=== PATIENT | male | born 1950 | race Caucasian/White ===

== ENCOUNTER → 2022-01-25 | Outpatient (CLI) | payer MEDICARE | END | disposition home or self-care (01) | LOC: LABWHC1 11:21 | PROVIDERS: ATTEND Radiology Radiation Oncology | DX: C61 Malignant neoplasm of prostate (principal) | CPT/HCPCS: 36415; 84153 ==

== ENCOUNTER → 2022-02-21 | Outpatient (CLI) | payer MEDICARE ==
[2022-02-21 14:36] LABS: Basophils # (A) 0.07 X 10*3/uL (0.00-0.10); Basophils % (A) 0.8 %; Eosinophils # (A) 0.63 X 10*3/uL (0.04-0.35); Eosinophils % (A) 7.5 %; HCT 47.6 % (39.6-50.0); HGB 15.4 g/dL (13.0-17.0); Immature Grans, Automated 0.7 %; Lymphocytes # (A) 2.16 X 10*3/uL (0.90-5.00); Lymphocytes % (A) 25.8 %; MCH 30.6 pg (27.0-32.0); MCHC 32.4 g/dL (32.0-37.0); MCV 94.6 fL (80.0-97.0); Mean Platelet Volume 9.8 fL (9.5-12.2); Monocytes # (A) 0.78 X 10*3/uL (0.20-1.00); Monocytes % (A) 9.3 %; NRBC Per 100 WBC 0 /100 WBCS (0.0-0.0); Neutrophils # (A) 4.67 X 10*3/uL (1.80-7.70); Neutrophils % (A) 55.9 %; Platelet Count 215 X 10*3/uL (140-440); RBC 5.03 X 10*6/uL (4.40-5.60); RDW 13.8 % (11.5-14.5); WBC 8.37 X 10*3/uL (4.50-10.00)
[2022-02-21 14:50] LABS: African American GFR (CKD) 90.8 (60.0-200.0); BUN/Creat Ratio 13.5 Ratio (12.00-20.00); Calcium 9.5 mg/dL (8.7-10.3); Carbon Dioxide 26.2 mmol/L (20.0-27.5); Non-African American GFR(CKD) 78.4 (60.0-200.0); Potassium 4.5 mmol/L (3.5-5.5)
== END | disposition home or self-care (01) ==
LOC: LABPAT 09:01
PROVIDERS: ATTEND Urology
DX: Z01.812 Encounter for preprocedural laboratory examination (principal); C61 Malignant neoplasm of prostate; E03.9 Hypothyroidism, unspecified
CPT/HCPCS: 80048; 84443; 85025

== ENCOUNTER 2022-03-01 12:19 | Day surgery (SDC) | payer MEDICARE ==
[2022-02-25 10:18] VITALS: BMI 41.3
--- NOTE | 2022-02-28 06:58 | P.GSHP ---
History of Present Illness H&P Date: 02/28/22 The patient is a 72-year-old white male with recently diagnosed prostate cancer. His PSA level is 7.00. BARBER reveals a left apical nodule, and 4 of 6 left-sided biopsies showed Lucero 6/7 adenocarcinoma. The right-sided biopsies were negative. He has elected to be treated with IMRT. He now comes for SpaceOAR implant to reduce the risk of radiation induced rectal toxicity. - Genitourinary (Male) Genitourinary: Reports nocturia, Denies urinary retention Past Medical History Past Medical History: Cancer, Hearing Disorder / Deafness, Hyperlipidemia, Thyroid Disorder Additional Past Medical History / Comment(s): Current prostate cancer. Bilateral hearing aid use. History of Any Multi-Drug Resistant Organisms: None Reported Past Surgical History: Tonsillectomy Past Anesthesia/Blood Transfusion Reactions: No Reported Reaction Past Psychological History: No Psychological Hx Reported Smoking Status: Never smoker Past Alcohol Use History: None Reported Past Drug Use History: None Reported - Past Family History Mother Additional Family Medical History / Comment(s): of blood clot to heart or lung. Medications and Allergies Home Medications Medication Instructions Recorded Confirmed Type Aspirin [Adult Low Dose Aspirin EC] 81 mg PO DAILY 02/25/22 02/25/22 History Atorvastatin Calcium 20 mg PO DAILY 02/25/22 02/25/22 History Levothyroxine Sodium [Synthroid] 50 mcg PO DAILY 02/25/22 02/25/22 History Allergies Allergy/AdvReac Type Severity Reaction Status Date / Time No Known Allergies Allergy Verified 02/25/22 10:04 Surgical - Exam - General well developed, well nourished, no distress - Neck no masses, trachea midline - Respiratory normal respiratory effort - Abdomen Abdomen: soft, non tender, no guarding, no rigid, no rebound - Genitourinary normal penis with no external lesions, testicles non-tender - Rectum Rectum: normal sphincter tone, no masses, other (Prostate mildly enlarged with left apical nodule) - Psychiatric oriented to time, oriented to person, oriented to place, speech is normal, memory intact Assessment and Plan (1) Malignant neoplasm of prostate Status: Acute Code(s): C61 - MALIGNANT NEOPLASM OF PROSTATE SNOMED Code(s): 777349107 Plan: The SpaceOar implant has been reviewed in detail with the patient. He understands that the rationale for this is to create separation between the prostate and rectum, thus reducing the risk of radiation proctitis. The material begins to breakdown 12-13 weeks following implant, and is reabsorbed by the body. Risks include anesthesia, bleeding, infection, and perineal discomfort. He understands that if the rectal wall is perforated the procedure will need to be aborted.
[~2022-03-01 12:19] MED LIST: DEXAMETHASONE SOD PHOSPHATE 4 MG/ML 1 ML VIAL IV ONE; HYDROmorphone 0.5 MG/0.5 ML SYRINGE IVP PRN; LACTATED RINGERS 1,000 ML IV SCH; LIDOCAINE 1% (10MG/ML) FOR IV START INTRADERMA PRN; ONDANSETRON 4 MG/2 ML VIAL IVP ONE
[2022-03-01 12:48] VITALS: TEMP 97.3
[2022-03-01] MEDS ORDERED: MIDAZOLAM 2 MG/2 ML VIAL ONE (13:50)
[2022-03-01] MEDS ORDERED: PROPOFOL 10 MG/ML 20 ML VIAL IV ONE (13:50)
[2022-03-01] MEDS ORDERED: KETAMINE 10 MG/ML 20 ML VIAL ONE (13:50)
[2022-03-01] MEDS ORDERED: fentaNYL (PF) 50 MCG/ML 2 ML AMP ONE (13:50)
[2022-03-01] MEDS ORDERED: LIDOCAINE 2% (PF) 20 MG/ML 10 ML AMP SQ ONE (14:05)
[2022-03-01] MEDS ORDERED: SODIUM CHLORIDE 0.9% 100 ML with ceFAZolin 2,000 MG IV ONE ×2 (14:05)
--- NOTE | 2022-03-01 14:19 | P.OP ---
Date of Procedure: 03/01/22 Preoperative Diagnosis: Adenocarcinoma the prostate Postoperative Diagnosis: Same Procedure(s) Performed: SpaceOAR Implant Anesthesia: MAC Surgeon: Benjamin Mcdonnell Estimated Blood Loss (ml): 5 IV fluids (ml): 300 Pathology: none sent Condition: stable Disposition: PACU Indications for Procedure: The patient is a 72-year-old white male with recently diagnosed prostate cancer. His PSA level is 7.00. BARBER reveals a left apical nodule, and 4 of 6 left-sided biopsies showed [place] 6/7 adenocarcinoma. The right-sided biopsies were negative. He has elected to be treated with IMRT. He now comes for SpaceOAR implant to reduce the risk of radiation induced rectal toxicity. Operative Findings: 10.7 mm separation created between prostate and rectum. Description of Procedure: The patient was taken to the operating room and placed in the dorsolithotomy position, with his legs supported in Cuong stirrups. The external genitalia was prepped and draped sterilely. The Bruel and Kjaer transrectal ultrasound probe was placed intrarectally. The prostate was imaged. The probe was then placed within the stabilizing stand. A spinal needle was advanced under ultrasonic guidance to the level of the urogenital diaphragm, and lidocaine was used to infiltrate the tissues as the needle was withdrawn. Next, the SpaceOAR needle was passed through the midline of the perineum, 1-2 cm anterior to the anal opening. The needle was slowly advanced under ultrasonic guidance until the needle tip was located within the fat plane between the prostate and rectum, at the level of the mid prostate gland. The needle was confirmed to be midline on the axial imaging. A small amount of normal saline was injected for hydrodissection. Next, the SpaceOAR components were mixed and loaded into the Y connector per protocol. The Y connector was then connected to the needle, and the components were injected slowly over a course of approximately 12 seconds. A total of 10 ml was injected. Significant distance was created between the prostate and rectum, as desired. It should be noted that at no point was there any concern of rectal perforation. The needle was withdrawn, as well as the transrectal ultrasound probe, and the procedure was terminated. The patient tolerated the procedure well and was taken to the recovery room in stable condition.
[2022-03-01 15:02] VITALS: RESP 20
[2022-03-01 15:46] VITALS: BP 127/70; PULSE 59
== END 2022-03-01 15:44 | disposition home or self-care (01) ==
LOC: OR 12:19
PROVIDERS: ATTEND Urology
DX: C61 Malignant neoplasm of prostate (principal); E78.5 Hyperlipidemia, unspecified; E07.9 Disorder of thyroid, unspecified
CPT/HCPCS: 55876; C1889; J2250; J1100; J2001; J2405; J0690; J3010; J2704

== ENCOUNTER 2022-09-20 10:35 | Day surgery (SDC) | payer MEDICARE ==
[~2022-09-20 10:35] MED LIST changes: -DEXAMETHASONE SOD PHOSPHATE 4 MG/ML 1 ML VIAL IV ONE; -HYDROmorphone 0.5 MG/0.5 ML SYRINGE IVP PRN; -ONDANSETRON 4 MG/2 ML VIAL IVP ONE
[2022-09-20] MEDS ORDERED: PROPOFOL 10 MG/ML 20 ML VIAL IV ONE (11:14)
[2022-09-20 11:15] VITALS: TEMP 97.7
--- NOTE | 2022-09-20 11:18 | P.GSHP ---
History of Present Illness H&P Date: 09/20/22 Chief Complaint: Abnormal stool studies 72-year-old male here for colonoscopy. Had recent abnormal cologuard test. Patient with history of prostate radiation for cancer. No bowel complaints. He does not see any rectal bleeding. No family history of colon cancer. He has never had a colonoscopy. Past Medical History Past Medical History: Asthma, Cancer, GERD/Reflux, Hearing Disorder / Deafness, Hyperlipidemia, Thyroid Disorder Additional Past Medical History / Comment(s): Inconclusive cologuard results, prostate cancer diagnosed 2021 with radiation, bilateral hearing aides History of Any Multi-Drug Resistant Organisms: None Reported Past Surgical History: Prostate Surgery, Tonsillectomy Additional Past Surgical History / Comment(s): Prostate biopsy and spacer placed for cancer Past Anesthesia/Blood Transfusion Reactions: No Reported Reaction Additional Past Anesthesia/Blood Transfusion Reaction / Comment(s): Pt has never received blood. Smoking Status: Never smoker - Past Family History Father Family Medical History: Congestive Heart Failure (CHF) Mother Family Medical History: CVA/TIA, Deep Vein Thrombosis (DVT) Medications and Allergies Home Medications Medication Instructions Recorded Confirmed Type Aspirin [Adult Low Dose Aspirin EC] 81 mg PO HS 02/25/22 09/20/22 History Atorvastatin Calcium 20 mg PO HS 02/25/22 09/20/22 History Levothyroxine Sodium [Synthroid] 50 mcg PO QAM 02/25/22 09/20/22 History Allergies Allergy/AdvReac Type Severity Reaction Status Date / Time No Known Allergies Allergy Verified 09/20/22 10:52 Surgical - Exam Vital Signs Temp Pulse Resp BP Pulse Ox 97.7 F 61 12 121/64 94 L 09/20/22 10:51 09/20/22 10:51 09/20/22 10:51 09/20/22 10:51 09/20/22 10:51 Physical exam: General: Well-developed, well-nourished HEENT: Normocephalic, sclerae nonicteric Abdomen: Nontender, nondistended Extremities: No edema Neuro: Alert and oriented Assessment and Plan (1) Abnormal stool test Narrative/Plan: Will proceed with colonoscopy at this time Current Visit: Yes Status: Acute Code(s): R19.5 - OTHER FECAL ABNORMALITIES SNOMED Code(s): 467608073
--- NOTE | 2022-09-20 11:35 | P.PCN ---
Date of Procedure: 09/20/22 Procedure(s) Performed: PREOPERATIVE DIAGNOSIS: Abnormal stool test POSTOPERATIVE DIAGNOSIS: Colon polyps, diverticulosis PROCEDURE: Colonoscopy with snare polypectomy ANESTHESIA: MAC SURGEON: Gui Raza M.D. SPECIMENS: Polyps ENDOSCOPIC PROCEDURE: The patient was placed on the endoscopy table in the left decubitus position. The Olympus colonoscope was inserted into the anus and passed under direct visualization to the base of the cecum. The appendiceal orifice was visualized. From that point the scope was slowly withdrawn inspecting all surfaces carefully. There were no neoplastic inflammatory or polypoid lesions throughout the cecum. In the ascending colon a small polyp was seen and removed using the snare with cautery technique. In the transverse colon 3 polyps were seen and removed in a similar fashion. The descending colon appeared normal. In the sigmoid colon at 38 cm a pedunculated polyp that appeared slightly hemorrhagic was removed using the snare with cautery technique. The remainder of the sigmoid was normal. In the rectum a small polyp was seen and removed using the snare with cautery technique. The patient had scattered diverticulosis as well. There was no evidence of proctitis. Digital rectal examination was normal. The patient was taken to the recovery room in stable condition per anesthesia guidelines. RECOMMENDATIONS: Await biopsy results. Recommend repeat colonoscopy 3 years pending pathology results.
[2022-09-20 11:52] VITALS: BP 108/68; PULSE 54; RESP 18
== END 2022-09-20 12:12 | disposition home or self-care (01) ==
LOC: ORWHC2ENDO 10:35
PROVIDERS: ATTEND Surgery
DX: D12.3 Benign neoplasm of transverse colon (principal); D12.5 Benign neoplasm of sigmoid colon; D12.8 Benign neoplasm of rectum; K57.30 Diverticulosis of large intestine without perforation or abscess without bleeding; J45.909 Unspecified asthma, uncomplicated; E03.9 Hypothyroidism, unspecified; E78.5 Hyperlipidemia, unspecified; K21.9 Gastro-esophageal reflux disease without esophagitis; H91.93 Unspecified hearing loss, bilateral; Z85.46 Personal history of malignant neoplasm of prostate; Z92.3 Personal history of irradiation; Z79.82 Long term (current) use of aspirin; Z79.890 Hormone replacement therapy
CPT/HCPCS: 88305; 45385; J2704

== ENCOUNTER → 2023-03-22 | Outpatient (CLI) | payer MEDICARE | END | disposition home or self-care (01) | LOC: LABWHC1 11:07 | PROVIDERS: ATTEND Radiology Radiation Oncology | DX: Z00.00 Encounter for general adult medical examination without abnormal findings (principal); C61 Malignant neoplasm of prostate; R35.1 Nocturia | CPT/HCPCS: 36415; 84153 ==

== ENCOUNTER → 2023-09-23 | Outpatient (CLI) | payer MEDICARE ==
[2023-09-23 13:12] LABS: Basophils # (A) 0.06 X 10*3/uL (0.00-0.10); Basophils % (A) 0.9 %; Eosinophils # (A) 0.28 X 10*3/uL (0.04-0.35); Eosinophils % (A) 4.2 %; HCT 48.1 % (39.6-50.0); HGB 15.8 g/dL (13.0-17.0); Lymphocytes # (A) 1.64 X 10*3/uL (0.90-5.00); Lymphocytes % (A) 24.9 %; MCH 30.7 pg (27.0-32.0); MCHC 32.8 g/dL (32.0-37.0); MCV 93.6 FL (80.0-97.0); Mean Platelet Volume 9.5 FL (9.5-12.2); Monocytes # (A) 0.67 X 10*3/uL (0.20-1.00); Monocytes % (A) 10.2 %; NRBC Per 100 WBC 0 X 10*3/uL (0.00-0.01); Neutrophils # (A) 3.89 X 10*3/uL (1.80-7.70); Platelet Count 205 X 10*3/uL (140-440); RBC 5.14 X 10*6/uL (4.40-5.60); RDW 14.1 % (11.5-14.5); WBC 6.59 X 10*3/uL (4.50-10.00)
[2023-09-23 13:48] LABS: Blood Urea Nitrogen 17.1 mg/dL (9.0-27.0); Carbon Dioxide 23.8 mmol/L (21.6-31.8); Chloride 106 mmol/L (96-109); Potassium 4.5 mmol/L (3.5-5.5); Prostate Specific Antigen 0.29 ng/mL (0.000-6.500); Sodium 139 mmol/L (135-145)
== END | disposition home or self-care (01) ==
LOC: LABPAT 07:43
PROVIDERS: ATTEND Internal Medicine Interventional Cardiology
DX: Z01.812 Encounter for preprocedural laboratory examination (principal); C61 Malignant neoplasm of prostate; R94.39 Abnormal result of other cardiovascular function study; R06.02 Shortness of breath; R35.1 Nocturia
CPT/HCPCS: 80051; 82565; 84153; 84520; 85025

== ENCOUNTER 2023-10-03 06:15 | Day surgery (SDC) | payer MEDICARE ==
[2023-10-03] MEDS ORDERED: ASPIRIN 325 MG TAB PO STA (06:42)
[2023-10-03] MEDS ORDERED: ALPRAZolam 0.5 MG TAB PO PRN (06:42)
[2023-10-03] MEDS ORDERED: NITROGLYCERIN SL TABS 0.4 MG TAB SUBLINGUAL PRN (06:42)
[2023-10-03] MEDS ORDERED: HEPARIN SODIUM,PORCINE (1 ML) 2,500 UNIT in SODIUM CHLORIDE 0.9% 250 ML IRRIGATION PRN (06:42)
[2023-10-03] MEDS ORDERED: SODIUM CHLORIDE 0.9% 1,000 ML in EMPTY BAG 1 BAG IV SCH (06:42)
[2023-10-03] MEDS ORDERED: ALPRAZolam 0.25 MG TAB PO PRN (06:42)
[2023-10-03] MEDS ORDERED: HEPARIN SODIUM,PORCINE 10,000 UNIT in SODIUM CHLORIDE 0.9% 1,000 ML IRRIGATION PRN (06:42)
[2023-10-03] MEDS: SODIUM CHLORIDE 0.9% 1,000 ML IV ONE (07:07)
[2023-10-03] MEDS ORDERED: VERAPAMIL 2.5 MG/ML 2 ML AMP ONE (07:14)
[2023-10-03] MEDS ORDERED: fentaNYL (PF) 50 MCG/ML 2 ML AMP ONE (07:14)
[2023-10-03] MEDS ORDERED: HEPARIN SODIUM,PORCINE 30 ML 30 ML ONE (07:14)
[2023-10-03] MEDS ORDERED: LIDOCAINE 1% INJ 10MG/ML (20 ML MDV) ONE (07:14)
[2023-10-03 07:50] VITALS: RESP 16; TEMP 97.7
[2023-10-03] MEDS: fentaNYL (PF) 50 MCG/1 ML VIAL IVP ONE (08:06)
[2023-10-03] MEDS: LIDOCAINE 2% (PF) 20 MG/ML 5 ML VIAL SQ ONE (08:06)
[2023-10-03] MEDS: VERAPAMIL 2.5 MG/ML 4 ML VIAL INTRAARTER ONE (08:06)
[2023-10-03] MEDS: HEPARIN SODIUM 1,000 UN/ML (10ML VL) IVP ONE (08:13)
[2023-10-03] MEDS: IOPAMIDOL-370 100ML BTL INTRATHECA ONE (08:26)
[2023-10-03] MEDS ORDERED: RX INFO: IV CONTRAST WAS GIVEN 1 EACH MISC MISCELLANE PRN (08:35)
--- NOTE | 2023-10-03 08:39 | P.CARDCATH ---
Date of Procedure: 10/03/23 Description of Procedure: Cardiac Catheterization: The patient is a 73-year-old male with a known history of hyperlipidemia who has been complaining of progressive dyspnea on exertion and had an abnormal MPI. Recommendations were made regarding cardiac catheterization, the risks and the complications were discussed with the patient who is in full understanding and agreement. Procedure Description: Patient was brought to label cutter in fasting semi-sedated state after receiving Fentanyl and Benadryl achieiving moderate conscious sedated state. Using Xylocaine Anesthesia and modified Seldinger technique, a 6-[place] sheath was introduced in the right radial artery . Subsequently, selective coronary angiography was performed using a 5-[place] 3.5 bend Magdiel catheter. Multiple views of the coronary artery including hemiaxial views were obtained. The 5 [place] pigtail catheter was used to cross the aortic valve and LVEDP was calculated. Following that, catheter and sheath were removed. Hemostasis was obtained with deployment of vascular band . There was no immediate complication. Patient was returned to room in stable condition. Of note, the patient received a total of 5000 units of intravenous heparin as well as intra-arterial verapamil. Findings: Left main: This is a short size vessel, bifurcating into LAD and left circumflex, left main has no obstructive disease LAD: This is a large size vessel, reaching to the apex, giving rise to a large diagonal branch, the LAD and its branches have no evidence of obstructive disease Left circumflex: This is a large codominant vessel giving rise to a very proximal obtuse marginal branch, the second obtuse marginal branch is in the midsegment. Distally bifurcating into PDA and PLV. The left circumflex and its branches have no evidence of obstructive disease. RCA: This is a codominant vessel, large in caliber, tortuous, giving rise to a r ight PDA distally, the right coronary artery and its branches have no obstructive disease Left Ventriculogram: Not performed Hemodynamics: There was a 12 to 14 mm peak to peak gradient across the aortic valve, LVEDP was 15-18 mmHg Conclusion: 1. No evidence of obstructive coronary disease 2. Codominant system 3. Mild aortic stenosis Recommendations: I have recommended to continue medical therapy with the aggressive coronary risks modification this been initiated. The findings and the recommendations were discussed with the patient and the family and they were in full understanding and agreement. Duration of sedation is 19 minutes.
[2023-10-03] MEDS ORDERED: SODIUM CHLORIDE 0.9% 1,000 ML IV SCH (08:45)
[2023-10-03 19:48] VITALS: BP 119/77; PULSE 66
[2023-10-03] MEDS ORDERED: ASPIRIN 81 MG PO SCH (21:00)
[2023-10-03] MEDS ORDERED: ATORVASTATIN 20 MG TAB PO SCH (21:00)
[2023-10-04] MEDS ORDERED: LEVOTHYROXINE 50 MCG TAB PO SCH (06:30)
== END 2023-10-03 12:37 | disposition home or self-care (01) ==
LOC: CATHCVL 06:15
PROVIDERS: ATTEND Internal Medicine Interventional Cardiology
DX: I35.0 Nonrheumatic aortic (valve) stenosis (principal); E78.5 Hyperlipidemia, unspecified; Z79.82 Long term (current) use of aspirin; Z79.899 Other long term (current) drug therapy; Z86.16 Personal history of COVID-19
CPT/HCPCS: 93458; 93799; 76937; 99152; C1769 ×2; C1894; J1644; Q9967; J2001; J3010

== ENCOUNTER → 2024-04-23 | Outpatient (CLI) | payer MEDICARE | END | disposition home or self-care (01) | LOC: LABWHC1 11:30 | PROVIDERS: ATTEND Radiology Radiation Oncology | DX: C61 Malignant neoplasm of prostate (principal); R35.1 Nocturia | CPT/HCPCS: 36415; 84153 ==

== ENCOUNTER 2024-05-02 08:09 | Inpatient (IN) | payer MEDICARE ==
--- NOTE | 2024-05-02 08:26 | ED ---
General Adult HPI - General Chief complaint: Shortness of Breath Stated complaint: SOB Time Seen by Provider: 05/02/24 08:12 Source: patient, RN notes reviewed Mode of arrival: wheelchair Limitations: no limitations - History of Present Illness Initial comments: Patient is a 74-year-old male presenting to the emergency department with concerns with difficulty breathing. Onset of symptoms was close to 2 months ago, worse the past 10 days. Patient does have nonproductive cough. No fever. Patient has exertional dyspnea and orthopnea. Patient has had some mild leg swelling since yesterday. Patient does have history of asthma and his doctor did start him on Augmentin 2 days ago. No calf pain. - Related Data Home Medications Medication Instructions Recorded Confirmed Aspirin [Adult Low Dose Aspirin EC] 81 mg PO HS 02/25/22 05/02/24 Atorvastatin Calcium 20 mg PO HS 02/25/22 05/02/24 Levothyroxine Sodium [Synthroid] 50 mcg PO DAILY 02/25/22 05/02/24 Albuterol Inhaler [Ventolin Hfa 2 puff INHALATION RT-Q4H PRN 05/02/24 05/02/24 Inhaler] Amoxic-Pot Clav 875-125Mg 1 tab PO Q12HR 05/02/24 05/02/24 [Augmentin 875-125] Allergies Allergy/AdvReac Type Severity Reaction Status Date / Time No Known Allergies Allergy Verified 05/02/24 08:15 Review of Systems ROS Statement: Those systems with pertinent positive or pertinent negative responses have been documented in the HPI. ROS Other: All systems not noted in ROS Statement are negative. Constitutional: Denies: fever Eyes: Denies: eye pain ENT: Denies: ear pain Respiratory: Reports: as per HPI, cough, dyspnea Cardiovascular: Reports: dyspnea on exertion, orthopnea, edema. Denies: chest pain Endocrine: Reports: fatigue Gastrointestinal: Denies: abdominal pain Musculoskeletal: Denies: back pain Past Medical History Past Medical History: Asthma, Cancer, GERD/Reflux, Hearing Disorder / Deafness, Hyperlipidemia, Thyroid Disorder Additional Past Medical History / Comment(s): Inconclusive cologuard results, prostate cancer diagnosed 2021 with radiation, bilateral hearing aides History of Any Multi-Drug Resistant Organisms: None Reported Past Surgical History: Prostate Surgery, Tonsillectomy Additional Past Surgical History / Comment(s): Prostate biopsy and spacer placed for cancer Past Anesthesia/Blood Transfusion Reactions: No Reported Reaction Additional Past Anesthesia/Blood Transfusion Reaction / Comment(s): Pt has never received blood. Past Psychological History: No Psychological Hx Reported Smoking Status: Never smoker Past Alcohol Use History: None Reported Past Drug Use History: None Reported - Past Family History Father Family Medical History: Congestive Heart Failure (CHF) Mother Family Medical History: CVA/TIA, Deep Vein Thrombosis (DVT) General Exam Limitations: no limitations General appearance: alert, in no apparent distress Head exam: Present: normocephalic Eye exam: Present: normal appearance Neck exam: Present: normal inspection Respiratory exam: Present: normal lung sounds bilaterally Cardiovascular Exam: Present: regular rate, normal rhythm GI/Abdominal exam: Present: soft. Absent: tenderness Extremities exam: Present: pedal edema (+1 bilateral). Absent: calf tenderness Neurological exam: Present: alert Psychiatric exam: Present: normal affect, normal mood Skin exam: Present: normal color Course Vital Signs 05/02/24 05/02/24 05/02/24 08:12 09:00 09:38 Temperature 98.1 F Pulse Rate 101 H 101 H 98 Respiratory 20 20 Rate Blood Pressure 116/67 O2 Sat by Pulse 85 L 90 L Oximetry 05/02/24 05/02/24 09:47 10:14 Temperature Pulse Rate 104 H 104 H Respiratory 19 Rate Blood Pressure 114/74 O2 Sat by Pulse 91 L Oximetry EKG Findings - EKG Results: EKG: interpreted by ERMD (Right bundle branch block. LVH criteria. T wave in version lead III.), sinus rhythm, normal axis Medical Decision Making - Medical Decision Making Was pt. sent in by a medical professional or institution (, PA, [employer], urgent care, hospital, or fci...) When possible be specific @ -No Did you speak to anyone other than the patient for history (EMS, parent, family, police, friend...)? What history was obtained from this source @ - is present and helps provide additional history including onset of symptoms Did you review nursing and triage notes (agree or disagree)? Why? @ -I reviewed and agree with nursing and triage notes Were old charts reviewed (outside hosp., previous admission, EMS record, old EKG, old radiological studies, urgent care reports/EKG's, fci records)? Report findings @ -Old outside chest x-ray without similar findings Differential Diagnosis (chest pain, altered mental status, abdominal pain women, abdominal pain men, vaginal bleeding, weakness, fever, dyspnea, syncope, headache, dizziness, GI bleed, back pain, seizure, CVA, palpatations, mental health, musculoskeletal)? @ -Differential Dyspnea: Coronary syndrome, arrhythmia, tamponade, asthma, COPD, pulmonary embolism, pneumonia, pneumothorax, pulmonary effusion, anaphylaxis, diabetic ketoacidosis, flailed chest, pulmonary contusion, diaphragmatic rupture, anemia, neuromuscular, this is not meant to be an all-inclusive list. EKG interpreted by me (3pts min.). @ -As above X-rays interpreted by me (1pt min.). @ -Chest x-ray shows diffuse fluffy infiltrate CT interpreted by me (1pt min.). @ -CT scan shows diffuse infiltrates, likely atypical pneumonia, cannot rule out pulmonary edema. No large central pulmonary embolism. U/S interpreted by me (1pt. min.). @ -None done What testing was considered but not performed or refused? (CT, X-rays, U/S, labs)? Why? @ -None What meds were considered but not given or refused? Why? @ -None Did you discuss the management of the patient with other professionals (professionals i.e. , PA, [employer], lab, RT, psych nurse, social media director, costume rental clerk, teacher, navy senior officer, correctional case records supervisor)? Give summary @ -Dr. Metcalf who will consult. Brendan physician paged. Case discussed with Dr. Bernal who will consult. Was smoking cessation discussed for >3mins.? @ -No Was critical care preformed (if so, how long)? @ -32 minutes critical care time Were there social determinants of health that impacted care today? How? (Homelessness, low income, unemployed, alcoholism, drug addiction, transportation, low edu. Level, literacy, decrease access to med. care, fdc, rehab)? @ -No Was there de-escalation of care discussed even if they declined (Discuss DNR or withdrawal of care, Hospice)? DNR status @ -No What co-morbidities impacted this encounter? (DM, HTN, Smoking, COPD, CAD, Cancer, CVA, ARF, Chemo, Hep., AIDS, mental health diagnosis, sleep apnea, morbid obesity)? @ -History of asthma. History of severe COVID-19 infection several years ago Was patient admitted / discharged? Hospital course, mention meds given and route, prescriptions, significant lab abnormalities, going to OR and other pertinent info. @ -Patient presents with dyspnea and hypoxia. X-ray and CAT scan concerning most likely for atypical pneumonia infection. Patient will be admitted with pulmonary and cardiac consult. Echo ordered. Admission orders placed. Undiagnosed new problem with uncertain prognosis? @ -No Drug Therapy requiring intensive monitoring for toxicity (Heparin, Nitro, Insulin, Cardizem)? @ -No Were any procedures done? @ -No Diagnosis/symptom? @ -Dyspnea, atypical pneumonia, hypoxia Acute, or Chronic, or Acute on Chronic? @ -Acute, acute, acute Uncomplicated (without systemic symptoms) or Complicated (systemic symptoms)? @ -Complicated with hypoxia requiring oxygen Side effects of treatment? @ -No Exacerbation, Progression, or Severe Exacerbation? @ -No Poses a threat to life or bodily function? How? (Chest pain, [place], [place], pneumonia, PE, COPD, DKA, ARF, appy, cholecystitis, CVA, Diverticulitis, Homicidal, Suicidal, threat to staff... and all critical care pts) @ -Threat to pulmonary function - Lab Data Result diagrams: 05/02/24 08:24 05/02/24 08:24 Lab Results 05/02/24 05/02/24 05/02/24 Range/Units 08:24 08:24 08:24 WBC 11.1 H (3.8-10.6) k/uL RBC 4.94 (4.30-5.90) m/uL Hgb 15.3 (13.0-17.5) gm/dL Hct 46.4 (39.0-53.0) % MCV 94.1 (80.0-100.0) fL MCH 31.1 (25.0-35.0) pg MCHC 33.0 (31.0-37.0) g/dL RDW 13.7 (11.5-15.5) % Plt Count 215 (150-450) k/uL MPV 7.2 Neutrophils % 82 % Lymphocytes % 9 % Monocytes % 5 % Eosinophils % 3 % Basophils % 0 % Neutrophils # 9.1 H (1.3-7.7) k/uL Lymphocytes # 1.0 (1.0-4.8) k/uL Monocytes # 0.5 (0-1.0) k/uL Eosinophils # 0.3 (0-0.7) k/uL Basophils # 0.1 (0-0.2) k/uL PT 11.5 (10.0-12.5) sec INR 1.1 (<1.2) APTT 22.6 (22.0-30.0) sec D-Dimer 4.25 H (<0.60) mg/L FEU Sodium 137 (137-145) mmol/L Potassium 4.7 (3.5-5.1) mmol/L Chloride 104 (98-107) mmol/L Carbon Dioxide 26 (22-30) mmol/L Anion Gap 7 mmol/L BUN 17 (9-20) mg/dL Creatinine 0.95 (0.66-1.25) mg/dL Est GFR (CKD-EPI)AfAm >90 (>60 ml/min/1.73 sqM) Est GFR (CKD-EPI)NonAf 79 (>60 ml/min/1.73 sqM) Glucose 110 H (74-99) mg/dL Plasma Lactic Acid Fausto (0.7-2.0) mmol/L Calcium 9.2 (8.4-10.2) mg/dL Magnesium 2.1 (1.6-2.3) mg/dL Total Bilirubin 1.2 (0.2-1.3) mg/dL AST 34 (17-59) U/L ALT 11 (4-49) U/L Alkaline Phosphatase 118 (38-126) U/L Troponin I (0.000-0.034) ng/mL NT-Pro-B Natriuret Pep 121 pg/mL Total Protein 6.7 (6.3-8.2) g/dL Albumin 3.6 (3.5-5.0) g/dL Influenza Type A (PCR) (Not Detectd) Influenza Type B (PCR) (Not Detectd) RSV (PCR) (Not Detectd) SARS-CoV-2 (PCR) (Not Detectd) 05/02/24 05/02/24 05/02/24 Range/Units 08:24 08:24 08:24 WBC (3.8-10.6) k/uL RBC (4.30-5.90) m/uL Hgb (13.0-17.5) gm/dL Hct (39.0-53.0) % MCV (80.0-100.0) fL MCH (25.0-35.0) pg MCHC (31.0-37.0) g/dL RDW (11.5-15.5) % Plt Count (150-450) k/uL MPV Neutrophils % % Lymphocytes % % Monocytes % % Eosinophils % % Basophils % % Neutrophils # (1.3-7.7) k/uL Lymphocytes # (1.0-4.8) k/uL Monocytes # (0-1.0) k/uL Eosinophils # (0-0.7) k/uL Basophils # (0-0.2) k/uL PT (10.0-12.5) sec INR (<1.2) APTT (22.0-30.0) sec D-Dimer (<0.60) mg/L FEU Sodium (137-145) mmol/L Potassium (3.5-5.1) mmol/L Chloride (98-107) mmol/L Carbon Dioxide (22-30) mmol/L Anion Gap mmol/L BUN (9-20) mg/dL Creatinine (0.66-1.25) mg/dL Est GFR (CKD-EPI)AfAm (>60 ml/min/1.73 sqM) Est GFR (CKD-EPI)NonAf (>60 ml/min/1.73 sqM) Glucose (74-99) mg/dL Plasma Lactic Acid Fausto 2.1 H* (0.7-2.0) mmol/L Calcium (8.4-10.2) mg/dL Magnesium (1.6-2.3) mg/dL Total Bilirubin (0.2-1.3) mg/dL AST (17-59) U/L ALT (4-49) U/L Alkaline Phosphatase (38-126) U/L Troponin I 0.100 H* (0.000-0.034) ng/mL NT-Pro-B Natriuret Pep pg/mL Total Protein (6.3-8.2) g/dL Albumin (3.5-5.0) g/dL Influenza Type A (PCR) Not Detected (Not Detectd) Influenza Type B (PCR) Not Detected (Not Detectd) RSV (PCR) Not Detected (Not Detectd) SARS-CoV-2 (PCR) Not Detected (Not Detectd) Critical Care Time Critical Care Time: Yes Disposition Clinical Impression: Atypical pneumonia Disposition: ADMITTED IP TO THIS [facility] Condition: Serious Is patient prescribed a controlled substance at d/c from ED?: No Referrals: Joann Llanes MD [Primary Care Provider] - 1-2 days Time of Disposition: 10:31
[2024-05-02 08:48] LABS: Basophils # (A) 0.1 k/uL (0-0.2); Basophils % (A) 0 %; Eosinophils # (A) 0.3 k/uL (0-0.7); Eosinophils % (A) 3 %; HCT 46.4 % (39.0-53.0); HGB 15.3 gm/dL (13.0-17.5); Lymphocytes % (A) 9 %; MCH 31.1 pg (25.0-35.0); MCV 94.1 fL (80.0-100.0); Mean Platelet Volume 7.2; Monocytes # (A) 0.5 k/uL (0-1.0); Monocytes % (A) 5 %; Neutrophils # (A) 9.1 k/uL (1.3-7.7); Neutrophils % (A) 82 %; Platelet Count 215 k/uL (150-450); RBC 4.94 m/uL (4.30-5.90); RDW 13.7 % (11.5-15.5); WBC 11.1 k/uL (3.8-10.6)
[2024-05-02 09:02] LABS: INR 1.1 (<1.2); Partial Thromboplastin Time 22.6 sec (22.0-30.0); Prothrombin Time 11.5 sec (10.0-12.5)
[2024-05-02 09:09] LABS: ALT 11 U/L (4-49); AST 34 U/L (17-59); African American GFR (CKD) >90 (>60 ml/min/1.73 sqM); Albumin 3.6 g/dL (3.5-5.0); Alkaline Phosphatase 118 U/L (38-126); Anion Gap 7 mmol/L; Blood Urea Nitrogen 17 mg/dL (9-20); Calcium 9.2 mg/dL (8.4-10.2); Carbon Dioxide 26 mmol/L (22-30); Chloride 104 mmol/L (98-107); Glucose 110 mg/dL (74-99); Magnesium 2.1 mg/dL (1.6-2.3); Non-African American GFR(CKD) 79 (>60 ml/min/1.73 sqM); Potassium 4.7 mmol/L (3.5-5.1); Sodium 137 mmol/L (137-145); Total Bilirubin 1.2 mg/dL (0.2-1.3); Total Protein 6.7 g/dL (6.3-8.2)
--- NOTE | 2024-05-02 09:13 | XR ---
EXAMINATION TYPE: XR chest 2V DATE OF EXAM: 05/02/2024 8:58 AM COMPARISON: 07/18/2010 CLINICAL INDICATION: Male, 74 years old with shortness of breath, history of difficulty breathing, , TECHNIQUE: PA and lateral views FINDINGS: The heart is borderline in size. Bilateral patchy and confluent airspace opacities are noted. Lateral view shows no significant pleural effusion. IMPRESSION: Patchy and confluent bilateral airspace disease. Correlate for multifocal pneumonia or pulmonary melodie a. [facility], , 05/02/2024 9:10 AM
[2024-05-02 09:16] LABS: NT-Pro-B-Type Natriuretic Pept 121 pg/mL
[2024-05-02] MEDS: IPRATROPIUM-ALBUTEROL 3 ML NEB INHALATION STA (09:37)
--- NOTE | 2024-05-02 10:03 | CT ---
EXAMINATION TYPE: CT angio chest DATE OF EXAM: 05/02/2024 COMPARISON: Radiograph same day HISTORY: 74 year-old male shortness of breath, TRISTON and elevated d-dimer TECHNIQUE: Contiguous axial scanning of the chest after the administration of 100ml mL of Isovue 370. Coronal/sagittal MIP reconstructions performed. CT DLP: 814.7mGycm. Automatic exposure control utilized for a dose reduction. FINDINGS: The heart is borderline enlarged without pericardial effusion. No refluxing contrast into the hepatic veins. There is moderate aortic valve calcifications. Mild atherosclerotic arch calcifications with conventi onal arch vessel branching anatomy. Some scattered prominent mediastinal lymph nodes measuring up to 1.4 cm in the lower right paratrache al region and 1.9 cm subcarinal probably reactive/post inflammatory. Large caliber main right and left pulmonary arteries measuring up to 3.5 cm. Assessment for pulmonary embolus is very limited and nondiagnostic given suboptimal contrast bolus and diffuse patient breath ing through the band. No large central branch pulmonary embolus. Lobar, segmental, and more distal ar terial branches are very limited nondiagnostic. There is diffuse groundglass and confluent bilateral airspace opacity. Septal lines in the upper lung s. No pleural effusion seen. Visualized upper abdomen shows a 1.7 cm gallstone. The anterior splenule. Bones: Large superior endplate Schmorl's node T10. IMPRESSION: 1. No large central branch pulmonary embolus. Assessment for emboli within the lobar, segmental, and more distal arterial branches is very limited to nondiagnostic and emboli in these locations cannot b e excluded on the basis of this exam. 2. Diffuse bilateral groundglass and airspace disease. Correlate for possible etiologies including bu t not limited to multifocal pneumonia, atypical pneumonias, hypersensitivity pneumonitis, and pulmona ry edema. 3. Pulmonary arterial hypertension. However, no pleural effusion is seen. 4. A few mediastinal lymph nodes are noted measuring up to 1.9 cm probably reactive/post inflammatory . Reassess at 3-6 months to ensure involution. 5. Incidental 1.7 cm gallstone. [facility], , 05/02/2024 10:01 AM
[2024-05-02] MEDS ORDERED: IPRATROPIUM-ALBUTEROL 3 ML NEB INHALATION PRN (10:24)
[2024-05-02] MEDS ORDERED: PNEUMONIA PROTOCOL UTILIZED 1 EACH MISC PO PRN (10:24)
[2024-05-02] MEDS: ASPIRIN 325 MG TAB PO SCH (10:31)
[2024-05-02] MEDS: AZITHROMYCIN 500 MG in SODIUM CHLORIDE 0.9% 250 ML IVPB STA (11:06)
[2024-05-02] MEDS ORDERED: PROCHLORPERAZINE 5 MG TAB PO PRN (11:14)
[2024-05-02] MEDS: IPRATROPIUM-ALBUTEROL 3 ML NEB INHALATION SCH (11:58)
--- NOTE | 2024-05-02 11:59 | P.HPIM ---
History of Present Illness H&P Date: 05/02/24 Patient is a 74 years old male with past medical history of asthma, hyperlipidemia, prostate cancer status postradiation, GERD, hypothyroidism, who presented with gradually worsening shortness of breath. Patient has been having shortness of breath for the past 4 to 6 weeks that got to the point when he became short of breath with short distance ambulation prompting him to come to the ER for evaluation. Patient was diagnosed with asthma years ago and was only on albuterol inhaler, denies intubations, denies asthma exacerbations in the past several years, he shared that he had COVID infection in 2021 after that he would sometimes get shortness of breath with exertion. Patient admits having orthopnea, no PND, there is associated chest tightness that usually comes together with SOB, denies chest pain, denies bowel habit changes, difficulties with urinations, fevers, chills, sick contact. He notes his bilateral feet swelling 05/01, no diet changes, they do not add salt to their meals, patient has not been eating well over the past couple days. In the ER patient was hypoxic down to 85% on room air and was placed on 4 L nasal cannula with SpO2 improvement, his blood pressure was normotensive, heart rate elevated 90s low 100s. Lab work significant for very mild leukocytosis 11.1, normal hemoglobin and platelets. Chemistry profile showed initially elevated lactate at 2.1, normal electrolytes, normal creatinine and GFR. Troponin elevated 0.1 viral panel negative. EKG personally reviewed, sinus, QTc normal, RBBB pattern, no ST elevation Of note, patient had heart cath on 10/03/2023 that showed no evidence of obstructive CAD, did show mild aortic stenosis. Chest x-ray reviewed personally and showed bilateral patchy opacities. CTA chest showed no PE, did reveal bilateral groundglass opacities signs of pulmonary arterial hypertension, mediastinal lymphadenopathy up to 1.9, follow-up in 3 to 6 months suggested by radiology. 1.7 cm incidental gallstone. Cardiology and pulmonology consulted by ER, patient was started on ceftriaxone and azithromycin, admitted for further management. Pertinent positives and negatives as discussed in HPI, a complete review of systems was performed and all other systems are negative. Patient seen and examined at bedside in the ER, patient's at bedside as well. Vital signs reviewed General: nontoxic, no distress, appears at stated age. Obese Derm: warm, dry Head: atraumatic, normocephalic, symmetric Eyes: EOMI, no lid lag, anicteric sclera, pupils equal round reactive to light ENT: Nose and ears atraumatic Neck: No thyromegaly, supple Mouth: no lip lesion, mucus membranes moist Cardiovascular: S1S2 reg, no murmur, 1+ lower extremity edema Lungs: Bilateral lower lobes Rales Abdominal: soft, distended, nontender to palpation, no guarding, no appreciable organomegaly Ext: no gross muscle atrophy, muscle strength muscle strength 5 out of 5 in all 4 extremities, no contractures Neuro: CN II-XII grossly intact Psych: Alert, oriented, appropriate affect Assessment/Plan: Acute hypoxic respiratory failure secondary to bilateral multifocal atypical community-acquired pneumonia Elevated troponin Leukocytosis -Continue azithromycin and ceftriaxone SOT 05/02 -Continue inhalers -Cardiology and pulmonology consulted by ER -Trend troponin -TTE ordered -Follow-up atypical pneumonia workup -Strict I's and O's, daily weights -continue aspirin 81, statins [Chronic:] Hyperlipidemia: Continue statins Hypothyroidism: Continue levothyroxine Obesity Chronic intermittent asthma: Continue inhalers The patient is admitted with an anticipated [greater] than 2 midnight stay as [inpatient/observation] status for evaluation of []. CODE STATUS full code DVT prophylaxis: Lovenox Anticipated discharge date: [address]: anticipate home independent A total of 40 mutes was spent on the care of this complex patient more than 50% of the time was spent in counseling and care coordination. Past Medical History Past Medical History: Asthma, Cancer, GERD/Reflux, Hearing Disorder / Deafness, Hyperlipidemia, Thyroid Disorder Additional Past Medical History / Comment(s): Inconclusive cologuard results, prostate cancer diagnosed 2021 with radiation, bilateral hearing aides History of Any Multi-Drug Resistant Organisms: None Reported Past Surgical History: Prostate Surgery, Tonsillectomy Additional Past Surgical History / Comment(s): Prostate biopsy and spacer placed for cancer Past Anesthesia/Blood Transfusion Reactions: No Reported Reaction Additional Past Anesthesia/Blood Transfusion Reaction / Comment(s): Pt has never received blood. Past Psychological History: No Psychological Hx Reported Smoking Status: Never smoker Past Alcohol Use History: None Reported Past Drug Use History: None Reported - Past Family History Father Family Medical History: Congestive Heart Failure (CHF) Mother Family Medical History: CVA/TIA, Deep Vein Thrombosis (DVT) Medications and Allergies Home Medications Medication Instructions Recorded Confirmed Type Aspirin [Adult Low Dose Aspirin EC] 81 mg PO HS 02/25/22 05/02/24 History Atorvastatin Calcium 20 mg PO HS 02/25/22 05/02/24 History Levothyroxine Sodium [Synthroid] 50 mcg PO DAILY 02/25/22 05/02/24 History Albuterol Inhaler [Ventolin Hfa 2 puff INHALATION RT-Q4H PRN 05/02/24 05/02/24 History Inhaler] Amoxic-Pot Clav 875-125Mg 1 tab PO Q12HR 05/02/24 05/02/24 History [Augmentin 875-125] Allergies Allergy/AdvReac Type Severity Reaction Status Date / Time No Known Allergies Allergy Verified 05/02/24 08:15 Physical Exam Vitals: Vital Signs Temp Pulse Resp BP Pulse Ox 05/02/24 11:35 84 20 113/74 95 05/02/24 10:38 99 20 104/72 90 L 05/02/24 10:14 104 H 19 114/74 91 L 05/02/24 09:47 104 H 05/02/24 09:38 98 05/02/24 09:00 101 H 20 90 L 05/02/24 08:12 98.1 F 101 H 20 116/67 85 L Intake and Output 05/01/24 05/02/24 05/02/24 22:59 06:59 14:59 Other: Weight 122.47 kg Results CBC & Chem 7: 05/02/24 08:24 05/02/24 08:24 Labs: Abnormal Lab Results - Last 24 Hours (Table) 05/02/24 05/02/24 05/02/24 Range/Units 08:24 08:24 08:24 WBC 11.1 H (3.8-10.6) k/uL Neutrophils # 9.1 H (1.3-7.7) k/uL D-Dimer 4.25 H (<0.60) mg/L FEU Glucose 110 H (74-99) mg/dL Plasma Lactic Acid Fausto (0.7-2.0) mmol/L Troponin I (0.000-0.034) ng/mL 05/02/24 05/02/24 Range/Units 08:24 08:24 WBC (3.8-10.6) k/uL Neutrophils # (1.3-7.7) k/uL D-Dimer (<0.60) mg/L FEU Glucose (74-99) mg/dL Plasma Lactic Acid Fausto 2.1 H* (0.7-2.0) mmol/L Troponin I 0.100 H* (0.000-0.034) ng/mL
--- NOTE | 2024-05-02 13:01 | P.CNPUL ---
History of Present Illness Consult date: 05/02/24 Requesting physician: Fior Hernandez Reason for consult: dyspnea, hypoxemia, abnormal CXR/CT Chief complaint: Shortness of breath, progressive weakness History of present illness: This is a very pleasant 74-year-old male patient with a known history of hyperlipidemia, hypothyroidism, mild intermittent chronic bronchial asthma, lifelong non-smoker who had presented here to the emergency room early this morning with a 2-week history of increasing shortness of breath cough and congestion. He also was having profound weakness. He did have some blood- tinged sputum 2 days ago. Most recently yellow in color. Chest x-ray reveals patchy and confluent bilateral airspace disease. CT angiogram ruled out central pulmonary embolism. Diffuse bilateral groundglass and airspace disease. Possible multifocal pneumonia, atypical pneumonia, hypersensitive pneumonitis and pulmonary edema. There is pulmonary arterial hypertension. No pleural effusion. A few mediastinal lymph nodes noted most likely reactive. White count 11.1. Hemoglobin 15.3. Platelets 215. D-dimer 4.25. INR 1.1. Sodium 1 37. Potassium 4.7. Bicarb 26. BUN 17. Creatinine 0.95. Glucose 110. Troponin 0.100. proBNP 121. Viral screen is negative. The patient is seen today in consultation in the emergency department. He is currently sitting up on the stretcher. He is awake and alert in no acute distress. He is dyspneic with conversation. Dyspneic with minimal exertion. Maintaining O2 saturations in the low 90s on 4 L/min per nasal cannula. He denies any recent travels. Denies any sick contacts. He is currently afebrile. Hemodynamically stable. Review of Systems REVIEW OF SYSTEMS: CONSTITUTIONAL: Positive for generalized weakness. Denies any recent significant weight loss or weight gain. EYES: Denies change in vision. EARS, NOSE, MOUTH, THROAT: Denies headaches, denies sore throat. CARDIOVASCULAR: Denies chest pain, palpitations or syncopal episodes. RESPIRATORY: Positive for shortness of breath, cough, congestion and hemoptysis. GASTROINTESTINAL: Denies change in appetite, denies abdominal pain GENITOURINARY: Denies hematuria, denies infections. MUSKULOSKELETAL: Denies pain, denies swelling. INTEGUMENTARY: Denies rash, denies eczema. NEUROLOGICAL: Denies recent memory loss, no recent seizure activity. PSYCHIATRIC: Denies anxiety, denies depression. HEMATOLOGIC/LYMPHATIC: Denies anemia, denies enlarged lymph nodes. Past Medical History Past Medical History: Asthma, Cancer, GERD/Reflux, Hearing Disorder / Deafness, Hyperlipidemia, Thyroid Disorder Additional Past Medical History / Comment(s): Inconclusive cologuard results, prostate cancer diagnosed 2021 with radiation, bilateral hearing aides History of Any Multi-Drug Resistant Organisms: None Reported Past Surgical History: Prostate Surgery, Tonsillectomy Additional Past Surgical History / Comment(s): Prostate biopsy and spacer placed for cancer Past Anesthesia/Blood Transfusion Reactions: No Reported Reaction Additional Past Anesthesia/Blood Transfusion Reaction / Comment(s): Pt has never received blood. Past Psychological History: No Psychological Hx Reported Smoking Status: Never smoker Past Alcohol Use History: None Reported Past Drug Use History: None Reported - Past Family History Father Family Medical History: Congestive Heart Failure (CHF) Mother Family Medical History: CVA/TIA, Deep Vein Thrombosis (DVT) Medications and Allergies Home Medications Medication Instructions Recorded Confirmed Type Aspirin [Adult Low Dose Aspirin EC] 81 mg PO HS 02/25/22 05/02/24 History Atorvastatin Calcium 20 mg PO HS 02/25/22 05/02/24 History Levothyroxine Sodium [Synthroid] 50 mcg PO DAILY 02/25/22 05/02/24 History Albuterol Inhaler [Ventolin Hfa 2 puff INHALATION RT-Q4H PRN 05/02/24 05/02/24 History Inhaler] Amoxic-Pot Clav 875-125Mg 1 tab PO Q12HR 05/02/24 05/02/24 History [Augmentin 875-125] Allergies Allergy/AdvReac Type Severity Reaction Status Date / Time No Known Allergies Allergy Verified 05/02/24 08:15 Physical Exam Vitals: Vital Signs Temp Pulse Resp BP Pulse Ox 05/02/24 12:12 112 H 18 102/66 90 L 05/02/24 12:11 105 H 05/02/24 11:58 93 05/02/24 11:35 84 20 113/74 95 05/02/24 10:38 99 20 104/72 90 L 05/02/24 10:14 104 H 19 114/74 91 L 05/02/24 09:47 104 H 05/02/24 09:38 98 05/02/24 09:00 101 H 20 90 L 05/02/24 08:12 98.1 F 101 H 20 116/67 85 L Intake and Output 05/01/24 05/02/24 05/02/24 22:59 06:59 14:59 Other: Weight 122.47 kg GENERAL EXAM: Alert, obese 74-year-old male, sitting up in a stretcher, on 4 L nasal cannula, fairly comfortable in no apparent distress. HEAD: Normocephalic. EYES: Normal reaction of pupils, equal size. NOSE: Clear with pink turbinates. THROAT: No erythema or exudates. NECK: No masses, no JVD. CHEST: No chest wall deformity. LUNGS: Equal air entry with bilateral scattered rhonchi. CVS: S1 and S2 normal with no audible murmur, regular rhythm. ABDOMEN: No hepatosplenomegaly, normal bowel sounds, no guarding or rigidity. SPINE: No scoliosis or deformity SKIN: No rashes CENTRAL NERVOUS SYSTEM: No focal deficits, tone is normal in all 4 extremities. EXTREMITIES: There is no peripheral edema. No clubbing, no cyanosis. Peripheral pulses are intact. Results - Laboratory Findings CBC and BMP: 05/02/24 08:24 05/02/24 08:24 PT/INR, D-dimer PT 11.5 sec (10.0-12.5) 05/02/24 08:24 INR 1.1 (<1.2) 05/02/24 08:24 D-Dimer 4.25 mg/L FEU (<0.60) H 05/02/24 08:24 Abnormal lab findings: Abnormal Labs 05/02/24 05/02/24 05/02/24 08:24 08:24 08:24 WBC 11.1 H Neutrophils # 9.1 H D-Dimer 4.25 H Glucose 110 H Plasma Lactic Acid Fausto Troponin I 05/02/24 05/02/24 08:24 08:24 WBC Neutrophils # D-Dimer Glucose Plasma Lactic Acid Fausto 2.1 H* Troponin I 0.100 H* - Diagnostic Findings Chest x-ray: image reviewed CT scan - chest: image reviewed Assessment and Plan Assessment: Acute hypoxemic respiratory failure secondary to bilateral multifocal pneumonia suspect community-acquired, possible atypical. Viral screen negative. Procalcitonin pending Generalized weakness secondary to above Leukocytosis secondary to above Troponin leak Morbid obesity with a BMI of 48 kg/m Hyperlipidemia Hypothyroidism History of mild intermittent chronic bronchial asthma Lifelong non-smoker Plan: The patient was seen and evaluated Imaging, labs and medications reviewed Continue ceftriaxone and azithromycin Continue DuoNeb inhalations Add Solu-Medrol Check a procalcitonin Check Legionella antigen Check mycoplasma Titrate the FiO2 as tolerated We will continue to follow and make further recommendations based on his clinical status I have personally seen and examined the patient, performed the documentation and the assessment and plan as written. Number of minutes spent on the visit: 20 Dictation was produced using eduPad dictation software. Please excuse any grammatical, word or spelling errors.
[2024-05-02] MEDS: methylPREDNISolone SOD SUCCI 125 MG/2 ML VIAL IV SCH (13:36)
--- NOTE | 2024-05-02 16:49 | CA ---
Transthoracic Echo Report Name: Mark Bob Age: 74 Gender: M : 1950 Exam Date: 05/02/2024 15:27 Exam Location: [facility] Ht (in): 69 Wt (lb): 270 Ordering Physician: Scott Richards DO Attending/Referring Phys: Sales And Service Agent Loulou Trevizo RDCS Procedure CPT: Indications: TRISTON Cardiac Hx: Technical Quality: Fair Contrast 1: Total Dose (mL): Contrast 2: Total Dose (mL): MEASUREMENTS (Male / Female) Normal Values 2D ECHO LV Diastolic Diameter PLAX 6.0 cm 4.2 - 5.9 / 3.9 - 5.3 cm LV Systolic Diameter PLAX 3.6 cm IVS Diastolic Thickness 1.3 cm 0.6 - 1.0 / 0.6 - 0.9 cm LVPW Diastolic Thickness 1.2 cm 0.6 - 1.0 / 0.6 - 0.9 cm LV Relative Wall Thickness 0.4 LVOT Diameter 2.4 cm LA Volume 60.4 cm??? 18 - 58 / 22 - 52 cm??? LA Volume Index 24.2 cm???/m??? 16 - 28 cm???/m??? Ascending Aorta Diameter 3.5 cm M-MODE LV Diastolic Diameter MM 6.6 cm 4.2 - 5.9 / 3.9 - 5.3 cm LV Systolic Diameter MM 4.5 cm LV Cardiac Index MM Teich 5175.3 cm???/min???m??? IVS Diastolic Thickness MM 1.6 cm 0.6 - 1.0 / 0.6 - 0.9 cm LVPW Diastolic Thickness MM 1.6 cm 0.6 - 1.0 / 0.6 - 0.9 cm LV Relative Wall Thickness MM 0.5 0.24 - 0.42 / 0.22 - 0.42 LV Mass Index MM 225.9 g/m??? 49 - 115 / 43 - 95 g/m??? DOPPLER AV Peak Velocity 295.1 cm/s AV Peak Gradient 34.8 mmHg AV Mean Velocity 218.8 cm/s AV Mean Gradient 21.3 mmHg AV Velocity Time Integral 53.9 cm LVOT Peak Velocity 91.7 cm/s LVOT Peak Gradient 3.4 mmHg LVOT Velocity Time Integral 15.6 cm LVOT Stroke Volume 68.7 cm??? LVOT Stroke Volume Index 29.3 ml/m??? LVOT Cardiac Index 2753.3 cm???/min???m??? AV Area Cont Eq vti 1.3 cm??? AV Area Cont Eq pk 1.4 cm??? MV Area PHT 5.0 cm??? Mitral E Point Velocity 67.9 cm/s Mitral A Point Velocity 81.5 cm/s Mitral E to A Ratio 0.8 MV Deceleration Time 151.6 ms TR Peak Velocity 334.6 cm/s TR Peak Gradient 44.8 mmHg Right Atrial Pressure 5.0 mmHg Pulmonary Artery Systolic Pressu 49.8 mmHg Right Ventricular Systolic Press 49.8 mmHg PV Peak Velocity 93.5 cm/s PV Peak Gradient 3.5 mmHg FINDINGS Left Ventricle Left ventricular ejection fraction is estimated at 55-60 %. Severely increased left ventricular mass. Mildly increased septal wall thickness. Moderately increased posterior wall thickness. Mildly decreased midwall fractional shortening. Mildly increased left ventricular diastolic diameter. Moderately increased left ventricular relative wall thickness. Right Ventricle Right ventricular dilatation with reduced function. Moderate pulmonary hypertension. Right Atrium Right atrium not well visualized. Left Atrium Mildly increased left atrial volume. Mildly increased left atrial area. Mitral Valve Structurally normal mitral valve. No evidence for mitral valve prolapse. No mitral stenosis. Trace mitral regurgitation. Aortic Valve Trileaflet aortic valve. Diffuse thickening of the aortic valve cusps with reduced excursion. No aortic regurgitation. Moderate aortic stenosis. Tricuspid Valve Structurally normal tricuspid valve. No tricuspid stenosis. Moderate tricuspid regurgitation. Pulmonic Valve Structurally normal pulmonic valve. No pulmonic stenosis. Mild pulmonic regurgitation. Pericardium No pericardial effusion. Aorta Normal size aortic root and proximal ascending aorta. CONCLUSIONS Concentric left ventricular hypertrophy with normal LV systolic function Moderate pulmonary hypertension with dilated right ventricle Mild left atrial enlargement Moderate tricuspid regurgitation Previewed by: Dr. Scout Amador MD (Electronically Signed) Final Date: 02 May 2024 16:48
[2024-05-02] MEDS: ATORVASTATIN 20 MG TAB PO SCH (19:52)
[2024-05-02] MEDS: FUROSEMIDE 10 MG/ML 4 ML VIAL IV STA (19:52)
[2024-05-02 20:09] LABS: ABG HCO3 24 mmol/L (21-25); ABG Oxygen Saturation 96.4 % (94-97); ABG PCO2 38 mmHg (35-45); ABG PO2 83 mmHg (83-108); ABG TCO2 25 mmol/L (19-24); Allen Test Performed? Yes
[2024-05-02] MEDS: LORazepam 1 MG TAB PO PRN (21:37)
[2024-05-03] MEDS: LEVOTHYROXINE 50 MCG TAB PO SCH (06:32)
[2024-05-03 07:15] LABS: Basophils % (A) 0 %; Eosinophils % (A) 0 %; HCT 45.1 % (39.0-53.0); HGB 14.4 gm/dL (13.0-17.5); Lymphocytes # (A) 0.6 k/uL (1.0-4.8); Lymphocytes % (A) 4 %; MCH 30.4 pg (25.0-35.0); MCHC 31.9 g/dL (31.0-37.0); MCV 95.2 fL (80.0-100.0); Mean Platelet Volume 7.2; Monocytes # (A) 0.6 k/uL (0-1.0); Monocytes % (A) 4 %; Neutrophils # (A) 15.3 k/uL (1.3-7.7); Neutrophils % (A) 92 %; Platelet Count 221 k/uL (150-450); RBC 4.74 m/uL (4.30-5.90); RDW 13.2 % (11.5-15.5); WBC 16.7 k/uL (3.8-10.6)
[2024-05-03 07:31] LABS: ALT 11 U/L (4-49); AST 43 U/L (17-59); African American GFR (CKD) >90 (>60 ml/min/1.73 sqM); Albumin 3.3 g/dL (3.5-5.0); Alkaline Phosphatase 109 U/L (38-126); Anion Gap 6 mmol/L; Blood Urea Nitrogen 21 mg/dL (9-20); Calcium 9.3 mg/dL (8.4-10.2); Carbon Dioxide 26 mmol/L (22-30); Chloride 103 mmol/L (98-107); Glucose 154 mg/dL (74-99); Magnesium 2.4 mg/dL (1.6-2.3); Non-African American GFR(CKD) 83 (>60 ml/min/1.73 sqM); Potassium 4.5 mmol/L (3.5-5.1); Sodium 135 mmol/L (137-145); Total Bilirubin 0.9 mg/dL (0.2-1.3); Total Protein 6.4 g/dL (6.3-8.2)
--- NOTE | 2024-05-03 08:11 | XR ---
EXAMINATION TYPE: XR chest 1V portable DATE OF EXAM: 05/03/2024 6:32 AM COMPARISON: 05/02/2024 CLINICAL INDICATION: Male, 74 years old with history of pneumonia, , FINDINGS: Heart upper limits of normal in size. Low lung volumes. Bilateral patchy and linear airspace opacitie s persist possibly with slight worsening on the left. IMPRESSION: Bilateral patchy and confluent airspace disease persists possibly with slight worsening on the left. [facility], , 05/03/2024 8:09 AM
[2024-05-03] MEDS: FUROSEMIDE 10 MG/ML 4 ML VIAL IV SCH (08:17)
[2024-05-03] MEDS: ENOXAPARIN 40 MG/0.4 ML SYRINGE SQ SCH (08:18)
[2024-05-03] MEDS: AZITHROMYCIN 500 MG TAB PO SCH (08:18)
[2024-05-03 09:53] LABS: Glucose,Whole Blood 157 mg/dL (70-110)
--- NOTE | 2024-05-03 10:22 | P.CRDCN ---
History of Present Illness History of present illness: HISTORY OF PRESENT ILLNESS: This is a 74-year-old male with a past medical history significant for normal coronary arteries, aortic stenosis, hyperlipidemia and hypothyroidism patient follows in the office with Dr. Asher. We have been asked to see the patient in consultation for CHF. Patient examined this morning. Patient is currently sitting up in the chair. Patient is on BiPAP at the time of examination with 80% FiO2. Patient states that on he started to get short of breath and noticed he had lower extremity edema. The patient continues to report shortness of breath this morning. He denies any chest pain or pressure. Patient was found to have pneumonia and is being treated with antibiotics. DIAGNOSTICS: - EKG reveals sinus mechanism with right bundle branch block - Chest xray patchy and confluent bilateral airspace disease. Correlate for multifocal pneumonia or pulmonary edema. - Laboratory data: WBC 16.7. Hemoglobin 14.4. Platelet count 221. Sodium 135. Potassium 4.5. BUN 21. Creatinine 0.91. Troponin 0.100. 0.110. 0.100. 0.111. 0.092. - Current home cardiac medications include aspirin 81 mg daily and atorvastatin 20 mg at night - Echocardiogram obtained this admission reveals ejection fraction 55 to 60%, LVH, mild left atrial enlargement, and moderate tricuspid regurgitation, moderate aortic stenosis. - Cardiac catheterization history: September 2023 revealing normal coronary arteries REVIEW OF SYSTEMS: At the time of my exam: CONSTITUTIONAL: Denies fever or chills. HEENT: Denies blurred vision, vision changes, or eye pain. Denies hemoptysis CARDIOVASCULAR: Denies chest pain. Denies orthopnea. Denies PND. Denies palpitations RESPIRATORY: + shortness of breath. GASTROINTESTINAL: Denies abdominal pain. Denies nausea or vomiting. HEMATOLOGIC: Denies bleeding disorders. GENITOURINARY: Denies any blood in urine. SKIN: Denies pruitis. Denies rash. PHYSICAL EXAM: VITAL SIGNS: Reviewed. GENERAL: Well-developed in no acute distress. HEENT: Head is normocephalic. Pupils are equal, round. Sclerae anicteric. Mucous membranes of the mouth are moist. Neck supple. No JVD or thyromegaly LUNGS: Respirations even and unlabored. Lungs essentially clear to auscultation bilaterally. HEART: Regular rate and rhythm. S1 and S2 heard. Systolic murmur noted ABDOMEN: Soft. Nondistended. Nontender. EXTREMITIES: Normal range of motion. No clubbing or cyanosis. Peripheral pulses intact. 2+ bilateral lower extremity edema NEUROLOGIC: Awake and alert. Oriented x 3. ASSESSMENT: Bilateral pneumonia Acute hypoxic respiratory failure requiring BiPAP Acute heart failure with preserved EF Elevated troponins, flat, likely type II PR secondary to oxygen supply/demand mismatch LVH Moderate aortic stenosis Normal coronary arteries, per cath 09/2023 Hyperlipidemia Hypothyroidism PLAN: 2D echo obtained and reviewed Resume home cardiac medications Add metoprolol succinate 12.5 mg daily Continue IV Lasix 40 mg every 12 hours for today. Recommending to change Lasix dose to once daily starting tomorrow Daily weights, accurate intake and output, and monitoring of kidney function Patient is being transferred to intensive care unit for closer monitoring Further recommendations pending patient course Nurse practitioner note has been reviewed by physician. Signing provider agrees with the documented findings, assessment, and plan of care documented by DATA MINER as a scribe. Past Medical History Past Medical History: Asthma, Cancer, GERD/Reflux, Hearing Disorder / Deafness, Hyperlipidemia, Thyroid Disorder Additional Past Medical History / Comment(s): Inconclusive cologuard results, prostate cancer diagnosed 2021 with radiation, bilateral hearing aides History of Any Multi-Drug Resistant Organisms: None Reported Past Surgical History: Prostate Surgery, Tonsillectomy Additional Past Surgical History / Comment(s): Prostate biopsy and spacer placed for cancer Past Anesthesia/Blood Transfusion Reactions: No Reported Reaction Additional Past Anesthesia/Blood Transfusion Reaction / Comment(s): Pt has never received blood. Past Psychological History: No Psychological Hx Reported Additional Psychological History / Comment(s): Pt resides with his spouse. Smoking Status: Never smoker Past Alcohol Use History: None Reported Past Drug Use History: None Reported - Past Family History Father Family Medical History: Congestive Heart Failure (CHF) Mother Family Medical History: CVA/TIA, Deep Vein Thrombosis (DVT) Medications and Allergies Home Medications Medication Instructions Recorded Confirmed Type Aspirin [Adult Low Dose Aspirin EC] 81 mg PO HS 02/25/22 05/02/24 History Atorvastatin Calcium 20 mg PO HS 02/25/22 05/02/24 History Levothyroxine Sodium [Synthroid] 50 mcg PO DAILY 02/25/22 05/02/24 History Albuterol Inhaler [Ventolin Hfa 2 puff INHALATION RT-Q4H PRN 05/02/24 05/02/24 History Inhaler] Amoxic-Pot Clav 875-125Mg 1 tab PO Q12HR 05/02/24 05/02/24 History [Augmentin 875-125] Allergies Allergy/AdvReac Type Severity Reaction Status Date / Time No Known Allergies Allergy Verified 05/02/24 08:15 Physical Exam Vitals: Vital Signs Temp Pulse Pulse Pulse Pulse Resp BP 05/03/24 06:40 30 H 05/03/24 04:31 80 38 H 05/03/24 03:51 05/02/24 23:55 05/02/24 23:13 25 H 05/02/24 22:57 98.6 F 100 38 H 05/02/24 20:23 112 H 05/02/24 20:14 114 H 05/02/24 19:59 111 H 30 H 05/02/24 19:46 05/02/24 19:44 114 H 28 H 05/02/24 19:33 108 H 28 H 05/02/24 18:55 109 H 05/02/24 18:36 98.3 F 107 H 19 119/64 05/02/24 16:06 05/02/24 16:05 106 H 05/02/24 16:00 98 22 106/59 05/02/24 15:53 90 05/02/24 15:31 22 05/02/24 15:00 93 40 H 99/58 05/02/24 13:26 94 19 94/58 05/02/24 12:12 112 H 18 102/66 05/02/24 12:11 105 H 05/02/24 11:58 93 05/02/24 11:35 84 20 113/74 05/02/24 10:38 99 20 104/72 05/02/24 10:14 104 H 19 114/74 05/02/24 09:47 104 H 05/02/24 09:38 98 05/02/24 09:00 101 H 20 05/02/24 08:40 96 28 H 05/02/24 08:12 98.1 F 101 H 20 116/67 BP Pulse Ox FiO2 05/03/24 06:40 90 L 80 05/03/24 04:31 113/73 92 L 80 05/03/24 03:51 80 05/02/24 23:55 80 05/02/24 23:13 05/02/24 22:57 107/66 60 05/02/24 20:23 05/02/24 20:14 05/02/24 19:59 134/82 95 60 05/02/24 19:46 60 05/02/24 19:44 91 L 05/02/24 19:33 87 L 05/02/24 18:55 135/79 86 L 05/02/24 18:36 90 L 05/02/24 16:06 88 L 05/02/24 16:05 05/02/24 16:00 96 05/02/24 15:53 05/02/24 15:31 05/02/24 15:00 89 L 05/02/24 13:26 98 05/02/24 12:12 90 L 05/02/24 12:11 05/02/24 11:58 05/02/24 11:35 95 05/02/24 10:38 90 L 05/02/24 10:14 91 L 05/02/24 09:47 05/02/24 09:38 05/02/24 09:00 90 L 05/02/24 08:40 81 L 05/02/24 08:12 85 L Intake and Output 05/02/24 05/03/24 05/03/24 22:59 06:59 14:59 Intake Total 360 Output Total 975 475 Balance -615 -475 Intake: Oral 360 Output: Urine 975 475 Other: Weight 122.47 kg 120.7 kg Results 05/03/24 06:10 05/03/24 06:10 Cardiac Enzymes 05/02/24 05/02/24 05/02/24 Range/Units 08:24 08:24 12:04 AST 34 (17-59) U/L Troponin I 0.100 H* 0.110 H* (0.000-0.034) ng/mL 05/02/24 05/02/24 05/02/24 Range/Units 14:41 17:55 23:00 AST (17-59) U/L Troponin I 0.120 H* 0.111 H* 0.092 H* (0.000-0.034) ng/mL 05/03/24 Range/Units 06:10 AST 43 (17-59) U/L Troponin I (0.000-0.034) ng/mL Coagulation 05/02/24 Range/Units 08:24 PT 11.5 (10.0-12.5) sec APTT 22.6 (22.0-30.0) sec CBC 05/02/24 05/03/24 Range/Units 08:24 06:10 WBC 11.1 H 16.7 H (3.8-10.6) k/uL RBC 4.94 4.74 (4.30-5.90) m/uL Hgb 15.3 14.4 (13.0-17.5) gm/dL Hct 46.4 45.1 (39.0-53.0) % Plt Count 215 221 (150-450) k/uL Comprehensive Metabolic Panel 05/02/24 05/03/24 Range/Units 08:24 06:10 Sodium 137 135 L (137-145) mmol/L Potassium 4.7 4.5 (3.5-5.1) mmol/L Chloride 104 103 (98-107) mmol/L Carbon Dioxide 26 26 (22-30) mmol/L BUN 17 21 H (9-20) mg/dL Creatinine 0.95 0.91 (0.66-1.25) mg/dL Glucose 110 H 154 H (74-99) mg/dL Calcium 9.2 9.3 (8.4-10.2) mg/dL AST 34 43 (17-59) U/L ALT 11 11 (4-49) U/L Alkaline Phosphatase 118 109 (38-126) U/L Total Protein 6.7 6.4 (6.3-8.2) g/dL Albumin 3.6 3.3 L (3.5-5.0) g/dL Current Medications Generic Name Dose Route Start Last Admin Trade Name Freq PRN Reason Stop Dose Admin Albuterol/Ipratropium 3 ml 05/02/24 12:00 05/02/24 20:12 Ipratropium-Albuterol 3 Ml Neb INHALATION 3 ml RT-QID ALEXANDRA Administration Albuterol/Ipratropium 3 ml 05/02/24 10:24 Ipratropium-Albuterol 3 Ml Neb INHALATION RT-Q4H PRN shortness of breath Aspirin 81 mg 05/03/24 21:00 Aspirin 81 Mg PO HS [facility] Atorvastatin Calcium 20 mg 05/02/24 21:00 05/02/24 19:52 Atorvastatin 20 Mg Tab PO 20 mg HS ALEXANDRA Administration Azithromycin 500 mg 05/03/24 09:00 Azithromycin 500 Mg Tab PO 05/04/24 09:01 DAILY ALEXANDRA Protocol Enoxaparin Sodium 40 mg 05/03/24 09:00 Enoxaparin 40 Mg/0.4 Ml Syringe SQ DAILY ALEXANDRA Furosemide 40 mg 05/03/24 09:00 Furosemide 10 Mg/Ml 4 Ml Vial IV Q12HR [facility] Ceftriaxone Sodium 2 gm/ 50 mls @ 100 mls/hr 05/03/24 09:00 Sodium Chloride IVPB 05/06/24 09:29 Q24HR [facility] Protocol Levothyroxine Sodium 50 mcg 05/03/24 06:30 05/03/24 06:32 Levothyroxine 50 Mcg Tab PO 50 mcg DAILY@0630 ALEXANDRA Administration Lorazepam 1 mg 05/02/24 21:06 05/02/24 21:37 Lorazepam 1 Mg Tab PO 1 mg Q12HR PRN Administration Anxiety Methylprednisolone Sodium Succinate 60 mg 05/02/24 14:00 05/03/24 01:52 Methylprednisolone Sod Succi 125 Mg/2 Ml Vial IV 60 mg Q6H ALEXANDRA Administration Miscellaneous Information 1 each 05/02/24 10:24 Pneumonia Protocol Utilized 1 Each Misc PO ONCE PRN Per Protocol Prochlorperazine Maleate 5 mg 05/02/24 11:14 Prochlorperazine 5 Mg Tab PO Q8HR PRN Nausea And Vomiting Intake and Output 05/02/24 05/03/24 05/03/24 22:59 06:59 14:59 Intake Total 360 Output Total 975 280 Balance -110 -455 Intake: Oral 360 Output: Urine 975 475 Other: Weight 122.47 kg 120.7 kg 05/03/24 06:10 05/03/24 06:10
[2024-05-03] MEDS: METOPROLOL SUCCINATE (ER) 25 MG TAB.ER.24H PO SCH (10:58)
--- NOTE | 2024-05-03 11:22 | P.PN ---
Subjective Progress Note Date: 05/03/24 Hospital Course: chantel is a 74 years old male with past medical history of asthma, hyperlipide carlito, prostate cancer status postradiation, GERD, hypothyroidism, who presented with gradually worsening shortness of breath. Patient has been having shortness of breath for the past 4 to 6 weeks that got to the point when he became short of breath with short distance ambulation prompting him to come to the ER for evaluation. Patient was diagnosed with asthma years ago and was only on albuterol inhaler, denies intubations, denies asthma exacerbations in the past several years, he shared that he had COVID infection in 2021 after that he would sometimes get shortness of breath with exertion. Patient admits having orthopnea, no PND, there is associated chest tightness that usually comes together with SOB, denies chest pain, denies bowel habit changes, difficulties with urinations, fevers, chills, sick contact. He notes his bilateral feet swelling 05/01, no diet changes, they do not add salt to their meals, patient has not been eating well over the past couple days. In the ER patient was hypoxic down to 85% on room air and was placed on 4 L nasal cannula with SpO2 improvement, his blood pressure was normotensive, heart rate elevated 90s low 100s. Lab work significant for very mild leukocytosis 11.1, normal hemoglobin and platelets. Chemistry profile showed initially elevated lactate at 2.1, normal electrolytes, normal creatinine and GFR. Troponin elevated 0.1 viral panel negative. Of note, patient had heart cath on 10/03/2023 that showed no evidence of obstructive CAD, did show mild aortic stenosis. Chest x-ray reviewed personally and showed bilateral patchy opacities. CTA chest showed no PE, did reveal bilateral groundglass opacities signs of pulmonary arterial hypertension, mediastinal lymphadenopathy up to 1.9, follow-up in 3 to 6 months suggested by radiology. 1.7 cm incidental gallstone. Cardiology and pulmonology consulted by ER, patient was started on ceftriaxone and azithromycin, admitted for further management. TTE was obtained and showed EF of 55%, LVH, mild left atrial enlargement, moderate tricuspid regurg, moderate aortic stenosis. 05/03 overnight patient became hypoxic and requiring BiPAP, decision was made to transfer patient to ICU for closer monitoring, he was continued on antibiotics, started on Solu-Medrol 60 mg every 6 hours, Lasix 40 IV twice daily., Added metoprolol 12.5 twice daily. Pertinent Imaging: Chest x-ray 04/26 7 AM reviewed and looked worse especially on the left side, persistent bilateral opacities Subjective: Was seen and examined at bedside, wearing BiPAP, he states that his SOB is pretty stable, he is coughing up sputum with pinkish strips Pertinent positives and negatives as discussed above, a complete review of systems was performed and all other systems are negative. Vitals Signs Reviewed. General: [nontoxic], [no distress], [appears at stated age], obese Derm: [warm], [dry] Head: [atraumatic], [normocephalic], [symmetric] Eyes: [EOMI], [no lid lag], [anicteric sclera] Mouth: [no lip lesion], [mucus membranes moist] Cardiovascular: [S1S2 reg], [no murmur] Lungs: In respiratory distress, bilateral fine Rales Abdominal: [soft], [ nontender to palpation], [no guarding], [no appreciable organomegaly] Ext: [no gross muscle atrophy], lateral 1+ lower extremity edema], [no contractures] Neuro: [ CN II-XI grossly intact], [no focal neuro deficits] Psych: [Alert], [oriented], [appropriate affect] Data Reviewed Today: Pertinent Labs: Leukocytosis 11.1 increased to 16.7 likely in the settings of high steroid doses, hemoglobin stable and normal, sodium 135, normal potassium, creatinine is normal, glucose is well-controlled, troponins flattened now 0.092, elevated CRP 20.7 Assessment and Plan: Acute hypoxic respiratory failure secondary to bilateral multifocal atypical community-acquired pneumonia Mediastinal lymphadenopathy Acute HFpEF exacerbation Moderate pulmonary hypertension Elevated troponin likely secondary to demand ischemia Leukocytosis -Continue azithromycin and ceftriaxone SOT 05/02 -Continue inhalers -Cardiology and pulmonology consulted by ER -Continue Solu-Medrol 60 every 6 -Continue IV Lasix 40 twice daily -TTE reviewed as above -Follow-up atypical pneumonia workup, Legionella negative so far -Strict I's and O's, daily weights -continue aspirin 81, statins -Metoprolol 12.5 twice daily ordered by cardiology -Continue BiPAP, wean off as tolerated -Continue monitoring in ICU -Repeat CT chest in 3 to 6 months to follow-up mediastinal lymphadenopathy [Chronic:] Hyperlipidemia: Continue statins Hypothyroidism: Continue levothyroxine Obesity DVT ppx: lovenox Anticipated discharge place: tbd Anticipated discharge time: 48 hours or more Objective - Vital Signs Vital signs: Vital Signs Temp 98.6 F 05/02/24 22:57 Pulse 100 05/03/24 08:56 Resp 47 H 05/03/24 08:04 BP 118/65 05/03/24 08:04 Pulse Ox 92 L 05/03/24 08:04 FiO2 80 05/03/24 08:40 Intake & Output 05/02/24 05/03/24 05/03/24 18:59 06:59 18:59 Intake Total 360 Output Total 1450 1025 Balance -1090 -1025 Weight 122.47 kg 120.7 kg Intake: Oral 360 Output: Urine 1450 1025 Other: Voiding Method Urinal - Labs CBC & Chem 7: 05/03/24 06:10 05/03/24 06:10 Labs: Abnormal Lab Results - Last 24 Hours (Table) 05/02/24 05/02/24 05/02/24 Range/Units 12:04 14:41 17:55 WBC (3.8-10.6) k/uL Neutrophils # (1.3-7.7) k/uL Lymphocytes # (1.0-4.8) k/uL ESR (0-20) mm/Hr ABG Total CO2 (19-24) mmol/L Sodium (137-145) mmol/L BUN (9-20) mg/dL Glucose (74-99) mg/dL POC Glucose (mg/dL) (70-110) mg/dL Magnesium (1.6-2.3) mg/dL Troponin I 0.110 H* 0.120 H* 0.111 H* (0.000-0.034) ng/mL C-Reactive Protein (<1.0) mg/dL Albumin (3.5-5.0) g/dL 05/02/24 05/02/24 05/03/24 Range/Units 20:06 23:00 06:10 WBC 16.7 H (3.8-10.6) k/uL Neutrophils # 15.3 H (1.3-7.7) k/uL Lymphocytes # 0.6 L (1.0-4.8) k/uL ESR (0-20) mm/Hr ABG Total CO2 25 H (19-24) mmol/L Sodium (137-145) mmol/L BUN (9-20) mg/dL Glucose (74-99) mg/dL POC Glucose (mg/dL) (70-110) mg/dL Magnesium (1.6-2.3) mg/dL Troponin I 0.092 H* (0.000-0.034) ng/mL C-Reactive Protein (<1.0) mg/dL Albumin (3.5-5.0) g/dL 05/03/24 05/03/24 05/03/24 Range/Units 06:10 06:10 06:10 WBC (3.8-10.6) k/uL Neutrophils # (1.3-7.7) k/uL Lymphocytes # (1.0-4.8) k/uL ESR 74 H (0-20) mm/Hr ABG Total CO2 (19-24) mmol/L Sodium 135 L (137-145) mmol/L BUN 21 H (9-20) mg/dL Glucose 154 H (74-99) mg/dL POC Glucose (mg/dL) (70-110) mg/dL Magnesium 2.4 H (1.6-2.3) mg/dL Troponin I (0.000-0.034) ng/mL C-Reactive Protein 20.7 H (<1.0) mg/dL Albumin 3.3 L (3.5-5.0) g/dL 05/03/24 Range/Units 09:51 WBC (3.8-10.6) k/uL Neutrophils # (1.3-7.7) k/uL Lymphocytes # (1.0-4.8) k/uL ESR (0-20) mm/Hr ABG Total CO2 (19-24) mmol/L Sodium (137-145) mmol/L BUN (9-20) mg/dL Glucose (74-99) mg/dL POC Glucose (mg/dL) 157 H (70-110) mg/dL Magnesium (1.6-2.3) mg/dL Troponin I (0.000-0.034) ng/mL C-Reactive Protein (<1.0) mg/dL Albumin (3.5-5.0) g/dL
--- NOTE | 2024-05-03 12:25 | P.PN ---
Subjective Progress Note Date: 05/03/24 Principal diagnosis: Acute hypoxic respiratory failure secondary to bilateral multifocal pneumonia, atypical. This is a very pleasant 74-year-old male patient with a known history of hyperlipidemia, hypothyroidism, mild intermittent chronic bronchial asthma, lifelong non-smoker who had presented here to the emergency room early this morning with a 2-week history of increasing shortness of breath cough and congestion. He also was having profound weakness. He did have some blood- tinged sputum 2 days ago. Most recently yellow in color. Chest x-ray reveals patchy and confluent bilateral airspace disease. CT angiogram ruled out central pulmonary embolism. Diffuse bilateral groundglass and airspace disease. Possible multifocal pneumonia, atypical pneumonia, hypersensitive pneumonitis and pulmonary edema. There is pulmonary arterial hypertension. No pleural effusion. A few mediastinal lymph nodes noted most likely reactive. White count 11.1. Hemoglobin 15.3. Platelets 215. D-dimer 4.25. INR 1.1. Sodium 137. Potassium 4.7. Bicarb 26. BUN 17. Creatinine 0.95. Glucose 110. Troponin 0.100. proBNP 121. Viral screen is negative. The patient is seen today in consultation in the emergency department. He is currently sitting up on the stretcher. He is awake and alert in no acute distress. He is dyspneic with conversation. Dyspneic with minimal exertion. Maintaining O2 saturations in the low 90s on 4 L/min per nasal cannula. He denies any recent travels. Denies any sick contacts. He is currently afebrile. Hemodynamically stable. Was seen today on 05/03/2024, patient required placement on BiPAP at 80% 10/ overnight, remains marginal, ABG was noted yesterday on BiPAP, patient has been receiving Lasix and has been receiving antibiotics and steroids. Patient states that he is slightly better today, but nonetheless continues to have shortness of breath and intermittent cough. Antibiotics pierce remains on Rocephin and Zithromax empirically although his procalcitonin level is 0.15. Chest x-ray is not showing much improvement, as [id number] may be a bit worse today. I am surprised that the patient is clinically feeling better, but considering his status being marginal, I transferred the patient to the ICU this morning for close monitoring and if patient deteriorates may require intubation mechanical ventilation. In the meantime he is holding his own on BiPAP at 80%.WBC count is 16.7 hemoglobin 14.4, ABG last night showed a pO2 of 83 pCO2 38 and pH of 7.40 and this was on FiO2 of 60%/BiPAP. Basic metabolic profile is basically normal, procalcitonin level is normal BNP level is normal sed rate, TONE, c-ANCA are all pending Objective - Vital Signs Vital signs: Vital Signs Temp 98.1 F 05/03/24 09:50 Pulse 79 05/03/24 12:10 Resp 26 H 05/03/24 11:00 BP 112/83 05/03/24 11:00 Pulse Ox 92 L 05/03/24 11:00 FiO2 80 05/03/24 11:56 Intake & Output 05/02/24 05/03/24 05/03/24 18:59 06:59 18:59 Intake Total 360 0 Output Total 1450 1025 Balance -1090 -1025 Weight 122.47 kg 120.7 kg Intake: Oral 360 0 Output: Urine 1450 1025 Other: Voiding Method Urinal - Exam GENERAL EXAM: Revealed 74-year-old white male obese in no distress however he is on BiPAP at 80% FiO2 HEAD: Normocephalic. EYES: Normal reaction of pupils, equal size. NOSE: Clear with pink turbinates. THROAT: No erythema or exudates. NECK: No masses, no JVD. CHEST: No chest wall deformity. LUNGS: Fine crackles at the bases no rhonchi no wheezes CVS: S1 and S2 normal with no audible murmur, regular rhythm. ABDOMEN: No hepatosplenomegaly, normal bowel sounds, no guarding or rigidity. SKIN: No rashes CENTRAL NERVOUS SYSTEM: Alert and oriented x 3 no gross focal deficit EXTREMITIES: No clubbing edema or cyanosis. - Labs CBC & Chem 7: 05/03/24 06:10 05/03/24 06:10 Labs: Abnormal Lab Results - Last 24 Hours (Table) 05/02/24 05/02/24 05/02/24 Range/Units 12:04 14:41 17:55 WBC (3.8-10.6) k/uL Neutrophils # (1.3-7.7) k/uL Lymphocytes # (1.0-4.8) k/uL ESR (0-20) mm/Hr ABG Total CO2 (19-24) mmol/L Sodium (137-145) mmol/L BUN (9-20) mg/dL Glucose (74-99) mg/dL POC Glucose (mg/dL) (70-110) mg/dL Magnesium (1.6-2.3) mg/dL Troponin I 0.110 H* 0.120 H* 0.111 H* (0.000-0.034) ng/mL C-Reactive Protein (<1.0) mg/dL Albumin (3.5-5.0) g/dL 05/02/24 05/02/24 05/03/24 Range/Units 20:06 23:00 06:10 WBC 16.7 H (3.8-10.6) k/uL Neutrophils # 15.3 H (1.3-7.7) k/uL Lymphocytes # 0.6 L (1.0-4.8) k/uL ESR (0-20) mm/Hr ABG Total CO2 25 H (19-24) mmol/L Sodium (137-145) mmol/L BUN (9-20) mg/dL Glucose (74-99) mg/dL POC Glucose (mg/dL) (70-110) mg/dL Magnesium (1.6-2.3) mg/dL Troponin I 0.092 H* (0.000-0.034) ng/mL C-Reactive Protein (<1.0) mg/dL Albumin (3.5-5.0) g/dL 05/03/24 05/03/24 05/03/24 Range/Units 06:10 06:10 06:10 WBC (3.8-10.6) k/uL Neutrophils # (1.3-7.7) k/uL Lymphocytes # (1.0-4.8) k/uL ESR 74 H (0-20) mm/Hr ABG Total CO2 (19-24) mmol/L Sodium 135 L (137-145) mmol/L BUN 21 H (9-20) mg/dL Glucose 154 H (74-99) mg/dL POC Glucose (mg/dL) (70-110) mg/dL Magnesium 2.4 H (1.6-2.3) mg/dL Troponin I (0.000-0.034) ng/mL C-Reactive Protein 20.7 H (<1.0) mg/dL Albumin 3.3 L (3.5-5.0) g/dL 05/03/24 Range/Units 09:51 WBC (3.8-10.6) k/uL Neutrophils # (1.3-7.7) k/uL Lymphocytes # (1.0-4.8) k/uL ESR (0-20) mm/Hr ABG Total CO2 (19-24) mmol/L Sodium (137-145) mmol/L BUN (9-20) mg/dL Glucose (74-99) mg/dL POC Glucose (mg/dL) 157 H (70-110) mg/dL Magnesium (1.6-2.3) mg/dL Troponin I (0.000-0.034) ng/mL C-Reactive Protein (<1.0) mg/dL Albumin (3.5-5.0) g/dL Assessment and Plan Assessment: Patient: Acute hypoxemic respiratory failure secondary to bilateral multifocal pneumonia, atypical patient had negative screening for COVID-19 infection negative influenza and negative RSV Generalized weakness secondary to above Leukocytosis secondary to above Troponin leak Morbid obesity with a BMI of 48 kg/m Hyperlipidemia Hypothyroidism History of mild intermittent chronic bronchial asthma Lifelong non-smoker Recommendation: Continue to monitor the patient in the ICU Continue BiPAP and titrate FiO2 accordingly Continue GI DVT prophylaxis Continue antibiotics Rocephin and Zithromax Awaiting blood cultures and sputum cultures patient had negative screening for Legionella Continue bronchodilators Continue steroids Ordered serum TONE, c-ANCA, sed rate, CRP, those are pending Explained to the patient that his condition is marginal, and if he gets any worse may require intubation mechanical ventilation and if that happens I would definitely recommend bronchoscopy and BAL. Patient is marginal at best, Will continue to follow Time with Patient: Less than 30
[2024-05-03] MEDS: SPIRONOLACTONE 25 MG TAB PO SCH (15:57)
[2024-05-03 16:26] LABS: Chol/HDL Ratio 3.01 Ratio; LDL Cholesterol,Calculated 102.2 mg/dL (0.0-131.0); VLDL Calculation 11.44 mg/dL (5.00-40.00)
[2024-05-03] MEDS: ASPIRIN 81 MG PO SCH (20:54)
[2024-05-04 06:39] LABS: Basophils % (A) 0 %; Eosinophils # (A) 0.1 k/uL (0-0.7); Eosinophils % (A) 0 %; HCT 47.2 % (39.0-53.0); HGB 15.3 gm/dL (13.0-17.5); Lymphocytes # (A) 0.6 k/uL (1.0-4.8); Lymphocytes % (A) 3 %; MCH 30.5 pg (25.0-35.0); MCHC 32.4 g/dL (31.0-37.0); MCV 94.1 fL (80.0-100.0); Mean Platelet Volume 7.3; Monocytes # (A) 0.8 k/uL (0-1.0); Monocytes % (A) 5 %; Neutrophils # (A) 16.5 k/uL (1.3-7.7); Neutrophils % (A) 91 %; Platelet Count 288 k/uL (150-450); RBC 5.01 m/uL (4.30-5.90); RDW 13.6 % (11.5-15.5); WBC 18.1 k/uL (3.8-10.6)
[2024-05-04 07:02] LABS: ALT 16 U/L (4-49); AST 48 U/L (17-59); African American GFR (CKD) 81 (>60 ml/min/1.73 sqM); Albumin 3.5 g/dL (3.5-5.0); Alkaline Phosphatase 125 U/L (38-126); Anion Gap 8 mmol/L; Blood Urea Nitrogen 39 mg/dL (9-20); Calcium 9.5 mg/dL (8.4-10.2); Carbon Dioxide 30 mmol/L (22-30); Chloride 100 mmol/L (98-107); Glucose 149 mg/dL (74-99); Magnesium 2.7 mg/dL (1.6-2.3); Non-African American GFR(CKD) 70 (>60 ml/min/1.73 sqM); Potassium 4.6 mmol/L (3.5-5.1); Sodium 138 mmol/L (137-145); Total Protein 6.7 g/dL (6.3-8.2)
--- NOTE | 2024-05-04 07:41 | XR ---
EXAMINATION TYPE: XR chest 1V DATE OF EXAM: 05/04/2024 5:26 AM COMPARISON: Chest radiograph from one day prior. CLINICAL INDICATION: Male, 74 years old with history of bipap; [facility] TECHNIQUE: XR chest 1V Frontal view of the chest. FINDINGS: Lungs/Pleura: There is no evidence of pleural effusion, focal consolidation, or pneumothorax. Pulmonary vascularity: Pulmonary vascular congestion. Heart/mediastinum: Cardiomediastinal silhouette is enlarged. Musculoskeletal: No acute osseous pathology. IMPRESSION: Multifocal airspace opacities concerning for pneumonia. [facility], , 05/04/2024 7:39 AM
--- NOTE | 2024-05-04 10:54 | P.PN ---
Subjective Progress Note Date: 05/04/24 Hospital Course: 74 years old male with past medical history of asthma, hyperlipidemia, prostate cancer status postradiation, GERD, hypothyroidism, who presented with gradually worsening shortness of breath. In the ER patient was hypoxic down to 85% on room air and was placed on 4 L nasal cannula with SpO2 improvement, his blood pressure was normotensive, heart rate elevated 90s low 100s. Lab work significant for very mild leukocytosis 11.1, normal hemoglobin and platelets. Chemistry profile showed initially elevated lactate at 2.1, normal electrolytes, normal creatinine and GFR. Troponin elevated 0.1 viral panel negative. EKG , sinus, QTc normal, RBBB pattern, no ST elevation. Of note, patient had heart cath on 10/03/2023 that showed no evidence of obstructive CAD, did show mild aor tic stenosis. Chest x-ray reviewed personally and showed bilateral patchy opacities. CTA chest showed no PE, did reveal bilateral groundglass opacities signs of pulmonary arterial hypertension, mediastinal lymphadenopathy up to 1.9, follow-up in 3 to 6 months suggested by radiology. 1.7 cm incidental gallstone. Patient admitted for acute hypoxic respiratory failure likely secondary to community-acquired pneumonia versus CHF exacerbation. On antibiotics and IV diuretics. Cardiology and pulmonology following. Echocardiogram showed LVEF 55 to 60%, concentric left ventricular hypertrophy, moderate pulmonary hypertension, moderate tricuspid regurgitation. Patient continued to worsen, started on BiPAP, currently in medical ICU. Subjective: Patient seen and examined at bedside. No acute events overnight. Claims that his shortness of breath has improved but he remains on BiPAP. Having productive cough. Pertinent positives and negatives as discussed above, a complete review of sy stems was performed and all other systems are negative. Vitals Signs Reviewed. General: Nontoxic, no distress, appears at stated age Derm: Warm, dry Head: Atraumatic, normocephalic, symmetric Eyes: EOMI, no lid lag, anicteric sclera Mouth: No lip lesion, mucus membranes moist Cardiovascular: S1S2 reg, no murmur Lungs: Bilateral rhonchi, no accessory muscle use, on BiPAP Abdominal: Soft, nontender to palpation, no guarding, no appreciable organomegaly Ext: No gross muscle atrophy, 2+ pitting edema, no contractures Neuro: CN II-XI grossly intact, no focal neuro deficits Psych: Alert, oriented, appropriate affect Data Reviewed Today: Pertinent Labs: WBC 18.1, creatinine 1.05, magnesium 2.7, potassium 4.6, A1c 6.1 Imaging: Chest x-ray independently interpreted, shows bilateral multifocal opacities, poor inspiratory effort Assessment and Plan: Active: Acute hypoxic respiratory failure Sepsis secondary to multifocal bilateral atypical pneumonia Acute HFpEF Type II NSTEMI -Pulmonology and cardiology following -Patient currently remains in ICU, on BiPAP, wean if possible -Continue IV ceftriaxone 2 g every 24 hours, status post azithromycin -Cultures negative growth to date, Legionella negative -On DuoNebs every 4 hours as needed, 4 times daily scheduled, Solu-Medrol 60 IV every 6 hours for severe pneumonia -IV Lasix 40 every 12 hours, monitor electrolytes -On home aspirin and statin Hypertension -Patient started on Aldactone 12.5 daily, also on metoprolol 12.5 daily Chronic: Hypothyroidism Dyslipidemia History of prostate cancer s/p radiation DVT ppx: Lovenox Code status: Full code Anticipated discharge place: Pending clinical course Anticipated discharge time: Pending clinical course Objective - Vital Signs Vital signs: Vital Signs Temp 98.1 F 05/04/24 09:00 Pulse 92 05/04/24 10:00 Resp 30 H 05/04/24 10:00 BP 133/90 05/04/24 10:00 Pulse Ox 87 L 05/04/24 10:00 FiO2 100 05/04/24 10:00 Intake & Output 05/03/24 05/04/24 05/04/24 18:59 06:59 18:59 Intake Total 0 20 50 Output Total 1675 600 700 Balance -3790 -088 -171 Intake: Intake, IV Titration 50 Amount cefTRIAXone 2 gm In 50 Sodium Chloride 0.9% 50 ml @ 100 mls/hr IVPB Q24HR [facility] Rx#:[id number] Oral 0 20 0 Output: Urine 1675 600 700 Other: Voiding Method Urinal Urinal Urinal # Voids 0 # Bowel Movements 1 - Labs CBC & Chem 7: 05/04/24 06:08 05/04/24 06:08 Labs: Abnormal Lab Results - Last 24 Hours (Table) 05/03/24 05/03/24 05/04/24 Range/Units 06:10 10:34 06:08 WBC 18.1 H (3.8-10.6) k/uL Neutrophils # 16.5 H (1.3-7.7) k/uL Lymphocytes # 0.6 L (1.0-4.8) k/uL ESR 74 H (0-20) mm/Hr BUN (9-20) mg/dL Glucose (74-99) mg/dL Hemoglobin A1c 6.1 H (<=6.0) % Magnesium (1.6-2.3) mg/dL 05/04/24 Range/Units 06:08 WBC (3.8-10.6) k/uL Neutrophils # (1.3-7.7) k/uL Lymphocytes # (1.0-4.8) k/uL ESR (0-20) mm/Hr BUN 39 H (9-20) mg/dL Glucose 149 H (74-99) mg/dL Hemoglobin A1c (<=6.0) % Magnesium 2.7 H (1.6-2.3) mg/dL Microbiology - Last 24 Hours (Table) 05/02/24 10:17 Blood Culture - Preliminary Blood
[2024-05-04] MEDS: methylPREDNISolone SOD SUCCI 125 MG/2 ML VIAL IV SCH (11:18)
--- NOTE | 2024-05-04 14:41 | P.PN ---
Subjective Progress Note Date: 05/04/24 Principal diagnosis: Acute hypoxic respiratory failure secondary to bilateral multifocal pneumonia, atypical. This is a very pleasant 74-year-old male patient with a known history of hyperlipidemia, hypothyroidism, mild intermittent chronic bronchial asthma, lifelong non-smoker who had presented here to the emergency room early this morning with a 2-week history of increasing shortness of breath cough and congestion. He also was having profound weakness. He did have some blood- tinged sputum 2 days ago. Most recently yellow in color. Chest x-ray reveals patchy and confluent bilateral airspace disease. CT angiogram ruled out central pulmonary embolism. Diffuse bilateral groundglass and airspace disease. Possible multifocal pneumonia, atypical pneumonia, hypersensitive pneumonitis and pulmonary edema. There is pulmonary arterial hypertension. No pleural effusion. A few mediastinal lymph nodes noted most likely reactive. White count 11.1. Hemoglobin 15.3. Platelets 215. D-dimer 4.25. INR 1.1. Sodium 137. Potassium 4.7. Bicarb 26. BUN 17. Creatinine 0.95. Glucose 110. Troponin 0.100. proBNP 121. Viral screen is negative. The patient is seen today in consultation in the emergency department. He is currently sitting up on the stretcher. He is awake and alert in no acute distress. He is dyspneic with conversation. Dyspneic with minimal exertion. Maintaining O2 saturations in the low 90s on 4 L/min per nasal cannula. He denies any recent travels. Denies any sick contacts. He is currently afebrile. Hemodynamically stable. Was seen today on 05/03/2024, patient required placement on BiPAP at 80% / overnight, remains marginal, ABG was noted yesterday on BiPAP, patient has been receiving Lasix and has been receiving antibiotics and steroids. Patient states that he is slightly better today, but nonetheless continues to have shortness of breath and intermittent cough. Antibiotics pierce remains on Rocephin and Zithromax empirically although his procalcitonin level is 0.15. Chest x-ray is not showing much improvement, as [id number] may be a bit worse today. I am surprised that the patient is clinically feeling better, but considering his status being marginal, I transferred the patient to the ICU this morning for close monitoring and if patient deteriorates may require intubation mechanical ventilation. In the meantime he is holding his own on BiPAP at 80%.WBC count is 16.7 hemoglobin 14.4, ABG last night showed a pO2 of 83 pCO2 38 and pH of 7.40 and this was on FiO2 of 60%/BiPAP. Basic metabolic profile is basically normal, procalcitonin level is normal BNP level is normal sed rate, TONE, c-ANCA are all pending Patient was seen today on 05/04/2024, remains on BiPAP 10/5/100%, remains on antibiotics in the form of Rocephin and Zithromax remains on Lasix at 40 mg IV push twice daily remains on Solu-Medrol bronchodilators and on Lovenox. Clinically the patient tells me that he is feeling better breathing easier her chest x-ray is marginal and not much of a change compared to his last x-ray there may be a slight improvement. WBC count is 18.1 hemoglobin 15.3 electrolytes are normal BUN is 39 creatinine 1.05, sed rate is elevated, but his TONE screen is negative his C-reactive protein is 20.7. Objective - Vital Signs Vital signs: Vital Signs Temp 97.2 F L 05/04/24 12:00 Pulse 86 05/04/24 13:40 Resp 25 H 05/04/24 13:00 BP 128/88 05/04/24 13:00 Pulse Ox 91 L 05/04/24 13:00 FiO2 100 05/04/24 12:00 Intake & Output 05/03/24 05/04/24 05/04/24 18:59 06:59 18:59 Intake Total 0 20 50 Output Total 1675 600 700 Balance -7297 -978 -413 Intake: Intake, IV Titration 50 Amount cefTRIAXone 2 gm In 50 Sodium Chloride 0.9% 50 ml @ 100 mls/hr IVPB Q24HR [facility] Rx#:[id number] Oral 0 20 0 Output: Urine 1675 600 700 Other: Voiding Method Urinal Urinal Urinal # Voids 0 # Bowel Movements 1 - Exam GENERAL EXAM: Revealed 74-year-old white male obese in no distress however he is on BiPAP HEAD: Normocephalic. EYES: Normal reaction of pupils, equal size. NOSE: Clear with pink turbinates. THROAT: No erythema or exudates. NECK: No masses, no JVD. CHEST: No chest wall deformity. LUNGS: Fine crackles at the bases no rhonchi no wheezes CVS: S1 and S2 normal with no audible murmur, regular rhythm. ABDOMEN: No hepatosplenomegaly, normal bowel sounds, no guarding or rigidity. SKIN: No rashes CENTRAL NERVOUS SYSTEM: Alert and oriented x 3 no gross focal deficit EXTREMITIES: No clubbing edema or cyanosis. - Labs CBC & Chem 7: 05/04/24 06:08 05/04/24 06:08 Labs: Abnormal Lab Results - Last 24 Hours (Table) 05/03/24 05/04/24 05/04/24 Range/Units 10:34 06:08 06:08 WBC 18.1 H (3.8-10.6) k/uL Neutrophils # 16.5 H (1.3-7.7) k/uL Lymphocytes # 0.6 L (1.0-4.8) k/uL BUN 39 H (9-20) mg/dL Glucose 149 H (74-99) mg/dL Hemoglobin A1c 6.1 H (<=6.0) % Magnesium 2.7 H (1.6-2.3) mg/dL Microbiology - Last 24 Hours (Table) 05/02/24 10:17 Blood Culture - Preliminary Blood Assessment and Plan Assessment: Patient: Acute hypoxemic respiratory failure secondary to bilateral multifocal pneumonia, atypical patient had negative screening for COVID-19 infection negative influenza and negative RSV Generalized weakness secondary to above Leukocytosis secondary to above Troponin leak Morbid obesity with a BMI of 48 kg/m Hyperlipidemia Hypothyroidism History of mild intermittent chronic bronchial asthma Lifelong non-smoker Recommendation: Continue to monitor the patient in the ICU Continue BiPAP and titrate FiO2 accordingly Continue GI DVT prophylaxis Continue antibiotics Rocephin and Zithromax, continue diuretics Blood cultures remain negative Continue bronchodilators Continue steroids ESR and C-reactive protein are elevated but patient had normal TONE Patient is marginal at best, Will continue to follow Time with Patient: Less than 30
[2024-05-04 23:17] LABS: Glucose,Whole Blood 139 mg/dL (70-110)
[2024-05-05 06:12] LABS: Glucose,Whole Blood 136 mg/dL (70-110)
[2024-05-05 06:27] LABS: Basophils % (A) 0 %; Eosinophils % (A) 0 %; HCT 48.3 % (39.0-53.0); HGB 15.7 gm/dL (13.0-17.5); Lymphocytes # (A) 0.5 k/uL (1.0-4.8); Lymphocytes % (A) 4 %; MCH 30.9 pg (25.0-35.0); MCHC 32.5 g/dL (31.0-37.0); Mean Platelet Volume 6.8; Monocytes # (A) 0.8 k/uL (0-1.0); Monocytes % (A) 6 %; Neutrophils # (A) 12.6 k/uL (1.3-7.7); Neutrophils % (A) 89 %; Platelet Count 302 k/uL (150-450); RBC 5.08 m/uL (4.30-5.90); RDW 13.3 % (11.5-15.5); WBC 14.1 k/uL (3.8-10.6)
[2024-05-05 06:43] LABS: African American GFR (CKD) 69 (>60 ml/min/1.73 sqM); Anion Gap 8 mmol/L; Blood Urea Nitrogen 53 mg/dL (9-20); Calcium 9.7 mg/dL (8.4-10.2); Carbon Dioxide 32 mmol/L (22-30); Chloride 100 mmol/L (98-107); Glucose 148 mg/dL (74-99); Non-African American GFR(CKD) 59 (>60 ml/min/1.73 sqM); Potassium 4.7 mmol/L (3.5-5.1); Sodium 140 mmol/L (137-145)
--- NOTE | 2024-05-05 07:30 | XR ---
EXAMINATION TYPE: XR chest 1V DATE OF EXAM: 05/05/2024 5:28 AM COMPARISON: Chest radiograph from one day prior. CLINICAL INDICATION: Male, 74 years old with history of Bipap dependence; H TECHNIQUE: XR chest 1V Frontal view of the chest. FINDINGS: Lungs/Pleura: There is no evidence of pleural effusion, focal consolidation, or pneumothorax. Pulmonary vascularity: Pulmonary vascular congestion. Heart/mediastinum: Cardiomediastinal silhouette is enlarged. Musculoskeletal: No acute osseous pathology. IMPRESSION: Cardiomegaly and mild pulmonary vascular congestion. Correlate with BNP for congestive heart failure. [facility], , 05/05/2024 7:27 AM
[2024-05-05 12:03] LABS: Glucose,Whole Blood 132 mg/dL (70-110)
--- NOTE | 2024-05-05 12:56 | P.PN ---
Subjective Progress Note Date: 05/05/24 Hospital Course: 74 years old male with past medical history of asthma, hyperlipidemia, prostate cancer status postradiation, GERD, hypothyroidism, who presented with gradually worsening shortness of breath. In the ER patient was hypoxic down to 85% on room air and was placed on 4 L nasal cannula with SpO2 improvement, his blood pressure was normotensive, heart rate elevated 90s low 100s. Lab work significant for very mild leukocytosis 11.1, normal hemoglobin and platelets. Chemistry profile showed initially elevated lactate at 2.1, normal electrolytes, normal creatinine and GFR. Troponin elevated 0.1 viral panel negative. EKG , sinus, QTc normal, RBBB pattern, no ST elevation. Of note, patient had heart cath on 10/03/2023 that showed no evidence of obstructive CAD, did show mild aor tic stenosis. Chest x-ray reviewed personally and showed bilateral patchy opacities. CTA chest showed no PE, did reveal bilateral groundglass opacities signs of pulmonary arterial hypertension, mediastinal lymphadenopathy up to 1.9, follow-up in 3 to 6 months suggested by radiology. 1.7 cm incidental gallstone. Patient admitted for acute hypoxic respiratory failure likely secondary to community-acquired pneumonia versus CHF exacerbation. On antibiotics and IV diuretics. Cardiology and pulmonology following. Echocardiogram showed LVEF 55 to 60%, concentric left ventricular hypertrophy, moderate pulmonary hypertension, moderate tricuspid regurgitation. Patient continued to worsen, started on BiPAP, currently in medical ICU. Subjective: Patient seen and examined at bedside. No acute events overnight. Claims that his shortness of breath has improved but he remains on BiPAP. Having productive cough. Pertinent positives and negatives as discussed above, a complete review of sy stems was performed and all other systems are negative. Vitals Signs Reviewed. General: Nontoxic, no distress, appears at stated age Derm: Warm, dry Head: Atraumatic, normocephalic, symmetric Eyes: EOMI, no lid lag, anicteric sclera Mouth: No lip lesion, mucus membranes moist Cardiovascular: S1S2 reg, no murmur Lungs: Bilateral rhonchi, no accessory muscle use, on BiPAP Abdominal: Soft, nontender to palpation, no guarding, no appreciable organomegaly Ext: No gross muscle atrophy, 2+ pitting edema, no contractures Neuro: CN II-XI grossly intact, no focal neuro deficits Psych: Alert, oriented, appropriate affect Data Reviewed Today: Pertinent Labs: WBC 14.1, bicarb 32, creatinine 1.2, blood sugars range between 1 32-1 48 Imaging: Chest x-ray independently interpreted, shows bilateral multifocal opacities, poor inspiratory effort Assessment and Plan: Active: Acute hypoxic respiratory failure Sepsis secondary to multifocal bilateral atypical pneumonia Acute HFpEF Type II NSTEMI -Pulmonology and cardiology following -Patient currently remains in ICU, on BiPAP, wean if possible -Continue IV ceftriaxone 2 g every 24 hours, status post azithromycin -Cultures negative growth to date, Legionella negative -On DuoNebs every 4 hours as needed, 4 times daily scheduled, Solu-Medrol 60 IV every 6 hours for severe pneumonia -IV Lasix 40 every 12 hours, monitor electrolytes -On home aspirin and statin Hypertension -Patient started on Aldactone 12.5 daily, also on metoprolol 12.5 daily Chronic: Hypothyroidism Dyslipidemia History of prostate cancer s/p radiation DVT ppx: Lovenox Code status: Full code Anticipated discharge place: Pending clinical course Anticipated discharge time: Pending clinical course Objective - Vital Signs Vital signs: Vital Signs Temp 96.7 F L 05/05/24 12:00 Pulse 72 05/05/24 12:00 Resp 30 H 05/05/24 12:00 BP 108/68 05/05/24 12:00 Pulse Ox 92 L 05/05/24 12:00 FiO2 90 05/05/24 12:00 Intake & Output 05/04/24 05/05/24 05/05/24 18:59 06:59 18:59 Intake Total 50 590 Output Total 1100 975 550 Balance -1050 -975 40 Weight 116.9 kg Intake: Intake, IV Titration 50 50 Amount cefTRIAXone 2 gm In 50 50 Sodium Chloride 0.9% 50 ml @ 100 mls/hr IVPB Q24HR [facility] Rx#:[id number] Oral 0 540 Output: Urine 1100 975 550 Other: Voiding Method Urinal Urinal Urinal # Voids 0 0 0 # Bowel Movements 1 - Labs CBC & Chem 7: 05/05/24 05:58 05/05/24 05:58 Labs: Abnormal Lab Results - Last 24 Hours (Table) 05/04/24 05/05/24 05/05/24 Range/Units 23:16 05:58 05:58 WBC 14.1 H (3.8-10.6) k/uL Neutrophils # 12.6 H (1.3-7.7) k/uL Lymphocytes # 0.5 L (1.0-4.8) k/uL Carbon Dioxide 32 H (22-30) mmol/L BUN 53 H (9-20) mg/dL Glucose 148 H (74-99) mg/dL POC Glucose (mg/dL) 139 H (70-110) mg/dL 05/05/24 05/05/24 Range/Units 06:10 12:01 WBC (3.8-10.6) k/uL Neutrophils # (1.3-7.7) k/uL Lymphocytes # (1.0-4.8) k/uL Carbon Dioxide (22-30) mmol/L BUN (9-20) mg/dL Glucose (74-99) mg/dL POC Glucose (mg/dL) 136 H 132 H (70-110) mg/dL Microbiology - Last 24 Hours (Table) 05/02/24 10:25 Gram Stain - Preliminary Sputum 05/02/24 10:17 Blood Culture - Preliminary Blood
--- NOTE | 2024-05-05 13:28 | P.PN ---
Subjective Progress Note Date: 05/05/24 Principal diagnosis: Acute hypoxic respiratory failure secondary to bilateral multifocal pneumonia, atypical. This is a very pleasant 74-year-old male patient with a known history of hyperlipidemia, hypothyroidism, mild intermittent chronic bronchial asthma, lifelong non-smoker who had presented here to the emergency room early this morning with a 2-week history of increasing shortness of breath cough and congestion. He also was having profound weakness. He did have some blood- tinged sputum 2 days ago. Most recently yellow in color. Chest x-ray reveals patchy and confluent bilateral airspace disease. CT angiogram ruled out central pulmonary embolism. Diffuse bilateral groundglass and airspace disease. Possible multifocal pneumonia, atypical pneumonia, hypersensitive pneumonitis and pulmonary edema. There is pulmonary arterial hypertension. No pleural effusion. A few mediastinal lymph nodes noted most likely reactive. White count 11.1. Hemoglobin 15.3. Platelets 215. D-dimer 4.25. INR 1.1. Sodium 137. Potassium 4.7. Bicarb 26. BUN 17. Creatinine 0.95. Glucose 110. Troponin 0.100. proBNP 121. Viral screen is negative. The patient is seen today in consultation in the emergency department. He is currently sitting up on the stretcher. He is awake and alert in no acute distress. He is dyspneic with conversation. Dyspneic with minimal exertion. Maintaining O2 saturations in the low 90s on 4 L/min per nasal cannula. He denies any recent travels. Denies any sick contacts. He is currently afebrile. Hemodynamically stable. Was seen today on 05/03/2024, patient required placement on BiPAP at 80% / overnight, remains marginal, ABG was noted yesterday on BiPAP, patient has been receiving Lasix and has been receiving antibiotics and steroids. Patient states that he is slightly better today, but nonetheless continues to have shortness of breath and intermittent cough. Antibiotics pierce remains on Rocephin and Zithromax empirically although his procalcitonin level is 0.15. Chest x-ray is not showing much improvement, as [id number] may be a bit worse today. I am surprised that the patient is clinically feeling better, but considering his status being marginal, I transferred the patient to the ICU this morning for close monitoring and if patient deteriorates may require intubation mechanical ventilation. In the meantime he is holding his own on BiPAP at 80%.WBC count is 16.7 hemoglobin 14.4, ABG last night showed a pO2 of 83 pCO2 38 and pH of 7.40 and this was on FiO2 of 60%/BiPAP. Basic metabolic profile is basically normal, procalcitonin level is normal BNP level is normal sed rate, TONE, c-ANCA are all pending Patient was seen today on 05/04/2024, remains on BiPAP 10/5/100%, remains on antibiotics in the form of Rocephin and Zithromax remains on Lasix at 40 mg IV push twice daily remains on Solu-Medrol bronchodilators and on Lovenox. Clinically the patient tells me that he is feeling better breathing easier her chest x-ray is marginal and not much of a change compared to his last x-ray there may be a slight improvement. WBC count is 18.1 hemoglobin 15.3 electrolytes are normal BUN is 39 creatinine 1.05, sed rate is elevated, but his TONE screen is negative his C-reactive protein is 20.7. Patient was seen and examined today on 05/05/2024, patient remains in the ICU, remains marginal at best as far as his pulmonary status is concerned, remains on antibiotics and diuretics, chest x-ray is showing slight improvement in his infiltrates specially in the right lower lobe area. Clinically the patient is about the same, I was able to titrate his FiO2 down to 90% on his BiPAP. Patient is sitting at the bedside chair, does not seem to be in distress, however as I went down to FiO2 of 80%, he was complaining of shortness of breath. He is on BiPAP 16/7/90% at present, still receiving steroids Solu- Medrol, Rocephin, Lovenox, and Aldactone 12.5 mg p.o. daily. WBC count is 14.1 hemoglobin 15.7 basic metabolic profile is normal BUN is 53 creatinine 1.20 Objective - Vital Signs Vital signs: Vital Signs Temp 96.7 F L 05/05/24 12:00 Pulse 72 05/05/24 12:00 Resp 30 H 05/05/24 12:00 BP 108/68 05/05/24 12:00 Pulse Ox 92 L 05/05/24 12:00 FiO2 90 05/05/24 12:00 Intake & Output 05/04/24 05/05/2424 18:59 06:59 18:59 Intake Total 50 590 Output Total 1100 975 550 Balance -1050 -975 40 Weight 116.9 kg Intake: Intake, IV Titration 50 50 Amount cefTRIAXone 2 gm In 50 50 Sodium Chloride 0.9% 50 ml @ 100 mls/hr IVPB Q24HR [facility] Rx#:[id number] Oral 0 540 Output: Urine 1100 975 550 Other: Voiding Method Urinal Urinal Urinal # Voids 0 0 0 # Bowel Movements 1 - Exam GENERAL EXAM: Revealed 74-year-old white male obese in no distress however he is on BiPAP HEAD: Normocephalic. EYES: Normal reaction of pupils, equal size. NOSE: Clear with pink turbinates. THROAT: No erythema or exudates. NECK: No masses, no JVD. CHEST: No chest wall deformity. LUNGS: Minimal crackles at the bases CVS: S1 and S2 normal with no audible murmur, regular rhythm. ABDOMEN: No hepatosplenomegaly, normal bowel sounds, no guarding or rigidity. SKIN: No rashes CENTRAL NERVOUS SYSTEM: Alert and oriented x 3 no gross focal deficit EXTREMITIES: No clubbing edema or cyanosis. - Labs CBC & Chem 7: 05/05/24 05:58 05/05/24 05:58 Labs: Abnormal Lab Results - Last 24 Hours (Table) 05/04/24 05/05/24 05/05/24 Range/Units 23:16 05:58 05:58 WBC 14.1 H (3.8-10.6) k/uL Neutrophils # 12.6 H (1.3-7.7) k/uL Lymphocytes # 0.5 L (1.0-4.8) k/uL Carbon Dioxide 32 H (22-30) mmol/L BUN 53 H (9-20) mg/dL Glucose 148 H (74-99) mg/dL POC Glucose (mg/dL) 139 H (70-110) mg/dL 05/05/24 05/05/24 Range/Units 06:10 12:01 WBC (3.8-10.6) k/uL Neutrophils # (1.3-7.7) k/uL Lymphocytes # (1.0-4.8) k/uL Carbon Dioxide (22-30) mmol/L BUN (9-20) mg/dL Glucose (74-99) mg/dL POC Glucose (mg/dL) 136 H 132 H (70-110) mg/dL Microbiology - Last 24 Hours (Table) 05/02/24 10:25 Gram Stain - Preliminary Sputum Sputum Culture - Preliminary 05/02/24 10:17 Blood Culture - Preliminary Blood Assessment and Plan Assessment: Patient: Acute hypoxemic respiratory failure secondary to bilateral multifocal pneumonia, atypical patient had negative screening for COVID-19 infection negative influenza and negative RSV Generalized weakness secondary to above Leukocytosis secondary to above Troponin leak Morbid obesity with a BMI of 48 kg/m Hyperlipidemia Hypothyroidism History of mild intermittent chronic bronchial asthma Lifelong non-smoker Recommendation: Continue to monitor the patient in the ICU, patient remains marginal as far as his pulmonary status is considered Continue BiPAP and titrate FiO2 accordingly Continue GI DVT prophylaxis Continue antibiotics Rocephin and Zithromax, continue Aldactone and continue Solu-Medrol Sputum cultures and blood cultures are nondiagnostic Continue bronchodilators Continue steroids ESR and C-reactive protein are elevated but patient had normal TONE Patient is marginal at best, Will continue to follow Time with Patient: Less than 30
[2024-05-06 02:58] LABS: Mycoplasma IgG Antibody (EIA) 1.07 INDEX (<=0.90); Mycoplasma IgM Antibody 0.57 INDEX (<=0.90)
[2024-05-06 05:54] LABS: Basophils % (A) 0 %; Eosinophils % (A) 0 %; HCT 47.3 % (39.0-53.0); HGB 15.4 gm/dL (13.0-17.5); Lymphocytes # (A) 0.7 k/uL (1.0-4.8); Lymphocytes % (A) 5 %; MCH 30.9 pg (25.0-35.0); MCHC 32.5 g/dL (31.0-37.0); MCV 95.1 fL (80.0-100.0); Mean Platelet Volume 6.8; Monocytes # (A) 0.8 k/uL (0-1.0); Monocytes % (A) 5 %; Neutrophils % (A) 89 %; Platelet Count 305 k/uL (150-450); RBC 4.97 m/uL (4.30-5.90); RDW 13.2 % (11.5-15.5); WBC 14.6 k/uL (3.8-10.6)
[2024-05-06 06:02] LABS: Glucose,Whole Blood 153 mg/dL (70-110)
[2024-05-06 06:09] LABS: African American GFR (CKD) 85 (>60 ml/min/1.73 sqM); Anion Gap 4 mmol/L; Blood Urea Nitrogen 48 mg/dL (9-20); Calcium 9.5 mg/dL (8.4-10.2); Carbon Dioxide 35 mmol/L (22-30); Chloride 101 mmol/L (98-107); Glucose 140 mg/dL (74-99); Magnesium 3.2 mg/dL (1.6-2.3); Non-African American GFR(CKD) 74 (>60 ml/min/1.73 sqM); Potassium 4.7 mmol/L (3.5-5.1); Sodium 140 mmol/L (137-145)
--- NOTE | 2024-05-06 08:26 | P.PN ---
Subjective Progress Note Date: 05/06/24 PROGRESS NOTE The patient is a 74-year-old male who presented with symptoms of progressive dyspnea, requiring BiPAP with evidence of bilateral multifocal pneumonia. He is continuing to be dyspneic on the BiPAP. He had mild troponin elevation secondary to type II myocardial infarction. He denies any chest discomfort, dizziness or palpitations. His echocardiogram showed a preserved systolic function with low ventricle hypertrophy. He continues to be in sinus mechanism and hemodynamically stable. Medications: Lipitor 20 mg daily, aspirin, Rocephin, levothyroxine, metoprolol succinate 12.5 mg daily, spironolactone 12.5 mg daily, methylprednisolone PHYSICAL EXAMINATION: Blood pressure 126/80 heart rate 90, obese LUNGS: Scattered rhonchi HEART: Regular rate and rhythm, S1, S2. No S3. Systolic ejection murmur ABDOMEN: Soft, nontender, no organomegaly EXTREMETIES: No edema LAB: Hemoglobin 15.4, WBC 14.6, BUN 48, creatinine 1.0 IMPRESSION: 1. Respiratory failure with pneumonia 2. Hypertension 3. Hypothyroidism 4. Hyperlipidemia PLAN: 1. Continue present therapy 2. Follow renal functions 3. Depending on the renal function and his overall status consider adding Farxiga 4. Depending on his progress further recommendations will be made Objective - Vital Signs Vital signs: Vital Signs Temp 97.5 F L 05/06/24 04:00 Pulse 74 05/06/24 08:07 Resp 19 05/06/24 07:00 BP 126/82 05/06/24 07:00 Pulse Ox 82 L 05/06/24 07:00 FiO2 65 05/06/24 08:02 Intake & Output 05/05/24 05/06/24 05/06/24 18:59 06:59 18:59 Intake Total 590 400 Output Total 550 500 500 Balance 40 -100 -500 Weight 113.3 kg Intake: Intake, IV Titration 50 Amount cefTRIAXone 2 gm In 50 Sodium Chloride 0.9% 50 ml @ 100 mls/hr IVPB Q24HR [facility] Rx#:[id number] Oral 540 400 Output: Urine 550 500 500 Other: Voiding Method Urinal Urinal # Voids 0 - Labs CBC & Chem 7: 05/06/24 05:20 05/06/24 05:20 Labs: Abnormal Lab Results - Last 24 Hours (Table) 05/02/24 05/05/24 05/06/24 Range/Units 08:54 12:01 05:20 WBC 14.6 H (3.8-10.6) k/uL Neutrophils # 13.0 H (1.3-7.7) k/uL Lymphocytes # 0.7 L (1.0-4.8) k/uL Carbon Dioxide (22-30) mmol/L BUN (9-20) mg/dL Glucose (74-99) mg/dL POC Glucose (mg/dL) 132 H (70-110) mg/dL Magnesium (1.6-2.3) mg/dL Mycoplasma pneumon IgG 1.07 H (<=0.90) INDEX 05/06/24 05/06/24 Range/Units 05:20 05:59 WBC (3.8-10.6) k/uL Neutrophils # (1.3-7.7) k/uL Lymphocytes # (1.0-4.8) k/uL Carbon Dioxide 35 H (22-30) mmol/L BUN 48 H (9-20) mg/dL Glucose 140 H (74-99) mg/dL POC Glucose (mg/dL) 153 H (70-110) mg/dL Magnesium 3.2 H (1.6-2.3) mg/dL Mycoplasma pneumon IgG (<=0.90) INDEX Microbiology - Last 24 Hours (Table) 05/02/24 10:17 Blood Culture - Preliminary Blood 05/02/24 10:25 Gram Stain - Preliminary Sputum Sputum Culture - Preliminary
--- NOTE | 2024-05-06 09:09 | PN ---
PROGRESS NOTE SUBJECTIVE: A 74-year-old gentleman, who is admitted to the hospital with respiratory failure, primarily from COPD exacerbation, with a component of congestive heart failure. PHYSICAL EXAMINATION: VITAL SIGNS: This morning, he is still saturating at only 93% with 100% FiO2, heart rate is 90 beats per minute, blood pressure is 120/79, respiratory rate is 29. CHEST: Diffuse bilateral rhonchi. HEART: First and second heart sounds. No gallop. ABDOMEN: Soft. EXTREMITIES: Do not reveal any edema. Peripheral pulses are palpable. LABORATORY DATA: White cell count of 18, hemoglobin of 15, platelet count is 280. Potassium is 4.6, BUN is 39, creatinine is 1. ASSESSMENT: 1. Respiratory failure secondary to bilateral pneumonia. 2. Acute heart failure with preserved left ventricular function. 3. Elevated troponin secondary to supply-demand mismatch. PLAN: An echocardiogram on this admission reveals normal LV function. We will continue him on his current medications. I think most of his symptoms are related to the pneumonia. MMODL / IJN: [id number] /
--- NOTE | 2024-05-06 09:09 | PN ---
PROGRESS NOTE DATE OF SERVICE: 05/04/2024 SUBJECTIVE: A 74-year-old gentleman who is admitted to hospital with shortness of breath secondary to bilateral pneumonia and with a component of congestive heart failure. At the time of my evaluation, the patient appears significantly hypoxic, has a BiPAP on, and still seems short of breath. They are trying to hold off intubation as much as they can. PHYSICAL EXAMINATION: Heart rate is 80 beats per minute. Blood pressure is 120/72. Respiratory rate is 30. There is no jugular venous distention. Carotid upstroke is normal. There is no bruit. Chest exam reveals diminished air entry at the bases with occasional rhonchi. Heart exam reveals first and second heart sounds. No gallop. Examination of the extremities reveals bilateral mild pitting edema. LABORATORY DATA: Showed that the BUN was 39, creatinine was 1, hemoglobin is 15, white cell count is 18. ASSESSMENT AND PLAN: 1. Respiratory failure secondary to bilateral pneumonia with a component of congestive heart failure. 2. Aortic stenosis. 3. Acute diastolic heart failure. PLAN: The patient will continue with the IV Lasix, but his primary problem is the pneumonia and he is on antibiotics for the same. MMODL / IJN: [id number] /
--- NOTE | 2024-05-06 09:09 | PN ---
PROGRESS NOTE SUBJECTIVE: Mr. Bob is a 74-year-old gentleman, who is admitted to hospital with acute respiratory insufficiency related to bilateral pneumonia and also has a component of congestive heart failure. His echocardiogram showed concentric left ventricular hypertrophy with normal LV function, moderate tricuspid regurgitation, and moderate aortic stenosis. This morning, he is still hypoxic and requiring quite a bit of respiratory support, but seems able to talk better and overall looks slightly better. PHYSICAL EXAMINATION: VITAL SIGNS: Heart rate is 90 beats per minute, blood pressure is 115/78, and respiratory rate is 18. CHEST: Reveals occasional rhonchi and diminished air entry bilaterally. HEART: Reveals first and second heart sounds, an ejection systolic murmur in the aortic area. ABDOMEN: Soft. EXTREMITIES: Exam of extremities did not reveal any edema. Peripheral pulses are felt. LABORATORY DATA: Labs show that the BUN is 53 and creatinine is 1.2. The patient is currently on Lasix 40 mg IV q.12 hours along with antibiotics, aspirin, Lipitor, Toprol, and Aldactone. ASSESSMENT AND PLAN: Acute respiratory failure secondary to pneumonia with a component of acute diastolic heart failure. The patient currently seems intravascularly volume depleted. I am going to hold the Lasix at this time and continue the antibiotics. MMODL / IJN: [id number] /
[2024-05-06] MEDS: guaiFENesin-DM 100-10MG/5ML 10 ML CUP PO PRN (11:48)
--- NOTE | 2024-05-06 11:54 | P.PN ---
Subjective Progress Note Date: 05/06/24 Hospital Course: 74 years old male with past medical history of asthma, hyperlipidemia, prostate cancer status postradiation, GERD, hypothyroidism, who presented with gradually worsening shortness of breath. In the ER patient was hypoxic down to 85% on room air and was placed on 4 L nasal cannula with SpO2 improvement, his blood pressure was normotensive, heart rate elevated 90s low 100s. Lab work significant for very mild leukocytosis 11.1, normal hemoglobin and platelets. Chemistry profile showed initially elevated lactate at 2.1, normal electrolytes, normal creatinine and GFR. Troponin elevated 0.1 viral panel negative. EKG , sinus, QTc normal, RBBB pattern, no ST elevation. Of note, patient had heart cath on 10/03/2023 that showed no evidence of obstructive CAD, did show mild aor tic stenosis. Chest x-ray reviewed personally and showed bilateral patchy opacities. CTA chest showed no PE, did reveal bilateral groundglass opacities signs of pulmonary arterial hypertension, mediastinal lymphadenopathy up to 1.9, follow-up in 3 to 6 months suggested by radiology. 1.7 cm incidental gallstone. Patient admitted for acute hypoxic respiratory failure likely secondary to community-acquired pneumonia versus CHF exacerbation. On antibiotics and IV diuretics. Cardiology and pulmonology following. Echocardiogram showed LVEF 55 to 60%, concentric left ventricular hypertrophy, moderate pulmonary hypertension, moderate tricuspid regurgitation. Patient continued to worsen, started on BiPAP, currently in medical ICU. Subjective: Patient seen and examined at bedside. No acute events overnight. Claims that his shortness of breath has improved but he remains on BiPAP. Having productive cough. Pertinent positives and negatives as discussed above, a complete review of sy stems was performed and all other systems are negative. Vitals Signs Reviewed. General: Nontoxic, no distress, appears at stated age Derm: Warm, dry Head: Atraumatic, normocephalic, symmetric Eyes: EOMI, no lid lag, anicteric sclera Mouth: No lip lesion, mucus membranes moist Cardiovascular: S1S2 reg, no murmur Lungs: Bilateral rhonchi, no accessory muscle use, on BiPAP Abdominal: Soft, nontender to palpation, no guarding, no appreciable organomegaly Ext: No gross muscle atrophy, no edema, no contractures Neuro: CN II-XI grossly intact, no focal neuro deficits Psych: Alert, oriented, appropriate affect Data Reviewed Today: Pertinent Labs: WBC 14.6, bicarb 35, creatinine 1, blood sugars range between 1 32-1 53, magnesium 3.2 Imaging: Imaging Assessment and Plan: Active: Acute hypoxic respiratory failure Sepsis secondary to multifocal bilateral atypical pneumonia Acute HFpEF status post diuretics Type II NSTEMI -Pulmonology and cardiology following -Patient currently remains in ICU, on BiPAP, wean if possible -Status post IV antibiotics -Cultures negative growth to date, Legionella negative -On DuoNebs every 4 hours as needed, 4 times daily scheduled, Solu-Medrol 60 IV every 6 hours for severe pneumonia, Perforomist twice daily -Lasix now discontinued -On home aspirin and statin -Robitussin DM as needed -Cardiology note reviewed, consider adding Farxiga in the future Hypertension -Patient s on Aldactone 12.5 daily, also on metoprolol 12.5 daily Chronic: Hypothyroidism Dyslipidemia History of prostate cancer s/p radiation DVT ppx: Lovenox Code status: Full code Anticipated discharge place: Pending clinical course Anticipated discharge time: Pending clinical course Objective - Vital Signs Vital signs: Vital Signs Temp 98.1 F 05/06/24 08:00 Pulse 75 05/06/24 10:00 Resp 25 H 05/06/24 10:00 BP 125/74 05/06/24 10:00 Pulse Ox 89 L 05/06/24 08:00 FiO2 70 05/06/24 11:10 Intake & Output 05/05/24 05/06/24 05/06/24 18:59 06:59 18:59 Intake Total 590 400 250 Output Total 550 500 500 Balance 40 -100 -250 Weight 113.3 kg Intake: IV 50 cefTRIAXone 2 gm In 50 Sodium Chloride 0.9% 50 ml @ 100 mls/hr IVPB Q24HR [facility] Rx#:[id number] Intake, IV Titration 50 Amount cefTRIAXone 2 gm In 50 Sodium Chloride 0.9% 50 ml @ 100 mls/hr IVPB Q24HR [facility] Rx#:[id number] Oral 540 400 200 Output: Urine 550 500 500 Other: Voiding Method Urinal Urinal # Voids 0 - Labs CBC & Chem 7: 05/06/24 05:20 05/06/24 05:20 Labs: Abnormal Lab Results - Last 24 Hours (Table) 05/02/24 05/05/24 05/06/24 Range/Units 08:54 12:01 05:20 WBC 14.6 H (3.8-10.6) k/uL Neutrophils # 13.0 H (1.3-7.7) k/uL Lymphocytes # 0.7 L (1.0-4.8) k/uL Carbon Dioxide (22-30) mmol/L BUN (9-20) mg/dL Glucose (74-99) mg/dL POC Glucose (mg/dL) 132 H (70-110) mg/dL Magnesium (1.6-2.3) mg/dL Mycoplasma pneumon IgG 1.07 H (<=0.90) INDEX 05/06/24 05/06/24 Range/Units 05:20 05:59 WBC (3.8-10.6) k/uL Neutrophils # (1.3-7.7) k/uL Lymphocytes # (1.0-4.8) k/uL Carbon Dioxide 35 H (22-30) mmol/L BUN 48 H (9-20) mg/dL Glucose 140 H (74-99) mg/dL POC Glucose (mg/dL) 153 H (70-110) mg/dL Magnesium 3.2 H (1.6-2.3) mg/dL Mycoplasma pneumon IgG (<=0.90) INDEX Microbiology - Last 24 Hours (Table) 05/02/24 10:25 Gram Stain - Final Sputum Sputum Culture - Final 05/02/24 10:17 Blood Culture - Preliminary Blood
[2024-05-06 12:14] LABS: Glucose,Whole Blood 139 mg/dL (70-110)
--- NOTE | 2024-05-06 13:09 | P.PN ---
Subjective Progress Note Date: 05/06/24 This is a very pleasant 74-year-old male patient with a known history of hyperlipidemia, hypothyroidism, mild intermittent chronic bronchial asthma, lifelong non-smoker who had presented here to the emergency room early this morning with a 2-week history of increasing shortness of breath cough and congestion. He also was having profound weakness. He did have some blood- tinged sputum 2 days ago. Most recently yellow in color. Chest x-ray reveals patchy and confluent bilateral airspace disease. CT angiogram ruled out central pulmonary embolism. Diffuse bilateral groundglass and airspace disease. Possible multifocal pneumonia, atypical pneumonia, hypersensitive pneumonitis and pulmonary edema. There is pulmonary arterial hypertension. No pleural effusion. A few mediastinal lymph nodes noted most likely reactive. White count 11.1. Hemoglobin 15.3. Platelets 215. D-dimer 4.25. INR 1.1. Sodium 137. Potassium 4.7. Bicarb 26. BUN 17. Creatinine 0.95. Glucose 110. Troponin 0.100. proBNP 121. Viral screen is negative. The patient is seen today in consultation in the emergency department. He is currently sitting up on the stretcher. He is awake and alert in no acute distress. He is dyspneic with conversation. Dyspneic with minimal exertion. Maintaining O2 saturations in the low 90s on 4 L/min per nasal cannula. He denies any recent travels. Denies any sick contacts. He is currently afebrile. Hemodynamically stable. Was seen today on 05/03/2024, patient required placement on BiPAP at 80% 10/ overnight, remains marginal, ABG was noted yesterday on BiPAP, patient has been receiving Lasix and has been receiving antibiotics and steroids. Patient states that he is slightly better today, but nonetheless continues to have shortness of breath and intermittent cough. Antibiotics pierce remains on Rocephin and Zithromax empirically although his procalcitonin level is 0.15. Chest x-ray is not showing much improvement, as [id number] may be a bit worse today. I am surprised that the patient is clinically feeling better, but considering his status being marginal, I transferred the patient to the ICU this morning for close monitoring and if patient deteriorates may require intubation mechanical ventilation. In the meantime he is holding his own on BiPAP at 80%.WBC count is 16.7 hemoglobin 14.4, ABG last night showed a pO2 of 83 pCO2 38 and pH of 7.40 and this was on FiO2 of 60%/BiPAP. Basic metabolic profile is basically normal, procalcitonin level is normal BNP level is normal sed rate, TONE, c-ANCA are all pending Patient was seen today on 05/04/2024, remains on BiPAP 10/5/100%, remains on antibiotics in the form of Rocephin and Zithromax remains on Lasix at 40 mg IV push twice daily remains on Solu-Medrol bronchodilators and on Lovenox. Clinically the patient tells me that he is feeling better breathing easier her chest x-ray is marginal and not much of a change compared to his last x-ray there may be a slight improvement. WBC count is 18.1 hemoglobin 15.3 electrolytes are normal BUN is 39 creatinine 1.05, sed rate is elevated, but his TONE screen is negative his C-reactive protein is 20.7. Patient was seen and examined today on 05/05/2024, patient remains in the ICU, remains marginal at best as far as his pulmonary status is concerned, remains on antibiotics and diuretics, chest x-ray is showing slight improvement in his infiltrates specially in the right lower lobe area. Clinically the patient is about the same, I was able to titrate his FiO2 down to 90% on his BiPAP. Patient is sitting at the bedside chair, does not seem to be in distress, however as I went down to FiO2 of 80%, he was complaining of shortness of breath. He is on BiPAP 16/7/90% at present, still receiving steroids Solu- Medrol, Rocephin, Lovenox, and Aldactone 12.5 mg p.o. daily. WBC count is 14.1 hemoglobin 15.7 basic metabolic profile is normal BUN is 53 creatinine 1.20 The patient is seen today May 06, 2024 in follow-up in the intensive care unit. He is currently sitting up in a chair. Awake and alert in no acute distress. He is breathing a bit easier today compared to yesterday. No worsening shortness of breath, cough or congestion. He is still mostly BiPAP dependent on 16/7 and 65% FiO2. White count 14.6. Hemoglobin 15.4. Platelets 305. Sodium 140. Potassium 4.7. Bicarb 35. BUN 48. Creatinine 1.0. Glucose 140. He is continued on DuoNeb inhalations, Pulmicort and Perforomist inhalations, Solu-Medrol. Procalcitonin was negative. Antibiotics were discontinued. Blood and sputum cultures revealed no growth. Objective - Vital Signs Vital signs: Vital Signs Temp 98.1 F 05/06/24 08:00 Pulse 88 05/06/24 12:23 Resp 25 H 05/06/24 12:00 BP 116/69 05/06/24 12:00 Pulse Ox 89 L 05/06/24 08:00 FiO2 70 05/06/24 12:16 Intake & Output 05/05/24 05/06/24 05/06/24 18:59 06:59 18:59 Intake Total 590 400 368 Output Total 550 500 500 Balance 40 -100 -132 Weight 113.3 kg 113.3 kg Intake: IV 50 cefTRIAXone 2 gm In 50 Sodium Chloride 0.9% 50 ml @ 100 mls/hr IVPB Q24HR [facility] Rx#:[id number] Intake, IV Titration 50 Amount cefTRIAXone 2 gm In 50 Sodium Chloride 0.9% 50 ml @ 100 mls/hr IVPB Q24HR [facility] Rx#:[id number] Oral 540 400 318 Output: Urine 550 500 500 Other: Voiding Method Urinal Urinal Urinal # Voids 0 1 # Bowel Movements 1 - Exam GENERAL EXAM: Alert, pleasant 74-year-old male, up in a chair, on BiPAP, fairly comfortable in no apparent distress. HEAD: Normocephalic. EYES: Normal reaction of pupils, equal size. NOSE: Clear with pink turbinates. THROAT: No erythema or exudates. NECK: No masses, no JVD. CHEST: No chest wall deformity. LUNGS: Equal air entry with bilateral scattered rhonchi. CVS: S1 and S2 normal with no audible murmur, regular rhythm. ABDOMEN: No hepatosplenomegaly, normal bowel sounds, no guarding or rigidity. SPINE: No scoliosis or deformity SKIN: No rashes CENTRAL NERVOUS SYSTEM: No focal deficits, tone is normal in all 4 extremities. EXTREMITIES: There is no peripheral edema. No clubbing, no cyanosis. Peripheral pulses are intact. - Labs CBC & Chem 7: 05/06/24 05:20 05/06/24 05:20 Labs: Abnormal Lab Results - Last 24 Hours (Table) 05/02/24 05/06/24 05/06/24 Range/Units 08:54 05:20 05:20 WBC 14.6 H (3.8-10.6) k/uL Neutrophils # 13.0 H (1.3-7.7) k/uL Lymphocytes # 0.7 L (1.0-4.8) k/uL Carbon Dioxide 35 H (22-30) mmol/L BUN 48 H (9-20) mg/dL Glucose 140 H (74-99) mg/dL POC Glucose (mg/dL) (70-110) mg/dL Magnesium 3.2 H (1.6-2.3) mg/dL Mycoplasma pneumon IgG 1.07 H (<=0.90) INDEX 05/06/24 05/06/24 Range/Units 05:59 12:13 WBC (3.8-10.6) k/uL Neutrophils # (1.3-7.7) k/uL Lymphocytes # (1.0-4.8) k/uL Carbon Dioxide (22-30) mmol/L BUN (9-20) mg/dL Glucose (74-99) mg/dL POC Glucose (mg/dL) 153 H 139 H (70-110) mg/dL Magnesium (1.6-2.3) mg/dL Mycoplasma pneumon IgG (<=0.90) INDEX Microbiology - Last 24 Hours (Table) 05/02/24 10:25 Gram Stain - Final Sputum Sputum Culture - Final 05/02/24 10:17 Blood Culture - Preliminary Blood Assessment and Plan Assessment: Acute hypoxemic respiratory failure secondary to atypical pneumonia and chronic obstructive pulmonary disease. Viral screen negative. Procalcitonin negative antibiotics discontinued Generalized weakness secondary to above Leukocytosis secondary to above Troponin leak Morbid obesity with a BMI of 48 kg/m Hyperlipidemia Hypothyroidism History of mild intermittent chronic bronchial asthma Lifelong non-smoker Plan: The patient was seen and evaluated Labs and medications reviewed Continue Pulmicort and Perforomist inhalations Continue DuoNeb inhalations Continue Solu-Medrol Titrate the FiO2 as tolerated We will continue to follow I have personally seen and examined the patient, performed the documentation and the assessment and plan as written. Number of minutes spent on the visit: 10 Dictation was produced using [employer] dictation software. Please excuse any grammatical, word or spelling errors.
[2024-05-06 15:31] LABS: C-ANCA <1:20 Titer (<1:20)
[2024-05-06 17:48] LABS: Glucose,Whole Blood 268 mg/dL (70-110)
[2024-05-06] MEDS: BUDESONIDE 1 MG/2 ML NEBU INHALATION SCH (19:39)
[2024-05-06] MEDS: FORMOTEROL FUMARATE 20 MCG/2 ML NEBU INHALATION SCH (19:39)
[2024-05-07] MEDS: LORazepam 2 MG/ML INJ IV STA (01:19)
[2024-05-07 05:41] LABS: Glucose,Whole Blood 131 mg/dL (70-110)
[2024-05-07 06:35] LABS: Basophils % (A) 0 %; Eosinophils % (A) 0 %; HCT 46.2 % (39.0-53.0); HGB 15.2 gm/dL (13.0-17.5); Lymphocytes # (A) 0.7 k/uL (1.0-4.8); Lymphocytes % (A) 5 %; MCH 31.1 pg (25.0-35.0); MCHC 32.9 g/dL (31.0-37.0); MCV 94.5 fL (80.0-100.0); Mean Platelet Volume 6.9; Monocytes # (A) 0.6 k/uL (0-1.0); Monocytes % (A) 4 %; Neutrophils % (A) 90 %; Platelet Count 305 k/uL (150-450); RBC 4.89 m/uL (4.30-5.90); WBC 14.4 k/uL (3.8-10.6)
[2024-05-07 06:48] LABS: African American GFR (CKD) >90 (>60 ml/min/1.73 sqM); Anion Gap 3 mmol/L; Blood Urea Nitrogen 37 mg/dL (9-20); Calcium 9.3 mg/dL (8.4-10.2); Carbon Dioxide 36 mmol/L (22-30); Chloride 102 mmol/L (98-107); Glucose 136 mg/dL (74-99); Magnesium 3.1 mg/dL (1.6-2.3); Non-African American GFR(CKD) 78 (>60 ml/min/1.73 sqM); Potassium 4.7 mmol/L (3.5-5.1); Sodium 141 mmol/L (137-145)
--- NOTE | 2024-05-07 08:01 | P.PN ---
Subjective Progress Note Date: 05/07/24 PROGRESS NOTE The patient is a 74-year-old male who presented with symptoms of progressive dyspnea, requiring BiPAP with evidence of bilateral multifocal pneumonia. He is continuing to be dyspneic on the BiPAP. He had mild troponin elevation secondary to type II myocardial infarction. He denies any chest discomfort, dizziness or palpitations. His echocardiogram showed a preserved systolic function with low ventricle hypertrophy. He continues to be in sinus mechanism and hemodynamically stable. May 07: The patient feels better today, he continues to be on high flow oxygen supplement and on BiPAP during the night. His breathing is better. He continues to be in sinus mechanism and his blood pressure is stable. He is coughing and bringing up dark sputum. He denies any chest discomfort, dizziness or palpitations. Medications: Lipitor 20 mg daily, aspirin, Rocephin, levothyroxine, metoprolol succinate 12.5 mg daily, spironolactone 12.5 mg daily, methylprednisolone PHYSICAL EXAMINATION: Blood pressure 129/80 heart rate 91, obese LUNGS: Scattered rhonchi, no wheezes HEART: Regular rate and rhythm, S1, S2. No S3. Systolic ejection murmur ABDOMEN: Soft, nontender, no organomegaly EXTREMETIES: No edema LAB: Hemoglobin 15.2, WBC 14.4, BUN 37, creatinine 0.96 IMPRESSION: 1. Respiratory failure with pneumonia improving 2. Hypertension 3. Hypothyroidism 4. Hyperlipidemia PLAN: 1. Continue present therapy 2. Start Farxiga 10 mg daily 3. Increase beta-min 4. Follow renal functions 5. Depending on his progress further recommendations will be made Objective - Vital Signs Vital signs: Vital Signs Temp 97.9 F 05/07/24 04:00 Pulse 91 05/07/24 07:00 Resp 16 05/07/24 07:00 BP 129/80 05/07/24 07:00 Pulse Ox 83 L 05/07/24 07:00 FiO2 81 05/07/24 07:00 Intake & Output 05/06/24 05/07/24 05/07/24 18:59 06:59 18:59 Intake Total 968 800 Output Total 500 1000 Balance 468 -200 Weight 113.3 kg Intake: IV 50 cefTRIAXone 2 gm In 50 Sodium Chloride 0.9% 50 ml @ 100 mls/hr IVPB Q24HR [facility] Rx#:[id number] Oral 918 800 Output: Urine 500 1000 Other: Voiding Method Urinal Urinal # Voids 1 0 # Bowel Movements 1 - Labs CBC & Chem 7: 05/07/24 06:08 05/07/24 06:08 Labs: Abnormal Lab Results - Last 24 Hours (Table) 05/06/24 05/06/24 05/07/24 Range/Units 12:13 17:46 05:40 WBC (3.8-10.6) k/uL Neutrophils # (1.3-7.7) k/uL Lymphocytes # (1.0-4.8) k/uL Carbon Dioxide (22-30) mmol/L BUN (9-20) mg/dL Glucose (74-99) mg/dL POC Glucose (mg/dL) 139 H 268 H 131 H (70-110) mg/dL Magnesium (1.6-2.3) mg/dL 05/07/24 05/07/24 Range/Units 06:08 06:08 WBC 14.4 H (3.8-10.6) k/uL Neutrophils # 13.0 H (1.3-7.7) k/uL Lymphocytes # 0.7 L (1.0-4.8) k/uL Carbon Dioxide 36 H (22-30) mmol/L BUN 37 H (9-20) mg/dL Glucose 136 H (74-99) mg/dL POC Glucose (mg/dL) (70-110) mg/dL Magnesium 3.1 H (1.6-2.3) mg/dL Microbiology - Last 24 Hours (Table) 05/02/24 10:25 Gram Stain - Final Sputum Sputum Culture - Final
[2024-05-07] MEDS: METOPROLOL SUCCINATE (ER) 25 MG TAB.ER.24H PO SCH (09:16)
[2024-05-07] MEDS: DAPAGLIFLOZIN PROPANEDIOL 10 MG TABLET PO SCH (09:16)
--- NOTE | 2024-05-07 10:57 | XR ---
EXAMINATION TYPE: XR chest 1V portable DATE OF EXAM: 05/07/2024 10:33 AM COMPARISON: 05/05/2024 CLINICAL INDICATION: Male, 74 years old with history of Hypoxemia, TECHNIQUE: XR chest 1V portable view(s) obtained. FINDINGS: The heart size is enlarged. The pulmonary vasculature is prominent. Scattered infiltrates are present bilaterally. This may have slight improvement over the interval. IMPRESSION: 1. Similar to mild improvement in diffuse infiltrate. Consider pulmonary edema or pneumonia continued follow-up recommended. [facility], , 05/07/2024 10:54 AM
[2024-05-07 11:44] LABS: Glucose,Whole Blood 128 mg/dL (70-110)
--- NOTE | 2024-05-07 11:59 | P.PN ---
Subjective Progress Note Date: 05/07/24 Hospital Course: 74 years old male with past medical history of asthma, hyperlipidemia, prostate cancer status postradiation, GERD, hypothyroidism, who presented with gradually worsening shortness of breath. In the ER patient was hypoxic down to 85% on room air and was placed on 4 L nasal cannula with SpO2 improvement, his blood pressure was normotensive, heart rate elevated 90s low 100s. Lab work significant for very mild leukocytosis 11.1, normal hemoglobin and platelets. Chemistry profile showed initially elevated lactate at 2.1, normal electrolytes, normal creatinine and GFR. Troponin elevated 0.1 viral panel negative. EKG , sinus, QTc normal, RBBB pattern, no ST elevation. Of note, patient had heart cath on 10/03/2023 that showed no evidence of obstructive CAD, did show mild aor tic stenosis. Chest x-ray reviewed personally and showed bilateral patchy opacities. CTA chest showed no PE, did reveal bilateral groundglass opacities signs of pulmonary arterial hypertension, mediastinal lymphadenopathy up to 1.9, follow-up in 3 to 6 months suggested by radiology. 1.7 cm incidental gallstone. Patient admitted for acute hypoxic respiratory failure likely secondary to community-acquired pneumonia versus CHF exacerbation. On antibiotics and IV diuretics. Cardiology and pulmonology following. Echocardiogram showed LVEF 55 to 60%, concentric left ventricular hypertrophy, moderate pulmonary hypertension, moderate tricuspid regurgitation. Patient continued to worsen, started on BiPAP, currently in medical ICU. Subjective: Patient seen and examined at bedside. No acute events overnight. Claims that his shortness of breath has improved but he remains on BiPAP. Having productive cough. Pertinent positives and negatives as discussed above, a complete review of sy stems was performed and all other systems are negative. Vitals Signs Reviewed. General: Nontoxic, no distress, appears at stated age Derm: Warm, dry Head: Atraumatic, normocephalic, symmetric Eyes: EOMI, no lid lag, anicteric sclera Mouth: No lip lesion, mucus membranes moist Cardiovascular: S1S2 reg, no murmur Lungs: Bilateral rhonchi, no accessory muscle use, on BiPAP Abdominal: Soft, nontender to palpation, no guarding, no appreciable organomegaly Ext: No gross muscle atrophy, no edema, no contractures Neuro: CN II-XI grossly intact, no focal neuro deficits Psych: Alert, oriented, appropriate affect Data Reviewed Today: Pertinent Labs: WBC 14.4, bicarb 36, creatinine 0.96, blood sugars range between 1 28-1 36 Imaging: Chest x-ray independently interpreted, shows persistent bilateral interstitial opacities Assessment and Plan: Active: Acute hypoxic respiratory failure Sepsis secondary to multifocal bilateral atypical pneumonia Suspected acute COPD exacerbation Acute HFpEF status post diuretics Type II NSTEMI -Management with pulmonology, continue current treatment -Patient currently remains in ICU, on high flow nasal cannula -Status post IV antibiotics -Cultures negative growth to date, Legionella negative -On DuoNebs every 4 hours as needed, 4 times daily scheduled, Solu-Medrol 60 IV every 6 hours , Perforomist twice daily -Lasix now discontinued -On home aspirin and statin -Robitussin DM as needed -Cardiology note reviewed, started on Farxiga 10 mg daily, metoprolol 25 daily Hypertension -Patient s on Aldactone 12.5 daily, also on metoprolol 25 daily Chronic: Hypothyroidism Dyslipidemia History of prostate cancer s/p radiation DVT ppx: Lovenox Code status: Full code Anticipated discharge place: Pending clinical course Anticipated discharge time: Pending clinical course Objective - Vital Signs Vital signs: Vital Signs Temp 97.5 F L 05/07/24 08:00 Pulse 75 05/07/24 10:00 Resp 20 05/07/24 10:00 BP 115/67 05/07/24 10:00 Pulse Ox 83 L 05/07/24 10:00 FiO2 80 05/07/24 08:20 Intake & Output 05/06/24 05/07/24 05/07/24 18:59 06:59 18:59 Intake Total 968 800 Output Total 500 1000 0 Balance 468 -200 0 Weight 113.3 kg Intake: IV 50 cefTRIAXone 2 gm In 50 Sodium Chloride 0.9% 50 ml @ 100 mls/hr IVPB Q24HR [facility] Rx#:[id number] Oral 918 800 Output: Urine 500 1000 0 Other: Voiding Method Urinal Urinal Urinal # Voids 1 0 # Bowel Movements 1 - Labs CBC & Chem 7: 05/07/24 06:08 05/07/24 06:08 Labs: Abnormal Lab Results - Last 24 Hours (Table) 05/06/24 05/06/24 05/07/24 Range/Units 12:13 17:46 05:40 WBC (3.8-10.6) k/uL Neutrophils # (1.3-7.7) k/uL Lymphocytes # (1.0-4.8) k/uL Carbon Dioxide (22-30) mmol/L BUN (9-20) mg/dL Glucose (74-99) mg/dL POC Glucose (mg/dL) 139 H 268 H 131 H (70-110) mg/dL Magnesium (1.6-2.3) mg/dL 05/07/24 05/07/24 05/07/24 Range/Units 06:08 06:08 11:43 WBC 14.4 H (3.8-10.6) k/uL Neutrophils # 13.0 H (1.3-7.7) k/uL Lymphocytes # 0.7 L (1.0-4.8) k/uL Carbon Dioxide 36 H (22-30) mmol/L BUN 37 H (9-20) mg/dL Glucose 136 H (74-99) mg/dL POC Glucose (mg/dL) 128 H (70-110) mg/dL Magnesium 3.1 H (1.6-2.3) mg/dL Microbiology - Last 24 Hours (Table) 05/02/24 10:25 Gram Stain - Final Sputum Sputum Culture - Final
--- NOTE | 2024-05-07 13:37 | P.PN ---
Subjective Progress Note Date: 05/07/24 This is a very pleasant 74-year-old male patient with a known history of hyperlipidemia, hypothyroidism, mild intermittent chronic bronchial asthma, lifelong non-smoker who had presented here to the emergency room early this morning with a 2-week history of increasing shortness of breath cough and congestion. He also was having profound weakness. He did have some blood- tinged sputum 2 days ago. Most recently yellow in color. Chest x-ray reveals patchy and confluent bilateral airspace disease. CT angiogram ruled out central pulmonary embolism. Diffuse bilateral groundglass and airspace disease. Possible multifocal pneumonia, atypical pneumonia, hypersensitive pneumonitis and pulmonary edema. There is pulmonary arterial hypertension. No pleural effusion. A few mediastinal lymph nodes noted most likely reactive. White count 11.1. Hemoglobin 15.3. Platelets 215. D-dimer 4.25. INR 1.1. Sodium 137. Potassium 4.7. Bicarb 26. BUN 17. Creatinine 0.95. Glucose 110. Troponin 0.100. proBNP 121. Viral screen is negative. The patient is seen today in consultation in the emergency department. He is currently sitting up on the stretcher. He is awake and alert in no acute distress. He is dyspneic with conversation. Dyspneic with minimal exertion. Maintaining O2 saturations in the low 90s on 4 L/min per nasal cannula. He denies any recent travels. Denies any sick contacts. He is currently afebrile. Hemodynamically stable. Was seen today on 05/03/2024, patient required placement on BiPAP at 80% 10/ overnight, remains marginal, ABG was noted yesterday on BiPAP, patient has been receiving Lasix and has been receiving antibiotics and steroids. Patient states that he is slightly better today, but nonetheless continues to have shortness of breath and intermittent cough. Antibiotics pierce remains on Rocephin and Zithromax empirically although his procalcitonin level is 0.15. Chest x-ray is not showing much improvement, as [id number] may be a bit worse today. I am surprised that the patient is clinically feeling better, but considering his status being marginal, I transferred the patient to the ICU this morning for close monitoring and if patient deteriorates may require intubation mechanical ventilation. In the meantime he is holding his own on BiPAP at 80%.WBC count is 16.7 hemoglobin 14.4, ABG last night showed a pO2 of 83 pCO2 38 and pH of 7.40 and this was on FiO2 of 60%/BiPAP. Basic metabolic profile is basically normal, procalcitonin level is normal BNP level is normal sed rate, TONE, c-ANCA are all pending Patient was seen today on 05/04/2024, remains on BiPAP 10/5/100%, remains on antibiotics in the form of Rocephin and Zithromax remains on Lasix at 40 mg IV push twice daily remains on Solu-Medrol bronchodilators and on Lovenox. Clinically the patient tells me that he is feeling better breathing easier her chest x-ray is marginal and not much of a change compared to his last x-ray there may be a slight improvement. WBC count is 18.1 hemoglobin 15.3 electrolytes are normal BUN is 39 creatinine 1.05, sed rate is elevated, but his TONE screen is negative his C-reactive protein is 20.7. Patient was seen and examined today on 05/05/2024, patient remains in the ICU, remains marginal at best as far as his pulmonary status is concerned, remains on antibiotics and diuretics, chest x-ray is showing slight improvement in his infiltrates specially in the right lower lobe area. Clinically the patient is about the same, I was able to titrate his FiO2 down to 90% on his BiPAP. Patient is sitting at the bedside chair, does not seem to be in distress, however as I went down to FiO2 of 80%, he was complaining of shortness of breath. He is on BiPAP 16/7/90% at present, still receiving steroids Solu- Medrol, Rocephin, Lovenox, and Aldactone 12.5 mg p.o. daily. WBC count is 14.1 hemoglobin 15.7 basic metabolic profile is normal BUN is 53 creatinine 1.20 The patient is seen today May 06, 2024 in follow-up in the intensive care unit. He is currently sitting up in a chair. Awake and alert in no acute distress. He is breathing a bit easier today compared to yesterday. No worsening shortness of breath, cough or congestion. He is still mostly BiPAP dependent on 16/7 and 65% FiO2. White count 14.6. Hemoglobin 15.4. Platelets 305. Sodium 140. Potassium 4.7. Bicarb 35. BUN 48. Creatinine 1.0. Glucose 140. He is continued on DuoNeb inhalations, Pulmicort and Perforomist inhalations, Solu-Medrol. Procalcitonin was negative. Antibiotics were discontinued. Blood and sputum cultures revealed no growth. The patient is seen today May 07, 2024 in follow-up in the intensive care unit. He is awake and alert in no acute distress. He is currently sitting up in a chair at the bedside. He has been transition to Airvo high flow oxygen. Currently on 50 L and 80% FiO2. He did utilize BiPAP for short periods last night. He is feeling better today compared to yesterday. Chest x-ray shows sim ilar to mild improvement in diffuse infiltrates. Blood and sputum cultures revealed no growth. White count 14.4. Hemoglobin 15.2. Platelets 305. Sodium 141. Potassium 4.7. Bicarb 36. BUN 37. Creatinine 0.96. Glucose 136. He remains on DuoNeb inhalations, Pulmicort and Perforomist inhalations, Solu- Medrol. Lovenox for DVT prophylaxis. Objective - Vital Signs Vital signs: Vital Signs Temp 97.5 F L 05/07/24 12:00 Pulse 82 05/07/24 13:00 Resp 30 H 05/07/24 13:00 BP 127/71 05/07/24 13:00 Pulse Ox 84 L 05/07/24 13:00 FiO2 80 05/07/24 12:00 Intake & Output 05/06/24 05/07/24 05/07/24 18:59 06:59 18:59 Intake Total 968 800 Output Total 500 1000 0 Balance 468 -200 0 Weight 113.3 kg Intake: IV 50 cefTRIAXone 2 gm In 50 Sodium Chloride 0.9% 50 ml @ 100 mls/hr IVPB Q24HR [facility] Rx#:[id number] Oral 918 800 Output: Urine 500 1000 0 Other: Voiding Method Urinal Urinal Urinal # Voids 1 0 # Bowel Movements 1 - Exam GENERAL EXAM: Alert, 74-year-old male, up in a chair, on Airvo high flow oxygen at 50 L and 80% FiO2, comfortable in no apparent distress. HEAD: Normocephalic. EYES: Normal reaction of pupils, equal size. NOSE: Clear with pink turbinates. THROAT: No erythema or exudates. NECK: No masses, no JVD. CHEST: No chest wall deformity. LUNGS: Equal air entry with bilateral scattered rhonchi. CVS: S1 and S2 normal with no audible murmur, regular rhythm. ABDOMEN: No hepatosplenomegaly, normal bowel sounds, no guarding or rigidity. SPINE: No scoliosis or deformity SKIN: No rashes CENTRAL NERVOUS SYSTEM: No focal deficits, tone is normal in all 4 extremities. EXTREMITIES: There is no peripheral edema. No clubbing, no cyanosis. Peripheral pulses are intact. - Labs CBC & Chem 7: 05/07/24 06:08 05/07/24 06:08 Labs: Abnormal Lab Results - Last 24 Hours (Table) 05/06/24 05/07/24 05/07/24 Range/Units 17:46 05:40 06:08 WBC 14.4 H (3.8-10.6) k/uL Neutrophils # 13.0 H (1.3-7.7) k/uL Lymphocytes # 0.7 L (1.0-4.8) k/uL Carbon Dioxide (22-30) mmol/L BUN (9-20) mg/dL Glucose (74-99) mg/dL POC Glucose (mg/dL) 268 H 131 H (70-110) mg/dL Magnesium (1.6-2.3) mg/dL 05/07/24 05/07/24 Range/Units 06:08 11:43 WBC (3.8-10.6) k/uL Neutrophils # (1.3-7.7) k/uL Lymphocytes # (1.0-4.8) k/uL Carbon Dioxide 36 H (22-30) mmol/L BUN 37 H (9-20) mg/dL Glucose 136 H (74-99) mg/dL POC Glucose (mg/dL) 128 H (70-110) mg/dL Magnesium 3.1 H (1.6-2.3) mg/dL Microbiology - Last 24 Hours (Table) 05/02/24 10:25 Gram Stain - Final Sputum Sputum Culture - Final Assessment and Plan Assessment: Acute hypoxemic respiratory failure secondary to atypical pneumonia and chronic obstructive pulmonary disease. Viral screen negative. Procalcitonin negative antibiotics discontinued Generalized weakness secondary to above Leukocytosis secondary to above Troponin leak Morbid obesity with a BMI of 48 kg/m Hyperlipidemia Hypothyroidism History of mild intermittent chronic bronchial asthma Lifelong non-smoker Plan: The patient was seen and evaluated Chest x-ray, labs and medications reviewed Continue the current treatment plan Airvo high flow oxygen at 50 L and 80% FiO2 Titrate the FiO2 as tolerated To remain in the ICU We will continue to follow I have personally seen and examined the patient, performed the documentation and the assessment and plan as written. Dictation was produced using [employer] dictation software. Please excuse any grammatical, word or spelling errors. This patient was seen in coordination with the pulmonary/critical care physician, Dr. Lundy. He agrees to the above HPI, physical exam, assessment and plan of care as dictated by the nurse practitioner. He did spend greater than 50% of the time evaluating, examining and developing the plan of care.
[2024-05-08 00:35] LABS: Glucose,Whole Blood 146 mg/dL (70-110)
[2024-05-08 06:30] LABS: Basophils % (A) 0 %; Eosinophils % (A) 0 %; HCT 47.3 % (39.0-53.0); HGB 15.2 gm/dL (13.0-17.5); Lymphocytes # (A) 0.5 k/uL (1.0-4.8); Lymphocytes % (A) 4 %; MCH 30.7 pg (25.0-35.0); MCHC 32.2 g/dL (31.0-37.0); MCV 95.4 fL (80.0-100.0); Mean Platelet Volume 7.2; Monocytes # (A) 0.6 k/uL (0-1.0); Monocytes % (A) 4 %; Neutrophils # (A) 13.1 k/uL (1.3-7.7); Neutrophils % (A) 92 %; Platelet Count 273 k/uL (150-450); RBC 4.95 m/uL (4.30-5.90); RDW 13.2 % (11.5-15.5); WBC 14.3 k/uL (3.8-10.6)
[2024-05-08 06:34] LABS: Glucose,Whole Blood 120 mg/dL (70-110)
[2024-05-08 06:46] LABS: African American GFR (CKD) 86 (>60 ml/min/1.73 sqM); Anion Gap 5 mmol/L; Blood Urea Nitrogen 37 mg/dL (9-20); Calcium 9.4 mg/dL (8.4-10.2); Carbon Dioxide 33 mmol/L (22-30); Chloride 101 mmol/L (98-107); Glucose 128 mg/dL (74-99); Non-African American GFR(CKD) 75 (>60 ml/min/1.73 sqM); Potassium 5.1 mmol/L (3.5-5.1); Sodium 139 mmol/L (137-145)
--- NOTE | 2024-05-08 10:25 | P.PN ---
Subjective Progress Note Date: 05/08/24 PROGRESS NOTE The patient is a 74-year-old male who presented with symptoms of progressive dyspnea, requiring BiPAP with evidence of bilateral multifocal pneumonia. He is continuing to be dyspneic on the BiPAP. He had mild troponin elevation secondary to type II myocardial infarction. He denies any chest discomfort, dizziness or palpitations. His echocardiogram showed a preserved systolic function with low ventricle hypertrophy. He continues to be in sinus mechanism and hemodynamically stable. May 07: The patient feels better today, he continues to be on high flow oxygen supplement and on BiPAP during the night. His breathing is better. He continues to be in sinus mechanism and his blood pressure is stable. He is coughing and bringing up dark sputum. He denies any chest discomfort, dizziness or palpitations. May 08, 2024 Patient is seen and examined at bedside this a.m. He is on BiPAP support. Reports symptomatic improvement. Blood pressure heart rate is stable. Sinus rhythm on telemetry. Still having cough with dark sputum. Denies any chest pain/pressure PHYSICAL EXAMINATION: Blood pressure 129/80 heart rate 91, obese LUNGS: Scattered rhonchi, no wheezes HEART: Regular rate and rhythm, S1, S2. No S3. Systolic ejection murmur ABDOMEN: Soft, nontender, no organomegaly EXTREMETIES: No edema LAB: Hemoglobin 15.2, WBC 14.4, BUN 37, creatinine 0.96 IMPRESSION: 1. Respiratory failure with pneumonia improving 2. Hypertension 3. Hypothyroidism 4. Hyperlipidemia PLAN: 1. Continue present therapy with aspirin 81 mg, Farxiga 10 mg, metoprolol XL 25 mg daily, Aldactone 12.5 mg daily Monitor renal function. Depending on clinical course, recommend further management Objective - Vital Signs Vital signs: Vital Signs Temp 97.6 F 05/08/24 08:00 Pulse 80 05/08/24 10:00 Resp 24 05/08/24 10:00 BP 109/61 05/08/24 10:00 Pulse Ox 93 L 05/08/24 10:00 FiO2 90 05/08/24 10:04 Intake & Output 05/07/24 05/08/24 05/08/24 18:59 06:59 18:59 Intake Total 80 Output Total 400 500 300 Balance -400 -500 -220 Weight 113.3 kg Intake: Other 80 Output: Urine 400 500 300 Other: Voiding Method Urinal Urinal Urinal # Voids 1 # Bowel Movements 1 1 - Labs CBC & Chem 7: 05/08/24 05:41 05/08/24 05:41 Labs: Abnormal Lab Results - Last 24 Hours (Table) 05/07/24 05/08/24 05/08/24 Range/Units 11:43 00:33 05:41 WBC 14.3 H (3.8-10.6) k/uL Neutrophils # 13.1 H (1.3-7.7) k/uL Lymphocytes # 0.5 L (1.0-4.8) k/uL Carbon Dioxide (22-30) mmol/L BUN (9-20) mg/dL Glucose (74-99) mg/dL POC Glucose (mg/dL) 128 H 146 H (70-110) mg/dL Magnesium (1.6-2.3) mg/dL 05/08/24 05/08/24 05/08/24 Range/Units 05:41 05:41 06:33 WBC (3.8-10.6) k/uL Neutrophils # (1.3-7.7) k/uL Lymphocytes # (1.0-4.8) k/uL Carbon Dioxide 33 H (22-30) mmol/L BUN 37 H (9-20) mg/dL Glucose 128 H (74-99) mg/dL POC Glucose (mg/dL) 120 H (70-110) mg/dL Magnesium 3.0 H (1.6-2.3) mg/dL Microbiology - Last 24 Hours (Table) 05/02/24 10:17 Blood Culture - Final Blood
[2024-05-08 11:44] LABS: Glucose,Whole Blood 104 mg/dL (70-110)
--- NOTE | 2024-05-08 11:51 | P.PN ---
Subjective Progress Note Date: 05/08/24 Hospital Course: 74 years old male with past medical history of asthma, hyperlipidemia, prostate cancer status postradiation, GERD, hypothyroidism, who presented with gradually worsening shortness of breath. In the ER patient was hypoxic down to 85% on room air and was placed on 4 L nasal cannula with SpO2 improvement, his blood pressure was normotensive, heart rate elevated 90s low 100s. Lab work significant for very mild leukocytosis 11.1, normal hemoglobin and platelets. Chemistry profile showed initially elevated lactate at 2.1, normal electrolytes, normal creatinine and GFR. Troponin elevated 0.1 viral panel negative. EKG , sinus, QTc normal, RBBB pattern, no ST elevation. Of note, patient had heart cath on 10/03/2023 that showed no evidence of obstructive CAD, did show mild aor tic stenosis. Chest x-ray reviewed personally and showed bilateral patchy opacities. CTA chest showed no PE, did reveal bilateral groundglass opacities signs of pulmonary arterial hypertension, mediastinal lymphadenopathy up to 1.9, follow-up in 3 to 6 months suggested by radiology. 1.7 cm incidental gallstone. Patient admitted for acute hypoxic respiratory failure likely secondary to community-acquired pneumonia versus CHF exacerbation. On antibiotics and IV diuretics. Cardiology and pulmonology following. Echocardiogram showed LVEF 55 to 60%, concentric left ventricular hypertrophy, moderate pulmonary hypertension, moderate tricuspid regurgitation. Patient continued to worsen, started on BiPAP, currently in medical ICU. Subjective: Patient seen and examined at bedside. No acute events overnight. Back on BiPAP. Pertinent positives and negatives as discussed above, a complete review of systems was performed and all other systems are negative. Vitals Signs Reviewed. General: Nontoxic, no distress, appears at stated age Derm: Warm, dry Head: Atraumatic, normocephalic, symmetric Eyes: EOMI, no lid lag, anicteric sclera Mouth: No lip lesion, mucus membranes moist Cardiovascular: S1S2 reg, no murmur Lungs: Bilateral rhonchi, no accessory muscle use, on BiPAP Abdominal: Soft, nontender to palpation, no guarding, no appreciable organomegaly Ext: No gross muscle atrophy, no edema, no contractures Neuro: CN II-XI grossly intact, no focal neuro deficits Psych: Alert, oriented, appropriate affect Data Reviewed Today: Pertinent Labs: WBC 14.3, creatinine 0.99, blood sugars range between 10 4-1 46 Imaging: CTA chest official report pending, independently interpreted, shows groundglass opacities Assessment and Plan: Active: Acute hypoxic respiratory failure Sepsis secondary to multifocal bilateral atypical pneumonia Suspected acute COPD exacerbation Acute HFpEF status post diuretics Type II NSTEMI -ICU following -Patient currently remains in ICU, on BiPAP -Status post IV antibiotics -Cultures negative growth to date, Legionella negative -On DuoNebs every 4 hours as needed, 4 times daily scheduled, Solu-Medrol 60 IV every 6 hours , Perforomist twice daily -Lasix now discontinued -On home aspirin and statin -Robitussin DM as needed -Cardiology note reviewed, continue on Farxiga 10 mg daily, metoprolol 25 daily Hypertension -Patient s on Aldactone 12.5 daily, also on metoprolol 25 daily Chronic: Hypothyroidism Dyslipidemia History of prostate cancer s/p radiation DVT ppx: Lovenox Code status: Full code Anticipated discharge place: Pending clinical course Anticipated discharge time: Pending clinical course Objective - Vital Signs Vital signs: Vital Signs Temp 97.6 F 05/08/24 08:00 Pulse 69 05/08/24 11:00 Resp 31 H 05/08/24 11:00 BP 115/74 05/08/24 11:00 Pulse Ox 90 L 05/08/24 11:00 FiO2 90 05/08/24 11:00 Intake & Output 05/07/24 05/08/24 05/08/24 18:59 06:59 18:59 Intake Total 80 Output Total 400 500 300 Balance -400 -500 -220 Weight 113.3 kg Intake: Other 80 Output: Urine 400 500 300 Other: Voiding Method Urinal Urinal Urinal # Voids 1 # Bowel Movements 1 1 - Labs CBC & Chem 7: 05/08/24 05:41 05/08/24 05:41 Labs: Abnormal Lab Results - Last 24 Hours (Table) 05/08/24 05/08/24 05/08/24 Range/Units 00:33 05:41 05:41 WBC 14.3 H (3.8-10.6) k/uL Neutrophils # 13.1 H (1.3-7.7) k/uL Lymphocytes # 0.5 L (1.0-4.8) k/uL Carbon Dioxide (22-30) mmol/L BUN (9-20) mg/dL Glucose (74-99) mg/dL POC Glucose (mg/dL) 146 H (70-110) mg/dL Magnesium 3.0 H (1.6-2.3) mg/dL 05/08/24 05/08/24 Range/Units 05:41 06:33 WBC (3.8-10.6) k/uL Neutrophils # (1.3-7.7) k/uL Lymphocytes # (1.0-4.8) k/uL Carbon Dioxide 33 H (22-30) mmol/L BUN 37 H (9-20) mg/dL Glucose 128 H (74-99) mg/dL POC Glucose (mg/dL) 120 H (70-110) mg/dL Magnesium (1.6-2.3) mg/dL Microbiology - Last 24 Hours (Table) 05/02/24 10:17 Blood Culture - Final Blood
--- NOTE | 2024-05-08 12:29 | P.PN ---
Subjective Progress Note Date: 05/08/24 This is a very pleasant 74-year-old male patient with a known history of hyperlipidemia, hypothyroidism, mild intermittent chronic bronchial asthma, lifelong non-smoker who had presented here to the emergency room early this morning with a 2-week history of increasing shortness of breath cough and congestion. He also was having profound weakness. He did have some blood- tinged sputum 2 days ago. Most recently yellow in color. Chest x-ray reveals patchy and confluent bilateral airspace disease. CT angiogram ruled out central pulmonary embolism. Diffuse bilateral groundglass and airspace disease. Possible multifocal pneumonia, atypical pneumonia, hypersensitive pneumonitis and pulmonary edema. There is pulmonary arterial hypertension. No pleural effusion. A few mediastinal lymph nodes noted most likely reactive. White count 11.1. Hemoglobin 15.3. Platelets 215. D-dimer 4.25. INR 1.1. Sodium 137. Potassium 4.7. Bicarb 26. BUN 17. Creatinine 0.95. Glucose 110. Troponin 0.100. proBNP 121. Viral screen is negative. The patient is seen today in consultation in the emergency department. He is currently sitting up on the stretcher. He is awake and alert in no acute distress. He is dyspneic with conversation. Dyspneic with minimal exertion. Maintaining O2 saturations in the low 90s on 4 L/min per nasal cannula. He denies any recent travels. Denies any sick contacts. He is currently afebrile. Hemodynamically stable. Was seen today on 05/03/2024, patient required placement on BiPAP at 80% 10/ overnight, remains marginal, ABG was noted yesterday on BiPAP, patient has been receiving Lasix and has been receiving antibiotics and steroids. Patient states that he is slightly better today, but nonetheless continues to have shortness of breath and intermittent cough. Antibiotics pierce remains on Rocephin and Zithromax empirically although his procalcitonin level is 0.15. Chest x-ray is not showing much improvement, as [id number] may be a bit worse today. I am surprised that the patient is clinically feeling better, but considering his status being marginal, I transferred the patient to the ICU this morning for close monitoring and if patient deteriorates may require intubation mechanical ventilation. In the meantime he is holding his own on BiPAP at 80%.WBC count is 16.7 hemoglobin 14.4, ABG last night showed a pO2 of 83 pCO2 38 and pH of 7.40 and this was on FiO2 of 60%/BiPAP. Basic metabolic profile is basically normal, procalcitonin level is normal BNP level is normal sed rate, TONE, c-ANCA are all pending Patient was seen today on 05/04/2024, remains on BiPAP 10/5/100%, remains on antibiotics in the form of Rocephin and Zithromax remains on Lasix at 40 mg IV push twice daily remains on Solu-Medrol bronchodilators and on Lovenox. Clinically the patient tells me that he is feeling better breathing easier her chest x-ray is marginal and not much of a change compared to his last x-ray there may be a slight improvement. WBC count is 18.1 hemoglobin 15.3 electrolytes are normal BUN is 39 creatinine 1.05, sed rate is elevated, but his TONE screen is negative his C-reactive protein is 20.7. Patient was seen and examined today on 05/05/2024, patient remains in the ICU, remains marginal at best as far as his pulmonary status is concerned, remains on antibiotics and diuretics, chest x-ray is showing slight improvement in his infiltrates specially in the right lower lobe area. Clinically the patient is about the same, I was able to titrate his FiO2 down to 90% on his BiPAP. Patient is sitting at the bedside chair, does not seem to be in distress, however as I went down to FiO2 of 80%, he was complaining of shortness of breath. He is on BiPAP 16/7/90% at present, still receiving steroids Solu- Medrol, Rocephin, Lovenox, and Aldactone 12.5 mg p.o. daily. WBC count is 14.1 hemoglobin 15.7 basic metabolic profile is normal BUN is 53 creatinine 1.20 The patient is seen today May 06, 2024 in follow-up in the intensive care unit. He is currently sitting up in a chair. Awake and alert in no acute distress. He is breathing a bit easier today compared to yesterday. No worsening shortness of breath, cough or congestion. He is still mostly BiPAP dependent on 16/7 and 65% FiO2. White count 14.6. Hemoglobin 15.4. Platelets 305. Sodium 140. Potassium 4.7. Bicarb 35. BUN 48. Creatinine 1.0. Glucose 140. He is continued on DuoNeb inhalations, Pulmicort and Perforomist inhalations, Solu-Medrol. Procalcitonin was negative. Antibiotics were discontinued. Blood and sputum cultures revealed no growth. The patient is seen today May 07, 2024 in follow-up in the intensive care unit. He is awake and alert in no acute distress. He is currently sitting up in a chair at the bedside. He has been transition to Airvo high flow oxygen. Currently on 50 L and 80% FiO2. He did utilize BiPAP for short periods last night. He is feeling better today compared to yesterday. Chest x-ray shows sim ilar to mild improvement in diffuse infiltrates. Blood and sputum cultures revealed no growth. White count 14.4. Hemoglobin 15.2. Platelets 305. Sodium 141. Potassium 4.7. Bicarb 36. BUN 37. Creatinine 0.96. Glucose 136. He remains on DuoNeb inhalations, Pulmicort and Perforomist inhalations, Solu- Medrol. Lovenox for DVT prophylaxis. The patient is seen today May 08, 2024 in follow-up in the intensive care unit. He is currently sitting up in a chair at the bedside. Awake and alert in no acute distress. He is breathing a bit better today compared to yesterday. He does continue to drop his O2 sats into the 70s with brief periods off the BiPap 16/7 and 90% FiO2 to and transitioning to Airvo high flow oxygen. He is continued on DuoNeb inhalations, Pulmicort and Perforomist inhalations, IV Solu- Medrol. Lovenox for DVT prophylaxis. Blood and sputum cultures revealed no gr owth. White count 14.3. Hemoglobin 15.2. Platelets 273. Sodium 139. Potassium 5.1. Bicarb 33. BUN 37. Creatinine 0.99. Glucose 128. Objective - Vital Signs Vital signs: Vital Signs Temp 98.0 F 05/08/24 12:00 Pulse 76 05/08/24 12:15 Resp 29 H 05/08/24 12:00 BP 115/74 05/08/24 12:00 Pulse Ox 87 L 05/08/24 12:00 FiO2 90 05/08/24 12:18 Intake & Output 05/07/24 05/08/24 05/08/24 18:59 06:59 18:59 Intake Total 80 Output Total 400 500 300 Balance -400 -500 -220 Weight 113.3 kg Intake: Other 80 Output: Urine 400 500 300 Other: Voiding Method Urinal Urinal Urinal # Voids 1 # Bowel Movements 1 1 ABP, PAP, CO, CI - Last Documented Arterial Blood Pressure 119/71 - Exam GENERAL EXAM: Alert, very pleasant 74-year-old male, up in a chair, on Airvo high flow oxygen at 50 L and 90% FiO2, comfortable in no apparent distress. HEAD: Normocephalic. EYES: Normal reaction of pupils, equal size. NOSE: Clear with pink turbinates. THROAT: No erythema or exudates. NECK: No masses, no JVD. CHEST: No chest wall deformity. LUNGS: Equal air entry with bilateral scattered rhonchi. CVS: S1 and S2 normal with no audible murmur, regular rhythm. ABDOMEN: No hepatosplenomegaly, normal bowel sounds, no guarding or rigidity. SPINE: No scoliosis or deformity SKIN: No rashes CENTRAL NERVOUS SYSTEM: No focal deficits, tone is normal in all 4 extremities. EXTREMITIES: There is no peripheral edema. No clubbing, no cyanosis. Peripheral pulses are intact. - Labs CBC & Chem 7: 05/08/24 05:41 05/08/24 05:41 Labs: Abnormal Lab Results - Last 24 Hours (Table) 05/08/24 05/08/24 05/08/24 Range/Units 00:33 05:41 05:41 WBC 14.3 H (3.8-10.6) k/uL Neutrophils # 13.1 H (1.3-7.7) k/uL Lymphocytes # 0.5 L (1.0-4.8) k/uL Carbon Dioxide (22-30) mmol/L BUN (9-20) mg/dL Glucose (74-99) mg/dL POC Glucose (mg/dL) 146 H (70-110) mg/dL Magnesium 3.0 H (1.6-2.3) mg/dL 05/08/24 05/08/24 Range/Units 05:41 06:33 WBC (3.8-10.6) k/uL Neutrophils # (1.3-7.7) k/uL Lymphocytes # (1.0-4.8) k/uL Carbon Dioxide 33 H (22-30) mmol/L BUN 37 H (9-20) mg/dL Glucose 128 H (74-99) mg/dL POC Glucose (mg/dL) 120 H (70-110) mg/dL Magnesium (1.6-2.3) mg/dL Microbiology - Last 24 Hours (Table) 05/02/24 10:17 Blood Culture - Final Blood Assessment and Plan Assessment: Acute hypoxemic respiratory failure secondary to atypical pneumonia and chronic obstructive pulmonary disease. Viral screen negative. Procalcitonin negative antibiotics discontinued Generalized weakness secondary to above Leukocytosis secondary to above Troponin leak Morbid obesity with a BMI of 48 kg/m Hyperlipidemia Hypothyroidism History of mild intermittent chronic bronchial asthma Lifelong non-smoker Plan: The patient was seen and evaluated Labs and medications reviewed Patient has been slow to progress Will repeat a CT angiogram to rule out pulmonary embolism Continue the current treatment plan Airvo high flow oxygen at 50 L and 90% FiO2 Titrate the FiO2 as tolerated To remain in the ICU We will continue to follow I have personally seen and examined the patient, performed the documentation and the assessment and plan as written. Time:10 minutes Dictation was produced using [employer] dictation software. Please excuse any grammatical, word or spelling errors. This patient was seen in coordination with the pulmonary/critical care physician, Dr. Lundy. He did spend greater than 50% of the time evaluating, examining and developing the plan of care. He agrees to the above HPI, physical exam, assessment and plan of care as dictated by the nurse practitioner.
--- NOTE | 2024-05-08 13:48 | US ---
EXAMINATION TYPE: US venous doppler duplex LE BI DATE OF EXAM: 05/08/2024 10:47 AM COMPARISON: NONE CLINICAL INDICATION: Male, 74 years old with history of Hypoxemia, r/o DVT; hypoxemia, Pain TECHNIQUE: The lower extremity deep venous system is examined utilizing real time linear array sonog lida with graded compression, color doppler sonography, and spectral doppler. SIDE PERFORMED: bilateral FINDINGS: VESSELS IMAGED: Common Femoral Vein Deep Femoral Vein Greater Saphenous Vein * Femoral Vein Popliteal Vein Small Saphenous Vein * Proximal Calf Veins (* superficial vessels) Right Leg: no evidence of DVT as visualized. Rouleaux flow noted , Color Doppler imaging shows paten cy of the vessels. Spectral waveforms are within normal limits. Left Leg: no evidence of DVT as visualized. Rouleaux flow noted , Color Doppler imaging shows patenc y of the vessels. Spectral waveforms are within normal limits. IMPRESSION: No ultrasound evidence for deep venous thrombosis at the time of this examination. [facility], Workstation: [id number], 05/08/2024 1:46 PM
--- NOTE | 2024-05-08 14:29 | CT ---
EXAMINATION TYPE: CT angio chest DATE OF EXAM: 05/08/2024 11:15 AM COMPARISON: CLINICAL INDICATION: Male, 74 years old with history of Hypoxemia, HYPOXEMIA TECHNIQUE: CT of the chest is performed on a spiral scan at 2 mm thick sections. Study is performed with intravenous contrast timed for evaluation for pulmonary embolism. This will limit additional po rtions of the evaluation. 3-D MIP images reconstructed by the technologist are reviewed on the compu ter in the coronal and sagittal planes. Contrast used:100 mL of Isovue 300 with IV Contrast, (none if empty) Oral contrast used: (none if empty) CT DLP: 682.2 mGycm, Automated exposure control for dose reduction was used. FINDINGS: No acute pulmonary embolism. No mediastinal or hilar adenopathy enlarged by CT criteria is evident. The ascending aorta diameter at the level of the main pulmonary artery is 3.3 cm. The main pulmonary artery diameter at the bifurcation is 3.3 cm. There is a 1.0 cm pretracheal lymph node present. Cou ple of the additional smaller mediastinal lymph nodes are present. No enlarged hilar adenopathy is ev ident. Extensive infiltrates are scattered through the bilateral lung ferreira greater into the lower lung fie lds. Air bronchograms are present. Pulmonary edema and pneumonia should be considered. This appears m ore diffuse and less patchy from the comparison. Limited CT sections were through the upper abdomen. Upper abdomen appears unremarkable. IMPRESSION: 1. Diffuse groundglass opacities with air bronchograms. Correlate for pulmonary edema and pneumonia. This appears more diffuse and less patchy than the recent comparison. 2. Enlarged pretracheal lymph node with scattered smaller lymph nodes within the mediastinum. 3. No acute pulmonary embolism [facility], Workstation: [facility], 05/08/2024 2:27 PM
[2024-05-08 18:46] LABS: Glucose,Whole Blood 148 mg/dL (70-110)
[2024-05-08 21:22] LABS: Glucose,Whole Blood 154 mg/dL (70-110)
[2024-05-09 03:32] LABS: HCT 47.8 % (39.0-53.0); HGB 16.2 gm/dL (13.0-17.5); MCH 32.4 pg (25.0-35.0); MCHC 33.8 g/dL (31.0-37.0); MCV 95.8 fL (80.0-100.0); Mean Platelet Volume 7.3; Platelet Count 191 k/uL (150-450); RBC 4.99 m/uL (4.30-5.90); RDW 13.4 % (11.5-15.5); WBC 15.2 k/uL (3.8-10.6)
[2024-05-09 04:04] LABS: African American GFR (CKD) >90 (>60 ml/min/1.73 sqM); Anion Gap 4 mmol/L; Blood Urea Nitrogen 35 mg/dL (9-20); Calcium 9.3 mg/dL (8.4-10.2); Carbon Dioxide 29 mmol/L (22-30); Chloride 103 mmol/L (98-107); Glucose 143 mg/dL (74-99); Non-African American GFR(CKD) 86 (>60 ml/min/1.73 sqM); Potassium 5.1 mmol/L (3.5-5.1); Sodium 136 mmol/L (137-145)
[2024-05-09 06:36] LABS: Glucose,Whole Blood 147 mg/dL (70-110)
--- NOTE | 2024-05-09 07:49 | P.PN ---
Subjective Progress Note Date: 05/09/24 PROGRESS NOTE The patient is a 74-year-old male who presented with symptoms of progressive dyspnea, requiring BiPAP with evidence of bilateral multifocal pneumonia. He is continuing to be dyspneic on the BiPAP. He had mild troponin elevation secondary to type II myocardial infarction. He denies any chest discomfort, dizziness or palpitations. His echocardiogram showed a preserved systolic function with low ventricle hypertrophy. He continues to be in sinus mechanism and hemodynamically stable. May 09: The patient is on BiPAP at this time, was on airVo earlier. He is feeling better overall but continues to have a cough and episode of dyspnea. He is having clear to yellowish sputum. He is in sinus mechanism and no evidence of malignant arrhythmia. His blood pressure has been stable. Duplex scan of the lower extremities showed no DVT and his CT angiogram showed no evidence of pulmonary embolism. Medications: Lipitor 20 mg daily, aspirin, levothyroxine, metoprolol succinate 25 mg daily, spironolactone 12.5 mg daily, methylprednisolone, Farxiga 10 mg daily PHYSICAL EXAMINATION: Blood pressure 114/60 heart rate 70, obese on BiPAP LUNGS: Clear, no wheezes HEART: Regular rate and rhythm, S1, S2. No S3. Systolic ejection murmur ABDOMEN: Soft, nontender, no organomegaly, obese EXTREMETIES: No edema LAB: Hemoglobin 16.2, WBC 15.2, BUN 35, creatinine 0.85 IMPRESSION: 1. Respiratory failure with probable viral pneumonia improving 2. Hypertension 3. Hypothyroidism 4. Hyperlipidemia 5. Obesity PLAN: 1. Continue present therapy 2. Increase physical activity 3. We will see him on as-needed basis, please feel free to call us for any question. Objective - Vital Signs Vital signs: Vital Signs Temp 97.6 F 05/09/24 04:00 Pulse 70 05/09/24 07:00 Resp 28 H 05/09/24 07:00 BP 114/58 05/09/24 07:00 Pulse Ox 90 L 05/09/24 07:00 FiO2 90 05/09/24 06:30 Intake & Output 05/08/24 05/09/24 05/09/24 18:59 06:59 18:59 Intake Total 80 480 Output Total 1075 500 0 Balance -995 -20 0 Weight 115.5 kg Intake: Oral 480 Other 80 Output: Urine 1075 500 0 Other: Voiding Method Urinal Urinal # Bowel Movements 1 - Labs CBC & Chem 7: 05/09/24 03:16 05/09/24 03:16 Labs: Abnormal Lab Results - Last 24 Hours (Table) 05/08/24 05/08/24 05/09/24 Range/Units 18:45 21:20 03:16 WBC 15.2 H (3.8-10.6) k/uL Sodium (137-145) mmol/L BUN (9-20) mg/dL Glucose (74-99) mg/dL POC Glucose (mg/dL) 148 H 154 H (70-110) mg/dL 05/09/24 05/09/24 Range/Units 03:16 06:35 WBC (3.8-10.6) k/uL Sodium 136 L (137-145) mmol/L BUN 35 H (9-20) mg/dL Glucose 143 H (74-99) mg/dL POC Glucose (mg/dL) 147 H (70-110) mg/dL Microbiology - Last 24 Hours (Table) 05/07/24 10:45 Gram Stain - Preliminary Sputum Sputum Culture - Preliminary
[2024-05-09] MEDS: PIPERACILLIN-TAZOBACTAM 3.375 GM in SODIUM CHLORIDE 0.9% 100 ML IVPB SCH (10:36)
[2024-05-09 11:00] LABS: Glucose,Whole Blood 114 mg/dL (70-110)
--- NOTE | 2024-05-09 11:25 | P.PN ---
Subjective Progress Note Date: 05/09/24 Hospital Course: 74 years old male with past medical history of asthma, hyperlipidemia, prostate cancer status postradiation, GERD, hypothyroidism, who presented with gradually worsening shortness of breath. In the ER patient was hypoxic down to 85% on room air and was placed on 4 L nasal cannula with SpO2 improvement, his blood pressure was normotensive, heart rate elevated 90s low 100s. Lab work significant for very mild leukocytosis 11.1, normal hemoglobin and platelets. Chemistry profile showed initially elevated lactate at 2.1, normal electrolytes, normal creatinine and GFR. Troponin elevated 0.1 viral panel negative. EKG , sinus, QTc normal, RBBB pattern, no ST elevation. Of note, patient had heart cath on 10/03/2023 that showed no evidence of obstructive CAD, did show mild aor tic stenosis. Chest x-ray reviewed personally and showed bilateral patchy opacities. CTA chest showed no PE, did reveal bilateral groundglass opacities signs of pulmonary arterial hypertension, mediastinal lymphadenopathy up to 1.9, follow-up in 3 to 6 months suggested by radiology. 1.7 cm incidental gallstone. Patient admitted for acute hypoxic respiratory failure likely secondary to community-acquired pneumonia versus CHF exacerbation. On antibiotics and IV diuretics. Cardiology and pulmonology following. Echocardiogram showed LVEF 55 to 60%, concentric left ventricular hypertrophy, moderate pulmonary hypertension, moderate tricuspid regurgitation. Patient continued to worsen, started on BiPAP, currently in medical ICU. Subjective: Patient seen and examined at bedside. No acute events overnight. Going between BiPAP and high flow nasal cannula. Pertinent positives and negatives as discussed above, a complete review of systems was performed and all other systems are negative. Vitals Signs Reviewed. General: Nontoxic, no distress, appears at stated age Derm: Warm, dry Head: Atraumatic, normocephalic, symmetric Eyes: EOMI, no lid lag, anicteric sclera Mouth: No lip lesion, mucus membranes moist Cardiovascular: S1S2 reg, no murmur Lungs: Bilateral rhonchi, no accessory muscle use, on BiPAP Abdominal: Soft, nontender to palpation, no guarding, no appreciable organ omegaly Ext: No gross muscle atrophy, no edema, no contractures Neuro: CN II-XI grossly intact, no focal neuro deficits Psych: Alert, oriented, appropriate affect Data Reviewed Today: Pertinent Labs: WBC 1 15.2, sodium 136, creatinine 0.85, blood sugars range between 1 14-1 54 Imaging: No new imaging Assessment and Plan: Patient is critically ill, needs close monitoring. Prognosis guarded. Active: Acute hypoxic respiratory failure Sepsis secondary to multifocal bilateral atypical pneumonia Suspected acute COPD exacerbation Acute HFpEF status post diuretics Type II NSTEMI -ICU following -Patient currently remains in ICU, on BiPAP and high flow nasal cannula, wean oxygen -on IV Zosyn 3.375 g every 8 hours -Cultures negative growth to date, Legionella negative -On DuoNebs every 4 hours as needed, 4 times daily scheduled, Solu-Medrol 60 IV every 6 hours , Perforomist twice daily, Pulmicort twice daily -Lasix now discontinued -On home aspirin and statin -Robitussin DM as needed -Cardiology note reviewed, increase exercise, continue on Farxiga 10 mg daily, metoprolol 25 daily Hypertension -Patient s on Aldactone 12.5 daily, also on metoprolol 25 daily Chronic: Hypothyroidism Dyslipidemia History of prostate cancer s/p radiation DVT ppx: Lovenox Code status: Full code, had goals of care discussion, patient wants to continue to fight Anticipated discharge place: Pending clinical course Anticipated discharge time: Pending clinical course Objective - Vital Signs Vital signs: Vital Signs Temp 97.6 F 05/09/24 04:00 Pulse 83 05/09/24 09:00 Resp 18 05/09/24 09:00 BP 117/68 05/09/24 09:00 Pulse Ox 89 L 05/09/24 09:06 FiO2 90 05/09/24 10:35 Intake & Output 05/08/24 05/09/24 05/09/24 18:59 06:59 18:59 Intake Total 80 480 Output Total 1075 500 0 Balance -995 -20 0 Weight 115.5 kg Intake: Oral 480 Other 80 Output: Urine 1075 500 0 Other: Voiding Method Urinal Urinal # Bowel Movements 1 - Labs CBC & Chem 7: 05/09/24 03:16 05/09/24 03:16 Labs: Abnormal Lab Results - Last 24 Hours (Table) 05/08/24 05/08/24 05/09/24 Range/Units 18:45 21:20 03:16 WBC 15.2 H (3.8-10.6) k/uL Sodium (137-145) mmol/L BUN (9-20) mg/dL Glucose (74-99) mg/dL POC Glucose (mg/dL) 148 H 154 H (70-110) mg/dL 05/09/24 05/09/24 05/09/24 Range/Units 03:16 06:35 10:58 WBC (3.8-10.6) k/uL Sodium 136 L (137-145) mmol/L BUN 35 H (9-20) mg/dL Glucose 143 H (74-99) mg/dL POC Glucose (mg/dL) 147 H 114 H (70-110) mg/dL Microbiology - Last 24 Hours (Table) 05/07/24 10:45 Gram Stain - Final Sputum Sputum Culture - Final
--- NOTE | 2024-05-09 12:34 | P.PN ---
Subjective Progress Note Date: 05/09/24 This is a very pleasant 74-year-old male patient with a known history of hyperlipidemia, hypothyroidism, mild intermittent chronic bronchial asthma, lifelong non-smoker who had presented here to the emergency room early this morning with a 2-week history of increasing shortness of breath cough and congestion. He also was having profound weakness. He did have some blood- tinged sputum 2 days ago. Most recently yellow in color. Chest x-ray reveals patchy and confluent bilateral airspace disease. CT angiogram ruled out central pulmonary embolism. Diffuse bilateral groundglass and airspace disease. Possible multifocal pneumonia, atypical pneumonia, hypersensitive pneumonitis and pulmonary edema. There is pulmonary arterial hypertension. No pleural effusion. A few mediastinal lymph nodes noted most likely reactive. White count 11.1. Hemoglobin 15.3. Platelets 215. D-dimer 4.25. INR 1.1. Sodium 137. Potassium 4.7. Bicarb 26. BUN 17. Creatinine 0.95. Glucose 110. Troponin 0.100. proBNP 121. Viral screen is negative. The patient is seen today in consultation in the emergency department. He is currently sitting up on the stretcher. He is awake and alert in no acute distress. He is dyspneic with conversation. Dyspneic with minimal exertion. Maintaining O2 saturations in the low 90s on 4 L/min per nasal cannula. He denies any recent travels. Denies any sick contacts. He is currently afebrile. Hemodynamically stable. Was seen today on 05/03/2024, patient required placement on BiPAP at 80% 10/ overnight, remains marginal, ABG was noted yesterday on BiPAP, patient has been receiving Lasix and has been receiving antibiotics and steroids. Patient states that he is slightly better today, but nonetheless continues to have shortness of breath and intermittent cough. Antibiotics pierce remains on Rocephin and Zithromax empirically although his procalcitonin level is 0.15. Chest x-ray is not showing much improvement, as [id number] may be a bit worse today. I am surprised that the patient is clinically feeling better, but considering his status being marginal, I transferred the patient to the ICU this morning for close monitoring and if patient deteriorates may require intubation mechanical ventilation. In the meantime he is holding his own on BiPAP at 80%.WBC count is 16.7 hemoglobin 14.4, ABG last night showed a pO2 of 83 pCO2 38 and pH of 7.40 and this was on FiO2 of 60%/BiPAP. Basic metabolic profile is basically normal, procalcitonin level is normal BNP level is normal sed rate, TONE, c-ANCA are all pending Patient was seen today on 05/04/2024, remains on BiPAP 10/5/100%, remains on antibiotics in the form of Rocephin and Zithromax remains on Lasix at 40 mg IV push twice daily remains on Solu-Medrol bronchodilators and on Lovenox. Clinically the patient tells me that he is feeling better breathing easier her chest x-ray is marginal and not much of a change compared to his last x-ray there may be a slight improvement. WBC count is 18.1 hemoglobin 15.3 electrolytes are normal BUN is 39 creatinine 1.05, sed rate is elevated, but his TONE screen is negative his C-reactive protein is 20.7. Patient was seen and examined today on 05/05/2024, patient remains in the ICU, remains marginal at best as far as his pulmonary status is concerned, remains on antibiotics and diuretics, chest x-ray is showing slight improvement in his infiltrates specially in the right lower lobe area. Clinically the patient is about the same, I was able to titrate his FiO2 down to 90% on his BiPAP. Patient is sitting at the bedside chair, does not seem to be in distress, however as I went down to FiO2 of 80%, he was complaining of shortness of breath. He is on BiPAP 16/7/90% at present, still receiving steroids Solu- Medrol, Rocephin, Lovenox, and Aldactone 12.5 mg p.o. daily. WBC count is 14.1 hemoglobin 15.7 basic metabolic profile is normal BUN is 53 creatinine 1.20 The patient is seen today May 06, 2024 in follow-up in the intensive care unit. He is currently sitting up in a chair. Awake and alert in no acute distress. He is breathing a bit easier today compared to yesterday. No worsening shortness of breath, cough or congestion. He is still mostly BiPAP dependent on 16/7 and 65% FiO2. White count 14.6. Hemoglobin 15.4. Platelets 305. Sodium 140. Potassium 4.7. Bicarb 35. BUN 48. Creatinine 1.0. Glucose 140. He is continued on DuoNeb inhalations, Pulmicort and Perforomist inhalations, Solu-Medrol. Procalcitonin was negative. Antibiotics were discontinued. Blood and sputum cultures revealed no growth. The patient is seen today May 07, 2024 in follow-up in the intensive care unit. He is awake and alert in no acute distress. He is currently sitting up in a chair at the bedside. He has been transition to Airvo high flow oxygen. Currently on 50 L and 80% FiO2. He did utilize BiPAP for short periods last night. He is feeling better today compared to yesterday. Chest x-ray shows sim ilar to mild improvement in diffuse infiltrates. Blood and sputum cultures revealed no growth. White count 14.4. Hemoglobin 15.2. Platelets 305. Sodium 141. Potassium 4.7. Bicarb 36. BUN 37. Creatinine 0.96. Glucose 136. He remains on DuoNeb inhalations, Pulmicort and Perforomist inhalations, Solu- Medrol. Lovenox for DVT prophylaxis. The patient is seen today May 08, 2024 in follow-up in the intensive care unit. He is currently sitting up in a chair at the bedside. Awake and alert in no acute distress. He is breathing a bit better today compared to yesterday. He does continue to drop his O2 sats into the 70s with brief periods off the BiPap 16/7 and 90% FiO2 to and transitioning to Airvo high flow oxygen. He is continued on DuoNeb inhalations, Pulmicort and Perforomist inhalations, IV Solu- Medrol. Lovenox for DVT prophylaxis. Blood and sputum cultures revealed no gr owth. White count 14.3. Hemoglobin 15.2. Platelets 273. Sodium 139. Potassium 5.1. Bicarb 33. BUN 37. Creatinine 0.99. Glucose 128. The patient is seen today May 09, 2024 in follow-up in the intensive care unit. He is awake and alert. He has been slow to progress. He is still requiring Airvo high flow oxygen at 60 L and 90% FiO2. Alternating with BiPAP 16/7 and 90% FiO2. CT angiogram ruled out pulmonary embolism. There is diffuse groundglass opacities with air bronchograms. Appearing more diffuse and less patchy compared to previous. Enlarged pretracheal lymph node with scattered smaller lymph nodes within the mediastinum. Sodium 136. Potassium 5.1. Bicarb 29. BUN 35. Creatinine 0.85. Glucose 114. White count 15.2. Hemoglobin 16.2. Platelets 191. He is continued on DuoNeb and elations, Pulmicort and performance and elations, Solu-Medrol. Remains on antibiotics in the form of Zosyn. Lovenox for DVT prophylaxis. Blood culture revealed no growth. Sputum culture revealed no growth x 2. Objective - Vital Signs Vital signs: Vital Signs Temp 97.7 F 05/09/24 12:00 Pulse 80 05/09/24 12:00 Resp 18 05/09/24 12:00 BP 120/73 05/09/24 12:00 Pulse Ox 86 L 05/09/24 12:00 FiO2 90 05/09/24 12:00 Intake & Output 05/08/24 05/09/24 05/09/24 18:59 06:59 18:59 Intake Total 80 480 100 Output Total 1075 500 0 Balance -995 -20 100 Weight 115.5 kg Intake: Intake, IV Titration 100 Amount Piperacillin-Tazobactam 3 100 .375 gm In Sodium Chloride 0.9% 100 ml @ 25 mls/hr IVPB Q8H [facility] Rx#: [id number] Oral 480 Other 80 Output: Urine 1075 500 0 Other: Voiding Method Urinal Urinal Urinal # Bowel Movements 1 0 - Exam GENERAL EXAM: Alert, pleasant 74-year-old male, up in a chair, on Airvo high flow oxygen at 60 L and 90% FiO2, in mild respiratory distress. HEAD: Normocephalic. EYES: Normal reaction of pupils, equal size. NOSE: Clear with pink turbinates. THROAT: No erythema or exudates. NECK: No masses, no JVD. CHEST: No chest wall deformity. LUNGS: Equal air entry with bilateral scattered rhonchi, coarse crackles. CVS: S1 and S2 normal with no audible murmur, regular rhythm. ABDOMEN: No hepatosplenomegaly, normal bowel sounds, no guarding or rigidity. SPINE: No scoliosis or deformity SKIN: No rashes CENTRAL NERVOUS SYSTEM: No focal deficits, tone is normal in all 4 extremities. EXTREMITIES: There is no peripheral edema. No clubbing, no cyanosis. Peripheral pulses are intact. - Labs CBC & Chem 7: 05/09/24 03:16 05/09/24 03:16 Labs: Abnormal Lab Results - Last 24 Hours (Table) 05/08/24 05/08/24 05/09/24 Range/Units 18:45 21:20 03:16 WBC 15.2 H (3.8-10.6) k/uL Sodium (137-145) mmol/L BUN (9-20) mg/dL Glucose (74-99) mg/dL POC Glucose (mg/dL) 148 H 154 H (70-110) mg/dL 05/09/24 05/09/24 05/09/24 Range/Units 03:16 06:35 10:58 WBC (3.8-10.6) k/uL Sodium 136 L (137-145) mmol/L BUN 35 H (9-20) mg/dL Glucose 143 H (74-99) mg/dL POC Glucose (mg/dL) 147 H 114 H (70-110) mg/dL Microbiology - Last 24 Hours (Table) 05/07/24 10:45 Gram Stain - Final Sputum Sputum Culture - Final Assessment and Plan Assessment: Acute hypoxemic respiratory failure secondary to atypical pneumonia and chronic obstructive pulmonary disease. Viral screen negative. Procalcitonin negative. Repeat CT angiogram ruled out pulmonary embolism. There is continued diffuse groundglass opacities with air bronchograms bilaterally. Enlarged pretracheal lymph node with scattered smaller lymph nodes within the mediastinum. Generalized weakness secondary to above Leukocytosis secondary to above Troponin leak Morbid obesity with a BMI of 48 kg/m Hyperlipidemia Hypothyroidism History of mild intermittent chronic bronchial asthma Lifelong non-smoker Plan: The patient was seen and evaluated CT scan, labs and medications reviewed Repeat a proBNP, procalcitonin Fungal workup in progress Give Lasix 40 mg IVP x 1 Continue Zosyn Continue bronchodilators and steroids Lovenox for DVT prophylaxis Airvo high flow oxygen at 60 L and 90% FiO2 Utilizing BiPAP 16/7 and 90% FiO2 Titrate the FiO2 as tolerated The patient is willing to go on life support if needed We will continue to follow I have personally seen and examined the patient, performed the documentation and the assessment and plan as written. Time: 10 minutes Dictation was produced using [employer] dictation software. Please excuse any gr ammatical, word or spelling errors. This patient was seen in coordination with the pulmonary/critical care physician, Dr. Lundy. He did spend greater than 50% of the time evaluating, examining and developing the plan of care. He agrees to the above HPI, physical exam, assessment and plan of care as dictated by the nurse practitioner. Time with Patient: Greater than 30
[2024-05-09] MEDS: FUROSEMIDE 10 MG/ML 4 ML VIAL IV STA (13:08)
[2024-05-09] MEDS: hydrOXYzine HCL 25 MG TAB PO PRN (13:13)
[2024-05-09] MEDS: CISATRACURIUM 2 MG/ML 5 ML VIAL IV ONE ×2 (14:58→16:04)
[2024-05-09 14:59] LABS: ABG Base Excess 1.1 mmol/L; ABG HCO3 30 mmol/L (21-25); ABG Oxygen Saturation 67.6 % (94-97); ABG PCO2 62 mmHg (35-45); ABG PH 7.29 (7.35-7.45); ABG TCO2 32 mmol/L (19-24)
[2024-05-09 15:03] LABS: ABG PO2 42 mmHg (83-108)
[2024-05-09] MEDS ORDERED: HYDROmorphone 0.5 MG/0.5 ML SYRINGE IVP PRN (15:04)
--- NOTE | 2024-05-09 15:26 | XR ---
EXAMINATION TYPE: XR chest 1V portable DATE OF EXAM: 05/09/2024 3:03 PM COMPARISON: None. CLINICAL INDICATION: Male, 74 years old with history of ETT placement/central line placement, previou s abnormal TECHNIQUE: XR chest 1V portable view(s) obtained. FINDINGS: The heart size is enlarged. The pulmonary vasculature is indistinct. Diffuse patchy infiltrates are present bilaterally greater in the lower lung ferreira Placement of an endotracheal tube with tip 3.7 cm above the deepali. Left central venous catheter has been placed with tip in the proximal right atrium. No pneumothorax evident. Nasogastric tube is in pl chandan with the tip within the abdomen. IMPRESSION: 1. Worsening bilateral lower lobe infiltrates. Correlate for pneumonia. 2. Endotracheal tube placement with the tip above the deepali. Right central venous catheter tip in th e proximal right atrium. Nasogastric tube tip within the abdomen [facility], , 05/09/2024 3:23 PM
[2024-05-09] MEDS: NOREPINEPHRINE 8 MG in SODIUM CHLORIDE 0.9% 250 ML IV SCH (15:52)
[2024-05-09] MEDS: CISATRACURIUM 200 MG in SODIUM CHLORIDE 0.9% 180 ML IV SCH (16:00)
[2024-05-09 17:28] LABS: Glucose,Whole Blood 126 mg/dL (70-110)
[2024-05-09 17:37] LABS: ABG HCO3 31 mmol/L (21-25); ABG Oxygen Saturation 96.2 % (94-97); ABG PCO2 66 mmHg (35-45); ABG PH 7.28 (7.35-7.45); ABG PO2 97 mmHg (83-108); ABG TCO2 33 mmol/L (19-24)
--- NOTE | 2024-05-09 19:38 | PCN ---
PROCEDURE NOTE PROCEDURE PERFORMED: Left internal jugular triple-lumen catheter. PREOPERATIVE DIAGNOSIS: Administration of fluids and pressors. POSTOPERATIVE DIAGNOSIS: Administration of fluids and pressors. OPERATORS: Dr. Lundy and Dr. Wright. Informed consent and universal time-out was achieved. The patient's procedure was done in room 267. TRIPLE LUMEN CATHETER PLACEMENT: Indication: Hemodynamic monitoring/Intravenous access. A time-out was completed verifying correct patient, procedure, site, positioning, and implant(s) or special equipment if applicable. The patient was placed in a dependent position appropriate for triple lumen catheter placement based on the vein to be cannulated. The patient's left shoulder or left neck or left groin was prepped and draped in sterile fashion. 1% Lidocaine was used to anesthetize the surrounding skin area. A triple lumen 9F Cordis catheter was introduced into the left internal jugular vein using Seldinger technique. The catheter was threaded smoothly over the guide wire and appropriate blood return was obtained. Each lumen of the catheter was evacuated of air and flushed with sterile saline. The catheter was then sutured in place to the skin and a sterile dressing applied. Perfusion to the extremity distal to the point of catheter insertion was checked and found to be adequate. We went via the posterior approach. There was good blood return from all 3 ports. The catheter was sutured in place. Sterile dressing was applied by the nurse. There was no immediate complication. The patient tolerated the procedure well. The tip of the catheter was seen at the junction of the superior vena cava and right atrium. Chest x- ray was ordered. There was no immediate complication. MMODL / IJN: [id number] /
--- NOTE | 2024-05-09 19:38 | PCN ---
PROCEDURE NOTE PROCEDURE PERFORMED: Right radial arterial line. OPERATORS: Dr. Lundy and Dr. Wright. There was informed consent and universal timeout. The patient's procedure was done in room 267. PREOPERATIVE DIAGNOSES: Frequent blood draws and blood gas monitoring. POSTOPERATIVE DIAGNOSES: Frequent blood draws and blood gas monitoring. ARTERIAL LINE PLACEMENT: Indications: Hemodynamic monitoring. A time-out was completed verifying correct patient, procedure, site, positioning, and implant(s) or special equipment if applicable. Cuong's test was performed to ensure adequate perfusion. The patient's right wrist or right groin was prepped and draped in sterile fashion. 1% Lidocaine was used to anesthetize the area. An 18G Arrow arterial line was introduced into the right radial artery. The catheter was threaded over the guide wire and the needle was removed with appropriate pulsatile blood return. Blood loss was minimal. The catheter was then sutured in place to the skin and a sterile dressing applied. Perfusion to the extremity distal to the point of catheter insertion was checked and found to be adequate. There was no immediate complication. There was good waveform and blood pressure reading. The catheter was sutured in place. A sterile dressing was applied by the nurse. MMODL / IJN: [id number] /
[2024-05-09] MEDS: HYDROmorphone 0.5 MG/0.5 ML SYRINGE IVP PRN (19:41)
--- NOTE | 2024-05-09 19:53 | PCN ---
PROCEDURE NOTE PROCEDURES PERFORMED: Bronchoscopy, airway examination, therapeutic lavage, BAL. PREOPERATIVE DIAGNOSES: Pneumonia, respiratory failure. POSTOPERATIVE DIAGNOSES: Pneumonia, respiratory failure. The patient's procedure was done in room 267. The patient was intubated and mechanically ventilated, sedated and paralyzed. There was informed consent and universal timeout. OPERATORS: Dr. Lundy and Dr. Wright. The bronchoscope was inserted through the bronchoscope adapter connected to the endotracheal tube. The bronchoscope was taken down through the endotracheal tube, out into the trachea. The trachea itself appeared normal. There were some minimal secretions noted in the distal trachea. Tracheal deepali was sharp. Right upper lobe and its 3 segments, right middle lobe and its 2 segments, right lower lobe and its 5 segments, left upper lobe proper and its 2 segments, lingula and its 2 segments, the left lower lobe and its 4 segments all had similar findings of diffuse [id number]-kv-mwwqomau bronchitic changes in the airways. There was mild hyperemia and erythema. There were some mild mucosal friability and some vascular engorgement. There was no dominant mass or tumor. There were secretions noted throughout. They were purulent looking. They were suctioned without difficulty. Next, the bronchoscope was wedged into the right middle lobe. Roughly 35 to 40 mL of turbid fluid was removed from the right middle lobe. It will be sent for analysis. The patient tolerated the procedure well. There was no immediate complication. The bronchoscope was withdrawn. The patient was maintained on 100% oxygen during the procedure. Again, no complications noted. MMODL / IJN: [id number] /
[2024-05-09] MEDS: CHLORHEXIDINE GLUCONATE 15 ML CUP MUCOUS MEM SCH (21:26)
[2024-05-09] MEDS: ARTIFICIAL TEARS-HYPROMELLOSE DROPS 15 ML BTL BOTH EYES SCH (21:26)
[2024-05-09 23:59] LABS: Glucose,Whole Blood 159 mg/dL (70-110)
[2024-05-10 05:01] LABS: HCT 48.5 % (39.0-53.0); HGB 15.4 gm/dL (13.0-17.5); Hypochromasia Slight; MCH 30.6 pg (25.0-35.0); MCHC 31.8 g/dL (31.0-37.0); MCV 96.1 fL (80.0-100.0); Mean Platelet Volume 7.1; Platelet Count 276 k/uL (150-450); RBC 5.04 m/uL (4.30-5.90); RDW 13.2 % (11.5-15.5); WBC 18.5 k/uL (3.8-10.6)
[2024-05-10 05:10] LABS: African American GFR (CKD) 64 (>60 ml/min/1.73 sqM); Anion Gap 4 mmol/L; Blood Urea Nitrogen 50 mg/dL (9-20); Calcium 8.9 mg/dL (8.4-10.2); Carbon Dioxide 33 mmol/L (22-30); Chloride 100 mmol/L (98-107); Glucose 167 mg/dL (74-99); Non-African American GFR(CKD) 55 (>60 ml/min/1.73 sqM); Potassium 5.5 mmol/L (3.5-5.1); Sodium 137 mmol/L (137-145)
[2024-05-10 05:14] LABS: Appearance,BF Hazy (Clear); RBC, Body Fluid 6194 /UL (0-2000)
[2024-05-10 06:21] LABS: ABG HCO3 33 mmol/L (21-25); ABG Oxygen Saturation 97.3 % (94-97); ABG PCO2 67 mmHg (35-45); ABG PO2 101 mmHg (83-108); ABG TCO2 35 mmol/L (19-24); Allen Test Performed? Yes
[2024-05-10 06:54] LABS: Glucose,Whole Blood 150 mg/dL (70-110)
--- NOTE | 2024-05-10 08:01 | XR ---
EXAMINATION TYPE: XR chest 1V portable DATE OF EXAM: 05/10/2024 5:53 AM COMPARISON: 05/10/2024 CLINICAL INDICATION: Male, 74 years old with history of Tube placements, previous diffuse increased l juliana markings are present abnormal chest x-ray TECHNIQUE: XR chest 1V portable view(s) obtained. FINDINGS: The heart size is normal. The pulmonary vasculature is prominent. Diffuse increased lung markings are present. Findings are similar to comparison. Endotracheal tube tip is present 4.1 cm above the deepali. Nasogastric tube transverses the thorax. A central venous catheter is present with the tip in the proximal right atrium IMPRESSION: 1. Diffuse increased lung markings, stable. 2. Lines and catheters discussed above. [facility], , 05/10/2024 7:58 AM
--- NOTE | 2024-05-10 08:03 | P.PN ---
Subjective Progress Note Date: 05/10/24 PROGRESS NOTE The patient is a 74-year-old male who presented with symptoms of progressive dyspnea, requiring BiPAP with evidence of bilateral multifocal pneumonia. He is continuing to be dyspneic on the BiPAP. He had mild troponin elevation secondary to type II myocardial infarction. He denies any chest discomfort, dizziness or palpitations. His echocardiogram showed a preserved systolic function with low ventricle hypertrophy. He continues to be in sinus mechanism and hemodynamically stable. May 09: The patient is on BiPAP at this time, was on airVo earlier. He is feeling better overall but continues to have a cough and episode of dyspnea. He is having clear to yellowish sputum. He is in sinus mechanism and no evidence of malignant arrhythmia. His blood pressure has been stable. Duplex scan of the lower extremities showed no DVT and his CT angiogram showed no evidence of pulmonary embolism. May 10: The patient yesterday became more dyspneic and required mechanical ventilation. His chest x-ray showed worsening bilateral lobe infiltrate, his NT proBNP is normal. He is intubated and sedated at this time. In sinus mechanism. He is on norepinephrine. His urine output is stable. There is no evidence of malignant arrhythmia. His procalcitonin was normal. Medications: Lipitor 20 mg daily, aspirin, levothyroxine, metoprolol succinate 25 mg daily, spironolactone 12.5 mg daily, methylprednisolone, Farxiga 10 mg daily PHYSICAL EXAMINATION: Blood pressure 18/60 heart rate 72 intubated and sedated, obese on BiPAP LUNGS: Clear, no wheezes HEART: Regular rate and rhythm, S1, S2. No S3. Systolic ejection murmur ABDOMEN: Soft, no organomegaly, obese EXTREMETIES: No edema LAB: Hemoglobin 15.4, WBC 18.5, BUN 50, creatinine 1.27, IMPRESSION: 1. Respiratory failure with probable viral pneumonia, requiring mechanical ventilation. No evidence of CHF 2. Hypertension 3. Hypothyroidism 4. Hyperlipidemia 5. Obesity PLAN: 1. Continue present therapy 2. Follow renal functions 3. We will see him on as-needed basis, please feel free to call us for any question. Objective - Vital Signs Vital signs: Vital Signs Temp 99.1 F 05/10/24 04:00 Pulse 72 05/10/24 07:15 Resp 26 H 05/10/24 07:15 BP 108/71 05/09/24 19:00 Pulse Ox 90 L 05/10/24 07:15 FiO2 100 05/10/24 04:03 Intake & Output 05/09/24 05/10/24 05/10/24 18:59 06:59 18:59 Intake Total 053.843 0556.947 139.178 Output Total 650 610 200 Balance -488.900 505.947 -60.822 Weight 117.1 kg Intake: IV 9 261 28 0.9 SALINE PRESSURE BAG 9 36 3 0.9% NS KVO 50 Piperacillin-Tazobactam 3 175 25 .375 gm In Sodium Chloride 0.9% 100 ml @ 25 mls/hr IVPB Q8H [facility] Rx#: [id number] Intake, IV Titration 142.100 644.947 101.178 Amount Cisatracurium 200 mg In 31.532 19.866 101.178 Sodium Chloride 0.9% 180 ml @ 2 MCG/KG/MIN 13.86 mls/hr IV .[id number] [facility] Rx #:[id number] Norepinephrine 8 mg In 61.164 Sodium Chloride 0.9% 250 ml @ 0.03 MCG/KG/MIN 6. 705 mls/hr IV .Q24H [facility] Rx#:[id number] Piperacillin-Tazobactam 3 100 100 .375 gm In Sodium Chloride 0.9% 100 ml @ 25 mls/hr IVPB Q8H [facility] Rx#: [id number] propofoL 1,000 mg In 10.568 463.917 Empty Bag 1 bag @ 15 MCG/ KG/MIN 10.395 mls/hr IV . [id number] [facility] Rx#:[id number] Tube Feeding 10 120 10 Other 90 Output: Gastric Drainage 140 Urine 650 610 60 Other: Voiding Method Indwelling Catheter Indwelling Catheter # Voids 1 # Bowel Movements 1 ABP, PAP, CO, CI - Last Documented Arterial Blood Pressure 118/52 - Labs CBC & Chem 7: 05/10/24 04:50 05/10/24 04:50 Labs: Abnormal Lab Results - Last 24 Hours (Table) 05/09/24 05/09/24 05/09/24 Range/Units 10:58 14:57 16:00 WBC (3.8-10.6) k/uL ABG pH 7.29 L (7.35-7.45) ABG pCO2 62 H (35-45) mmHg ABG pO2 42 L* (83-108) mmHg ABG HCO3 30 H (21-25) mmol/L ABG Total CO2 32 H (19-24) mmol/L ABG O2 Saturation 67.6 L (94-97) % Potassium (3.5-5.1) mmol/L Carbon Dioxide (22-30) mmol/L BUN (9-20) mg/dL Creatinine (0.66-1.25) mg/dL Glucose (74-99) mg/dL POC Glucose (mg/dL) 114 H (70-110) mg/dL Fluid Appearance Hazy A (Clear) 05/09/24 05/09/24 05/09/24 Range/Units 17:26 17:34 23:58 WBC (3.8-10.6) k/uL ABG pH 7.28 L (7.35-7.45) ABG pCO2 66 H (35-45) mmHg ABG pO2 (83-108) mmHg ABG HCO3 31 H (21-25) mmol/L ABG Total CO2 33 H (19-24) mmol/L ABG O2 Saturation (94-97) % Potassium (3.5-5.1) mmol/L Carbon Dioxide (22-30) mmol/L BUN (9-20) mg/dL Creatinine (0.66-1.25) mg/dL Glucose (74-99) mg/dL POC Glucose (mg/dL) 126 H 159 H (70-110) mg/dL Fluid Appearance (Clear) 05/10/24 05/10/24 05/10/24 Range/Units 04:50 04:50 06:17 WBC 18.5 H (3.8-10.6) k/uL ABG pH 7.30 L (7.35-7.45) ABG pCO2 67 H (35-45) mmHg ABG pO2 (83-108) mmHg ABG HCO3 33 H (21-25) mmol/L ABG Total CO2 35 H (19-24) mmol/L ABG O2 Saturation 97.3 H (94-97) % Potassium 5.5 H (3.5-5.1) mmol/L Carbon Dioxide 33 H (22-30) mmol/L BUN 50 H (9-20) mg/dL Creatinine 1.27 H (0.66-1.25) mg/dL Glucose 167 H (74-99) mg/dL POC Glucose (mg/dL) (70-110) mg/dL Fluid Appearance (Clear) 05/10/24 Range/Units 06:52 WBC (3.8-10.6) k/uL ABG pH (7.35-7.45) ABG pCO2 (35-45) mmHg ABG pO2 (83-108) mmHg ABG HCO3 (21-25) mmol/L ABG Total CO2 (19-24) mmol/L ABG O2 Saturation (94-97) % Potassium (3.5-5.1) mmol/L Carbon Dioxide (22-30) mmol/L BUN (9-20) mg/dL Creatinine (0.66-1.25) mg/dL Glucose (74-99) mg/dL POC Glucose (mg/dL) 150 H (70-110) mg/dL Fluid Appearance (Clear) Microbiology - Last 24 Hours (Table) 05/07/24 10:45 Gram Stain - Final Sputum Sputum Culture - Final
[2024-05-10 09:08] LABS: Nucleated Cells, Body Fluid 136 /UL
[2024-05-10] MEDS ORDERED: DEXTROSE 5% IN WATER 50 ML BAG ONE (10:45)
[2024-05-10] MEDS ORDERED: LIDOCAINE 2% SYG (PF) 100 MG/5 ML ONE (10:45)
[2024-05-10] MEDS ORDERED: AMIODARONE 50 MG/ML 3 ML VIAL IV ONE (10:45)
[2024-05-10] MEDS ORDERED: EPINEPHrine 10 ML SYRINGE (0.1 MG/ML) ONE (10:45)
--- NOTE | 2024-05-10 11:07 | XR ---
EXAMINATION TYPE: XR chest 1V portable DATE OF EXAM: 05/10/2024 4:21 AM COMPARISON: 05/10/2024 CLINICAL INDICATION: Male, 74 years old with history of Tube placement, TECHNIQUE: XR chest 1V portable view(s) obtained. FINDINGS: The heart size is normal. The pulmonary vasculature is somewhat prominent. Bibasilar infiltrates are present. Correlate for atelectasis pneumonia and pulmonary edema Endotracheal tube tip is 5.1 cm above the deepali. Left central venous catheter tip is in the proximal right atrium. Nasogastric tube transverses the thorax. IMPRESSION: 1. Diffuse bibasilar traits. Atelectasis, pneumonia, or pulmonary edema could be considered [facility], , 05/10/2024 11:05 AM
[2024-05-10 11:13] LABS: ABG Oxygen Saturation 69.2 % (94-97)
[2024-05-10 11:15] LABS: Basophils # (A) 0.1 k/uL (0-0.2); Basophils % (A) 0 %; Eosinophils % (A) 0 %; Hypochromasia Marked; Lymphocytes # (A) 1.6 k/uL (1.0-4.8); Lymphocytes % (A) 8 %; MCH 30.9 pg (25.0-35.0); MCHC 31.3 g/dL (31.0-37.0); MCV 98.7 fL (80.0-100.0); Mean Platelet Volume 7.2; Monocytes # (A) 0.7 k/uL (0-1.0); Monocytes % (A) 4 %; Neutrophils # (A) 18.4 k/uL (1.3-7.7); Neutrophils % (A) 88 %; Platelet Count 258 k/uL (150-450); RBC 5.17 m/uL (4.30-5.90); RDW 13.1 % (11.5-15.5); WBC 20.9 k/uL (3.8-10.6)
[2024-05-10 11:17] LABS: ABG PCO2 >98 mmHg (35-45); ABG PH 7.09 (7.35-7.45); ABG PO2 49 mmHg (83-108)
[2024-05-10] MEDS: AMIODARONE 360 MG in DEXTROSE 5% IN WATER 200 ML IV ONE (11:17)
--- NOTE | 2024-05-10 11:22 | XR ---
EXAMINATION TYPE: XR chest 1V portable DATE OF EXAM: 05/10/2024 COMPARISON: 05/10/2024 CLINICAL INDICATION: Male, 74 years old with history of Code blue; TECHNIQUE: Single frontal view of the chest is obtained. FINDINGS: The ET tube is 2.2 cm above the deepali directed towards right mainstem bronchus. There is an NG tube within the stomach. There is no change in the left jugular central venous catheter. The tip is in the SVC/RA junction. There is no change in the diffuse interstitial and alveolar infiltrates consistent with diffuse pulmo nary edema. There is no pneumothorax. No large pleural effusion. IMPRESSION: 1. ET tube 2.2 cm above the deepali. NG tube within the stomach. Left jugular venous catheter tip in t he SVC/RA junction. 2. No change in the acute diffuse cardiopulmonary process likely diffuse severe pulmonary edema [facility], , 05/10/2024 11:20 AM
[2024-05-10 11:24] LABS: African American GFR (CKD) 54 (>60 ml/min/1.73 sqM); Anion Gap 3 mmol/L; Blood Urea Nitrogen 53 mg/dL (9-20); Calcium 8.9 mg/dL (8.4-10.2); Carbon Dioxide 38 mmol/L (22-30); Chloride 99 mmol/L (98-107); Glucose 200 mg/dL (74-99); Magnesium 3.2 mg/dL (1.6-2.3); Non-African American GFR(CKD) 47 (>60 ml/min/1.73 sqM); Phosphorus 7.1 mg/dL (2.5-4.5); Potassium 5.6 mmol/L (3.5-5.1); Sodium 140 mmol/L (137-145)
[2024-05-10 12:34] LABS: ABG Oxygen Saturation 90.9 % (94-97); ABG PO2 84 mmHg (83-108); Allen Test Performed? Yes
[2024-05-10 12:37] LABS: ABG PH 7.04 (7.35-7.45)
[2024-05-10 12:39] LABS: ABG PCO2 >98 mmHg (35-45)
[2024-05-10] MEDS: METOPROLOL TARTRATE 25 MG TAB PO SCH (12:52)
[2024-05-10 13:01] LABS: Glucose,Whole Blood 210 mg/dL (70-110)
[2024-05-10] MEDS: DEXTROSE 50% SYRINGE 50 ML IVP STA (13:04)
[2024-05-10] MEDS: INSULIN REGULAR 100 UNIT/ML VIAL (IV) IV ONE (13:04)
[2024-05-10] MEDS: INSULIN ASPART (NovoLOG) 100 UNIT/ML VIAL SQ SCH (13:26)
[2024-05-10 13:52] LABS: C-ANCA <1:20 Titer (<1:20)
--- NOTE | 2024-05-10 13:54 | P.PN ---
Subjective Progress Note Date: 05/10/24 This is a very pleasant 74-year-old male patient with a known history of hyperlipidemia, hypothyroidism, mild intermittent chronic bronchial asthma, lifelong non-smoker who had presented here to the emergency room early this morning with a 2-week history of increasing shortness of breath cough and congestion. He also was having profound weakness. He did have some blood- tinged sputum 2 days ago. Most recently yellow in color. Chest x-ray reveals patchy and confluent bilateral airspace disease. CT angiogram ruled out central pulmonary embolism. Diffuse bilateral groundglass and airspace disease. Possible multifocal pneumonia, atypical pneumonia, hypersensitive pneumonitis and pulmonary edema. There is pulmonary arterial hypertension. No pleural effusion. A few mediastinal lymph nodes noted most likely reactive. White count 11.1. Hemoglobin 15.3. Platelets 215. D-dimer 4.25. INR 1.1. Sodium 137. Potassium 4.7. Bicarb 26. BUN 17. Creatinine 0.95. Glucose 110. Troponin 0.100. proBNP 121. Viral screen is negative. The patient is seen today in consultation in the emergency department. He is currently sitting up on the stretcher. He is awake and alert in no acute distress. He is dyspneic with conversation. Dyspneic with minimal exertion. Maintaining O2 saturations in the low 90s on 4 L/min per nasal cannula. He denies any recent travels. Denies any sick contacts. He is currently afebrile. Hemodynamically stable. Was seen today on 05/03/2024, patient required placement on BiPAP at 80% 10/ overnight, remains marginal, ABG was noted yesterday on BiPAP, patient has been receiving Lasix and has been receiving antibiotics and steroids. Patient states that he is slightly better today, but nonetheless continues to have shortness of breath and intermittent cough. Antibiotics pierce remains on Rocephin and Zithromax empirically although his procalcitonin level is 0.15. Chest x-ray is not showing much improvement, as [id number] may be a bit worse today. I am surprised that the patient is clinically feeling better, but considering his status being marginal, I transferred the patient to the ICU this morning for close monitoring and if patient deteriorates may require intubation mechanical ventilation. In the meantime he is holding his own on BiPAP at 80%.WBC count is 16.7 hemoglobin 14.4, ABG last night showed a pO2 of 83 pCO2 38 and pH of 7.40 and this was on FiO2 of 60%/BiPAP. Basic metabolic profile is basically normal, procalcitonin level is normal BNP level is normal sed rate, TONE, c-ANCA are all pending Patient was seen today on 05/04/2024, remains on BiPAP 10/5/100%, remains on antibiotics in the form of Rocephin and Zithromax remains on Lasix at 40 mg IV push twice daily remains on Solu-Medrol bronchodilators and on Lovenox. Clinically the patient tells me that he is feeling better breathing easier her chest x-ray is marginal and not much of a change compared to his last x-ray there may be a slight improvement. WBC count is 18.1 hemoglobin 15.3 electrolytes are normal BUN is 39 creatinine 1.05, sed rate is elevated, but his TONE screen is negative his C-reactive protein is 20.7. Patient was seen and examined today on 05/05/2024, patient remains in the ICU, remains marginal at best as far as his pulmonary status is concerned, remains on antibiotics and diuretics, chest x-ray is showing slight improvement in his infiltrates specially in the right lower lobe area. Clinically the patient is about the same, I was able to titrate his FiO2 down to 90% on his BiPAP. Patient is sitting at the bedside chair, does not seem to be in distress, however as I went down to FiO2 of 80%, he was complaining of shortness of breath. He is on BiPAP 16/7/90% at present, still receiving steroids Solu- Medrol, Rocephin, Lovenox, and Aldactone 12.5 mg p.o. daily. WBC count is 14.1 hemoglobin 15.7 basic metabolic profile is normal BUN is 53 creatinine 1.20 The patient is seen today May 06, 2024 in follow-up in the intensive care unit. He is currently sitting up in a chair. Awake and alert in no acute distress. He is breathing a bit easier today compared to yesterday. No worsening shortness of breath, cough or congestion. He is still mostly BiPAP dependent on 16/7 and 65% FiO2. White count 14.6. Hemoglobin 15.4. Platelets 305. Sodium 140. Potassium 4.7. Bicarb 35. BUN 48. Creatinine 1.0. Glucose 140. He is continued on DuoNeb inhalations, Pulmicort and Perforomist inhalations, Solu-Medrol. Procalcitonin was negative. Antibiotics were discontinued. Blood and sputum cultures revealed no growth. The patient is seen today May 07, 2024 in follow-up in the intensive care unit. He is awake and alert in no acute distress. He is currently sitting up in a chair at the bedside. He has been transition to Airvo high flow oxygen. Currently on 50 L and 80% FiO2. He did utilize BiPAP for short periods last night. He is feeling better today compared to yesterday. Chest x-ray shows sim ilar to mild improvement in diffuse infiltrates. Blood and sputum cultures revealed no growth. White count 14.4. Hemoglobin 15.2. Platelets 305. Sodium 141. Potassium 4.7. Bicarb 36. BUN 37. Creatinine 0.96. Glucose 136. He remains on DuoNeb inhalations, Pulmicort and Perforomist inhalations, Solu- Medrol. Lovenox for DVT prophylaxis. The patient is seen today May 08, 2024 in follow-up in the intensive care unit. He is currently sitting up in a chair at the bedside. Awake and alert in no acute distress. He is breathing a bit better today compared to yesterday. He does continue to drop his O2 sats into the 70s with brief periods off the BiPap 16/7 and 90% FiO2 to and transitioning to Airvo high flow oxygen. He is continued on DuoNeb inhalations, Pulmicort and Perforomist inhalations, IV Solu- Medrol. Lovenox for DVT prophylaxis. Blood and sputum cultures revealed no gr owth. White count 14.3. Hemoglobin 15.2. Platelets 273. Sodium 139. Potassium 5.1. Bicarb 33. BUN 37. Creatinine 0.99. Glucose 128. The patient is seen today May 09, 2024 in follow-up in the intensive care unit. He is awake and alert. He has been slow to progress. He is still requiring Airvo high flow oxygen at 60 L and 90% FiO2. Alternating with BiPAP 16/7 and 90% FiO2. CT angiogram ruled out pulmonary embolism. There is diffuse groundglass opacities with air bronchograms. Appearing more diffuse and less patchy compared to previous. Enlarged pretracheal lymph node with scattered smaller lymph nodes within the mediastinum. Sodium 136. Potassium 5.1. Bicarb 29. BUN 35. Creatinine 0.85. Glucose 114. White count 15.2. Hemoglobin 16.2. Platelets 191. He is continued on DuoNeb and elations, Pulmicort and performance and elations, Solu-Medrol. Remains on antibiotics in the form of Zosyn. Lovenox for DVT prophylaxis. Blood culture revealed no growth. Sputum culture revealed no growth x 2. The patient is seen today May 10, 2024 in follow-up in the intensive care unit. Yesterday he continued to weaken and was having episodes of desaturations on the Airvo and the BiPAP. He subsequently failed and was intubated and placed on the mechanical ventilator. That he did undergo bronchoscopy with BAL. He is currently on assist-control mode at a rate of 26, tidal volume 450, FiO2 100% and a PEEP of 10. Morning blood gases revealed a pH O2 of 101, pCO2 67 and a pH of 7.30. His peak pressures initially were at 50 with a plateau of 32. Based on this he was switched to pressure control mode with a inspiratory pressure of 15 and inspiratory time of 1.0. Follow-up blood gases were pending. He was on norepinephrine at 8.0 mcg/min. Nimbex at 2.5 mcg/kg/min. 0.9% saline at 10 mL/h. Propofol at 45 mcg/kg/min. He is being nourished with vital HP at a rate of 20 with a goal of 27 mL/h. His PF ratio was measured at 100 indicating moderate to severe ARDS. His procalcitonin was again negative. His Zosyn was discontinued. The patient then developed a polymorphic ventricular tachycardia which was pulseless and CPR was initiated, he received epinephrine and initiated on amiodarone bolus. He was defibrillated and obtained return of spontaneous circulation after just 2 rounds of CPR. White count 20.9. Hemoglobin 16.0. Platelets 258. Sodium 140. Potassium 5.6. Bicarb 38. BUN 53. Creatinine 1.40. Glucose 200. Magnesium 3.2. Follow-up arterial blood gases revealed a PaO2 of 49, pCO2 greater than 98 and a pH of 7.09. His settings were then adjusted to increased pressure time to 20 and increased respiratory rate to 32. Other follow-up blood gas 1 hour later revealed a PaO2 of 84, pCO2 of greater than 98 and a pH of 7.04. At that point he was switched back to volume assist- control mode With a rate at 32, tidal volume 400, FiO2 100% and a PEEP of 15. He was given D10 and 10 units of regular insulin for his hyperkalemia.'s, Pulmicort and performance inhalations, IV Solu-Medrol. Lovenox for DVT prophylaxis. Amiodarone drip initiated at 1 mg/min. Objective - Vital Signs Vital signs: Vital Signs Temp 99.7 F H 05/10/24 08:00 Pulse 86 05/10/24 11:50 Resp 20 05/10/24 11:15 BP 100/61 05/10/24 11:15 Pulse Ox 78 L 05/10/24 11:15 FiO2 100 05/10/24 12:49 Intake & Output 05/09/24 05/10/24 05/10/24 18:59 06:59 18:59 Intake Total 444.207 9014.947 647.708 Output Total 650 610 425 Balance -488.900 505.947 222.708 Weight 117.1 kg Intake: IV 9 261 93 0.9 SALINE PRESSURE BAG 9 36 18 0.9% NS KVO 50 50 Piperacillin-Tazobactam 3 175 25 .375 gm In Sodium Chloride 0.9% 100 ml @ 25 mls/hr IVPB Q8H [facility] Rx#: [id number] Intake, IV Titration 142.100 644.947 544.708 Amount Cisatracurium 200 mg In 31.532 19.866 202.125 Sodium Chloride 0.9% 180 ml @ 2 MCG/KG/MIN 13.86 mls/hr IV .[id number] [facility] Rx #:[id number] Norepinephrine 8 mg In 61.164 153.163 Sodium Chloride 0.9% 250 ml @ 0.03 MCG/KG/MIN 6. 705 mls/hr IV .Q24H [facility] Rx#:[id number] Piperacillin-Tazobactam 3 100 100 .375 gm In Sodium Chloride 0.9% 100 ml @ 25 mls/hr IVPB Q8H [facility] Rx#: [id number] propofoL 1,000 mg In 10.568 463.917 189.42 Empty Bag 1 bag @ 15 MCG/ KG/MIN 10.395 mls/hr IV . [id number] [facility] Rx#:[id number] Tube Feeding 10 120 10 Other 90 Output: Gastric Drainage 140 Urine 650 610 285 Other: Voiding Method Indwelling Catheter Indwelling Catheter # Voids 1 # Bowel Movements 1 ABP, PAP, CO, CI - Last Documented Arterial Blood Pressure 123/67 - Exam GENERAL EXAM: Intubated, sedated 74-year-old male patient, currently with an FiO2 of 100% and a PEEP of 15. HEAD: Normocephalic. EYES: Sluggish reaction of pupils, equal size. NOSE: Clear with pink turbinates. THROAT: Oral endotracheal and gastric tube secured in place. No erythema or exudates. NECK: No masses, no JVD. CHEST: No chest wall deformity. LUNGS: Equal air entry with bilateral scattered rhonchi, coarse crackles. CVS: S1 and S2 normal with no audible murmur, regular rhythm. ABDOMEN: No hepatosplenomegaly, normal bowel sounds, no guarding or rigidity. SPINE: No scoliosis or deformity SKIN: No rashes CENTRAL NERVOUS SYSTEM: Sedated, tone is normal in all 4 extremities. EXTREMITIES: There is no peripheral edema. No clubbing, no cyanosis. Peripheral pulses are intact. - Labs CBC & Chem 7: 05/10/24 11:06 05/10/24 11:06 Labs: Abnormal Lab Results - Last 24 Hours (Table) 05/09/24 05/09/24 05/09/24 Range/Units 14:57 16:00 17:26 WBC (3.8-10.6) k/uL Neutrophils # (1.3-7.7) k/uL ABG pH 7.29 L (7.35-7.45) ABG pCO2 62 H (35-45) mmHg ABG pO2 42 L* (83-108) mmHg ABG HCO3 30 H (21-25) mmol/L ABG Total CO2 32 H (19-24) mmol/L ABG O2 Saturation 67.6 L (94-97) % Potassium (3.5-5.1) mmol/L Carbon Dioxide (22-30) mmol/L BUN (9-20) mg/dL Creatinine (0.66-1.25) mg/dL Glucose (74-99) mg/dL POC Glucose (mg/dL) 126 H (70-110) mg/dL Phosphorus (2.5-4.5) mg/dL Magnesium (1.6-2.3) mg/dL Fluid Appearance Hazy A (Clear) Fluid RBC 6194 H (0-2000) /uL 05/09/24 05/09/24 05/10/24 Range/Units 17:34 23:58 04:50 WBC 18.5 H (3.8-10.6) k/uL Neutrophils # (1.3-7.7) k/uL ABG pH 7.28 L (7.35-7.45) ABG pCO2 66 H (35-45) mmHg ABG pO2 (83-108) mmHg ABG HCO3 31 H (21-25) mmol/L ABG Total CO2 33 H (19-24) mmol/L ABG O2 Saturation (94-97) % Potassium (3.5-5.1) mmol/L Carbon Dioxide (22-30) mmol/L BUN (9-20) mg/dL Creatinine (0.66-1.25) mg/dL Glucose (74-99) mg/dL POC Glucose (mg/dL) 159 H (70-110) mg/dL Phosphorus (2.5-4.5) mg/dL Magnesium (1.6-2.3) mg/dL Fluid Appearance (Clear) Fluid RBC (0-2000) /uL 05/10/24 05/10/24 05/10/24 Range/Units 04:50 06:17 06:52 WBC (3.8-10.6) k/uL Neutrophils # (1.3-7.7) k/uL ABG pH 7.30 L (7.35-7.45) ABG pCO2 67 H (35-45) mmHg ABG pO2 (83-108) mmHg ABG HCO3 33 H (21-25) mmol/L ABG Total CO2 35 H (19-24) mmol/L ABG O2 Saturation 97.3 H (94-97) % Potassium 5.5 H (3.5-5.1) mmol/L Carbon Dioxide 33 H (22-30) mmol/L BUN 50 H (9-20) mg/dL Creatinine 1.27 H (0.66-1.25) mg/dL Glucose 167 H (74-99) mg/dL POC Glucose (mg/dL) 150 H (70-110) mg/dL Phosphorus (2.5-4.5) mg/dL Magnesium (1.6-2.3) mg/dL Fluid Appearance (Clear) Fluid RBC (0-2000) /uL 05/10/24 05/10/24 05/10/24 Range/Units 11:06 11:06 11:11 WBC 20.9 H (3.8-10.6) k/uL Neutrophils # 18.4 H (1.3-7.7) k/uL ABG pH 7.09 L* (7.35-7.45) ABG pCO2 >98 H* (35-45) mmHg ABG pO2 49 L* (83-108) mmHg ABG HCO3 (21-25) mmol/L ABG Total CO2 (19-24) mmol/L ABG O2 Saturation 69.2 L (94-97) % Potassium 5.6 H (3.5-5.1) mmol/L Carbon Dioxide 38 H (22-30) mmol/L BUN 53 H (9-20) mg/dL Creatinine 1.45 H (0.66-1.25) mg/dL Glucose 200 H (74-99) mg/dL POC Glucose (mg/dL) (70-110) mg/dL Phosphorus 7.1 H (2.5-4.5) mg/dL Magnesium 3.2 H (1.6-2.3) mg/dL Fluid Appearance (Clear) Fluid RBC (0-2000) /uL 05/10/24 05/10/24 Range/Units 12:32 12:59 WBC (3.8-10.6) k/uL Neutrophils # (1.3-7.7) k/uL ABG pH 7.04 L* (7.35-7.45) ABG pCO2 >98 H* (35-45) mmHg ABG pO2 (83-108) mmHg ABG HCO3 (21-25) mmol/L ABG Total CO2 (19-24) mmol/L ABG O2 Saturation 90.9 L (94-97) % Potassium (3.5-5.1) mmol/L Carbon Dioxide (22-30) mmol/L BUN (9-20) mg/dL Creatinine (0.66-1.25) mg/dL Glucose (74-99) mg/dL POC Glucose (mg/dL) 210 H (70-110) mg/dL Phosphorus (2.5-4.5) mg/dL Magnesium (1.6-2.3) mg/dL Fluid Appearance (Clear) Fluid RBC (0-2000) /uL Microbiology - Last 24 Hours (Table) 05/07/24 10:45 Gram Stain - Final Sputum Sputum Culture - Final Assessment and Plan Assessment: Acute hypoxemic respiratory failure secondary ARDS. Viral screen negative. Procalcitonin negative x 2. Repeat CT angiogram ruled out pulmonary embolism. There is continued diffuse groundglass opacities with air bronchograms bilaterally. Enlarged pretracheal lymph node with scattered smaller lymph nodes within the mediastinum. Worsening acute hypoxemic respiratory failure secondary to moderate to severe ARDS requiring intubation and mechanical ventilatory support on 05/09/2024. S tatus post bronchoscopy on 05/09/2024 Cardiopulmonary arrest on 05/10/2024 requiring 2 rounds of CPR. Appeared pulseless ventricular tachycardia/torsades. Initiated on amiodarone drip Leukocytosis secondary to above Moderate pulmonary hypertension with dilated right ventricle. Cardiac catheterization from September 2023 revealed no evidence of obstructive coronary artery disease Troponin leak Morbid obesity with a BMI of 48 kg/m Hyperlipidemia Hypothyroidism History of mild intermittent chronic bronchial asthma Lifelong non-smoker Plan: The patient was seen and evaluated Imaging, labs ABGs and medications reviewed Procalcitonin was negative x 2 Zosyn discontinued Continue bronchodilators and steroids Lovenox for DVT prophylaxis Continued on an amiodarone drip Correct electrolytes Remains intubated on the mechanical ventilator Titrate the FiO2 as tolerated Prognosis remains guarded We will continue to follow I have personally seen and examined the patient, performed the documentation and the assessment and plan as written. Time: 15 minutes Dictation was produced using [employer] dictation software. Please excuse any grammatical, word or spelling errors. This patient was seen in coordination with the pulmonary/critical care physician, Dr. Lundy. He did spend greater than 50% of the time evaluating, examining and developing the plan of care. He agrees to the above HPI, physical exam, assessment and plan of care as dictated by the nurse practitioner. Time with Patient: Greater than 30
[2024-05-10 14:03] LABS: ABG Oxygen Saturation 92.3 % (94-97); ABG PO2 80 mmHg (83-108); Allen Test Performed? Yes
[2024-05-10 14:09] LABS: ABG PCO2 >98 mmHg (35-45); ABG PH 7.11 (7.35-7.45)
--- NOTE | 2024-05-10 16:26 | P.PN ---
Subjective Progress Note Date: 05/10/24 74 year old M with PMH of Asthma, GERD, HLD, Hypothyroid, h/o prostate CA presents to the ED for worsening shortness of breath with exertion. Patient had COVID 19 in 2021 and has been slow to recover since then but symptoms has significantly worsened over the past 4-6 weeks. In the ED he underwent extensive evaluation. BP 116/67, HR 101, T 98.1F, RR 20, 85% on RA. CBC, Coag panel, CMP significant for WBC 11.1, glu 110. Trop 0.092. CRP 20.7. BNP 121. Procal 0.15. TSH 4.04. Lactic acid 2.1-1.3. ABG pH 7.4, pCO2 38. D-Dimer 4.25. EKG showed sinus rhythm, QTc normal, RBBB pattern, no ST elevation. CTA chest showed no PE, did reveal bilateral groundglass opacities signs of pulmonary arterial hypertension, mediastinal lymphadenopathy up to 1.9 cm and 1.7 cm incidental gallstone. Patient was started on Rocephin and Azithromycin, bronchodilators, SoluMedrol and admitted for further workup and management with Pulmonary consulted. He was started on Lasix IV and Cardiology was consulted. Echo showed LVEF 55 to 60%, concentric LVH, moderate pulmonary HTN, moderate TR. His respiratory status continued to worsen and he was transferred to the ICU on BiPAP. He completed a course of Rocephin and Azithromycin. He continued to deteriorate and he was intubated on 05/09. He underwent bronchoscopy was BAL which showed purulent secretions with bronchitis changes. 05/10 Patient was seen and examined. Intubated on Cisatracurium 2 mcg/kg/min and Propofol at 50 mcg/kg/min. Pressors include Levophed at 0.12 mcg/kg/min. LOWELL BARKER was called this morning for polymorphic Vtach. Patient was defibrillated, received Epi, Lidocaine and Amidarone and ROSC was achieved. Currently on Amiodarone at 1 mg/min. CBC and BMP this morning showed WBC 18.5 K 5.5, bicarb 33, BUN 50, Cr 1.27, glu 167. ABG this morning showed pH 7.3, pCO2 67. ABG after ROSC showed pH 7.09, pCO2 > 98, pO2 49 FiO2 100%. CBC and BMP after ROSC showed WBC 20.9, K 5.6, bicarb 38, BUN 53, Cr 1.45, glu 200. Mag 3.2. Discussed extensively with the family. They would like to monitor the patient for 1-2 days before making any decisions. General: Intubated Derm: warm, dry Head: atraumatic, normocephalic, symmetric, ET tube intact Eyes: EOMI, no lid lag, anicteric sclera Mouth: no lip lesion, mucus membranes moist Cardiovascular: S1S2 tachy, no murmur Lungs: Bilateral rhonchi, no rales , no accessory muscle use Ext: no gross muscle atrophy, no edema, no contractures Neuro: Unable to determine Psych: Unable to determine Based on my assessment of this patient, this patient meets a high complexity level of care. Acute hypoxic respiratory failure secondary to ARDS: BNP 226. ANCA neg. Ventilator managed by Pulmonary. DuoNeb QID scheduled and Q4H PRN. Pulmicort 1 mg INH BID. Performist 20 mcg INH BID. SoluMedrol 60 mg IV Q6H. Cardiac arrest with polymorphic VTach: Amidarone drip at 1 mg/min. Metoprolol 25 mg PO BID. STAT Echo ordered post ROSC. Sepsis shock due to above: Levophed at 0.12 mcg/kg/min. 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 Procal neg x 2. Completed course of Rocephin/Azithromycin. Initial blood culture, sputum culture negative. Follow BAL culture. Hyperkalemia: Stop Aldactone. Given 10 units IV insulin. Repeat BMP at 7PM. Acute kidney injury: Due to cardiac arrest. Stop Farxiga and Aldactone. Avoid nephrotoxins. Monitor renal function. NSTEMI: Trop 0.1, 0.11, 0.12, 0.111, 0.092. ACS ruled out. Likely Type II NSTEMI due to above. Repeat Echo ordered post ROSC. Cardiology aware of events. Steroid induced hyperglycemia: ISS ACHS. Accuchecks Q6H. Dyslipidemia: Lipitor 20 mg PO QHS. ASA 81 mg PO QHS. Hypothyroidism: Synthroid 50 mcg PO QD. CODE STATUS: FULL CODE DVT Prophylaxis: Lovenox SQ GI Prophylaxis: Protonix IV Designated medical POA if patient is not able to make medical decisions for themselves: I have reviewed the following healthcare network consultant notes: Pulmonary, Cardiology. I have reviewed the results of the following tests: As above. I have ordered the following tests: As above. I have discussed the care of this patient with the following independent historian: RN. Olguin. I have independently interpreted the following test below: I have discussed the management of this patient with the following physician: Objective - Vital Signs Vital signs: Vital Signs Temp 99.7 F H 05/10/24 08:00 Pulse 86 05/10/24 11:50 Resp 20 05/10/24 11:15 BP 100/61 05/10/24 11:15 Pulse Ox 78 L 05/10/24 11:15 FiO2 100 05/10/24 14:16 Intake & Output 05/09/24 05/10/24 05/10/24 18:59 06:59 18:59 Intake Total 307.641 8003.947 877.554 Output Total 650 610 425 Balance -488.900 505.947 452.554 Weight 117.1 kg Intake: IV 9 261 93 0.9 SALINE PRESSURE BAG 9 36 18 0.9% NS KVO 50 50 Piperacillin-Tazobactam 3 175 25 .375 gm In Sodium Chloride 0.9% 100 ml @ 25 mls/hr IVPB Q8H [facility] Rx#: [id number] Intake, IV Titration 142.100 644.947 774.554 Amount Cisatracurium 200 mg In 31.532 19.866 202.125 Sodium Chloride 0.9% 180 ml @ 2 MCG/KG/MIN 13.86 mls/hr IV .[id number] [facility] Rx #:[id number] Norepinephrine 8 mg In 61.164 283.009 Sodium Chloride 0.9% 250 ml @ 0.03 MCG/KG/MIN 6. 705 mls/hr IV .Q24H [facility] Rx#:[id number] Piperacillin-Tazobactam 3 100 100 .375 gm In Sodium Chloride 0.9% 100 ml @ 25 mls/hr IVPB Q8H [facility] Rx#: [id number] propofoL 1,000 mg In 10.568 463.917 289.42 Empty Bag 1 bag @ 15 MCG/ KG/MIN 10.395 mls/hr IV . [id number] [facility] Rx#:[id number] Tube Feeding 10 120 10 Other 90 Output: Gastric Drainage 140 Urine 650 610 285 Other: Voiding Method Indwelling Catheter Indwelling Catheter # Voids 1 # Bowel Movements 1 ABP, PAP, CO, CI - Last Documented Arterial Blood Pressure 123/67 - Labs CBC & Chem 7: 05/10/24 11:06 05/10/24 11:06 Labs: Abnormal Lab Results - Last 24 Hours (Table) 05/09/24 05/09/24 05/09/24 Range/Units 16:00 17:26 17:34 WBC (3.8-10.6) k/uL Neutrophils # (1.3-7.7) k/uL ABG pH 7.28 L (7.35-7.45) ABG pCO2 66 H (35-45) mmHg ABG pO2 (83-108) mmHg ABG HCO3 31 H (21-25) mmol/L ABG Total CO2 33 H (19-24) mmol/L ABG O2 Saturation (94-97) % Potassium (3.5-5.1) mmol/L Carbon Dioxide (22-30) mmol/L BUN (9-20) mg/dL Creatinine (0.66-1.25) mg/dL Glucose (74-99) mg/dL POC Glucose (mg/dL) 126 H (70-110) mg/dL Phosphorus (2.5-4.5) mg/dL Magnesium (1.6-2.3) mg/dL Fluid Appearance Hazy A (Clear) Fluid RBC 6194 H (0-2000) /uL 05/09/24 05/10/24 05/10/24 Range/Units 23:58 04:50 04:50 WBC 18.5 H (3.8-10.6) k/uL Neutrophils # (1.3-7.7) k/uL ABG pH (7.35-7.45) ABG pCO2 (35-45) mmHg ABG pO2 (83-108) mmHg ABG HCO3 (21-25) mmol/L ABG Total CO2 (19-24) mmol/L ABG O2 Saturation (94-97) % Potassium 5.5 H (3.5-5.1) mmol/L Carbon Dioxide 33 H (22-30) mmol/L BUN 50 H (9-20) mg/dL Creatinine 1.27 H (0.66-1.25) mg/dL Glucose 167 H (74-99) mg/dL POC Glucose (mg/dL) 159 H (70-110) mg/dL Phosphorus (2.5-4.5) mg/dL Magnesium (1.6-2.3) mg/dL Fluid Appearance (Clear) Fluid RBC (0-2000) /uL 05/10/24 05/10/24 05/10/24 Range/Units 06:17 06:52 11:06 WBC (3.8-10.6) k/uL Neutrophils # (1.3-7.7) k/uL ABG pH 7.30 L (7.35-7.45) ABG pCO2 67 H (35-45) mmHg ABG pO2 (83-108) mmHg ABG HCO3 33 H (21-25) mmol/L ABG Total CO2 35 H (19-24) mmol/L ABG O2 Saturation 97.3 H (94-97) % Potassium 5.6 H (3.5-5.1) mmol/L Carbon Dioxide 38 H (22-30) mmol/L BUN 53 H (9-20) mg/dL Creatinine 1.45 H (0.66-1.25) mg/dL Glucose 200 H (74-99) mg/dL POC Glucose (mg/dL) 150 H (70-110) mg/dL Phosphorus 7.1 H (2.5-4.5) mg/dL Magnesium 3.2 H (1.6-2.3) mg/dL Fluid Appearance (Clear) Fluid RBC (0-2000) /uL 05/10/24 05/10/24 05/10/24 Range/Units 11:06 11:11 12:32 WBC 20.9 H (3.8-10.6) k/uL Neutrophils # 18.4 H (1.3-7.7) k/uL ABG pH 7.09 L* 7.04 L* (7.35-7.45) ABG pCO2 >98 H* >98 H* (35-45) mmHg ABG pO2 49 L* (83-108) mmHg ABG HCO3 (21-25) mmol/L ABG Total CO2 (19-24) mmol/L ABG O2 Saturation 69.2 L 90.9 L (94-97) % Potassium (3.5-5.1) mmol/L Carbon Dioxide (22-30) mmol/L BUN (9-20) mg/dL Creatinine (0.66-1.25) mg/dL Glucose (74-99) mg/dL POC Glucose (mg/dL) (70-110) mg/dL Phosphorus (2.5-4.5) mg/dL Magnesium (1.6-2.3) mg/dL Fluid Appearance (Clear) Fluid RBC (0-2000) /uL 05/10/24 05/10/24 Range/Units 12:59 14:01 WBC (3.8-10.6) k/uL Neutrophils # (1.3-7.7) k/uL ABG pH 7.11 L* (7.35-7.45) ABG pCO2 >98 H* (35-45) mmHg ABG pO2 80 L (83-108) mmHg ABG HCO3 (21-25) mmol/L ABG Total CO2 (19-24) mmol/L ABG O2 Saturation 92.3 L (94-97) % Potassium (3.5-5.1) mmol/L Carbon Dioxide (22-30) mmol/L BUN (9-20) mg/dL Creatinine (0.66-1.25) mg/dL Glucose (74-99) mg/dL POC Glucose (mg/dL) 210 H (70-110) mg/dL Phosphorus (2.5-4.5) mg/dL Magnesium (1.6-2.3) mg/dL Fluid Appearance (Clear) Fluid RBC (0-2000) /uL
[2024-05-10 17:18] LABS: Glucose,Whole Blood 166 mg/dL (70-110)
[2024-05-10] MEDS: AMIODARONE 450 MG in DEXTROSE 5% IN WATER 250 ML IV SCH (17:27)
--- NOTE | 2024-05-10 18:42 | CA ---
Transthoracic Echo Report Name: Mark Bob Age: 74 Gender: M : 1950 Exam Date: 05/10/2024 14:28 Exam Location: [facility] Ht (in): 69 Wt (lb): 258 Ordering Physician: Francis Rubio MD Attending/Referring Phys: Filter Press Pumper Loulou Trevizo RDCS Procedure CPT: Indications: s/p cardiac arrest Cardiac Hx: LVEF and RVSP check, prior echo 05/02/24 Technical Quality: Fair Contrast 1: Total Dose (mL): Contrast 2: Total Dose (mL): MEASUREMENTS (Male / Female) Normal Values 2D ECHO LV Diastolic Diameter PLAX 4.8 cm 4.2 - 5.9 / 3.9 - 5.3 cm LV Systolic Diameter PLAX 3.0 cm IVS Diastolic Thickness 1.2 cm 0.6 - 1.0 / 0.6 - 0.9 cm LVPW Diastolic Thickness 1.0 cm 0.6 - 1.0 / 0.6 - 0.9 cm LV Relative Wall Thickness 0.5 DOPPLER TR Peak Velocity 430.7 cm/s TR Peak Gradient 74.2 mmHg Right Ventricular Systolic Press 94.2 mmHg PV Peak Velocity 97.3 cm/s PV Peak Gradient 3.8 mmHg FINDINGS Left Ventricle Left ventricular ejection fraction is estimated at 60 %. Mildly increased septal wall thickness. No obvious regional wall motion abnormalities. Right Ventricle Right ventricular dilatation. Severe pulmonary hypertension. Right Atrium Left Atrium Mitral Valve Aortic Valve Tricuspid Valve Pulmonic Valve Pericardium No pericardial effusion. Aorta CONCLUSIONS Limited study Normal LV systolic function Severe pulmonary hypertension Dilated right ventricle No pericardial effusion Previewed by: Dr. Dinesh Asher MD (Electronically Signed) Final Date: 10 May 2024 18:41
[2024-05-11 00:37] LABS: Glucose,Whole Blood 170 mg/dL (70-110)
[2024-05-11] MEDS: INSULIN ASPART (NovoLOG) 100 UNIT/ML VIAL SQ SCH (00:43)
[2024-05-11] MEDS: SODIUM ZIRCONIUM CYCLOSILICATE 10 GM PACKET PO ONE (03:45)
[2024-05-11] MEDS: DEXTROSE 50% SYRINGE 50 ML IVP STA (03:45)
[2024-05-11] MEDS: INSULIN REGULAR 100 UNIT/ML VIAL (IM/SQ) SQ ONE ×2 (03:45→04:40)
[2024-05-11 05:22] LABS: Glucose,Whole Blood 172 mg/dL (70-110)
[2024-05-11 05:39] LABS: ABG Base Excess 3.6 mmol/L; ABG HCO3 33 mmol/L (21-25); ABG Oxygen Saturation 96.1 % (94-97); ABG PCO2 68 mmHg (35-45); ABG PH 7.29 (7.35-7.45); ABG PO2 83 mmHg (83-108); ABG TCO2 35 mmol/L (19-24)
[2024-05-11 05:40] LABS: HCT 45.4 % (39.0-53.0); HGB 14.4 gm/dL (13.0-17.5); Hypochromasia Slight; MCH 30.8 pg (25.0-35.0); MCHC 31.8 g/dL (31.0-37.0); MCV 96.7 fL (80.0-100.0); Mean Platelet Volume 7.7; Platelet Count 211 k/uL (150-450); RBC 4.69 m/uL (4.30-5.90); RDW 13.3 % (11.5-15.5); WBC 21.6 k/uL (3.8-10.6)
[2024-05-11 05:41] LABS: Allen Test Performed? NO
[2024-05-11 05:57] LABS: African American GFR (CKD) 52 (>60 ml/min/1.73 sqM); Anion Gap 3 mmol/L; Blood Urea Nitrogen 60 mg/dL (9-20); Calcium 8.5 mg/dL (8.4-10.2); Carbon Dioxide 33 mmol/L (22-30); Chloride 101 mmol/L (98-107); Glucose 184 mg/dL (74-99); Non-African American GFR(CKD) 45 (>60 ml/min/1.73 sqM); Potassium 5.1 mmol/L (3.5-5.1); Sodium 137 mmol/L (137-145)
--- NOTE | 2024-05-11 07:20 | XR ---
EXAMINATION TYPE: XR chest 1V portable DATE OF EXAM: 05/11/2024 CLINICAL HISTORY: Difficulty breathing progress study. TECHNIQUE: Single AP portable semiupright view of the chest is obtained. COMPARISON: Chest x-ray from one day earlier and older studies. FINDINGS: Stable endotracheal and orogastric tubes. Stable left-sided internal jugular central venou s catheter. Persistent bilateral diffuse reticular and reticulonodular increased opacities. Cardiac silhouette s ize is stable and upper limits of normal. Osseous structures are intact. IMPRESSION: Persistent bilateral diffuse edema and/or acute infiltrates. [facility], , 05/11/2024 7:18 AM
[2024-05-11] MEDS: PANTOPRAZOLE 40 MG/10 ML VIAL IVP SCH (08:38)
--- NOTE | 2024-05-11 09:20 | P.PN ---
Subjective Progress Note Date: 05/11/24 PROGRESS NOTE The patient is a 74-year-old male who presented with symptoms of progressive dyspnea, requiring BiPAP with evidence of bilateral multifocal pneumonia. He is continuing to be dyspneic on the BiPAP. He had mild troponin elevation secondary to type II myocardial infarction. He denies any chest discomfort, dizziness or palpitations. His echocardiogram showed a preserved systolic function with low ventricle hypertrophy. He continues to be in sinus mechanism and hemodynamically stable. May 09: The patient is on BiPAP at this time, was on airVo earlier. He is feeling better overall but continues to have a cough and episode of dyspnea. He is having clear to yellowish sputum. He is in sinus mechanism and no evidence of malignant arrhythmia. His blood pressure has been stable. Duplex scan of the lower extremities showed no DVT and his CT angiogram showed no evidence of pulmonary embolism. May 10: The patient yesterday became more dyspneic and required mechanical ventilation. His chest x-ray showed worsening bilateral lobe infiltrate, his NT proBNP is normal. He is intubated and sedated at this time. In sinus mechanism. He is on norepinephrine. His urine output is stable. There is no evidence of malignant arrhythmia. His procalcitonin was normal. May 11: The patient remains intubated and sedated. Yesterday had an episode of ventricular fibrillation requiring cardioversion. He is in sinus mechanism and maintained on IV amiodarone. His echocardiogram showed a preserved systolic function. His urine output has been stable. He is on norepinephrine. He had no evidence of recurrent ventricular ectopic activity or atrial fibrillation. His picture is consistent with ARDS with viral pulmonary infection. There is no evidence suggest bacterial infection or CHF. Medications: Lipitor 20 mg daily, aspirin, levothyroxine, metoprolol tartrate 25 mg twice a day, IV amiodarone, IV norepinephrine. PHYSICAL EXAMINATION: Blood pressure 18/60 heart rate 72 intubated and sedated, LUNGS: Clear, no wheezes HEART: Regular rate and rhythm, S1, S2. No S3. Systolic ejection murmur 3/6, at the base ABDOMEN: Soft, no organomegaly, obese EXTREMETIES: No edema LAB: Hemoglobin 10.4, WBC 21.6, BUN 60, creatinine 1.52, IMPRESSION: 1. Respiratory failure with probable viral pneumonia, and ARDS, no evidence of CHF 2. Hypertension, hypotensive at this time 3. Hypothyroidism 4. Hyperlipidemia 5. Obesity 6. Episode of ventricular fibrillation, rare status post CPR and cardioversion, maintaining sinus mechanism. Repeat echocardiogram showed preserved systolic function 7. Worsening renal functions with acute kidney injury PLAN: 1. Continue present therapy 2. Continue IV amiodarone 3. Prognosis is guarded 4. Depending on his progress further recommendations will be made Objective - Vital Signs Vital signs: Vital Signs Temp 99.3 F 05/11/24 08:00 Pulse 75 05/11/24 09:00 Resp 36 H 05/11/24 09:00 BP 112/62 05/11/24 08:15 Pulse Ox 92 L 05/11/24 09:00 FiO2 100 05/11/24 08:29 Intake & Output 05/10/24 05/11/24 05/11/24 18:59 06:59 18:59 Intake Total 3692.265 8556.046 671.879 Output Total 810 995 195 Balance 498.501 440.046 476.879 Weight 117.1 kg 114.2 kg Intake: IV 171 46 9 0.9 SALINE PRESSURE BAG 36 36 9 0.9% NS KVO 110 10 Piperacillin-Tazobactam 3 25 .375 gm In Sodium Chloride 0.9% 100 ml @ 25 mls/hr IVPB Q8H [facility] Rx#: [id number] Intake, IV Titration 840.501 975.046 521.879 Amount Amiodarone 450 mg In 250 Dextrose 5% in Water 250 ml @ 0.5 MG/MIN 16.667 mls/hr IV .Q15H [facility] Rx#: [id number] Cisatracurium 200 mg In 260.741 167.475 109.436 Sodium Chloride 0.9% 180 ml @ 2 MCG/KG/MIN 13.86 mls/hr IV .[id number] [facility] Rx #:[id number] Norepinephrine 8 mg In 309.605 414.016 162.443 Sodium Chloride 0.9% 250 ml @ 0.03 MCG/KG/MIN 6. 705 mls/hr IV .Q24H [facility] Rx#:[id number] propofoL 1,000 mg In 270.155 393.555 Empty Bag 1 bag @ 15 MCG/ KG/MIN 10.395 mls/hr IV . [id number] [facility] Rx#:[id number] Tube Feeding 207 324 81 Other 90 90 60 Output: Gastric Drainage 140 Urine 670 995 195 Other: Voiding Method Indwelling Catheter Indwelling Catheter ABP, PAP, CO, CI - Last Documented Arterial Blood Pressure 125/47 - Labs CBC & Chem 7: 05/11/24 05:15 05/11/24 05:15 Labs: Abnormal Lab Results - Last 24 Hours (Table) 05/10/24 05/10/24 05/10/24 Range/Units 11:06 11:06 11:11 WBC 20.9 H (3.8-10.6) k/uL Neutrophils # 18.4 H (1.3-7.7) k/uL ABG pH 7.09 L* (7.35-7.45) ABG pCO2 >98 H* (35-45) mmHg ABG pO2 49 L* (83-108) mmHg ABG HCO3 (21-25) mmol/L ABG Total CO2 (19-24) mmol/L ABG O2 Saturation 69.2 L (94-97) % Potassium 5.6 H (3.5-5.1) mmol/L Carbon Dioxide 38 H (22-30) mmol/L BUN 53 H (9-20) mg/dL Creatinine 1.45 H (0.66-1.25) mg/dL Glucose 200 H (74-99) mg/dL POC Glucose (mg/dL) (70-110) mg/dL Phosphorus 7.1 H (2.5-4.5) mg/dL Magnesium 3.2 H (1.6-2.3) mg/dL 05/10/24 05/10/24 05/10/24 Range/Units 12:32 12:59 14:01 WBC (3.8-10.6) k/uL Neutrophils # (1.3-7.7) k/uL ABG pH 7.04 L* 7.11 L* (7.35-7.45) ABG pCO2 >98 H* >98 H* (35-45) mmHg ABG pO2 80 L (83-108) mmHg ABG HCO3 (21-25) mmol/L ABG Total CO2 (19-24) mmol/L ABG O2 Saturation 90.9 L 92.3 L (94-97) % Potassium (3.5-5.1) mmol/L Carbon Dioxide (22-30) mmol/L BUN (9-20) mg/dL Creatinine (0.66-1.25) mg/dL Glucose (74-99) mg/dL POC Glucose (mg/dL) 210 H (70-110) mg/dL Phosphorus (2.5-4.5) mg/dL Magnesium (1.6-2.3) mg/dL 05/10/24 05/10/24 05/11/24 Range/Units 17:14 23:00 00:35 WBC (3.8-10.6) k/uL Neutrophils # (1.3-7.7) k/uL ABG pH (7.35-7.45) ABG pCO2 (35-45) mmHg ABG pO2 (83-108) mmHg ABG HCO3 (21-25) mmol/L ABG Total CO2 (19-24) mmol/L ABG O2 Saturation (94-97) % Potassium 6.2 H* (3.5-5.1) mmol/L Carbon Dioxide (22-30) mmol/L BUN (9-20) mg/dL Creatinine (0.66-1.25) mg/dL Glucose (74-99) mg/dL POC Glucose (mg/dL) 166 H 170 H (70-110) mg/dL Phosphorus (2.5-4.5) mg/dL Magnesium (1.6-2.3) mg/dL 05/11/24 05/11/24 05/11/24 Range/Units 05:15 05:15 05:21 WBC 21.6 H (3.8-10.6) k/uL Neutrophils # (1.3-7.7) k/uL ABG pH (7.35-7.45) ABG pCO2 (35-45) mmHg ABG pO2 (83-108) mmHg ABG HCO3 (21-25) mmol/L ABG Total CO2 (19-24) mmol/L ABG O2 Saturation (94-97) % Potassium (3.5-5.1) mmol/L Carbon Dioxide 33 H (22-30) mmol/L BUN 60 H (9-20) mg/dL Creatinine 1.52 H (0.66-1.25) mg/dL Glucose 184 H (74-99) mg/dL POC Glucose (mg/dL) 172 H (70-110) mg/dL Phosphorus (2.5-4.5) mg/dL Magnesium (1.6-2.3) mg/dL 05/11/24 Range/Units 05:34 WBC (3.8-10.6) k/uL Neutrophils # (1.3-7.7) k/uL ABG pH 7.29 L (7.35-7.45) ABG pCO2 68 H (35-45) mmHg ABG pO2 (83-108) mmHg ABG HCO3 33 H (21-25) mmol/L ABG Total CO2 35 H (19-24) mmol/L ABG O2 Saturation (94-97) % Potassium (3.5-5.1) mmol/L Carbon Dioxide (22-30) mmol/L BUN (9-20) mg/dL Creatinine (0.66-1.25) mg/dL Glucose (74-99) mg/dL POC Glucose (mg/dL) (70-110) mg/dL Phosphorus (2.5-4.5) mg/dL Magnesium (1.6-2.3) mg/dL Microbiology - Last 24 Hours (Table) 05/09/24 16:00 Acid Fast Bacilli Smear - Preliminary Bronchoalviolar Lavage - Right 05/09/24 16:00 Gram Stain - Preliminary Bronchoalviolar Lavage - Right
[2024-05-11 11:36] LABS: Glucose,Whole Blood 139 mg/dL (70-110)
--- NOTE | 2024-05-11 12:01 | P.PN ---
Subjective Progress Note Date: 05/11/24 74 year old M with PMH of Asthma, GERD, HLD, Hypothyroid, h/o prostate CA presents to the ED for worsening shortness of breath with exertion. Patient had COVID 19 in 2021 and has been slow to recover since then but symptoms has significantly worsened over the past 4-6 weeks. In the ED he underwent extensive evaluation. BP 116/67, HR 101, T 98.1F, RR 20, 85% on RA. CBC, Coag panel, CMP significant for WBC 11.1, glu 110. Trop 0.092. CRP 20.7. BNP 121. Procal 0.15. TSH 4.04. Lactic acid 2.1-1.3. ABG pH 7.4, pCO2 38. D-Dimer 4.25. EKG showed sinus rhythm, QTc normal, RBBB pattern, no ST elevation. CTA chest showed no PE, did reveal bilateral groundglass opacities signs of pulmonary arterial hypertension, mediastinal lymphadenopathy up to 1.9 cm and 1.7 cm incidental gallstone. Patient was started on Rocephin and Azithromycin, bronchodilators, SoluMedrol and admitted for further workup and management with Pulmonary consulted. He was started on Lasix IV and Cardiology was consulted. Echo showed LVEF 55 to 60%, concentric LVH, moderate pulmonary HTN, moderate TR. His respiratory status continued to worsen and he was transferred to the ICU on BiPAP. He completed a course of Rocephin and Azithromycin. He continued to deteriorate and he was intubated on 05/09. He underwent bronchoscopy was BAL which showed purulent secretions with bronchitis changes. LOWELL BARKER was called on 05/10 for polymorphic Vtach. Patient was defibrillated, received Epi, Lidocaine and Amidarone and ROSC was achieved. 05/11 Patient was seen and examined. Intubated on Cisatracurium 2 mcg/kg/min and Propofol at 45 mcg/kg/min. Pressors include Levophed at 0.11 mcg/kg/min. Currently on Amiodarone at 0.5 mg/min. BAL Cx showing many PMN, rare G+B, rare G+C. His procal has been 0.15 and 0.09 thus antibiotics have been discontinued. Echo was performed post ROSC yesterday showing EF 60% and no regional wall motion abnormalities. Repeat K yesterday evening was 6.2 requiring addition IV insulin and dose of Lokelma. CBC and BMP this morning showed WBC 21.6, bicarb 33, BUN 60, Cr 1.52, glu 184. ABG this morning showed pH 7.29, pCO2 68, pO2 96.1 of FiO2 100. CXR done this morning shows persistent bilateral infiltrates. General: Intubated Derm: warm, dry Head: atraumatic, normocephalic, symmetric, ET + OG tube intact Eyes: EOMI, no lid lag, anicteric sclera Mouth: no lip lesion, mucus membranes moist Cardiovascular: S1S2 tachy, no murmur Lungs: Bilateral rhonchi, no rales , no accessory muscle use Ext: no gross muscle atrophy, no edema, no contractures Neuro: Unable to determine Psych: Unable to determine Based on my assessment of this patient, this patient meets a high complexity level of care. Acute hypoxic respiratory failure secondary to ARDS: BNP 226. ANCA neg. Ventilator managed by Pulmonary. DuoNeb QID scheduled and Q4H PRN. Pulmicort 1 mg INH BID. Performist 20 mcg INH BID. SoluMedrol 60 mg IV Q6H. Cardiac arrest with polymorphic VTach: Amidarone drip at 0.5 mg/min. Metoprolol 25 mg PO BID. Echo post ROSC showing EF 60% and no regional wall motion abnormalities. Maintain K > 4 and Mg > 2. Cardiology on board. Sepsis shock due to above: Levophed at 0.16 mcg/kg/min. 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 Procal neg x 2. Completed course of Rocephin/Azithromycin + 1 day of Zosyn. Initial blood culture, sputum culture negative. Follow BAL culture. Acute kidney injury: Due to cardiac arrest. DC Farxiga and Aldactone. Avoid nephrotoxins. Monitor renal function. NSTEMI: Trop 0.1, 0.11, 0.12, 0.111, 0.092. ACS ruled out. Likely Type II NSTEMI due to above. Steroid induced hyperglycemia: ISS ACHS. Accuchecks Q6H. Dyslipidemia: Lipitor 20 mg PO QHS. ASA 81 mg PO QHS. Hypothyroidism: Synthroid 50 mcg PO QD. Resolved: Hyperkalemia CODE STATUS: FULL CODE DVT Prophylaxis: Lovenox SQ GI Prophylaxis: Protonix IV Designated medical POA if patient is not able to make medical decisions for t hemselves: I have reviewed the following managed services consultant notes: Cardiology. I have reviewed the results of the following tests: CBC, BMP, ABG, BAL Cx, Echo. I have ordered the following tests: CBC and BMP in the AM. I have discussed the care of this patient with the following independent historian: I have independently interpreted the following test below: CXR I have discussed the management of this patient with the following physician: Objective - Vital Signs Vital signs: Vital Signs Temp 98.7 F 05/11/24 04:00 Pulse 64 05/11/24 07:00 Resp 35 H 05/11/24 07:00 BP 108/57 05/11/24 07:00 Pulse Ox 92 L 05/11/24 07:00 FiO2 100 05/11/24 04:42 Intake & Output 05/10/24 05/11/24 05/11/24 18:59 06:59 18:59 Intake Total 7992.167 8386.046 30 Output Total 810 995 70 Balance 498.501 340.046 -40 Weight 117.1 kg 114.2 kg Intake: IV 171 46 3 0.9 SALINE PRESSURE BAG 36 36 3 0.9% NS KVO 110 10 Piperacillin-Tazobactam 3 25 .375 gm In Sodium Chloride 0.9% 100 ml @ 25 mls/hr IVPB Q8H ALEXANDRA Rx#: [id number] Intake, IV Titration 840.501 875.046 Amount Cisatracurium 200 mg In 260.741 167.475 Sodium Chloride 0.9% 180 ml @ 2 MCG/KG/MIN 13.86 mls/hr IV .[id number] [facility]LEX[facility]DR[facility] Rx #:[id number] Norepinephrine 8 mg In 309.605 414.016 Sodium Chloride 0.9% 250 ml @ 0.03 MCG/KG/MIN 6. 705 mls/hr IV .Q24H ALEXANDRA Rx#:[id number] propofoL 1,000 mg In 270.155 293.555 Empty Bag 1 bag @ 15 MCG/ KG/MIN 10.395 mls/hr IV . [id number] [facility]LEXANDRA Rx#:[id number] Tube Feeding 207 324 27 Other 90 90 Output: Gastric Drainage 140 Urine 670 995 70 Other: Voiding Method Indwelling Catheter Indwelling Catheter ABP, PAP, CO, CI - Last Documented Arterial Blood Pressure 120/49 - Labs CBC & Chem 7: 05/11/24 05:15 05/11/24 05:15 Labs: Abnormal Lab Results - Last 24 Hours (Table) 05/09/24 05/10/24 05/10/24 Range/Units 16:00 11:06 11:06 WBC 20.9 H (3.8-10.6) k/uL Neutrophils # 18.4 H (1.3-7.7) k/uL ABG pH (7.35-7.45) ABG pCO2 (35-45) mmHg ABG pO2 (83-108) mmHg ABG HCO3 (21-25) mmol/L ABG Total CO2 (19-24) mmol/L ABG O2 Saturation (94-97) % Potassium 5.6 H (3.5-5.1) mmol/L Carbon Dioxide 38 H (22-30) mmol/L BUN 53 H (9-20) mg/dL Creatinine 1.45 H (0.66-1.25) mg/dL Glucose 200 H (74-99) mg/dL POC Glucose (mg/dL) (70-110) mg/dL Phosphorus 7.1 H (2.5-4.5) mg/dL Magnesium 3.2 H (1.6-2.3) mg/dL Fluid RBC 6194 H (0-2000) /uL 05/10/24 05/10/24 05/10/24 Range/Units 11:11 12:32 12:59 WBC (3.8-10.6) k/uL Neutrophils # (1.3-7.7) k/uL ABG pH 7.09 L* 7.04 L* (7.35-7.45) ABG pCO2 >98 H* >98 H* (35-45) mmHg ABG pO2 49 L* (83-108) mmHg ABG HCO3 (21-25) mmol/L ABG Total CO2 (19-24) mmol/L ABG O2 Saturation 69.2 L 90.9 L (94-97) % Potassium (3.5-5.1) mmol/L Carbon Dioxide (22-30) mmol/L BUN (9-20) mg/dL Creatinine (0.66-1.25) mg/dL Glucose (74-99) mg/dL POC Glucose (mg/dL) 210 H (70-110) mg/dL Phosphorus (2.5-4.5) mg/dL Magnesium (1.6-2.3) mg/dL Fluid RBC (0-2000) /uL 05/10/24 05/10/24 05/10/24 Range/Units 14:01 17:14 23:00 WBC (3.8-10.6) k/uL Neutrophils # (1.3-7.7) k/uL ABG pH 7.11 L* (7.35-7.45) ABG pCO2 >98 H* (35-45) mmHg ABG pO2 80 L (83-108) mmHg ABG HCO3 (21-25) mmol/L ABG Total CO2 (19-24) mmol/L ABG O2 Saturation 92.3 L (94-97) % Potassium 6.2 H* (3.5-5.1) mmol/L Carbon Dioxide (22-30) mmol/L BUN (9-20) mg/dL Creatinine (0.66-1.25) mg/dL Glucose (74-99) mg/dL POC Glucose (mg/dL) 166 H (70-110) mg/dL Phosphorus (2.5-4.5) mg/dL Magnesium (1.6-2.3) mg/dL Fluid RBC (0-1999) /uL 05/11/24 05/11/24 05/11/24 Range/Units 00:35 05:15 05:15 WBC 21.6 H (3.8-10.6) k/uL Neutrophils # (1.3-7.7) k/uL ABG pH (7.35-7.45) ABG pCO2 (35-45) mmHg ABG pO2 (83-108) mmHg ABG HCO3 (21-25) mmol/L ABG Total CO2 (19-24) mmol/L ABG O2 Saturation (94-97) % Potassium (3.5-5.1) mmol/L Carbon Dioxide 33 H (22-30) mmol/L BUN 60 H (9-20) mg/dL Creatinine 1.52 H (0.66-1.25) mg/dL Glucose 184 H (74-99) mg/dL POC Glucose (mg/dL) 170 H (70-110) mg/dL Phosphorus (2.5-4.5) mg/dL Magnesium (1.6-2.3) mg/dL Fluid RBC (0-2000) /uL 05/11/24 05/11/24 Range/Units 05:21 05:34 WBC (3.8-10.6) k/uL Neutrophils # (1.3-7.7) k/uL ABG pH 7.29 L (7.35-7.45) ABG pCO2 68 H (35-45) mmHg ABG pO2 (83-108) mmHg ABG HCO3 33 H (21-25) mmol/L ABG Total CO2 35 H (19-24) mmol/L ABG O2 Saturation (94-97) % Potassium (3.5-5.1) mmol/L Carbon Dioxide (22-30) mmol/L BUN (9-20) mg/dL Creatinine (0.66-1.25) mg/dL Glucose (74-99) mg/dL POC Glucose (mg/dL) 172 H (70-110) mg/dL Phosphorus (2.5-4.5) mg/dL Magnesium (1.6-2.3) mg/dL Fluid RBC (0-2000) /uL Microbiology - Last 24 Hours (Table) 05/09/24 16:00 Acid Fast Bacilli Smear - Preliminary Bronchoalviolar Lavage - Right 05/09/24 16:00 Gram Stain - Preliminary Bronchoalviolar Lavage - Right
--- NOTE | 2024-05-11 12:01 | P.PN ---
Subjective Progress Note Date: 05/11/24 This is a very pleasant 74-year-old male patient with a known history of hyperlipidemia, hypothyroidism, mild intermittent chronic bronchial asthma, lifelong non-smoker who had presented here to the emergency room early this morning with a 2-week history of increasing shortness of breath cough and congestion. He also was having profound weakness. He did have some blood- tinged sputum 2 days ago. Most recently yellow in color. Chest x-ray reveals patchy and confluent bilateral airspace disease. CT angiogram ruled out central pulmonary embolism. Diffuse bilateral groundglass and airspace disease. Possible multifocal pneumonia, atypical pneumonia, hypersensitive pneumonitis and pulmonary edema. There is pulmonary arterial hypertension. No pleural effusion. A few mediastinal lymph nodes noted most likely reactive. White count 11.1. Hemoglobin 15.3. Platelets 215. D-dimer 4.25. INR 1.1. Sodium 137. Potassium 4.7. Bicarb 26. BUN 17. Creatinine 0.95. Glucose 110. Troponin 0.100. proBNP 121. Viral screen is negative. The patient is seen today in consultation in the emergency department. He is currently sitting up on the stretcher. He is awake and alert in no acute distress. He is dyspneic with conversation. Dyspneic with minimal exertion. Maintaining O2 saturations in the low 90s on 4 L/min per nasal cannula. He denies any recent travels. Denies any sick contacts. He is currently afebrile. Hemodynamically stable. Was seen today on 05/03/2024, patient required placement on BiPAP at 80% 10/ overnight, remains marginal, ABG was noted yesterday on BiPAP, patient has been receiving Lasix and has been receiving antibiotics and steroids. Patient states that he is slightly better today, but nonetheless continues to have shortness of breath and intermittent cough. Antibiotics pierce remains on Rocephin and Zithromax empirically although his procalcitonin level is 0.15. Chest x-ray is not showing much improvement, as [id number] may be a bit worse today. I am surprised that the patient is clinically feeling better, but considering his status being marginal, I transferred the patient to the ICU this morning for close monitoring and if patient deteriorates may require intubation mechanical ventilation. In the meantime he is holding his own on BiPAP at 80%.WBC count is 16.7 hemoglobin 14.4, ABG last night showed a pO2 of 83 pCO2 38 and pH of 7.40 and this was on FiO2 of 60%/BiPAP. Basic metabolic profile is basically normal, procalcitonin level is normal BNP level is normal sed rate, TONE, c-ANCA are all pending Patient was seen today on 05/04/2024, remains on BiPAP 10/5/100%, remains on antibiotics in the form of Rocephin and Zithromax remains on Lasix at 40 mg IV push twice daily remains on Solu-Medrol bronchodilators and on Lovenox. Clinically the patient tells me that he is feeling better breathing easier her chest x-ray is marginal and not much of a change compared to his last x-ray there may be a slight improvement. WBC count is 18.1 hemoglobin 15.3 electrolytes are normal BUN is 39 creatinine 1.05, sed rate is elevated, but his TONE screen is negative his C-reactive protein is 20.7. Patient was seen and examined today on 05/05/2024, patient remains in the ICU, remains marginal at best as far as his pulmonary status is concerned, remains on antibiotics and diuretics, chest x-ray is showing slight improvement in his infiltrates specially in the right lower lobe area. Clinically the patient is about the same, I was able to titrate his FiO2 down to 90% on his BiPAP. Patient is sitting at the bedside chair, does not seem to be in distress, however as I went down to FiO2 of 80%, he was complaining of shortness of breath. He is on BiPAP 16/7/90% at present, still receiving steroids Solu- Medrol, Rocephin, Lovenox, and Aldactone 12.5 mg p.o. daily. WBC count is 14.1 hemoglobin 15.7 basic metabolic profile is normal BUN is 53 creatinine 1.20 The patient is seen today May 06, 2024 in follow-up in the intensive care unit. He is currently sitting up in a chair. Awake and alert in no acute distress. He is breathing a bit easier today compared to yesterday. No worsening shortness of breath, cough or congestion. He is still mostly BiPAP dependent on 16/7 and 65% FiO2. White count 14.6. Hemoglobin 15.4. Platelets 305. Sodium 140. Potassium 4.7. Bicarb 35. BUN 48. Creatinine 1.0. Glucose 140. He is continued on DuoNeb inhalations, Pulmicort and Perforomist inhalations, Solu-Medrol. Procalcitonin was negative. Antibiotics were discontinued. Blood and sputum cultures revealed no growth. The patient is seen today May 07, 2024 in follow-up in the intensive care unit. He is awake and alert in no acute distress. He is currently sitting up in a chair at the bedside. He has been transition to Airvo high flow oxygen. Currently on 50 L and 80% FiO2. He did utilize BiPAP for short periods last night. He is feeling better today compared to yesterday. Chest x-ray shows sim ilar to mild improvement in diffuse infiltrates. Blood and sputum cultures revealed no growth. White count 14.4. Hemoglobin 15.2. Platelets 305. Sodium 141. Potassium 4.7. Bicarb 36. BUN 37. Creatinine 0.96. Glucose 136. He remains on DuoNeb inhalations, Pulmicort and Perforomist inhalations, Solu- Medrol. Lovenox for DVT prophylaxis. The patient is seen today May 08, 2024 in follow-up in the intensive care unit. He is currently sitting up in a chair at the bedside. Awake and alert in no acute distress. He is breathing a bit better today compared to yesterday. He does continue to drop his O2 sats into the 70s with brief periods off the BiPap 16/7 and 90% FiO2 to and transitioning to Airvo high flow oxygen. He is continued on DuoNeb inhalations, Pulmicort and Perforomist inhalations, IV Solu- Medrol. Lovenox for DVT prophylaxis. Blood and sputum cultures revealed no gr owth. White count 14.3. Hemoglobin 15.2. Platelets 273. Sodium 139. Potassium 5.1. Bicarb 33. BUN 37. Creatinine 0.99. Glucose 128. The patient is seen today May 09, 2024 in follow-up in the intensive care unit. He is awake and alert. He has been slow to progress. He is still requiring Airvo high flow oxygen at 60 L and 90% FiO2. Alternating with BiPAP 16/7 and 90% FiO2. CT angiogram ruled out pulmonary embolism. There is diffuse groundglass opacities with air bronchograms. Appearing more diffuse and less patchy compared to previous. Enlarged pretracheal lymph node with scattered smaller lymph nodes within the mediastinum. Sodium 136. Potassium 5.1. Bicarb 29. BUN 35. Creatinine 0.85. Glucose 114. White count 15.2. Hemoglobin 16.2. Platelets 191. He is continued on DuoNeb and elations, Pulmicort and performance and elations, Solu-Medrol. Remains on antibiotics in the form of Zosyn. Lovenox for DVT prophylaxis. Blood culture revealed no growth. Sputum culture revealed no growth x 2. The patient is seen today May 10, 2024 in follow-up in the intensive care unit. Yesterday he continued to weaken and was having episodes of desaturations on the Airvo and the BiPAP. He subsequently failed and was intubated and placed on the mechanical ventilator. That he did undergo bronchoscopy with BAL. He is currently on assist-control mode at a rate of 26, tidal volume 450, FiO2 100% and a PEEP of 10. Morning blood gases revealed a pH O2 of 101, pCO2 67 and a pH of 7.30. His peak pressures initially were at 50 with a plateau of 32. Based on this he was switched to pressure control mode with a inspiratory pressure of 15 and inspiratory time of 1.0. Follow-up blood gases were pending. He was on norepinephrine at 8.0 mcg/min. Nimbex at 2.5 mcg/kg/min. 0.9% saline at 10 mL/h. Propofol at 45 mcg/kg/min. He is being nourished with vital HP at a rate of 20 with a goal of 27 mL/h. His PF ratio was measured at 100 indicating moderate to severe ARDS. His procalcitonin was again negative. His Zosyn was discontinued. The patient then developed a polymorphic ventricular tachycardia which was pulseless and CPR was initiated, he received epinephrine and initiated on amiodarone bolus. He was defibrillated and obtained return of spontaneous circulation after just 2 rounds of CPR. White count 20.9. Hemoglobin 16.0. Platelets 258. Sodium 140. Potassium 5.6. Bicarb 38. BUN 53. Creatinine 1.40. Glucose 200. Magnesium 3.2. Follow-up arterial blood gases revealed a PaO2 of 49, pCO2 greater than 98 and a pH of 7.09. His settings were then adjusted to increased pressure time to 20 and increased respiratory rate to 32. Other follow-up blood gas 1 hour later revealed a PaO2 of 84, pCO2 of greater than 98 and a pH of 7.04. At that point he was switched back to volume assist- control mode With a rate at 32, tidal volume 400, FiO2 100% and a PEEP of 15. He was given D10 and 10 units of regular insulin for his hyperkalemia.'s, Pulmicort and performance inhalations, IV Solu-Medrol. Lovenox for DVT prophylaxis. Amiodarone drip initiated at 1 mg/min. The patient is seen today May 11, 2024 in follow-up in the intensive care unit. No further episodes of ventricular tachycardia overnight. He does remain intubated on the mechanical ventilator and pressure assist-control mode with a rate of 36. Inspiratory pressure of 25. Inspiratory time of 0.8. FiO2 at 100% and a PEEP of 15. He does have severe ARDS with a PF ratio of 83. Arterial blood gases revealed a PaO2 of 83. pCO2 68 and a pH of 7.29. Chest x-ray cont inues to show persistent bilateral diffuse edema and/or infiltrates. Echocardiogram reveals normal left ventricular systolic function. Severe pulmonary hypertension. Dilated right ventricle. No pericardial effusion. He remains on norepinephrine at 14.6 mcg/min. Amiodarone drip at 0.5 mg/min. Nimbex at 2 mcg/kg/min. Propofol at 45 mcg/kg/min. He is being nourished with vital HP at 27 mL/h which is goal. He is continued on DuoNeb and elations, Pulmicort and Perforomist inhalations, Solu-Medrol. Lovenox for DVT prophylaxis. Blood, sputum, bronchial wash cultures revealed no growth. White count 21.6. Hemoglobin 14.4. Platelets 211. Sodium 137. Potassium 5.1. Bicarb 33. BUN 60. Creatinine 1.52. Glucose 182. Objective - Vital Signs Vital signs: Vital Signs Temp 99.3 F 05/11/24 08:00 Pulse 75 05/11/24 11:00 Resp 36 H 05/11/24 11:00 BP 113/59 05/11/24 10:15 Pulse Ox 93 L 05/11/24 11:00 FiO2 100 05/11/24 08:29 Intake & Output 05/10/24 05/11/24 05/11/24 18:59 06:59 18:59 Intake Total 6676.134 0824.046 782.812 Output Total 810 995 395 Balance 498.501 440.046 387.812 Weight 117.1 kg 114.2 kg Intake: IV 171 46 15 0.9 SALINE PRESSURE BAG 36 36 15 0.9% NS KVO 110 10 Piperacillin-Tazobactam 3 25 .375 gm In Sodium Chloride 0.9% 100 ml @ 25 mls/hr IVPB Q8H ALEXANDRA Rx#: [id number] Intake, IV Titration 840.501 975.046 572.812 Amount Amiodarone 450 mg In 250 Dextrose 5% in Water 250 ml @ 0.5 MG/MIN 16.667 mls/hr IV .Q15H ALEXANDRA Rx#: [id number] Cisatracurium 200 mg In 260.741 167.475 109.436 Sodium Chloride 0.9% 180 ml @ 2 MCG/KG/MIN 13.86 mls/hr IV .[id number] ALEX[facility]DRA Rx #:[id number] Norepinephrine 8 mg In 309.605 414.016 213.376 Sodium Chloride 0.9% 250 ml @ 0.03 MCG/KG/MIN 6. 705 mls/hr IV .Q24H ALEXANDRA Rx#:[id number] propofoL 1,000 mg In 270.155 393.555 Empty Bag 1 bag @ 15 MCG/ KG/MIN 10.395 mls/hr IV . [id number] ALEXANDRA Rx#:[id number] Tube Feeding 207 324 135 Other 90 90 60 Output: Gastric Drainage 140 Urine 670 995 395 Other: Voiding Method Indwelling Catheter Indwelling Catheter Indwelling Catheter ABP, PAP, CO, CI - Last Documented Arterial Blood Pressure 118/50 - Exam GENERAL EXAM: Intubated, sedated 74-year-old male patient, on the mechanical ventilator. HEAD: Normocephalic. EYES: Sluggish reaction of pupils, equal size. NOSE: Clear with pink turbinates. THROAT: Oral endotracheal and gastric tube secured in place. No erythema or exudates. NECK: No masses, no JVD. CHEST: No chest wall deformity. LUNGS: Equal air entry with bilateral scattered rhonchi, coarse crackles. CVS: S1 and S2 normal with no audible murmur, regular rhythm. ABDOMEN: No hepatosplenomegaly, normal bowel sounds, no guarding or rigidity. SPINE: No scoliosis or deformity SKIN: No rashes CENTRAL NERVOUS SYSTEM: Sedated, tone is normal in all 4 extremities. EXTREMITIES: There is no peripheral edema. No clubbing, no cyanosis. Peripheral pulses are intact. - Labs CBC & Chem 7: 05/11/24 05:15 05/11/24 05:15 Labs: Abnormal Lab Results - Last 24 Hours (Table) 05/10/24 05/10/24 05/10/24 Range/Units 12:32 12:59 14:01 WBC (3.8-10.6) k/uL ABG pH 7.04 L* 7.11 L* (7.35-7.45) ABG pCO2 >98 H* >98 H* (35-45) mmHg ABG pO2 80 L (83-108) mmHg ABG HCO3 (21-25) mmol/L ABG Total CO2 (19-24) mmol/L ABG O2 Saturation 90.9 L 92.3 L (94-97) % Potassium (3.5-5.1) mmol/L Carbon Dioxide (22-30) mmol/L BUN (9-20) mg/dL Creatinine (0.66-1.25) mg/dL Glucose (74-99) mg/dL POC Glucose (mg/dL) 210 H (70-110) mg/dL 05/10/24 05/10/24 05/11/24 Range/Units 17:14 23:00 00:35 WBC (3.8-10.6) k/uL ABG pH (7.35-7.45) ABG pCO2 (35-45) mmHg ABG pO2 (83-108) mmHg ABG HCO3 (21-25) mmol/L ABG Total CO2 (19-24) mmol/L ABG O2 Saturation (94-97) % Potassium 6.2 H* (3.5-5.1) mmol/L Carbon Dioxide (22-30) mmol/L BUN (9-20) mg/dL Creatinine (0.66-1.25) mg/dL Glucose (74-99) mg/dL POC Glucose (mg/dL) 166 H 170 H (70-110) mg/dL 05/11/24 05/11/24 05/11/24 Range/Units 05:15 05:15 05:21 WBC 21.6 H (3.8-10.6) k/uL ABG pH (7.35-7.45) ABG pCO2 (35-45) mmHg ABG pO2 (83-108) mmHg ABG HCO3 (21-25) mmol/L ABG Total CO2 (19-24) mmol/L ABG O2 Saturation (94-97) % Potassium (3.5-5.1) mmol/L Carbon Dioxide 33 H (22-30) mmol/L BUN 60 H (9-20) mg/dL Creatinine 1.52 H (0.66-1.25) mg/dL Glucose 184 H (74-99) mg/dL POC Glucose (mg/dL) 172 H (70-110) mg/dL 05/11/24 05/11/24 Range/Units 05:34 11:34 WBC (3.8-10.6) k/uL ABG pH 7.29 L (7.35-7.45) ABG pCO2 68 H (35-45) mmHg ABG pO2 (83-108) mmHg ABG HCO3 33 H (21-25) mmol/L ABG Total CO2 35 H (19-24) mmol/L ABG O2 Saturation (94-97) % Potassium (3.5-5.1) mmol/L Carbon Dioxide (22-30) mmol/L BUN (9-20) mg/dL Creatinine (0.66-1.25) mg/dL Glucose (74-99) mg/dL POC Glucose (mg/dL) 139 H (70-110) mg/dL Microbiology - Last 24 Hours (Table) 05/09/24 16:00 Gram Stain - Preliminary Bronchoalviolar Lavage - Right Bronchial Washings Culture - Preliminary 05/09/24 16:00 Acid Fast Bacilli Smear - Preliminary Bronchoalviolar Lavage - Right Assessment and Plan Assessment: Acute hypoxemic respiratory failure secondary to severe ARDS. Viral screen negative. Procalcitonin negative x 2. Repeat CT angiogram ruled out pulmonary embolism. There is continued diffuse groundglass opacities with air bronchograms bilaterally. Enlarged pretracheal lymph node with scattered smalle r lymph nodes within the mediastinum. Worsening acute hypoxemic respiratory failure secondary to moderate to severe ARDS requiring intubation and mechanical ventilatory support on 05/09/2024. Status post bronchoscopy on 05/09/2024 Cardiopulmonary arrest on 05/10/2024 requiring 2 rounds of CPR. Appeared pulseless ventricular tachycardia/torsades. Initiated on amiodarone drip Hypotension secondary to above requiring pressor support Leukocytosis secondary to above Severe pulmonary hypertension with dilated right ventricle. Cardiac catheterization from September 2023 revealed no evidence of obstructive coronary artery disease Troponin leak Morbid obesity with a BMI of 48 kg/m Hyperlipidemia Hypothyroidism History of mild intermittent chronic bronchial asthma Lifelong non-smoker Plan: The patient was seen and evaluated Chest x-ray, labs ABGs and medications reviewed Echocardiogram reviewed Continued on an amiodarone drip Continued on propofol for sedation Continued on Nimbex Continued on norepinephrine Remains on the mechanical ventilator Continue bronchodilators and steroids Lovenox for DVT prophylaxis Prognosis remains guarded We will continue to follow I have personally seen and examined the patient, performed the documentation and the assessment and plan as written. Time: 15 minutes Dictation was produced using [employer] dictation software. Please excuse any grammatical, word or spelling errors. This patient was seen in coordination with the pulmonary/critical care ph ysician, Dr. Lundy. He did spend greater than 50% of the time evaluating, examining and developing the plan of care. He agrees to the above HPI, physical exam, assessment and plan of care as dictated by the nurse practitioner.
[2024-05-11] MEDS: AMIODARONE 450 MG in DEXTROSE 5% IN WATER 250 ML IV SCH (14:49)
[2024-05-11 17:33] LABS: Glucose,Whole Blood 165 mg/dL (70-110)
[2024-05-11] MEDS: hydrOXYzine HCL 25 MG TAB PO SCH (19:31)
[2024-05-11 23:49] LABS: Glucose,Whole Blood 171 mg/dL (70-110)
[2024-05-12 04:50] LABS: HCT 45.8 % (39.0-53.0); Hypochromasia Marked; MCHC 30.5 g/dL (31.0-37.0); MCV 98.3 fL (80.0-100.0); Mean Platelet Volume 7.6; Platelet Count 167 k/uL (150-450); RBC 4.66 m/uL (4.30-5.90); RDW 13.1 % (11.5-15.5); WBC 23.3 k/uL (3.8-10.6)
[2024-05-12 05:00] LABS: African American GFR (CKD) 48 (>60 ml/min/1.73 sqM); Anion Gap 1 mmol/L; Blood Urea Nitrogen 69 mg/dL (9-20); Calcium 8.5 mg/dL (8.4-10.2); Carbon Dioxide 34 mmol/L (22-30); Chloride 103 mmol/L (98-107); Glucose 173 mg/dL (74-99); Magnesium 3.5 mg/dL (1.6-2.3); Non-African American GFR(CKD) 41 (>60 ml/min/1.73 sqM); Sodium 138 mmol/L (137-145)
[2024-05-12 05:21] LABS: Potassium 6.3 mmol/L (3.5-5.1)
[2024-05-12 05:42] LABS: Glucose,Whole Blood 170 mg/dL (70-110)
[2024-05-12 06:10] LABS: ABG Base Excess 6.7 mmol/L; ABG HCO3 34 mmol/L (21-25); ABG Oxygen Saturation 96.2 % (94-97); ABG PCO2 58 mmHg (35-45); ABG PH 7.38 (7.35-7.45); ABG PO2 81 mmHg (83-108); ABG TCO2 36 mmol/L (19-24)
[2024-05-12 06:14] LABS: Allen Test Performed? No
[2024-05-12] MEDS: SODIUM ZIRCONIUM CYCLOSILICATE 10 GM PACKET PO ONE ×2 (06:44→18:50)
[2024-05-12] MEDS: INSULIN REGULAR 100 UNIT/ML VIAL (IV) IV ONE ×3 (06:44→22:47)
[2024-05-12] MEDS: DEXTROSE 50% SYRINGE 50 ML IVP STA ×2 (06:44→18:41)
[2024-05-12] MEDS: CALCIUM GLUCONATE IN NACL 1 GM in SALINE 1 100ML.BAG IVPB ONE ×3 (06:44→22:46)
--- NOTE | 2024-05-12 07:11 | XR ---
EXAMINATION TYPE: XR chest 1V portable DATE OF EXAM: 05/12/2024 CLINICAL HISTORY: Difficulty breathing progress study. TECHNIQUE: Single AP portable semiupright view of the chest is obtained. COMPARISON: Chest x-ray from one day earlier and older studies. FINDINGS: Stable endotracheal and orogastric tubes. Stable left-sided internal jugular central venou s catheter. Persistent bilateral diffuse increased opacities. Cardiac silhouette size is stable and upper limits of normal. Osseous structures are intact. IMPRESSION: Persistent bilateral diffuse edema and/or acute infiltrates. Consider ARDS. [facility], , 05/12/2024 7:08 AM
--- NOTE | 2024-05-12 09:10 | US ---
EXAMINATION TYPE: US kidneys/renal and bladder DATE OF EXAM: 05/12/2024 COMPARISON: NONE CLINICAL INDICATION: Male, 74 years old with history of TILA; Intubated ICU patient with TILA TECHNIQUE: Grayscale imaging of the bilateral kidneys and urinary bladder: FINDINGS: EXAM MEASUREMENTS: Right Kidney: 11.1 x 6.3 x 5.2 cm Left Kidney: 11.6 x 5.4 x 6.4 cm Right Kidney: No hydronephrosis or masses seen Left Kidney: No hydronephrosis or masses seen Bladder: cathed, not distended There is no evidence for hydronephrosis at this point in time. No nephrolithiasis is seen. No mara s are identified. The urinary bladder is not evaluated due to Gallardo catheter. IMPRESSION: Suboptimal study. No hydronephrosis is seen bilaterally. [facility], , 05/12/2024 9:08 AM
[2024-05-12] MEDS: METOPROLOL TARTRATE 25 MG TAB PO STA (09:22)
--- NOTE | 2024-05-12 09:45 | P.PN ---
Subjective Progress Note Date: 05/12/24 PROGRESS NOTE The patient is a 74-year-old male who presented with symptoms of progressive dyspnea, requiring BiPAP with evidence of bilateral multifocal pneumonia. He is continuing to be dyspneic on the BiPAP. He had mild troponin elevation secondary to type II myocardial infarction. He denies any chest discomfort, dizziness or palpitations. His echocardiogram showed a preserved systolic function with low ventricle hypertrophy. He continues to be in sinus mechanism and hemodynamically stable. May 09: The patient is on BiPAP at this time, was on airVo earlier. He is feeling better overall but continues to have a cough and episode of dyspnea. He is having clear to yellowish sputum. He is in sinus mechanism and no evidence of malignant arrhythmia. His blood pressure has been stable. Duplex scan of the lower extremities showed no DVT and his CT angiogram showed no evidence of pulmonary embolism. May 10: The patient yesterday became more dyspneic and required mechanical ventilation. His chest x-ray showed worsening bilateral lobe infiltrate, his NT proBNP is normal. He is intubated and sedated at this time. In sinus mechanism. He is on norepinephrine. His urine output is stable. There is no evidence of malignant arrhythmia. His procalcitonin was normal. May 11: The patient remains intubated and sedated. Yesterday had an episode of ventricular fibrillation requiring cardioversion. He is in sinus mechanism and maintained on IV amiodarone. His echocardiogram showed a preserved systolic function. His urine output has been stable. He is on norepinephrine. He had no evidence of recurrent ventricular ectopic activity or atrial fibrillation. His picture is consistent with ARDS with viral pulmonary infection. There is no evidence suggest bacterial infection or CHF. May 12: The patient remains intubated and sedated. Earlier this morning he went into atrial fibrillation with rapid ventricle response. He continues to be on norepinephrine and IV amiodarone. He is not anticoagulated. He continues to require high oxygen support. X-ray shows bilateral infiltrate, suggestive of ARDS. Medications: Lipitor 20 mg daily, aspirin, levothyroxine, metoprolol tartrate 25 mg twice a day, IV amiodarone, IV norepinephrine. PHYSICAL EXAMINATION: Blood pressure 97/50 heart rate 110 intubated and sedated, LUNGS: Clear, no wheezes HEART: Regular rate and rhythm, S1, S2. No S3. Systolic ejection murmur 3/6, at the base ABDOMEN: Soft, no organomegaly, obese EXTREMETIES: No edema LAB: Hemoglobin 14, WBC 23.3, BUN 69, creatinine 1.62 IMPRESSION: 1. Respiratory failure with probable viral pneumonia, and ARDS, consistent with pulmonary edema, noncardiac 2. Hypertension, hypotensive at this time 3. Hypothyroidism 4. Hyperlipidemia 5. Obesity 6. Episode of ventricular fibrillation, rare status post CPR and cardioversion, maintaining sinus mechanism. Repeat echocardiogram showed preserved systolic function 7. Worsening renal functions with acute kidney injury 8. Recurrent atrial fibrillation PLAN: 1. Start IV heparin 2. Follow renal functions 3. Continue beta-min and amiodarone for now 4. Depending on his progress further recommendations will be made 5. Prognosis is guarded Objective - Vital Signs Vital signs: Vital Signs Temp 100.3 F H 05/12/24 08:00 Pulse 111 H 05/12/24 09:15 Resp 36 H 05/12/24 09:15 BP 88/53 05/12/24 08:15 Pulse Ox 93 L 05/12/24 09:15 FiO2 100 05/12/24 08:03 Intake & Output 05/11/24 05/12/24 05/12/24 18:59 06:59 18:59 Intake Total 5302.950 8714.850 490.357 Output Total 1055 715 260 Balance 589.903 767.850 230.357 Weight 117.6 kg Intake: IV 36 36 9 0.9 SALINE PRESSURE BAG 36 36 9 Intake, IV Titration 4567.172 5292.850 340.357 Amount Amiodarone 450 mg In 250 Dextrose 5% in Water 250 ml @ 0.5 MG/MIN 16.667 mls/hr IV .Q15H [facility] Rx#: [id number] Amiodarone 450 mg In 66.4 231.882 Dextrose 5% in Water 250 ml @ 0.5 MG/MIN 16.667 mls/hr IV .Q15H [facility] Rx#: [id number] Calcium Gluconate in NaCl 100 1 gm In Saline 1 100ml. bag @ 100 mls/hr IVPB ONCE ONE Rx#:[id number] Cisatracurium 200 mg In 190.979 178.794 64.218 Sodium Chloride 0.9% 180 ml @ 2 MCG/KG/MIN 13.86 mls/hr IV .[id number] [facility] Rx #:[id number] Norepinephrine 8 mg In 365.424 271.447 105.453 Sodium Chloride 0.9% 250 ml @ 0.03 MCG/KG/MIN 6. 705 mls/hr IV .Q24H [facility] Rx#:[id number] propofoL 1,000 mg In 292.100 350.727 70.686 Empty Bag 1 bag @ 15 MCG/ KG/MIN 10.395 mls/hr IV . [id number] [facility] Rx#:[id number] Oral 27 Tube Feeding 324 324 54 Blood Product 60 Other 120 90 Output: Urine 1055 715 260 Other: Voiding Method Indwelling Catheter Indwelling Catheter ABP, PAP, CO, CI - Last Documented Arterial Blood Pressure 93/50 - Labs CBC & Chem 7: 05/12/24 04:35 05/12/24 09:15 Labs: Abnormal Lab Results - Last 24 Hours (Table) 05/11/24 05/11/24 05/11/24 Range/Units 11:34 17:31 23:48 WBC (3.8-10.6) k/uL MCHC (31.0-37.0) g/dL ABG pCO2 (35-45) mmHg ABG pO2 (83-108) mmHg ABG HCO3 (21-25) mmol/L ABG Total CO2 (19-24) mmol/L Potassium (3.5-5.1) mmol/L Carbon Dioxide (22-30) mmol/L BUN (9-20) mg/dL Creatinine (0.66-1.25) mg/dL Glucose (74-99) mg/dL POC Glucose (mg/dL) 139 H 165 H 171 H (70-110) mg/dL Magnesium (1.6-2.3) mg/dL 05/12/24 05/12/24 05/12/24 Range/Units 04:35 04:35 05:41 WBC 23.3 H (3.8-10.6) k/uL MCHC 30.5 L (31.0-37.0) g/dL ABG pCO2 (35-45) mmHg ABG pO2 (83-108) mmHg ABG HCO3 (21-25) mmol/L ABG Total CO2 (19-24) mmol/L Potassium 6.3 H* (3.5-5.1) mmol/L Carbon Dioxide 34 H (22-30) mmol/L BUN 69 H (9-20) mg/dL Creatinine 1.62 H (0.66-1.25) mg/dL Glucose 173 H (74-99) mg/dL POC Glucose (mg/dL) 170 H (70-110) mg/dL Magnesium 3.5 H (1.6-2.3) mg/dL 05/12/24 05/12/24 Range/Units 06:09 09:15 WBC (3.8-10.6) k/uL MCHC (31.0-37.0) g/dL ABG pCO2 58 H (35-45) mmHg ABG pO2 81 L (83-108) mmHg ABG HCO3 34 H (21-25) mmol/L ABG Total CO2 36 H (19-24) mmol/L Potassium 5.6 H (3.5-5.1) mmol/L Carbon Dioxide (22-30) mmol/L BUN (9-20) mg/dL Creatinine (0.66-1.25) mg/dL Glucose (74-99) mg/dL POC Glucose (mg/dL) (70-110) mg/dL Magnesium (1.6-2.3) mg/dL Microbiology - Last 24 Hours (Table) 05/09/24 16:00 Gram Stain - Final Bronchoalviolar Lavage - Right Bronchial Washings Culture - Final
[2024-05-12] MEDS ORDERED: HEPARIN SODIUM 1,000 UN/ML (10ML VL) IV PRN (09:46)
--- NOTE | 2024-05-12 10:07 | P.NPCON ---
History of Present Illness - Reason for Consult acute renal failure, hyperkalemia - History of Present Illness Reason for consultation: Acute kidney injury and hyperkalemia History of present illness: Patient is a 74-year-old male seen in renal consultation for acute kidney injury and hyperkalemia. Patient's creatinine on admission was 0.95 and is up to 1.62 today. Patient came to the hospital on May 02, 2024 due to shortness of breath. Patient is currently intubated so history was obtained mostly from the chart. It is noted patient was short of breath for about 10 days prior to admission. He was having exertional dyspnea as well as orthopnea. He was taking Augmentin for asthma prior to admission. I do not see any diuretics or nephrotoxins on his home medication list. Patient was subsequently diagnosed with pneumonia and was intubated on May 09, 2023. He is currently on Levoph ed. He is receiving tube feeds with high vital protein. On May 10, 2023 patient went into V. tach twice and required cardioversion. He is currently on amiodarone drip. Echocardiogram showed preserved ejection fraction. He is nonoliguric. Potassium levels also elevated at 6.2 on May 10, 2024 which was medically treated and improved to 5.1. This morning was again 6.3 and was medically treated and is now 5.6. Vital signs -in A-fib. On vasopressor support. General: Resting in bed. HEENT: Intubated. LUNGS: Scattered rhonchi. HEART: Irregular rate and rhythm. ABDOMEN: No distention. EXTREMITITES: No edema. Past Medical History Past Medical History: Asthma, Cancer, GERD/Reflux, Hearing Disorder / Deafness, Hyperlipidemia, Thyroid Disorder Additional Past Medical History / Comment(s): Inconclusive cologuard results, prostate cancer diagnosed 2021 with radiation, bilateral hearing aides History of Any Multi-Drug Resistant Organisms: None Reported Past Surgical History: Prostate Surgery, Tonsillectomy Additional Past Surgical History / Comment(s): Prostate biopsy and spacer placed for cancer Past Anesthesia/Blood Transfusion Reactions: No Reported Reaction Additional Past Anesthesia/Blood Transfusion Reaction / Comment(s): Pt has never received blood. Past Psychological History: No Psychological Hx Reported Additional Psychological History / Comment(s): Pt resides with his spouse. Smoking Status: Never smoker Past Alcohol Use History: None Reported Past Drug Use History: None Reported - Past Family History Father Family Medical History: Congestive Heart Failure (CHF) Mother Family Medical History: CVA/TIA, Deep Vein Thrombosis (DVT) Medications and Allergies Home Medications Medication Instructions Recorded Confirmed Type Aspirin [Adult Low Dose Aspirin EC] 81 mg PO HS 02/25/22 05/02/24 History Atorvastatin Calcium 20 mg PO HS 02/25/22 05/02/24 History Levothyroxine Sodium [Synthroid] 50 mcg PO DAILY 02/25/22 05/02/24 History Albuterol Inhaler [Ventolin Hfa 2 puff INHALATION RT-Q4H PRN 05/02/24 05/02/24 History Inhaler] Amoxic-Pot Clav 875-125Mg 1 tab PO Q12HR 05/02/24 05/02/24 History [Augmentin 875-125] Allergies Allergy/AdvReac Type Severity Reaction Status Date / Time No Known Allergies Allergy Verified 05/02/24 08:15 Physical Exam Vitals: Vital Signs Temp Pulse Resp BP Pulse Ox FiO2 05/12/24 09:15 111 H 36 H 93 L 05/12/24 09:00 115 H 36 H 93 L 05/12/24 08:45 116 H 36 H 93 L 05/12/24 08:30 101 H 36 H 93 L 05/12/24 08:15 125 H 36 H 88/53 93 L 05/12/24 08:03 100 05/12/24 08:00 100.3 F H 140 H 36 H 93 L 100 05/12/24 07:45 74 36 H 94 L 05/12/24 07:30 78 36 H 93 L 05/12/24 07:15 72 36 H 101/49 93 L 05/12/24 07:00 74 36 H 93 L 100 05/12/24 06:45 67 36 H 94 L 100 05/12/24 06:30 67 36 H 93 L 100 05/12/24 06:15 65 36 H 93 L 100 05/12/24 06:00 65 37 H 93 L 100 05/12/24 05:45 64 36 H 93 L 100 05/12/24 05:30 65 35 H 93 L 100 05/12/24 05:15 65 36 H 92 L 100 05/12/24 05:07 100 05/12/24 05:00 64 36 H 104/57 92 L 100 05/12/24 04:45 66 36 H 104/57 92 L 100 05/12/24 04:30 67 36 H 104/57 93 L 100 05/12/24 04:15 66 35 H 104/57 94 L 100 05/12/24 04:00 99.2 F 67 35 H 76/47 94 L 100 05/12/24 03:45 68 36 H 82/46 93 L 100 05/12/24 03:30 71 36 H 82/50 93 L 100 05/12/24 03:15 73 36 H 82/50 93 L 100 05/12/24 03:00 85 36 H 108/57 92 L 100 05/12/24 02:45 86 36 H 108/57 93 L 05/12/24 02:30 86 36 H 108/57 93 L 05/12/24 02:15 86 37 H 108/57 93 L 05/12/24 02:00 86 37 H 107/58 93 L 05/12/24 01:45 86 37 H 107/58 93 L 05/12/24 01:30 87 37 H 107/58 93 L 05/12/24 01:15 87 36 H 107/58 93 L 05/12/24 01:00 87 36 H 105/60 93 L 05/12/24 00:45 87 37 H 105/60 93 L 05/12/24 00:30 87 36 H 105/60 92 L 05/12/24 00:22 100 05/12/24 00:20 87 37 H 105/60 93 L 05/12/24 00:15 87 35 H 105/60 93 L 05/12/24 00:00 99.9 F H 89 37 H 108/59 93 L 100 05/11/24 23:45 90 36 H 108/59 93 L 05/11/24 23:30 88 36 H 108/59 93 L 05/11/24 23:15 90 36 H 108/59 93 L 05/11/24 23:00 90 36 H 106/59 93 L 05/11/24 22:45 90 36 H 106/59 93 L 05/11/24 22:30 91 36 H 106/59 93 L 05/11/24 22:15 92 36 H 106/59 94 L 05/11/24 22:00 92 36 H 107/58 93 L 05/11/24 21:45 90 36 H 107/58 94 L 05/11/24 21:30 87 36 H 107/58 94 L 05/11/24 21:27 88 36 H 05/11/24 21:18 87 36 H 05/11/24 21:15 88 36 H 107/58 94 L 05/11/24 21:12 87 36 H 100 05/11/24 21:00 99.6 F 88 36 H 111/59 94 L 100 05/11/24 20:45 91 36 H 111/59 93 L 100 05/11/24 20:30 93 36 H 111/59 94 L 100 05/11/24 20:15 93 35 H 111/59 94 L 100 05/11/24 20:00 93 36 H 105/58 93 L 100 05/11/24 19:45 93 35 H 105/58 93 L 100 05/11/24 19:30 93 35 H 105/58 93 L 100 05/11/24 19:15 93 36 H 105/58 93 L 100 05/11/24 19:00 93 36 H 93 L 05/11/24 18:45 94 36 H 93 L 05/11/24 18:30 95 36 H 92 L 05/11/24 18:15 96 36 H 120/65 92 L 05/11/24 18:00 99.6 F 101 H 36 H 93 L 05/11/24 17:45 98 36 H 92 L 05/11/24 17:30 98 36 H 93 L 05/11/24 17:15 100 36 H 111/63 93 L 05/11/24 17:00 96 36 H 92 L 05/11/24 16:45 100 36 H 92 L 05/11/24 16:30 93 36 H 92 L 05/11/24 16:20 100 05/11/24 16:15 91 36 H 117/61 93 L 05/11/24 16:00 99.3 F 91 36 H 93 L 100 05/11/24 15:45 90 36 H 93 L 05/11/24 15:30 90 36 H 93 L 05/11/24 15:15 89 36 H 117/61 93 L 05/11/24 15:00 87 36 H 92 L 05/11/24 14:45 90 36 H 92 L 05/11/24 14:30 92 36 H 92 L 05/11/24 14:15 89 36 H 118/56 92 L 05/11/24 14:00 90 36 H 92 L 05/11/24 13:45 89 36 H 92 L 05/11/24 13:30 89 36 H 92 L 05/11/24 13:15 85 36 H 114/63 92 L 05/11/24 13:00 87 36 H 92 L 05/11/24 12:45 84 36 H 92 L 05/11/24 12:30 81 36 H 92 L 05/11/24 12:21 67 05/11/24 12:15 76 36 H 104/56 93 L 05/11/24 12:10 65 05/11/24 12:08 100 05/11/24 12:00 98.3 F 74 36 H 92 L 100 05/11/24 11:45 75 36 H 93 L 05/11/24 11:30 76 36 H 93 L 05/11/24 11:15 75 36 H 105/56 93 L 05/11/24 11:00 75 36 H 93 L 05/11/24 10:45 75 36 H 93 L 05/11/24 10:30 79 36 H 93 L 05/11/24 10:15 84 36 H 113/59 93 L 05/11/24 10:00 83 36 H 93 L Intake and Output 05/11/24 05/12/24 05/12/24 22:59 06:59 14:59 Intake Total 409.283 0713.011 490.357 Output Total 590 510 260 Balance 126.298 645.011 230.357 Intake: IV 24 24 9 0.9 SALINE PRESSURE BAG 24 24 9 Intake, IV Titration 416.298 855.011 340.357 Amount Amiodarone 450 mg In 83.0 215.282 Dextrose 5% in Water 250 ml @ 0.5 MG/MIN 16.667 mls/hr IV .Q15H [facility] Rx#: [id number] Calcium Gluconate in NaCl 100 1 gm In Saline 1 100ml. bag @ 100 mls/hr IVPB ONCE ONE Rx#:[id number] Cisatracurium 200 mg In 178.794 64.218 Sodium Chloride 0.9% 180 ml @ 2 MCG/KG/MIN 13.86 mls/hr IV .[id number] [facility] Rx #:[id number] Norepinephrine 8 mg In 153.984 191.289 105.453 Sodium Chloride 0.9% 250 ml @ 0.03 MCG/KG/MIN 6. 705 mls/hr IV .Q24H [facility] Rx#:[id number] propofoL 1,000 mg In 179.314 269.646 70.686 Empty Bag 1 bag @ 15 MCG/ KG/MIN 10.395 mls/hr IV . [id number] [facility] Rx#:[id number] Oral 27 Tube Feeding 216 216 54 Blood Product 60 Other 60 60 Output: Urine 590 510 260 Other: Voiding Method Indwelling Catheter Indwelling Catheter Weight 117.6 kg ABP, PAP, CO, CI - Last 8 Hours Arterial Blood Pressure 93/50 Arterial Blood Pressure 97/46 Arterial Blood Pressure 97/49 Arterial Blood Pressure 78/47 Arterial Blood Pressure 91/49 Arterial Blood Pressure 100/49 Arterial Blood Pressure 130/46 Arterial Blood Pressure 135/48 Arterial Blood Pressure 136/48 Arterial Blood Pressure 129/45 Arterial Blood Pressure 122/49 Arterial Blood Pressure 118/48 Arterial Blood Pressure 115/48 Arterial Blood Pressure 116/51 Arterial Blood Pressure 114/51 Arterial Blood Pressure 113/52 Arterial Blood Pressure 108/50 Arterial Blood Pressure 118/55 Arterial Blood Pressure 116/55 Arterial Blood Pressure 126/60 Arterial Blood Pressure 122/59 Arterial Blood Pressure 122/59 Arterial Blood Pressure 91/49 Arterial Blood Pressure 93/44 Arterial Blood Pressure 98/45 Arterial Blood Pressure 118/51 Arterial Blood Pressure 110/46 Arterial Blood Pressure 105/46 Arterial Blood Pressure 106/46 Arterial Blood Pressure 107/46 Results - Lab Results Most recent lab results ABG pH 7.38 (7.35-7.45) 05/12/24 06:09 ABG pCO2 58 mmHg (35-45) H 05/12/24 06:09 ABG pO2 81 mmHg (83-108) L 05/12/24 06:09 ABG HCO3 34 mmol/L (21-25) H 05/12/24 06:09 ABG O2 Saturation 96.2 % (94-97) 05/12/24 06:09 Calcium 8.5 mg/dL (8.4-10.2) 05/12/24 04:35 Phosphorus 7.1 mg/dL (2.5-4.5) H 05/10/24 11:06 Magnesium 3.5 mg/dL (1.6-2.3) H 05/12/24 04:35 05/12/24 04:35 05/12/24 09:15 Assessment and Plan Plan: Assessment: 1. Acute kidney injury secondary to hemodynamic ATN secondary to A-fib and cardiac arrest. Received IV contrast on May 08, 2024 for a CTA. Baseline creatinine near 1 and is up to 1.62 today. Nonoliguric. No hydronephrosis noted on kidney ultrasound. 2. V. tach arrest requiring cardioversion. 3. A-fib with RVR maintained on amiodarone drip. 4. Hyperkalemia secondary to acute kidney injury. Better with medical management. 5. Acute hypoxic respiratory failure secondary to ARDS. 6. Septic shock maintained on Levophed. 7. Moderate tricuspid regurgitation and pulmonary hypertension. Plan: Add Lokelma 10 g 3 times daily. Lasix 20 mg IV once now. Repeat potassium level this evening. Adjust tube feeds to lower potassium level. Avoid nephrotoxins. Continue to monitor renal function and urine output. Wean FiO2 and vasopressors. Thank you for the consultation. I will continue to follow the patient with you during his hospital stay.
[2024-05-12 10:13] LABS: HCT 44.6 % (39.0-53.0); HGB 13.9 gm/dL (13.0-17.5); Hypochromasia Moderate; MCH 30.4 pg (25.0-35.0); MCHC 31.1 g/dL (31.0-37.0); MCV 97.8 fL (80.0-100.0); Mean Platelet Volume 7.6; Platelet Count 154 k/uL (150-450); RBC 4.56 m/uL (4.30-5.90); RDW 13.1 % (11.5-15.5)
[2024-05-12] MEDS: HEPARIN SODIUM 1,000 UN/ML (10ML VL) IV ONE (10:15)
[2024-05-12] MEDS: HEPARIN SOD,PORK IN 0.45% NACL 25,000 UNIT in 0.45% NACL 1 250ML.BAG IV SCH (10:16)
[2024-05-12 10:30] LABS: INR 1.1 (<1.2); Partial Thromboplastin Time 21.5 sec (22.0-30.0); Prothrombin Time 11.5 sec (10.0-12.5)
[2024-05-12] MEDS: FUROSEMIDE 10 MG/ML 2 ML VIAL IV ONE (10:31)
[2024-05-12 10:40] LABS: Lymphocytes # (M) 2.64 k/uL (1.0-4.8); Metamyelocytes # (M) 0.48 k/uL (0); Metamyelocytes % 2 %; Monocytes # (M) 0.24 k/uL (0-1.0); Myelocytes # (M) 0.24 k/uL (0); Myelocytes % 1 %; Neutrophils # (M) 20.64 k/uL (1.3-7.7); Neutrophils % (M) 86 %; Nucleated Red Blood Cells 0 /100 WBC (0-0); Total Cells Counted 200
[2024-05-12] MEDS: SODIUM ZIRCONIUM CYCLOSILICATE 10 GM PACKET PO SCH (10:58)
[2024-05-12 12:02] LABS: Glucose,Whole Blood 125 mg/dL (70-110)
--- NOTE | 2024-05-12 12:27 | P.PN ---
Subjective Progress Note Date: 05/12/24 This is a very pleasant 74-year-old male patient with a known history of hyperlipidemia, hypothyroidism, mild intermittent chronic bronchial asthma, lifelong non-smoker who had presented here to the emergency room early this morning with a 2-week history of increasing shortness of breath cough and congestion. He also was having profound weakness. He did have some blood- tinged sputum 2 days ago. Most recently yellow in color. Chest x-ray reveals patchy and confluent bilateral airspace disease. CT angiogram ruled out central pulmonary embolism. Diffuse bilateral groundglass and airspace disease. Possible multifocal pneumonia, atypical pneumonia, hypersensitive pneumonitis and pulmonary edema. There is pulmonary arterial hypertension. No pleural effusion. A few mediastinal lymph nodes noted most likely reactive. White count 11.1. Hemoglobin 15.3. Platelets 215. D-dimer 4.25. INR 1.1. Sodium 137. Potassium 4.7. Bicarb 26. BUN 17. Creatinine 0.95. Glucose 110. Troponin 0.100. proBNP 121. Viral screen is negative. The patient is seen today in consultation in the emergency department. He is currently sitting up on the stretcher. He is awake and alert in no acute distress. He is dyspneic with conversation. Dyspneic with minimal exertion. Maintaining O2 saturations in the low 90s on 4 L/min per nasal cannula. He denies any recent travels. Denies any sick contacts. He is currently afebrile. Hemodynamically stable. Was seen today on 05/03/2024, patient required placement on BiPAP at 80% 10/ overnight, remains marginal, ABG was noted yesterday on BiPAP, patient has been receiving Lasix and has been receiving antibiotics and steroids. Patient states that he is slightly better today, but nonetheless continues to have shortness of breath and intermittent cough. Antibiotics pierce remains on Rocephin and Zithromax empirically although his procalcitonin level is 0.15. Chest x-ray is not showing much improvement, as [id number] may be a bit worse today. I am surprised that the patient is clinically feeling better, but considering his status being marginal, I transferred the patient to the ICU this morning for close monitoring and if patient deteriorates may require intubation mechanical ventilation. In the meantime he is holding his own on BiPAP at 80%.WBC count is 16.7 hemoglobin 14.4, ABG last night showed a pO2 of 83 pCO2 38 and pH of 7.40 and this was on FiO2 of 60%/BiPAP. Basic metabolic profile is basically normal, procalcitonin level is normal BNP level is normal sed rate, TONE, c-ANCA are all pending Patient was seen today on 05/04/2024, remains on BiPAP 10/5/100%, remains on antibiotics in the form of Rocephin and Zithromax remains on Lasix at 40 mg IV push twice daily remains on Solu-Medrol bronchodilators and on Lovenox. Clinically the patient tells me that he is feeling better breathing easier her chest x-ray is marginal and not much of a change compared to his last x-ray there may be a slight improvement. WBC count is 18.1 hemoglobin 15.3 electrolytes are normal BUN is 39 creatinine 1.05, sed rate is elevated, but his TONE screen is negative his C-reactive protein is 20.7. Patient was seen and examined today on 05/05/2024, patient remains in the ICU, remains marginal at best as far as his pulmonary status is concerned, remains on antibiotics and diuretics, chest x-ray is showing slight improvement in his infiltrates specially in the right lower lobe area. Clinically the patient is about the same, I was able to titrate his FiO2 down to 90% on his BiPAP. Patient is sitting at the bedside chair, does not seem to be in distress, however as I went down to FiO2 of 80%, he was complaining of shortness of breath. He is on BiPAP 16/7/90% at present, still receiving steroids Solu- Medrol, Rocephin, Lovenox, and Aldactone 12.5 mg p.o. daily. WBC count is 14.1 hemoglobin 15.7 basic metabolic profile is normal BUN is 53 creatinine 1.20 The patient is seen today May 06, 2024 in follow-up in the intensive care unit. He is currently sitting up in a chair. Awake and alert in no acute distress. He is breathing a bit easier today compared to yesterday. No worsening shortness of breath, cough or congestion. He is still mostly BiPAP dependent on 16/7 and 65% FiO2. White count 14.6. Hemoglobin 15.4. Platelets 305. Sodium 140. Potassium 4.7. Bicarb 35. BUN 48. Creatinine 1.0. Glucose 140. He is continued on DuoNeb inhalations, Pulmicort and Perforomist inhalations, Solu-Medrol. Procalcitonin was negative. Antibiotics were discontinued. Blood and sputum cultures revealed no growth. The patient is seen today May 07, 2024 in follow-up in the intensive care unit. He is awake and alert in no acute distress. He is currently sitting up in a chair at the bedside. He has been transition to Airvo high flow oxygen. Currently on 50 L and 80% FiO2. He did utilize BiPAP for short periods last night. He is feeling better today compared to yesterday. Chest x-ray shows sim ilar to mild improvement in diffuse infiltrates. Blood and sputum cultures revealed no growth. White count 14.4. Hemoglobin 15.2. Platelets 305. Sodium 141. Potassium 4.7. Bicarb 36. BUN 37. Creatinine 0.96. Glucose 136. He remains on DuoNeb inhalations, Pulmicort and Perforomist inhalations, Solu- Medrol. Lovenox for DVT prophylaxis. The patient is seen today May 08, 2024 in follow-up in the intensive care unit. He is currently sitting up in a chair at the bedside. Awake and alert in no acute distress. He is breathing a bit better today compared to yesterday. He does continue to drop his O2 sats into the 70s with brief periods off the BiPap 16/7 and 90% FiO2 to and transitioning to Airvo high flow oxygen. He is continued on DuoNeb inhalations, Pulmicort and Perforomist inhalations, IV Solu- Medrol. Lovenox for DVT prophylaxis. Blood and sputum cultures revealed no gr owth. White count 14.3. Hemoglobin 15.2. Platelets 273. Sodium 139. Potassium 5.1. Bicarb 33. BUN 37. Creatinine 0.99. Glucose 128. The patient is seen today May 09, 2024 in follow-up in the intensive care unit. He is awake and alert. He has been slow to progress. He is still requiring Airvo high flow oxygen at 60 L and 90% FiO2. Alternating with BiPAP 16/7 and 90% FiO2. CT angiogram ruled out pulmonary embolism. There is diffuse groundglass opacities with air bronchograms. Appearing more diffuse and less patchy compared to previous. Enlarged pretracheal lymph node with scattered smaller lymph nodes within the mediastinum. Sodium 136. Potassium 5.1. Bicarb 29. BUN 35. Creatinine 0.85. Glucose 114. White count 15.2. Hemoglobin 16.2. Platelets 191. He is continued on DuoNeb and elations, Pulmicort and performance and elations, Solu-Medrol. Remains on antibiotics in the form of Zosyn. Lovenox for DVT prophylaxis. Blood culture revealed no growth. Sputum culture revealed no growth x 2. The patient is seen today May 10, 2024 in follow-up in the intensive care unit. Yesterday he continued to weaken and was having episodes of desaturations on the Airvo and the BiPAP. He subsequently failed and was intubated and placed on the mechanical ventilator. That he did undergo bronchoscopy with BAL. He is currently on assist-control mode at a rate of 26, tidal volume 450, FiO2 100% and a PEEP of 10. Morning blood gases revealed a pH O2 of 101, pCO2 67 and a pH of 7.30. His peak pressures initially were at 50 with a plateau of 32. Based on this he was switched to pressure control mode with a inspiratory pressure of 15 and inspiratory time of 1.0. Follow-up blood gases were pending. He was on norepinephrine at 8.0 mcg/min. Nimbex at 2.5 mcg/kg/min. 0.9% saline at 10 mL/h. Propofol at 45 mcg/kg/min. He is being nourished with vital HP at a rate of 20 with a goal of 27 mL/h. His PF ratio was measured at 100 indicating moderate to severe ARDS. His procalcitonin was again negative. His Zosyn was discontinued. The patient then developed a polymorphic ventricular tachycardia which was pulseless and CPR was initiated, he received epinephrine and initiated on amiodarone bolus. He was defibrillated and obtained return of spontaneous circulation after just 2 rounds of CPR. White count 20.9. Hemoglobin 16.0. Platelets 258. Sodium 140. Potassium 5.6. Bicarb 38. BUN 53. Creatinine 1.40. Glucose 200. Magnesium 3.2. Follow-up arterial blood gases revealed a PaO2 of 49, pCO2 greater than 98 and a pH of 7.09. His settings were then adjusted to increased pressure time to 20 and increased respiratory rate to 32. Other follow-up blood gas 1 hour later revealed a PaO2 of 84, pCO2 of greater than 98 and a pH of 7.04. At that point he was switched back to volume assist- control mode With a rate at 32, tidal volume 400, FiO2 100% and a PEEP of 15. He was given D10 and 10 units of regular insulin for his hyperkalemia.'s, Pulmicort and performance inhalations, IV Solu-Medrol. Lovenox for DVT prophylaxis. Amiodarone drip initiated at 1 mg/min. The patient is seen today May 11, 2024 in follow-up in the intensive care unit. No further episodes of ventricular tachycardia overnight. He does remain intubated on the mechanical ventilator and pressure assist-control mode with a rate of 36. Inspiratory pressure of 25. Inspiratory time of 0.8. FiO2 at 100% and a PEEP of 15. He does have severe ARDS with a PF ratio of 83. Arterial blood gases revealed a PaO2 of 83. pCO2 68 and a pH of 7.29. Chest x-ray cont inues to show persistent bilateral diffuse edema and/or infiltrates. Echocardiogram reveals normal left ventricular systolic function. Severe pulmonary hypertension. Dilated right ventricle. No pericardial effusion. He remains on norepinephrine at 14.6 mcg/min. Amiodarone drip at 0.5 mg/min. Nimbex at 2 mcg/kg/min. Propofol at 45 mcg/kg/min. He is being nourished with vital HP at 27 mL/h which is goal. He is continued on DuoNeb and elations, Pulmicort and Perforomist inhalations, Solu-Medrol. Lovenox for DVT prophylaxis. Blood, sputum, bronchial wash cultures revealed no growth. White count 21.6. Hemoglobin 14.4. Platelets 211. Sodium 137. Potassium 5.1. Bicarb 33. BUN 60. Creatinine 1.52. Glucose 182. The patient is seen today May 12, 2024 in follow-up in the intensive care unit. He remains intubated on the mechanical ventilator and pressure assist- control mode at a rate of 36, pressure time of 25, inspiratory time of 0.8. Remains on FiO2 of 100% and a PEEP of 15. Blood gases revealed a PaO2 of 81, pCO2 58 and a pH of 7.38. Chest x-ray remains about the same. He is continued on amiodarone at 0.5 mg/min. Heparin drip per weight-based protocol. Norepi nephrine at 22 mcg/min. Nimbex at 2.5 mcg/kg/min. Propofol at 45 mcg/kg/min. Receiving vital HP at 27 mL/h which is goal. He did have an episode of atrial fibrillation with a rapid ventricular response. He received Lopressor 25 mg x 2. He was hyperkalemic with a potassium of 6.3 was treated and currently at 5.6. He remains on DuoNeb inhalations, Pulmicort and performance inhalations, IV Solu-Medrol. Bronchial wash cultures revealed no growth. Sputum culture no growth. Blood cultures no growth. White count 24.0. Hemoglobin 13.9. Platelets 154. 5.6. Bicarb 34. BUN 69. Creatinine 1.62. Glucose 173. Objective - Vital Signs Vital signs: Vital Signs Temp 100.3 F H 05/12/24 08:00 Pulse 73 05/12/24 11:33 Resp 36 H 05/12/24 11:00 BP 88/53 05/12/24 08:15 Pulse Ox 93 L 05/12/24 11:00 FiO2 80 05/12/24 12:00 Intake & Output 05/11/24 05/12/24 05/12/24 18:59 06:59 18:59 Intake Total 5139.202 5844.850 921.574 Output Total 1055 715 875 Balance 589.903 767.850 46.574 Weight 117.6 kg Intake: IV 36 36 18 0.9 SALINE PRESSURE BAG 36 36 18 Intake, IV Titration 4829.045 3978.850 576.574 Amount Amiodarone 450 mg In 250 Dextrose 5% in Water 250 ml @ 0.5 MG/MIN 16.667 mls/hr IV .Q15H [facility] Rx#: [id number] Amiodarone 450 mg In 66.4 231.882 Dextrose 5% in Water 250 ml @ 0.5 MG/MIN 16.667 mls/hr IV .Q15H [facility] Rx#: [id number] Calcium Gluconate in NaCl 100 1 gm In Saline 1 100ml. bag @ 100 mls/hr IVPB ONCE ONE Rx#:[id number] Cisatracurium 200 mg In 190.979 178.794 64.218 Sodium Chloride 0.9% 180 ml @ 2 MCG/KG/MIN 13.86 mls/hr IV .[id number] [facility] Rx #:[id number] Heparin Sod,Pork in 0.45% 20 NaCl 25,000 unit In 0.45 % NaCl 1 250ml.bag @ 8. 5034 UNITS/KG/HR 10 mls/ hr IV .Q24H [facility] Rx#: [id number] Norepinephrine 8 mg In 365.424 271.447 221.670 Sodium Chloride 0.9% 250 ml @ 0.03 MCG/KG/MIN 6. 705 mls/hr IV .Q24H [facility] Rx#:[id number] propofoL 1,000 mg In 292.100 350.727 170.686 Empty Bag 1 bag @ 15 MCG/ KG/MIN 10.395 mls/hr IV . [id number] [facility] Rx#:[id number] Oral 27 Tube Feeding 324 324 135 Blood Product 60 Other 120 90 105 Output: Urine 1055 715 875 Other: Voiding Method Indwelling Catheter Indwelling Catheter Indwelling Catheter ABP, PAP, CO, CI - Last Documented Arterial Blood Pressure 108/49 - Exam GENERAL EXAM: Intubated, sedated 74-year-old male patient, on the mechanical ventilator. HEAD: Normocephalic. EYES: Sluggish reaction of pupils, equal size. NOSE: Clear with pink turbinates. THROAT: Oral endotracheal and gastric tube secured in place. No erythema or exudates. NECK: No masses, no JVD. CHEST: No chest wall deformity. LUNGS: Equal air entry with bilateral scattered rhonchi, coarse crackles. CVS: S1 and S2 normal with an audible murmur, irregular rhythm. ABDOMEN: No hepatosplenomegaly, normal bowel sounds, no guarding or rigidity. SPINE: No scoliosis or deformity SKIN: No rashes CENTRAL NERVOUS SYSTEM: Sedated, tone is normal in all 4 extremities. EXTREMITIES: There is no peripheral edema. No clubbing, no cyanosis. Peripheral pulses are intact. - Labs CBC & Chem 7: 05/12/24 10:00 05/12/24 09:15 Labs: Abnormal Lab Results - Last 24 Hours (Table) 05/11/24 05/11/24 05/12/24 Range/Units 17:31 23:48 04:35 WBC (3.8-10.6) k/uL MCHC (31.0-37.0) g/dL Neutrophils # (Manual) (1.3-7.7) k/uL Metamyelocytes # (Man) (0) k/uL Myelocytes # (Manual) (0) k/uL APTT (22.0-30.0) sec ABG pCO2 (35-45) mmHg ABG pO2 (83-108) mmHg ABG HCO3 (21-25) mmol/L ABG Total CO2 (19-24) mmol/L Potassium 6.3 H* (3.5-5.1) mmol/L Carbon Dioxide 34 H (22-30) mmol/L BUN 69 H (9-20) mg/dL Creatinine 1.62 H (0.66-1.25) mg/dL Glucose 173 H (74-99) mg/dL POC Glucose (mg/dL) 165 H 171 H (70-110) mg/dL Magnesium 3.5 H (1.6-2.3) mg/dL 05/12/24 05/12/24 05/12/24 Range/Units 04:35 05:41 06:09 WBC 23.3 H (3.8-10.6) k/uL MCHC 30.5 L (31.0-37.0) g/dL Neutrophils # (Manual) (1.3-7.7) k/uL Metamyelocytes # (Man) (0) k/uL Myelocytes # (Manual) (0) k/uL APTT (22.0-30.0) sec ABG pCO2 58 H (35-45) mmHg ABG pO2 81 L (83-108) mmHg ABG HCO3 34 H (21-25) mmol/L ABG Total CO2 36 H (19-24) mmol/L Potassium (3.5-5.1) mmol/L Carbon Dioxide (22-30) mmol/L BUN (9-20) mg/dL Creatinine (0.66-1.25) mg/dL Glucose (74-99) mg/dL POC Glucose (mg/dL) 170 H (70-110) mg/dL Magnesium (1.6-2.3) mg/dL 05/12/24 05/12/24 05/12/24 Range/Units 09:15 10:00 10:00 WBC 24.0 H (3.8-10.6) k/uL MCHC (31.0-37.0) g/dL Neutrophils # (Manual) 20.64 H (1.3-7.7) k/uL Metamyelocytes # (Man) 0.48 H (0) k/uL Myelocytes # (Manual) 0.24 H (0) k/uL APTT 21.5 L (22.0-30.0) sec ABG pCO2 (35-45) mmHg ABG pO2 (83-108) mmHg ABG HCO3 (21-25) mmol/L ABG Total CO2 (19-24) mmol/L Potassium 5.6 H (3.5-5.1) mmol/L Carbon Dioxide (22-30) mmol/L BUN (9-20) mg/dL Creatinine (0.66-1.25) mg/dL Glucose (74-99) mg/dL POC Glucose (mg/dL) (70-110) mg/dL Magnesium (1.6-2.3) mg/dL 05/12/24 Range/Units 11:59 WBC (3.8-10.6) k/uL MCHC (31.0-37.0) g/dL Neutrophils # (Manual) (1.3-7.7) k/uL Metamyelocytes # (Man) (0) k/uL Myelocytes # (Manual) (0) k/uL APTT (22.0-30.0) sec ABG pCO2 (35-45) mmHg ABG pO2 (83-108) mmHg ABG HCO3 (21-25) mmol/L ABG Total CO2 (19-24) mmol/L Potassium (3.5-5.1) mmol/L Carbon Dioxide (22-30) mmol/L BUN (9-20) mg/dL Creatinine (0.66-1.25) mg/dL Glucose (74-99) mg/dL POC Glucose (mg/dL) 125 H (70-110) mg/dL Magnesium (1.6-2.3) mg/dL Microbiology - Last 24 Hours (Table) 05/09/24 16:00 Gram Stain - Final Bronchoalviolar Lavage - Right Bronchial Washings Culture - Final Assessment and Plan Assessment: Acute hypoxemic respiratory failure secondary to severe ARDS. Viral screen negative. Procalcitonin negative x 2. Repeat CT angiogram ruled out pulmonary embolism. There is continued diffuse groundglass opacities with air bronchograms bilaterally. Enlarged pretracheal lymph node with scattered smaller lymph nodes within the mediastinum. Worsening acute hypoxemic respiratory failure secondary to severe ARDS requiring intubation and mechanical ventilatory support on 05/09/2024. Status post bronchoscopy on 05/09/2024 Cardiopulmonary arrest on 05/10/2024 requiring 2 rounds of CPR. Appeared pulseless ventricular tachycardia/torsades. Initiated on amiodarone drip Atrial fibrillation with a rapid ventricular response Hypotension secondary to above requiring pressor support Leukocytosis secondary to above Febrile illness secondary to above Acute kidney injury secondary to above Severe pulmonary hypertension with dilated right ventricle. Cardiac catheterization from September 2023 revealed no evidence of obstructive coronary artery disease Troponin leak Morbid obesity with a BMI of 48 kg/m Hyperlipidemia Hypothyroidism History of mild intermittent chronic bronchial asthma Lifelong non-smoker Plan: The patient was seen and evaluated Chest x-ray, labs, ABGs and medications reviewed Continued on an amiodarone drip Continued on a heparin drip Continued on propofol for sedation Continued on Nimbex Continued on norepinephrine Remains on the mechanical ventilator Continue bronchodilators and steroids Febrile today, repeat blood, urine and sputum cultures Nephrology consult Prognosis remains very guarded We will continue to follow I have personally seen and examined the patient, performed the documentation and the assessment and plan as written. Time: 15 minutes Dictation was produced using [employer] dictation software. Please excuse any grammatical, word or spelling errors. This patient was seen in coordination with the pulmonary/critical care physician, Dr. Lundy. He did spend greater than 50% of the time evaluating, examining and developing the plan of care. He agrees to the above HPI, physical exam, assessment and plan of care as dictated by the nurse practitioner.
--- NOTE | 2024-05-12 12:58 | P.PN ---
Subjective Progress Note Date: 05/12/24 74 year old M with PMH of Asthma, GERD, HLD, Hypothyroid, h/o prostate CA presents to the ED for worsening shortness of breath with exertion. Patient had COVID 19 in 2021 and has been slow to recover since then but symptoms has significantly worsened over the past 4-6 weeks. In the ED he underwent extensive evaluation. BP 116/67, HR 101, T 98.1F, RR 20, 85% on RA. CBC, Coag panel, CMP significant for WBC 11.1, glu 110. Trop 0.092. CRP 20.7. BNP 121. Procal 0.15. TSH 4.04. Lactic acid 2.1-1.3. ABG pH 7.4, pCO2 38. D-Dimer 4.25. EKG showed sinus rhythm, QTc normal, RBBB pattern, no ST elevation. CTA chest showed no PE, did reveal bilateral groundglass opacities signs of pulmonary arterial hypertension, mediastinal lymphadenopathy up to 1.9 cm and 1.7 cm incidental gallstone. Patient was started on Rocephin and Azithromycin, bronchodilators, SoluMedrol and admitted for further workup and management with Pulmonary consulted. He was started on Lasix IV and Cardiology was consulted. Echo showed LVEF 55 to 60%, concentric LVH, moderate pulmonary HTN, moderate TR. His respiratory status continued to worsen and he was transferred to the ICU on BiPAP. He completed a course of Rocephin and Azithromycin. He continued to deteriorate and he was intubated on 05/09. He underwent bronchoscopy was BAL which showed purulent secretions with bronchitis changes. Started on Levophed. His procal has been 0.15 and 0.09 thus antibiotics have been discontinued. LOWELL BARKER was called on 05/10 for polymorphic Vtach. Patient was defibrillated, received Epi, Lidocaine and Amidarone and ROSC was achieved. Echo was performed post ROSC yesterday showing EF 60% and no regional wall motion abnormalities. 05/12 Patient was seen and examined. Intubated on Cisatracurium 2 mcg/kg/min and Propofol at 45 mcg/kg/min. Pressors include Levophed at 0.14 mcg/kg/min. Currently on Amiodarone at 0.5 mg/min. Went into A-Fib RVR this morning, additional dose of Metoprolol given by Cardiology and started on Heparin drip. Tmax 100.3F, repeat BCx/UCx/Sputum Cx ordered. CBC and BMP this morning showed WBC 23.3, K 6.3, bicarb 34, BUN 69, Cr 1.62, glu 173. ABG this morning showed pH 7.38, pCO2 58, pO2 81 of FiO2 100. CXR done this morning shows persistent bilateral infiltrates. General: Intubated Derm: warm, dry Head: atraumatic, normocephalic, symmetric, ET + OG tube intact Eyes: EOMI, no lid lag, anicteric sclera Mouth: no lip lesion, mucus membranes moist Cardiovascular: S1S2 tachy, no murmur Lungs: Bilateral rhonchi, no rales , no accessory muscle use Ext: no gross muscle atrophy, no edema, no contractures Neuro: Unable to determine Psych: Unable to determine Based on my assessment of this patient, this patient meets a high complexity level of care. Acute hypoxic respiratory failure secondary to ARDS: BNP 226. ANCA neg. Ventilator managed by Pulmonary. DuoNeb QID scheduled and Q4H PRN. Pulmicort 1 mg INH BID. Performist 20 mcg INH BID. SoluMedrol 60 mg IV Q6H. Cardiac arrest with polymorphic VTach: Amidarone drip at 0.5 mg/min. Metoprolol 25 mg PO BID. Echo post ROSC showing EF 60% and no regional wall motion abnormalities. Maintain K > 4 and Mg > 2. Cardiology on board. Sepsis shock due to above: Levophed at 0.14 mcg/kg/min. 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 Procal neg x 2. Completed course of Rocephin/Azithromycin + 1 day of Zosyn. Initial blood culture, sputum culture negative. Follow BAL culture and repeat BCx/UCx/Sputum Cx collected on 05/12. Judicious use of fluids due to ARDS. Hyperkalemia: Status post 10 units IV insulin/D50 + Lokelma 10g. 1g Ca gluconate IV x 1. Repeat K ordered by Pulmonary. Acute kidney injury: Due to cardiac arrest. Prerenal. Farxiga and Aldactone discontinued. Judicious use of fluids due to ARDS. Renal/Bladder US ordered. Avoid nephrotoxins. Monitor renal function. Nephrology consulted. NSTEMI: Trop 0.1, 0.11, 0.12, 0.111, 0.092. ACS ruled out. Likely Type II NSTEMI due to above. Steroid induced hyperglycemia: ISS ACHS. Accuchecks Q6H. Dyslipidemia: Lipitor 20 mg PO QHS. ASA 81 mg PO QHS. Hypothyroidism: Synthroid 50 mcg PO QD. Resolved: Hyperkalemia CODE STATUS: FULL CODE DVT Prophylaxis: Lovenox SQ GI Prophylaxis: Protonix IV Designated medical POA if patient is not able to make medical decisions for themselves: I have reviewed the following leasing sales consultant notes: Cardiology, Pulmonary. I have reviewed the results of the following tests: CBC, BMP, ABG. I have ordered the following tests: CBC and BMP in the AM. Repeat K ordered at 9AM by Pulmonary. Renal/Bladder US. I have discussed the care of this patient with the following independent historian: MIKKI. I have independently interpreted the following test below: CXR I have discussed the management of this patient with the following physician: Objective - Vital Signs Vital signs: Vital Signs Temp 99.2 F 05/12/24 04:00 Pulse 74 05/12/24 07:00 Resp 36 H 05/12/24 07:00 BP 104/57 05/12/24 05:00 Pulse Ox 93 L 05/12/24 07:00 FiO2 100 05/12/24 07:00 Intake & Output 05/11/24 05/12/24 05/12/24 18:59 06:59 18:59 Intake Total 5973.698 6661.850 173.582 Output Total 1055 715 60 Balance 589.903 767.850 113.582 Weight 117.6 kg Intake: IV 36 36 3 0.9 SALINE PRESSURE BAG 36 36 3 Intake, IV Titration 0419.221 0148.850 143.582 Amount Amiodarone 450 mg In 250 Dextrose 5% in Water 250 ml @ 0.5 MG/MIN 16.667 mls/hr IV .Q15H [facility] Rx#: [id number] Amiodarone 450 mg In 66.4 231.882 Dextrose 5% in Water 250 ml @ 0.5 MG/MIN 16.667 mls/hr IV .Q15H [facility] Rx#: [id number] Calcium Gluconate in NaCl 100 1 gm In Saline 1 100ml. bag @ 100 mls/hr IVPB ONCE ONE Rx#:[id number] Cisatracurium 200 mg In 190.979 178.794 Sodium Chloride 0.9% 180 ml @ 2 MCG/KG/MIN 13.86 mls/hr IV .[id number] [facility] Rx #:[id number] Norepinephrine 8 mg In 365.424 271.447 43.582 Sodium Chloride 0.9% 250 ml @ 0.03 MCG/KG/MIN 6. 705 mls/hr IV .Q24H [facility] Rx#:[id number] propofoL 1,000 mg In 292.100 350.727 Empty Bag 1 bag @ 15 MCG/ KG/MIN 10.395 mls/hr IV . [id number] [facility] Rx#:[id number] Tube Feeding 324 324 27 Other 120 90 Output: Urine 1055 715 60 Other: Voiding Method Indwelling Catheter Indwelling Catheter ABP, PAP, CO, CI - Last Documented Arterial Blood Pressure 129/45 - Labs CBC & Chem 7: 05/12/24 10:00 05/12/24 09:15 Labs: Abnormal Lab Results - Last 24 Hours (Table) 05/11/24 05/11/24 05/11/24 Range/Units 11:34 17:31 23:48 WBC (3.8-10.6) k/uL MCHC (31.0-37.0) g/dL ABG pCO2 (35-45) mmHg ABG pO2 (83-108) mmHg ABG HCO3 (21-25) mmol/L ABG Total CO2 (19-24) mmol/L Potassium (3.5-5.1) mmol/L Carbon Dioxide (22-30) mmol/L BUN (9-20) mg/dL Creatinine (0.66-1.25) mg/dL Glucose (74-99) mg/dL POC Glucose (mg/dL) 139 H 165 H 171 H (70-110) mg/dL Magnesium (1.6-2.3) mg/dL 05/12/24 05/12/24 05/12/24 Range/Units 04:35 04:35 05:41 WBC 23.3 H (3.8-10.6) k/uL MCHC 30.5 L (31.0-37.0) g/dL ABG pCO2 (35-45) mmHg ABG pO2 (83-108) mmHg ABG HCO3 (21-25) mmol/L ABG Total CO2 (19-24) mmol/L Potassium 6.3 H* (3.5-5.1) mmol/L Carbon Dioxide 34 H (22-30) mmol/L BUN 69 H (9-20) mg/dL Creatinine 1.62 H (0.66-1.25) mg/dL Glucose 173 H (74-99) mg/dL POC Glucose (mg/dL) 170 H (70-110) mg/dL Magnesium 3.5 H (1.6-2.3) mg/dL 05/12/24 Range/Units 06:09 WBC (3.8-10.6) k/uL MCHC (31.0-37.0) g/dL ABG pCO2 58 H (35-45) mmHg ABG pO2 81 L (83-108) mmHg ABG HCO3 34 H (21-25) mmol/L ABG Total CO2 36 H (19-24) mmol/L Potassium (3.5-5.1) mmol/L Carbon Dioxide (22-30) mmol/L BUN (9-20) mg/dL Creatinine (0.66-1.25) mg/dL Glucose (74-99) mg/dL POC Glucose (mg/dL) (70-110) mg/dL Magnesium (1.6-2.3) mg/dL Microbiology - Last 24 Hours (Table) 05/09/24 16:00 Gram Stain - Preliminary Bronchoalviolar Lavage - Right Bronchial Washings Culture - Preliminary
[2024-05-12 18:18] LABS: Glucose,Whole Blood 168 mg/dL (70-110)
[2024-05-12] MEDS: SODIUM BICARB 8.4% 50 ML SYR (1 MEQ/ML) IV STA ×2 (18:41→22:49)
[2024-05-12 22:09] LABS: Appearance,Urine Clear (Clear); Bacteria,Urine Rare /hpf; Bilirubin,Urine Negative (Negative); Blood,Urine Large (Negative); Budding Yeast,Urine Many /hpf; Color,Urine Light Yellow; Glucose,Urine (UA) 3+ (Negative); Hyphae Yeast, Urine Rare /hpf; Ketones,Urine Negative (Negative); Leukocyte Esterase,Urine Negative (Negative); Mucus,Urine Rare /hpf; Nitrite,Urine Negative (Negative); PH, Urine 5.5 (5.0-8.0); Protein,Urine Trace (Negative); RBC,Urine 88 /hpf (0-5); Specific Gravity,Urine 1.021 (1.001-1.035); Urobilinogen,Urine <2.0 mg/dL (<2.0); WBC,Urine 2 /hpf (0-5)
[2024-05-12] MEDS: DEXTROSE 50% SYRINGE 50 ML IVP ONE (22:47)
[2024-05-13 00:15] LABS: Glucose,Whole Blood 138 mg/dL (70-110)
[2024-05-13 05:15] LABS: Basophils # (A) 0.1 k/uL (0-0.2); Basophils % (A) 0 %; Eosinophils % (A) 0 %; HCT 44.2 % (39.0-53.0); HGB 13.9 gm/dL (13.0-17.5); Hypochromasia Slight; Lymphocytes # (A) 0.3 k/uL (1.0-4.8); Lymphocytes % (A) 1 %; MCH 30.9 pg (25.0-35.0); MCHC 31.5 g/dL (31.0-37.0); MCV 98.2 fL (80.0-100.0); Mean Platelet Volume 8.2; Monocytes # (A) 1.2 k/uL (0-1.0); Monocytes % (A) 4 %; Neutrophils # (A) 25.9 k/uL (1.3-7.7); Neutrophils % (A) 94 %; Platelet Count 142 k/uL (150-450); RDW 13.4 % (11.5-15.5); WBC 27.7 k/uL (3.8-10.6)
[2024-05-13 05:25] LABS: INR 1.1 (<1.2); Partial Thromboplastin Time 51.6 sec (22.0-30.0); Prothrombin Time 11.7 sec (10.0-12.5)
[2024-05-13 05:26] LABS: Glucose,Whole Blood 172 mg/dL (70-110)
[2024-05-13 05:38] LABS: ABG Base Excess 13.5 mmol/L; ABG Oxygen Saturation 92.8 % (94-97); ABG PO2 65 mmHg (83-108); ABG TCO2 47 mmol/L (19-24); Allen Test Performed? Yes
[2024-05-13 05:41] LABS: ABG PCO2 90 mmHg (35-45)
[2024-05-13 05:42] LABS: ABG HCO3 44 mmol/L (21-25)
[2024-05-13 05:52] LABS: Glucose,Whole Blood 139 mg/dL (70-110)
[2024-05-13 05:58] LABS: African American GFR (CKD) 54 (>60 ml/min/1.73 sqM); Blood Urea Nitrogen 74 mg/dL (9-20); Calcium 9.2 mg/dL (8.4-10.2); Chloride 103 mmol/L (98-107); Glucose 167 mg/dL (74-99); Non-African American GFR(CKD) 47 (>60 ml/min/1.73 sqM); Sodium 147 mmol/L (137-145)
[2024-05-13 06:05] LABS: Anion Gap 2 mmol/L
[2024-05-13 06:08] LABS: Carbon Dioxide 42 mmol/L (22-30)
[2024-05-13] MEDS: METOPROLOL TARTRATE 5 MG/5 ML VIAL IVP STA (06:45)
[2024-05-13] MEDS: DEXTROSE 50% SYRINGE 50 ML IVP ONE (06:54)
[2024-05-13] MEDS: CALCIUM GLUCONATE IN NACL 1 GM in SALINE 1 100ML.BAG IVPB ONE (06:54)
[2024-05-13] MEDS: INSULIN REGULAR 100 UNIT/ML VIAL (IV) IV ONE ×3 (07:01→19:40)
[2024-05-13] MEDS: SODIUM ZIRCONIUM CYCLOSILICATE 10 GM PACKET PO ONE (07:02)
--- NOTE | 2024-05-13 08:09 | XR ---
EXAMINATION TYPE: XR chest 1V portable DATE OF EXAM: 05/13/2024 CLINICAL HISTORY: Difficulty breathing progress study. ARDS TECHNIQUE: Single AP portable semiupright view of the chest is obtained. COMPARISON: Chest x-ray from one day earlier and older studies. FINDINGS: Stable endotracheal and orogastric tubes. Stable left-sided internal jugular central venou s catheter. Persistent bilateral diffuse increased opacities. Cardiac silhouette size is stable and upper limits of normal. Osseous structures are intact. IMPRESSION: Persistent bilateral diffuse acute infiltrates and/or edema. Findings consistent with HAYDEN S. No significant change from one day earlier. [facility], , 05/13/2024 8:07 AM
--- NOTE | 2024-05-13 10:25 | P.PN ---
Subjective Progress Note Date: 05/13/24 This is a 74-year-old male patient who initially presented to us with symptoms of shortness of breath along with cough and congestion that was progressively getting worse over the past few weeks. He also had some blood-tinged sputum. His initial chest x-ray showed patchy and confluent bilateral airspace disease and a CT angiogram rule out pulmonary embolism. Nevertheless, the patient had diffuse bilateral groundglass and airspace disease consistent with multifocal pneumonia. Based on all this, a workup was initiated and the patient was started on broad-spectrum antibiotics. The patient had a procalcitonin level of 0.15. He was covered with a combination of Rocephin and Zithromax. The viral screen was negative. The patient had a negative TONE and ANCA titers. Subsequently, the patient underwent a bronchioloalveolar lavage and the BAL showed 93% polynuclear cells with 6% lymphocytes and 1% monocytes. The cultures from the bronchioloalveolar lavage were essentially negative. Based on that, the patient was kept on IV Solu-Medrol and antibiotics were discontinued. Noted during the course of his illness, the patient became progressively more hypoxic, and he subsequently was intubated and placed on the mechanical ventilator on 05/10/2024 due to further episodes of desaturation while being on Airvo and BiPAP. Post intubation, he was started on sedation and paralytics with a combination of propofol and Nimbex. The patient also developed polymorphic V. tach's and pulseless VT and CPR was initiated and there was return of spontaneous circulation after 2 rounds of CPR. The patient was started on IV amiodarone. His echocardiogram done on 05/02/2024 showed a preserved LV function with an ejection fraction of 55 to 60% and moderate degree of pulmonary hypertension with dilated RV and moderate TR. The patient's proBNP level at the time of admission was not elevated. The patient had nonelevated procalcitonin levels. On today's evaluation, the patient remains intubated on mechanical ventilator. He remains on propofol running at 45 mcg/kg/min and the patient is also on Ni mbex for paralytics. He is on assist-control mode of mechanical ventilation pressure control mode with a pressure of 25 cm of water, inspiratory time of 0.8, respirate of 36, FiO2 of 80% with a PEEP of 18. The morning blood gases from today show a pH of 7.3 with a pCO2 of 90 and pO2 of 65. Chest x-ray from today is showing diffuse bilateral pulmonary infiltrates, stable and essentially unchanged. As for the labs, the patient has a white cell count of 27 with a hemoglobin of 13.9 and a platelet count of 142. 94% neutrophilia. Sodium levels at 147 with a potassium level of 6, BUN is 74 with a creatinine of 1.45 and a serum bicarb is at 42. I do not feel his current cardiac rhythm is sinus. He was having episodes of atrial fibrillation with RVR. He was given Lopressor. He is also on vital HP at rate of 27 cc an hour for enteral feeding and nutritional support. Objective - Vital Signs Vital signs: Vital Signs Temp 100.6 F H 05/13/24 04:00 Pulse 101 H 05/13/24 07:00 Resp 36 H 05/13/24 07:00 BP 117/58 05/13/24 07:00 Pulse Ox 89 L 05/13/24 07:00 FiO2 80 05/13/24 07:43 Intake & Output 05/12/24 05/13/24 05/13/24 18:59 06:59 18:59 Intake Total 2041.540 1340.492 89.123 Output Total 1785 1464 75 Balance 256.540 -123.508 14.123 Weight 119.1 kg Intake: IV 36 136 3 0.9 SALINE PRESSURE BAG 36 36 3 Calcium Gluconate in NaCl 100 1 gm In Saline 1 100ml. bag @ 100 mls/hr IVPB ONCE ONE Rx#:[id number] Intake, IV Titration 4621.189 7383.492 86.123 Amount Amiodarone 450 mg In 250 Dextrose 5% in Water 250 ml @ 0.5 MG/MIN 16.667 mls/hr IV .Q15H [facility] Rx#: [id number] Calcium Gluconate in NaCl 100 1 gm In Saline 1 100ml. bag @ 100 mls/hr IVPB ONCE ONE Rx#:[id number] Calcium Gluconate in NaCl 100 1 gm In Saline 1 100ml. bag @ 100 mls/hr IVPB ONCE ONE Rx#:[id number] Cisatracurium 200 mg In 168.688 200.913 Sodium Chloride 0.9% 180 ml @ 2 MCG/KG/MIN 13.86 mls/hr IV .[id number] [facility] Rx #:[id number] Heparin Sod,Pork in 0.45% 80 10 NaCl 25,000 unit In 0.45 % NaCl 1 250ml.bag @ 8. 5034 UNITS/KG/HR 10 mls/ hr IV .Q24H [facility] Rx#: [id number] Norepinephrine 8 mg In 458.102 433.890 9.2 Sodium Chloride 0.9% 250 ml @ 0.03 MCG/KG/MIN 6. 705 mls/hr IV .Q24H [facility] Rx#:[id number] propofoL 1,000 mg In 369.750 328.689 76.923 Empty Bag 1 bag @ 15 MCG/ KG/MIN 10.395 mls/hr IV . Q9H38M [facility] Rx#:[id number] Oral 27 Tube Feeding 297 81 0 Blood Product 60 Other 195 50 0 Output: Urine 1785 1464 75 Other: Voiding Method Indwelling Catheter Indwelling Catheter ABP, PAP, CO, CI - Last Documented Arterial Blood Pressure 135/50 - Exam GENERAL EXAM: Intubated, sedated 74-year-old male patient, on the mechanical ventilator. HEAD: Normocephalic. EYES: Sluggish reaction of pupils, equal size. NOSE: Clear with pink turbinates. THROAT: Oral endotracheal and gastric tube secured in place. No erythema or exudates. NECK: No masses, no JVD. CHEST: No chest wall deformity. LUNGS: Equal air entry with bilateral scattered rhonchi, coarse crackles. CVS: S1 and S2 normal with an audible murmur, irregular rhythm. ABDOMEN: No hepatosplenomegaly, normal bowel sounds, no guarding or rigidity. SPINE: No scoliosis or deformity SKIN: No rashes CENTRAL NERVOUS SYSTEM: Sedated, tone is normal in all 4 extremities. EXTREMITIES: There is no peripheral edema. No clubbing, no cyanosis. Peripheral pulses are intact. - Labs CBC & Chem 7: 05/13/24 05:00 05/13/24 05:00 Labs: Abnormal Lab Results - Last 24 Hours (Table) 05/12/24 05/12/24 05/12/24 Range/Units 09:15 10:00 10:00 WBC 24.0 H (3.8-10.6) k/uL Plt Count (150-450) k/uL Neutrophils # (1.3-7.7) k/uL Neutrophils # (Manual) 20.64 H (1.3-7.7) k/uL Lymphocytes # (1.0-4.8) k/uL Monocytes # (0-1.0) k/uL Metamyelocytes # (Man) 0.48 H (0) k/uL Myelocytes # (Manual) 0.24 H (0) k/uL APTT 21.5 L (22.0-30.0) sec ABG pH (7.35-7.45) ABG pCO2 (35-45) mmHg ABG pO2 (83-108) mmHg ABG HCO3 (21-25) mmol/L ABG Total CO2 (19-24) mmol/L ABG O2 Saturation (94-97) % Sodium (137-145) mmol/L Potassium 5.6 H (3.5-5.1) mmol/L Carbon Dioxide (22-30) mmol/L BUN (9-20) mg/dL Creatinine (0.66-1.25) mg/dL Glucose (74-99) mg/dL POC Glucose (mg/dL) (70-110) mg/dL Urine Protein (Negative) Urine Glucose (UA) (Negative) Urine Blood (Negative) Urine RBC (0-5) /hpf Urine Bacteria (None) /hpf Urine Mucus (None) /hpf Urine Yeast (Budding) (None) /hpf 05/12/24 05/12/24 05/12/24 Range/Units 11:59 16:45 16:45 WBC (3.8-10.6) k/uL Plt Count (150-450) k/uL Neutrophils # (1.3-7.7) k/uL Neutrophils # (Manual) (1.3-7.7) k/uL Lymphocytes # (1.0-4.8) k/uL Monocytes # (0-1.0) k/uL Metamyelocytes # (Man) (0) k/uL Myelocytes # (Manual) (0) k/uL APTT 46.5 H (22.0-30.0) sec ABG pH (7.35-7.45) ABG pCO2 (35-45) mmHg ABG pO2 (83-108) mmHg ABG HCO3 (21-25) mmol/L ABG Total CO2 (19-24) mmol/L ABG O2 Saturation (94-97) % Sodium (137-145) mmol/L Potassium 6.6 H* (3.5-5.1) mmol/L Carbon Dioxide (22-30) mmol/L BUN (9-20) mg/dL Creatinine (0.66-1.25) mg/dL Glucose (74-99) mg/dL POC Glucose (mg/dL) 125 H (70-110) mg/dL Urine Protein (Negative) Urine Glucose (UA) (Negative) Urine Blood (Negative) Urine RBC (0-5) /hpf Urine Bacteria (None) /hpf Urine Mucus (None) /hpf Urine Yeast (Budding) (None) /hpf 05/12/24 05/12/24 05/12/24 Range/Units 18:16 20:45 20:50 WBC (3.8-10.6) k/uL Plt Count (150-450) k/uL Neutrophils # (1.3-7.7) k/uL Neutrophils # (Manual) (1.3-7.7) k/uL Lymphocytes # (1.0-4.8) k/uL Monocytes # (0-1.0) k/uL Metamyelocytes # (Man) (0) k/uL Myelocytes # (Manual) (0) k/uL APTT (22.0-30.0) sec ABG pH (7.35-7.45) ABG pCO2 (35-45) mmHg ABG pO2 (83-108) mmHg ABG HCO3 (21-25) mmol/L ABG Total CO2 (19-24) mmol/L ABG O2 Saturation (94-97) % Sodium (137-145) mmol/L Potassium 6.2 H* (3.5-5.1) mmol/L Carbon Dioxide (22-30) mmol/L BUN (9-20) mg/dL Creatinine (0.66-1.25) mg/dL Glucose (74-99) mg/dL POC Glucose (mg/dL) 168 H (70-110) mg/dL Urine Protein Trace H (Negative) Urine Glucose (UA) 3+ H (Negative) Urine Blood Large H (Negative) Urine RBC 88 H (0-5) /hpf Urine Bacteria Rare H (None) /hpf Urine Mucus Rare H (None) /hpf Urine Yeast (Budding) Many H (None) /hpf 0105/13/24 05/13/24 Range/Units 00:14 01:08 05:00 WBC 27.7 H (3.8-10.6) k/uL Plt Count 142 L (150-450) k/uL Neutrophils # 25.9 H (1.3-7.7) k/uL Neutrophils # (Manual) (1.3-7.7) k/uL Lymphocytes # 0.3 L (1.0-4.8) k/uL Monocytes # 1.2 H (0-1.0) k/uL Metamyelocytes # (Man) (0) k/uL Myelocytes # (Manual) (0) k/uL APTT (22.0-30.0) sec ABG pH (7.35-7.45) ABG pCO2 (35-45) mmHg ABG pO2 (83-108) mmHg ABG HCO3 (21-25) mmol/L ABG Total CO2 (19-24) mmol/L ABG O2 Saturation (94-97) % Sodium (137-145) mmol/L Potassium 5.9 H (3.5-5.1) mmol/L Carbon Dioxide (22-30) mmol/L BUN (9-20) mg/dL Creatinine (0.66-1.25) mg/dL Glucose (74-99) mg/dL POC Glucose (mg/dL) 138 H (70-110) mg/dL Urine Protein (Negative) Urine Glucose (UA) (Negative) Urine Blood (Negative) Urine RBC (0-5) /hpf Urine Bacteria (None) /hpf Urine Mucus (None) /hpf Urine Yeast (Budding) (None) /hpf 05/13/24 05/13/24 05/13/24 Range/Units 05:00 05:00 05:25 WBC (3.8-10.6) k/uL Plt Count (150-450) k/uL Neutrophils # (1.3-7.7) k/uL Neutrophils # (Manual) (1.3-7.7) k/uL Lymphocytes # (1.0-4.8) k/uL Monocytes # (0-1.0) k/uL Metamyelocytes # (Man) (0) k/uL Myelocytes # (Manual) (0) k/uL APTT 51.6 H (22.0-30.0) sec ABG pH (7.35-7.45) ABG pCO2 (35-45) mmHg ABG pO2 (83-108) mmHg ABG HCO3 (21-25) mmol/L ABG Total CO2 (19-24) mmol/L ABG O2 Saturation (94-97) % Sodium 147 H (137-145) mmol/L Potassium 6.0 H (3.5-5.1) mmol/L Carbon Dioxide 42 H* (22-30) mmol/L BUN 74 H (9-20) mg/dL Creatinine 1.45 H (0.66-1.25) mg/dL Glucose 167 H (74-99) mg/dL POC Glucose (mg/dL) 172 H (70-110) mg/dL Urine Protein (Negative) Urine Glucose (UA) (Negative) Urine Blood (Negative) Urine RBC (0-5) /hpf Urine Bacteria (None) /hpf Urine Mucus (None) /hpf Urine Yeast (Budding) (None) /hpf 05/13/24 05/13/24 Range/Units 05:34 05:51 WBC (3.8-10.6) k/uL Plt Count (150-450) k/uL Neutrophils # (1.3-7.7) k/uL Neutrophils # (Manual) (1.3-7.7) k/uL Lymphocytes # (1.0-4.8) k/uL Monocytes # (0-1.0) k/uL Metamyelocytes # (Man) (0) k/uL Myelocytes # (Manual) (0) k/uL APTT (22.0-30.0) sec ABG pH 7.30 L (7.35-7.45) ABG pCO2 90 H* (35-45) mmHg ABG pO2 65 L (83-108) mmHg ABG HCO3 44 H* (21-25) mmol/L ABG Total CO2 47 H (19-24) mmol/L ABG O2 Saturation 92.8 L (94-97) % Sodium (137-145) mmol/L Potassium (3.5-5.1) mmol/L Carbon Dioxide (22-30) mmol/L BUN (9-20) mg/dL Creatinine (0.66-1.25) mg/dL Glucose (74-99) mg/dL POC Glucose (mg/dL) 139 H (70-110) mg/dL Urine Protein (Negative) Urine Glucose (UA) (Negative) Urine Blood (Negative) Urine RBC (0-5) /hpf Urine Bacteria (None) /hpf Urine Mucus (None) /hpf Urine Yeast (Budding) (None) /hpf Microbiology - Last 24 Hours (Table) 05/09/24 16:00 Gram Stain - Final Bronchoalviolar Lavage - Right Bronchial Washings Culture - Final Assessment and Plan Plan: Acute hypoxemic respiratory failure secondary to severe ARDS., Etiology is not clear. The patient is currently intubated on mechanical ventilator. Sedated and paralyzed. The patient remains on a pressure control mode of mechanical ventilation. Blood gas shows hypoxic and hypercapnic respiratory failure. The workup has been essentially negative for pneumonia/ARDS. The viral screen negative. Procalcitonin negative x 2. Repeat CT angiogram ruled out pulmonary embolism. There is continued diffuse groundglass opacities with air bronchograms bilaterally. Enlarged pretracheal lymph node with scattered smaller lymph nodes within the mediastinum. severe ARDS requiring intubation and mechanical ventilatory support on 05/09/2024. Status post bronchoscopy on 05/09/2024, results are essentially negative. The patient is currently on IV steroids. Blood gases were noted. Chest x-ray was noted. Cardiopulmonary arrest on 05/10/2024 requiring 2 rounds of CPR. Appeared pulseless ventricular tachycardia/torsades. Amiodarone is still running at 0.5 mg/min. Echocardiogram shows a preserved LV function with mild to moderate pulmonary hypertension. Atrial fibrillation with a rapid ventricular response, currently in normal sinus rhythm Hypotension secondary to above requiring pressor support, currently on norepinephrine running at 0.12 mcg/kg/min Leukocytosis secondary to above Febrile illness secondary to above, remains febrile with a temperature of 100.6 Acute kidney injury secondary to above kidneys, stable Severe pulmonary hypertension with dilated right ventricle. Cardiac catheterization from September 2023 revealed no evidence of obstructive coronary artery disease Troponin leak Morbid obesity with a BMI of 48 kg/m Hyperlipidemia Hypothyroidism History of mild intermittent chronic bronchial asthma Lifelong non-smoker Plan: Keep the patient sedated with propofol and the patient is also on Nimbex for paralytics. I reviewed the blood gases and the ventilator settings. No changes from my standpoint for today Continued on an amiodarone drip Continued on a heparin drip Continued on propofol for sedation Continued on Nimbex Continued on norepinephrine 0.12 mc /kg/min Continue IV Solu-Medrol 60 mg every 6 hours Continue bronchodilators and steroids Febrile today, repeat blood, urine and sputum cultures Treatment of hyperkalemia per nephrology. The patient was given Lokelma in combination with calcium gluconate and insulin D50 Will monitor the potassium level and obtain a repeat potassium level at around noontime Prognosis remains very guarded We will continue to follow, critical care evaluation that was done more than 30 minutes. Time with Patient: Greater than 30
[2024-05-13 10:43] LABS: Glucose,Whole Blood 127 mg/dL (70-110)
[2024-05-13] MEDS: DEXTROSE 50% SYRINGE 50 ML IVP STA ×2 (11:21→19:39)
--- NOTE | 2024-05-13 12:23 | P.PN ---
Subjective Progress Note Date: 05/13/24 74 year old M with PMH of Asthma, GERD, HLD, Hypothyroid, h/o prostate CA presents to the ED for worsening shortness of breath with exertion. Patient had COVID 19 in 2021 and has been slow to recover since then but symptoms has significantly worsened over the past 4-6 weeks. In the ED he underwent extensive evaluation. BP 116/67, HR 101, T 98.1F, RR 20, 85% on RA. CBC, Coag panel, CMP significant for WBC 11.1, glu 110. Trop 0.092. CRP 20.7. BNP 121. Procal 0.15. TSH 4.04. Lactic acid 2.1-1.3. ABG pH 7.4, pCO2 38. D-Dimer 4.25. EKG showed sinus rhythm, QTc normal, RBBB pattern, no ST elevation. CTA chest showed no PE, did reveal bilateral groundglass opacities signs of pulmonary arterial hypertension, mediastinal lymphadenopathy up to 1.9 cm and 1.7 cm incidental gallstone. Patient was started on Rocephin and Azithromycin, bronchodilators, SoluMedrol and admitted for further workup and management with Pulmonary consulted. He was started on Lasix IV and Cardiology was consulted. Echo showed LVEF 55 to 60%, concentric LVH, moderate pulmonary HTN, moderate TR. His respiratory status continued to worsen and he was transferred to the ICU on BiPAP. He completed a course of Rocephin and Azithromycin. He continued to deteriorate and he was intubated on 05/09. He underwent bronchoscopy was BAL which showed purulent secretions with bronchitis changes. Started on Levophed. His procal has been 0.15 and 0.09 thus antibiotics have been discontinued. LOWELL BARKER was called on 05/10 for polymorphic Vtach. Patient was defibrillated, received Epi, Lidocaine and Amidarone and ROSC was achieved. Echo was performed post ROSC showing EF 60% and no regional wall motion abnormalities. Patient had a fever of 100.3F on 05/12 and was alvarez-cultured. 05/13 Patient was seen and examined. Intubated on Cisatracurium 3 mcg/kg/min and Propofol at 45 mcg/kg/min. Pressors include Levophed at 0.1 mcg/kg/min. Curren tly on Amiodarone at 0.5 mg/min. Maintained on Heparin drip for A-Fib RVR since 05/12. Tmax 101.4F. UA neg LE or nitrite. CBC, Coag panel and BMP this morning showed WBC 27.7, Plt 142, APTT 51.6, Na 147, K 6, bicarb 42, BUN 74, Cr 1.45, glu 167. ABG this morning showed pH 7.3, pCO2 90, pO2 65 of FiO2 80. CXR done this morning shows persistent bilateral infiltrates concerning for ARDS. Renal US is neg for hydronephrosis. General: Intubated Derm: warm, dry Head: atraumatic, normocephalic, symmetric, ET + OG tube intact Eyes: EOMI, no lid lag, anicteric sclera Mouth: no lip lesion, mucus membranes moist Cardiovascular: S1S2 tachy, no murmur Lungs: Bilateral rhonchi, no rales , no accessory muscle use Abd: Distended. No bowel sounds appreciated. Ext: no gross muscle atrophy, no edema, no contractures Neuro: Unable to determine Psych: Unable to determine Based on my assessment of this patient, this patient meets a high complexity level of care. Acute hypoxic respiratory failure secondary to ARDS: BNP 226. ANCA neg. Ventilator managed by Pulmonary. DuoNeb QID scheduled and Q4H PRN. Pulmicort 1 mg INH BID. Performist 20 mcg INH BID. SoluMedrol 60 mg IV Q6H. Cardiac arrest with polymorphic VTach: Amidarone drip at 0.5 mg/min. Metoprolol 25 mg PO BID. Echo post ROSC showing EF 60% and no regional wall motion abnormalities. Maintain K > 4 and Mg > 2. Cardiology on board. Sepsis shock due to above: Fever on 05/12. Levophed at 0.1 mcg/kg/min. 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 Procal neg x 2. Completed course of Rocephin/Azithromycin + 1 day of Zosyn. 05/02 BCx, 05/02 + 05/07 Sputum Cx, 05/09 BAL Cx neg. Judicious use of fluids due to ARDS. Follow 05/12 Sputum, UCx, BCx. Hyperkalemia: Ca gluconate, IV insulin, Lokelma 10g PO TID x 6 doses ordered by Nephrology. Repeat K at 4PM. Acute kidney injury: Due to cardiac arrest. Prerenal. Farxiga and Aldactone discontinued. Judicious use of fluids due to ARDS. Renal/Bladder US neg for hydronephrosis. Avoid nephrotoxins. Monitor renal function. Nephrology on board. NSTEMI: Trop 0.1, 0.11, 0.12, 0.111, 0.092. ACS ruled out. Likely Type II NSTEMI due to above. Steroid induced hyperglycemia: ISS ACHS. Accuchecks Q6H. Dyslipidemia: Lipitor 20 mg PO QHS. ASA 81 mg PO QHS. Hypothyroidism: Synthroid 50 mcg PO QD. Prognosis is poor. CODE STATUS: FULL CODE DVT Prophylaxis: Lovenox SQ GI Prophylaxis: Protonix IV Designated medical POA if patient is not able to make medical decisions for themselves: I have reviewed the following center lead consultant notes: Pulmonary I have reviewed the results of the following tests: CBC, BMP, ABG, Coag panel, Renal US, UA. I have ordered the following tests: K at 4PM. I have discussed the care of this patient with the following independent historian: MIKKI. Family I have independently interpreted the following test below: CXR I have discussed the management of this patient with the following physician: Objective - Vital Signs Vital signs: Vital Signs Temp 101.4 F H 05/13/24 08:00 Pulse 89 05/13/24 09:00 Resp 36 H 05/13/24 09:00 BP 116/57 05/13/24 09:00 Pulse Ox 89 L 05/13/24 09:00 FiO2 80 05/13/24 08:00 Intake & Output 05/12/24 05/13/24 05/13/24 18:59 06:59 18:59 Intake Total 2041.540 1340.492 130.844 Output Total 1785 1464 265 Balance 256.540 -123.508 -134.156 Weight 119.1 kg Intake: IV 36 136 9 0.9 SALINE PRESSURE BAG 36 36 9 Calcium Gluconate in NaCl 100 1 gm In Saline 1 100ml. bag @ 100 mls/hr IVPB ONCE ONE Rx#:[id number] Intake, IV Titration 9703.214 4748.492 121.844 Amount Amiodarone 450 mg In 250 Dextrose 5% in Water 250 ml @ 0.5 MG/MIN 16.667 mls/hr IV .Q15H [facility] Rx#: [id number] Calcium Gluconate in NaCl 100 1 gm In Saline 1 100ml. bag @ 100 mls/hr IVPB ONCE ONE Rx#:[id number] Calcium Gluconate in NaCl 100 1 gm In Saline 1 100ml. bag @ 100 mls/hr IVPB ONCE ONE Rx#:[id number] Cisatracurium 200 mg In 168.688 200.913 Sodium Chloride 0.9% 180 ml @ 2 MCG/KG/MIN 13.86 mls/hr IV .[id number] [facility] Rx #:[id number] Heparin Sod,Pork in 0.45% 80 10 NaCl 25,000 unit In 0.45 % NaCl 1 250ml.bag @ 8. 5034 UNITS/KG/HR 10 mls/ hr IV .Q24H [facility] Rx#: [id number] Norepinephrine 8 mg In 458.102 433.890 44.921 Sodium Chloride 0.9% 250 ml @ 0.03 MCG/KG/MIN 6. 705 mls/hr IV .Q24H [facility] Rx#:[id number] propofoL 1,000 mg In 369.750 328.689 76.923 Empty Bag 1 bag @ 15 MCG/ KG/MIN 10.395 mls/hr IV . Q9H38M [facility] Rx#:[id number] Oral 27 Tube Feeding 297 81 0 Blood Product 60 Other 195 50 0 Output: Urine 1785 1464 265 Other: Voiding Method Indwelling Catheter Indwelling Catheter Indwelling Catheter ABP, PAP, CO, CI - Last Documented Arterial Blood Pressure 107/47 - Labs CBC & Chem 7: 05/13/24 05:00 05/13/24 09:07 Labs: Abnormal Lab Results - Last 24 Hours (Table) 05/12/24 05/12/24 05/12/24 Range/Units 09:15 10:00 10:00 WBC 24.0 H (3.8-10.6) k/uL Plt Count (150-450) k/uL Neutrophils # (1.3-7.7) k/uL Neutrophils # (Manual) 20.64 H (1.3-7.7) k/uL Lymphocytes # (1.0-4.8) k/uL Monocytes # (0-1.0) k/uL Metamyelocytes # (Man) 0.48 H (0) k/uL Myelocytes # (Manual) 0.24 H (0) k/uL APTT 21.5 L (22.0-30.0) sec ABG pH (7.35-7.45) ABG pCO2 (35-45) mmHg ABG pO2 (83-108) mmHg ABG HCO3 (21-25) mmol/L ABG Total CO2 (19-24) mmol/L ABG O2 Saturation (94-97) % Sodium (137-145) mmol/L Potassium 5.6 H (3.5-5.1) mmol/L Carbon Dioxide (22-30) mmol/L BUN (9-20) mg/dL Creatinine (0.66-1.25) mg/dL Glucose (74-99) mg/dL POC Glucose (mg/dL) (70-110) mg/dL Urine Protein (Negative) Urine Glucose (UA) (Negative) Urine Blood (Negative) Urine RBC (0-5) /hpf Urine Bacteria (None) /hpf Urine Mucus (None) /hpf Urine Yeast (Budding) (None) /hpf 05/12/24 05/12/24 05/12/24 Range/Units 11:59 16:45 16:45 WBC (3.8-10.6) k/uL Plt Count (150-450) k/uL Neutrophils # (1.3-7.7) k/uL Neutrophils # (Manual) (1.3-7.7) k/uL Lymphocytes # (1.0-4.8) k/uL Monocytes # (0-1.0) k/uL Metamyelocytes # (Man) (0) k/uL Myelocytes # (Manual) (0) k/uL APTT 46.5 H (22.0-30.0) sec ABG pH (7.35-7.45) ABG pCO2 (35-45) mmHg ABG pO2 (83-108) mmHg ABG HCO3 (21-25) mmol/L ABG Total CO2 (19-24) mmol/L ABG O2 Saturation (94-97) % Sodium (137-145) mmol/L Potassium 6.6 H* (3.5-5.1) mmol/L Carbon Dioxide (22-30) mmol/L BUN (9-20) mg/dL Creatinine (0.66-1.25) mg/dL Glucose (74-99) mg/dL POC Glucose (mg/dL) 125 H (70-110) mg/dL Urine Protein (Negative) Urine Glucose (UA) (Negative) Urine Blood (Negative) Urine RBC (0-5) /hpf Urine Bacteria (None) /hpf Urine Mucus (None) /hpf Urine Yeast (Budding) (None) /hpf 05/12/24 05/12/24 05/12/24 Range/Units 18:16 20:45 20:50 WBC (3.8-10.6) k/uL Plt Count (150-450) k/uL Neutrophils # (1.3-7.7) k/uL Neutrophils # (Manual) (1.3-7.7) k/uL Lymphocytes # (1.0-4.8) k/uL Monocytes # (0-1.0) k/uL Metamyelocytes # (Man) (0) k/uL Myelocytes # (Manual) (0) k/uL APTT (22.0-30.0) sec ABG pH (7.35-7.45) ABG pCO2 (35-45) mmHg ABG pO2 (83-108) mmHg ABG HCO3 (21-25) mmol/L ABG Total CO2 (19-24) mmol/L ABG O2 Saturation (94-97) % Sodium (137-145) mmol/L Potassium 6.2 H* (3.5-5.1) mmol/L Carbon Dioxide (22-30) mmol/L BUN (9-20) mg/dL Creatinine (0.66-1.25) mg/dL Glucose (74-99) mg/dL POC Glucose (mg/dL) 168 H (70-110) mg/dL Urine Protein Trace H (Negative) Urine Glucose (UA) 3+ H (Negative) Urine Blood Large H (Negative) Urine RBC 88 H (0-5) /hpf Urine Bacteria Rare H (None) /hpf Urine Mucus Rare H (None) /hpf Urine Yeast (Budding) Many H (None) /hpf 05/13/24 05/13/24 05/13/24 Range/Units 00:14 01:08 05:00 WBC 27.7 H (3.8-10.6) k/uL Plt Count 142 L (150-450) k/uL Neutrophils # 25.9 H (1.3-7.7) k/uL Neutrophils # (Manual) (1.3-7.7) k/uL Lymphocytes # 0.3 L (1.0-4.8) k/uL Monocytes # 1.2 H (0-1.0) k/uL Metamyelocytes # (Man) (0) k/uL Myelocytes # (Manual) (0) k/uL APTT (22.0-30.0) sec ABG pH (7.35-7.45) ABG pCO2 (35-45) mmHg ABG pO2 (83-108) mmHg ABG HCO3 (21-25) mmol/L ABG Total CO2 (19-24) mmol/L ABG O2 Saturation (94-97) % Sodium (137-145) mmol/L Potassium 5.9 H (3.5-5.1) mmol/L Carbon Dioxide (22-30) mmol/L BUN (9-20) mg/dL Creatinine (0.66-1.25) mg/dL Glucose (74-99) mg/dL POC Glucose (mg/dL) 138 H (70-110) mg/dL Urine Protein (Negative) Urine Glucose (UA) (Negative) Urine Blood (Negative) Urine RBC (0-5) /hpf Urine Bacteria (None) /hpf Urine Mucus (None) /hpf Urine Yeast (Budding) (None) /hpf 05/13/24 05/13/24 05/13/24 Range/Units 05:00 05:00 05:25 WBC (3.8-10.6) k/uL Plt Count (150-450) k/uL Neutrophils # (1.3-7.7) k/uL Neutrophils # (Manual) (1.3-7.7) k/uL Lymphocytes # (1.0-4.8) k/uL Monocytes # (0-1.0) k/uL Metamyelocytes # (Man) (0) k/uL Myelocytes # (Manual) (0) k/uL APTT 51.6 H (22.0-30.0) sec ABG pH (7.35-7.45) ABG pCO2 (35-45) mmHg ABG pO2 (83-108) mmHg ABG HCO3 (21-25) mmol/L ABG Total CO2 (19-24) mmol/L ABG O2 Saturation (94-97) % Sodium 147 H (137-145) mmol/L Potassium 6.0 H (3.5-5.1) mmol/L Carbon Dioxide 42 H* (22-30) mmol/L BUN 74 H (9-20) mg/dL Creatinine 1.45 H (0.66-1.25) mg/dL Glucose 167 H (74-99) mg/dL POC Glucose (mg/dL) 172 H (70-110) mg/dL Urine Protein (Negative) Urine Glucose (UA) (Negative) Urine Blood (Negative) Urine RBC (0-5) /hpf Urine Bacteria (None) /hpf Urine Mucus (None) /hpf Urine Yeast (Budding) (None) /hpf 05/13/24 05/13/24 Range/Units 05:34 05:51 WBC (3.8-10.6) k/uL Plt Count (150-450) k/uL Neutrophils # (1.3-7.7) k/uL Neutrophils # (Manual) (1.3-7.7) k/uL Lymphocytes # (1.0-4.8) k/uL Monocytes # (0-1.0) k/uL Metamyelocytes # (Man) (0) k/uL Myelocytes # (Manual) (0) k/uL APTT (22.0-30.0) sec ABG pH 7.30 L (7.35-7.45) ABG pCO2 90 H* (35-45) mmHg ABG pO2 65 L (83-108) mmHg ABG HCO3 44 H* (21-25) mmol/L ABG Total CO2 47 H (19-24) mmol/L ABG O2 Saturation 92.8 L (94-97) % Sodium (137-145) mmol/L Potassium (3.5-5.1) mmol/L Carbon Dioxide (22-30) mmol/L BUN (9-20) mg/dL Creatinine (0.66-1.25) mg/dL Glucose (74-99) mg/dL POC Glucose (mg/dL) 139 H (70-110) mg/dL Urine Protein (Negative) Urine Glucose (UA) (Negative) Urine Blood (Negative) Urine RBC (0-5) /hpf Urine Bacteria (None) /hpf Urine Mucus (None) /hpf Urine Yeast (Budding) (None) /hpf Microbiology - Last 24 Hours (Table) 05/09/24 16:00 Gram Stain - Final Bronchoalviolar Lavage - Right Bronchial Washings Culture - Final
--- NOTE | 2024-05-13 12:23 | P.PN ---
Subjective Patient is seen for follow-up for acute kidney injury and hyperkalemia. He remains on the vent. Urine output at about 100 cc an hour. Renal function has improved with serum creatinine down to 1.4. Potassium remains elevated at 6.2. No obvious GI bleed Blood sugar is not elevated. Objective - Vital Signs Vital signs: Vital Signs Temp 101.4 F H 05/13/24 08:00 Pulse 102 H 05/13/24 11:37 Resp 36 H 05/13/24 11:37 BP 91/49 05/13/24 10:00 Pulse Ox 88 L 05/13/24 10:30 FiO2 80 05/13/24 11:16 Intake & Output 05/12/24 05/13/24 05/13/24 18:59 06:59 18:59 Intake Total 2041.540 1340.492 775.685 Output Total 1785 1464 355 Balance 256.540 -123.508 420.685 Weight 119.1 kg Intake: IV 36 136 12 0.9 SALINE PRESSURE BAG 36 36 12 Calcium Gluconate in NaCl 100 1 gm In Saline 1 100ml. bag @ 100 mls/hr IVPB ONCE ONE Rx#:[id number] Intake, IV Titration 7392.982 9145.492 763.685 Amount Amiodarone 450 mg In 250 250 Dextrose 5% in Water 250 ml @ 0.5 MG/MIN 16.667 mls/hr IV .Q15H [facility] Rx#: [id number] Calcium Gluconate in NaCl 100 1 gm In Saline 1 100ml. bag @ 100 mls/hr IVPB ONCE ONE Rx#:[id number] Calcium Gluconate in NaCl 100 1 gm In Saline 1 100ml. bag @ 100 mls/hr IVPB ONCE ONE Rx#:[id number] Cisatracurium 200 mg In 168.688 200.913 149.341 Sodium Chloride 0.9% 180 ml @ 2 MCG/KG/MIN 13.86 mls/hr IV .[id number] [facility] Rx #:[id number] Heparin Sod,Pork in 0.45% 80 10 242.5 NaCl 25,000 unit In 0.45 % NaCl 1 250ml.bag @ 8. 5034 UNITS/KG/HR 10 mls/ hr IV .Q24H [facility] Rx#: [id number] Norepinephrine 8 mg In 458.102 433.890 44.921 Sodium Chloride 0.9% 250 ml @ 0.03 MCG/KG/MIN 6. 705 mls/hr IV .Q24H [facility] Rx#:[id number] propofoL 1,000 mg In 369.750 328.689 76.923 Empty Bag 1 bag @ 15 MCG/ KG/MIN 10.395 mls/hr IV . Q9H38M [facility] Rx#:[id number] Oral 27 Tube Feeding 297 81 0 Blood Product 60 Other 195 50 0 Output: Urine 1785 1464 355 Other: Voiding Method Indwelling Catheter Indwelling Catheter Indwelling Catheter ABP, PAP, CO, CI - Last Documented Arterial Blood Pressure 116/50 - Exam Patient is on the vent. Examination of the heart S1 and S2 Examination of the lungs bilateral breath sounds are heard Abdomen is soft nontender Examination of lower extremities shows 1+ edema - Labs CBC & Chem 7: 05/13/24 05:00 05/13/24 09:07 Labs: Abnormal Lab Results - Last 24 Hours (Table) 05/12/24 05/12/24 05/12/24 Range/Units 16:45 16:45 18:16 WBC (3.8-10.6) k/uL Plt Count (150-450) k/uL Neutrophils # (1.3-7.7) k/uL Lymphocytes # (1.0-4.8) k/uL Monocytes # (0-1.0) k/uL APTT 46.5 H (22.0-30.0) sec ABG pH (7.35-7.45) ABG pCO2 (35-45) mmHg ABG pO2 (83-108) mmHg ABG HCO3 (21-25) mmol/L ABG Total CO2 (19-24) mmol/L ABG O2 Saturation (94-97) % Sodium (137-145) mmol/L Potassium 6.6 H* (3.5-5.1) mmol/L Carbon Dioxide (22-30) mmol/L BUN (9-20) mg/dL Creatinine (0.66-1.25) mg/dL Glucose (74-99) mg/dL POC Glucose (mg/dL) 168 H (70-110) mg/dL Urine Protein (Negative) Urine Glucose (UA) (Negative) Urine Blood (Negative) Urine RBC (0-5) /hpf Urine Bacteria (None) /hpf Urine Mucus (None) /hpf Urine Yeast (Budding) (None) /hpf 05/12/24 05/12/24 05/13/24 Range/Units 20:45 20:50 00:14 WBC (3.8-10.6) k/uL Plt Count (150-450) k/uL Neutrophils # (1.3-7.7) k/uL Lymphocytes # (1.0-4.8) k/uL Monocytes # (0-1.0) k/uL APTT (22.0-30.0) sec ABG pH (7.35-7.45) ABG pCO2 (35-45) mmHg ABG pO2 (83-108) mmHg ABG HCO3 (21-25) mmol/L ABG Total CO2 (19-24) mmol/L ABG O2 Saturation (94-97) % Sodium (137-145) mmol/L Potassium 6.2 H* (3.5-5.1) mmol/L Carbon Dioxide (22-30) mmol/L BUN (9-20) mg/dL Creatinine (0.66-1.25) mg/dL Glucose (74-99) mg/dL POC Glucose (mg/dL) 138 H (70-110) mg/dL Urine Protein Trace H (Negative) Urine Glucose (UA) 3+ H (Negative) Urine Blood Large H (Negative) Urine RBC 88 H (0-5) /hpf Urine Bacteria Rare H (None) /hpf Urine Mucus Rare H (None) /hpf Urine Yeast (Budding) Many H (None) /hpf 05/13/24 05/13/24 05/13/24 Range/Units 01:08 05:00 05:00 WBC 27.7 H (3.8-10.6) k/uL Plt Count 142 L (150-450) k/uL Neutrophils # 25.9 H (1.3-7.7) k/uL Lymphocytes # 0.3 L (1.0-4.8) k/uL Monocytes # 1.2 H (0-1.0) k/uL APTT (22.0-30.0) sec ABG pH (7.35-7.45) ABG pCO2 (35-45) mmHg ABG pO2 (83-108) mmHg ABG HCO3 (21-25) mmol/L ABG Total CO2 (19-24) mmol/L ABG O2 Saturation (94-97) % Sodium 147 H (137-145) mmol/L Potassium 5.9 H 6.0 H (3.5-5.1) mmol/L Carbon Dioxide 42 H* (22-30) mmol/L BUN 74 H (9-20) mg/dL Creatinine 1.45 H (0.66-1.25) mg/dL Glucose 167 H (74-99) mg/dL POC Glucose (mg/dL) (70-110) mg/dL Urine Protein (Negative) Urine Glucose (UA) (Negative) Urine Blood (Negative) Urine RBC (0-5) /hpf Urine Bacteria (None) /hpf Urine Mucus (None) /hpf Urine Yeast (Budding) (None) /hpf 05/13/24 05/13/24 05/13/24 Range/Units 05:00 05:25 05:34 WBC (3.8-10.6) k/uL Plt Count (150-450) k/uL Neutrophils # (1.3-7.7) k/uL Lymphocytes # (1.0-4.8) k/uL Monocytes # (0-1.0) k/uL APTT 51.6 H (22.0-30.0) sec ABG pH 7.30 L (7.35-7.45) ABG pCO2 90 H* (35-45) mmHg ABG pO2 65 L (83-108) mmHg ABG HCO3 44 H* (21-25) mmol/L ABG Total CO2 47 H (19-24) mmol/L ABG O2 Saturation 92.8 L (94-97) % Sodium (137-145) mmol/L Potassium (3.5-5.1) mmol/L Carbon Dioxide (22-30) mmol/L BUN (9-20) mg/dL Creatinine (0.66-1.25) mg/dL Glucose (74-99) mg/dL POC Glucose (mg/dL) 172 H (70-110) mg/dL Urine Protein (Negative) Urine Glucose (UA) (Negative) Urine Blood (Negative) Urine RBC (0-5) /hpf Urine Bacteria (None) /hpf Urine Mucus (None) /hpf Urine Yeast (Budding) (None) /hpf 05/13/24 05/13/2405/13/25 Range/Units 05:51 09:07 10:41 WBC (3.8-10.6) k/uL Plt Count (150-450) k/uL Neutrophils # (1.3-7.7) k/uL Lymphocytes # (1.0-4.8) k/uL Monocytes # (0-1.0) k/uL APTT (22.0-30.0) sec ABG pH (7.35-7.45) ABG pCO2 (35-45) mmHg ABG pO2 (83-108) mmHg ABG HCO3 (21-25) mmol/L ABG Total CO2 (19-24) mmol/L ABG O2 Saturation (94-97) % Sodium (137-145) mmol/L Potassium 6.2 H* (3.5-5.1) mmol/L Carbon Dioxide (22-30) mmol/L BUN (9-20) mg/dL Creatinine (0.66-1.25) mg/dL Glucose (74-99) mg/dL POC Glucose (mg/dL) 139 H 127 H (70-110) mg/dL Urine Protein (Negative) Urine Glucose (UA) (Negative) Urine Blood (Negative) Urine RBC (0-5) /hpf Urine Bacteria (None) /hpf Urine Mucus (None) /hpf Urine Yeast (Budding) (None) /hpf Microbiology - Last 24 Hours (Table) 05/12/24 10:10 Urine Culture - Final Urine,Catheterized Claudia albicans 05/09/24 16:00 Gram Stain - Final Bronchoalviolar Lavage - Right Bronchial Washings Culture - Final Assessment and Plan Assessment: 1. Acute kidney injury secondary to hemodynamic ATN secondary to A-fib and cardiac arrest. Received IV contrast on May 08, 2024 for a CTA. Baseline creatinine near 1 and is up to 1.4 today. Nonoliguric. No hydronephrosis noted on kidney ultrasound. 2. V. tach/ arrest requiring cardioversion. 3. A-fib with RVR maintained on amiodarone drip. 4. Hyperkalemia secondary to acute kidney injury. Better with medical ma nagement. 5. Acute hypoxic respiratory failure secondary to ARDS. 6. Septic shock maintained on Levophed. 7. Moderate tricuspid regurgitation and pulmonary hypertension. Plan: Add IV D50 and insulin along with IV Lasix x 1 to help with hyperkalemia Continue off of IV fluids Repeat labs in a.m.
[2024-05-13 12:26] LABS: Glucose,Whole Blood 136 mg/dL (70-110)
--- NOTE | 2024-05-13 12:53 | XR ---
EXAMINATION TYPE: XR KUB portable DATE OF EXAM: 05/13/2024 12:48 PM CLINICAL HISTORY: Abdominal distention without bowel sounds TECHNIQUE: Two supine KUB images of the abdomen are obtained. COMPARISON: None. FINDINGS: Hyperdense material suspected contrast is seen in nondistended colonic loops in the periphe ry and a few nondistended small bowel loops in the pelvis along with nondistended stomach. Orogastric tube projects below diaphragm. There is cardiomegaly with bibasilar increased opacities. There is 1. 7 cm round hyperdense lesion right upper quadrant probable large gallstone. Degenerative change bilat eral sacroiliac joints and hips is seen. There are scattered small bilateral pelvic phleboliths. IMPRESSION: Overall nonobstructive bowel gas pattern. [facility], , 05/13/2024 12:50 PM
[2024-05-13 14:27] VITALS: BMI 38.7
--- NOTE | 2024-05-13 16:37 | P.PN ---
Subjective PROGRESS NOTE The patient is a 74-year-old male who presented with symptoms of progressive dyspnea, requiring BiPAP with evidence of bilateral multifocal pneumonia. He is continuing to be dyspneic on the BiPAP. He had mild troponin elevation seco ndary to type II myocardial infarction. He denies any chest discomfort, dizziness or palpitations. His echocardiogram showed a preserved systolic function with low ventricle hypertrophy. He continues to be in sinus mechanism and hemodynamically stable. May 09: The patient is on BiPAP at this time, was on airVo earlier. He is feeling better overall but continues to have a cough and episode of dyspnea. He is having clear to yellowish sputum. He is in sinus mechanism and no evidence of malignant arrhythmia. His blood pressure has been stable. Duplex scan of the lower extremities showed no DVT and his CT angiogram showed no evidence of pulmonary embolism. May 10: The patient yesterday became more dyspneic and required mechanical ventilation. His chest x-ray showed worsening bilateral lobe infiltrate, his NT proBNP is normal. He is intubated and sedated at this time. In sinus mechanism. He is on norepinephrine. His urine output is stable. There is no evidence of malignant arrhythmia. His procalcitonin was normal. May 11: The patient remains intubated and sedated. Yesterday had an episode of ventricular fibrillation requiring cardioversion. He is in sinus mechanism and maintained on IV amiodarone. His echocardiogram showed a preserved systolic function. His urine output has been stable. He is on norepinephrine. He had no evidence of recurrent ventricular ectopic activity or atrial fibrillation. His picture is consistent with ARDS with viral pulmonary infection. There is no evidence suggest bacterial infection or CHF. May 12: The patient remains intubated and sedated. Earlier this morning he went into atrial fibrillation with rapid ventricle response. He continues to be on norepinephrine and IV amiodarone. He is not anticoagulated. He continues to require high oxygen support. X-ray shows bilateral infiltrate, suggestive of ARDS. 05/13 Patient remains on ventilator. Placed on amiodarone drip with currently sinus rhythm. After recovery pulmonary arrest patient's EF preserved however significant increase in pulmonary hypertension up to 97. and daughter state he has been feeling short of breath really since December with progressive symptoms. Prior heart catheterization showing normal coronary arteries and his aortic stenosis appears more the moderate range. On 80% FiO2 with oxygen saturation 87%. Creatinine improved to 1.4. Fever up to 101.6. Medications: Lipitor 20 mg daily, aspirin, levothyroxine, metoprolol tartrate 25 mg twice a day, IV amiodarone, IV norepinephrine. PHYSICAL EXAMINATION: Blood pressure 97/50 heart rate 110 intubated and sedated, LUNGS: Clear, no wheezes HEART: Regular rate and rhythm, S1, S2. No S3. Systolic ejection murmur 3/6, at the base ABDOMEN: Soft, no organomegaly, obese EXTREMETIES: No edema IMPRESSION: 1. Respiratory failure with probable viral pneumonia, and ARDS 2. Hypertension, hypotensive at this time 3. Hypothyroidism 4. Hyperlipidemia 5. Obesity 6. Episode of ventricular fibrillation, rare status post CPR and cardioversion, maintaining sinus mechanism. Repeat echocardiogram showed preserved systolic function 7. Worsening renal functions with acute kidney injury 8. Recurrent atrial fibrillation 9. Severe pulmonary hypertension PLAN: Mild troponin elevation appears more related to troponin leak. Continue with metoprolol as well as amiodarone for recurrent A. fib as well as ventricular tachycardia with prior cardiac arrest. Continue with anticoagulation with heparin. Severe pulmonary hypertension appears somewhat out of proportion to ARDS. No obvious shunt noted on TTE with possibility of Eisenmingers sydrome. Continue with current therapy. Prognosis guarded. Objective - Vital Signs Vital signs: Vital Signs Temp 101.6 F H 05/13/24 16:00 Pulse 99 05/13/24 16:00 Resp 36 H 05/13/24 16:00 BP 91/54 05/13/24 16:00 Pulse Ox 88 L 05/13/24 16:00 FiO2 80 05/13/24 16:00 Intake & Output 05/12/24 05/13/24 05/13/24 18:59 06:59 18:59 Intake Total 2041.540 1340.492 810.685 Output Total 1785 1464 605 Balance 256.540 -123.508 205.685 Weight 119.1 kg 119.1 kg Intake: IV 36 136 27 0.9 SALINE PRESSURE BAG 36 36 27 Calcium Gluconate in NaCl 100 1 gm In Saline 1 100ml. bag @ 100 mls/hr IVPB ONCE ONE Rx#:[id number] Intake, IV Titration 8793.798 8345.492 763.685 Amount Amiodarone 450 mg In 250 250 Dextrose 5% in Water 250 ml @ 0.5 MG/MIN 16.667 mls/hr IV .Q15H COUNTS INCLUDE 234 BEDS AT THE [facility] Rx#: [id number] Calcium Gluconate in NaCl 100 1 gm In Saline 1 100ml. bag @ 100 mls/hr IVPB ONCE ONE Rx#:[id number] Calcium Gluconate in NaCl 100 1 gm In Saline 1 100ml. bag @ 100 mls/hr IVPB ONCE ONE Rx#:[id number] Cisatracurium 200 mg In 168.688 200.913 149.341 Sodium Chloride 0.9% 180 ml @ 2 MCG/KG/MIN 13.86 mls/hr IV .[id number] COUNTS INCLUDE 234 BEDS AT THE [facility] Rx #:[id number] Heparin Sod,Pork in 0.45% 80 10 242.5 NaCl 25,000 unit In 0.45 % NaCl 1 250ml.bag @ 8. 5034 UNITS/KG/HR 10 mls/ hr IV .Q24H [facility] Rx#: [id number] Norepinephrine 8 mg In 458.102 433.890 44.921 Sodium Chloride 0.9% 250 ml @ 0.03 MCG/KG/MIN 6. 705 mls/hr IV .Q24H COUNTS INCLUDE 234 BEDS AT THE [facility] Rx#:[id number] propofoL 1,000 mg In 369.750 328.689 76.923 Empty Bag 1 bag @ 15 MCG/ KG/MIN 10.395 mls/hr IV . Q9H38M COUNTS INCLUDE 234 BEDS AT THE [facility] Rx#:[id number] Oral 27 Tube Feeding 297 81 20 Blood Product 60 Other 195 50 0 Output: Urine 1785 1464 605 Other: Voiding Method Indwelling Catheter Indwelling Catheter Indwelling Catheter ABP, PAP, CO, CI - Last Documented Arterial Blood Pressure 108/48 - Labs CBC & Chem 7: 05/13/24 05:00 05/13/24 09:07 Labs: Abnormal Lab Results - Last 24 Hours (Table) 05/12/24 05/12/24 05/12/24 Range/Units 16:45 16:45 18:16 WBC (3.8-10.6) k/uL Plt Count (150-450) k/uL Neutrophils # (1.3-7.7) k/uL Lymphocytes # (1.0-4.8) k/uL Monocytes # (0-1.0) k/uL APTT 46.5 H (22.0-30.0) sec ABG pH (7.35-7.45) ABG pCO2 (35-45) mmHg ABG pO2 (83-108) mmHg ABG HCO3 (21-25) mmol/L ABG Total CO2 (19-24) mmol/L ABG O2 Saturation (94-97) % Sodium (137-145) mmol/L Potassium 6.6 H* (3.5-5.1) mmol/L Carbon Dioxide (22-30) mmol/L BUN (9-20) mg/dL Creatinine (0.66-1.25) mg/dL Glucose (74-99) mg/dL POC Glucose (mg/dL) 168 H (70-110) mg/dL Urine Protein (Negative) Urine Glucose (UA) (Negative) Urine Blood (Negative) Urine RBC (0-5) /hpf Urine Bacteria (None) /hpf Urine Mucus (None) /hpf Urine Yeast (Budding) (None) /hpf 05/12/24 05/12/24 05/13/24 Range/Units 20:45 20:50 00:14 WBC (3.8-10.6) k/uL Plt Count (150-450) k/uL Neutrophils # (1.3-7.7) k/uL Lymphocytes # (1.0-4.8) k/uL Monocytes # (0-1.0) k/uL APTT (22.0-30.0) sec ABG pH (7.35-7.45) ABG pCO2 (35-45) mmHg ABG pO2 (83-108) mmHg ABG HCO3 (21-25) mmol/L ABG Total CO2 (19-24) mmol/L ABG O2 Saturation (94-97) % Sodium (137-145) mmol/L Potassium 6.2 H* (3.5-5.1) mmol/L Carbon Dioxide (22-30) mmol/L BUN (9-20) mg/dL Creatinine (0.66-1.25) mg/dL Glucose (74-99) mg/dL POC Glucose (mg/dL) 138 H (70-110) mg/dL Urine Protein Trace H (Negative) Urine Glucose (UA) 3+ H (Negative) Urine Blood Large H (Negative) Urine RBC 88 H (0-5) /hpf Urine Bacteria Rare H (None) /hpf Urine Mucus Rare H (None) /hpf Urine Yeast (Budding) Many H (None) /hpf 05/13/24 05/13/24 05/13/24 Range/Units 01:08 05:00 05:00 WBC 27.7 H (3.8-10.6) k/uL Plt Count 142 L (150-450) k/uL Neutrophils # 25.9 H (1.3-7.7) k/uL Lymphocytes # 0.3 L (1.0-4.8) k/uL Monocytes # 1.2 H (0-1.0) k/uL APTT (22.0-30.0) sec ABG pH (7.35-7.45) ABG pCO2 (35-45) mmHg ABG pO2 (83-108) mmHg ABG HCO3 (21-25) mmol/L ABG Total CO2 (19-24) mmol/L ABG O2 Saturation (94-97) % Sodium 147 H (137-145) mmol/L Potassium 5.9 H 6.0 H (3.5-5.1) mmol/L Carbon Dioxide 42 H* (22-30) mmol/L BUN 74 H (9-20) mg/dL Creatinine 1.45 H (0.66-1.25) mg/dL Glucose 167 H (74-99) mg/dL POC Glucose (mg/dL) (70-110) mg/dL Urine Protein (Negative) Urine Glucose (UA) (Negative) Urine Blood (Negative) Urine RBC (0-5) /hpf Urine Bacteria (None) /hpf Urine Mucus (None) /hpf Urine Yeast (Budding) (None) /hpf 05/13/24 05/13/24 05/13/24 Range/Units 05:00 05:25 05:34 WBC (3.8-10.6) k/uL Plt Count (150-450) k/uL Neutrophils # (1.3-7.7) k/uL Lymphocytes # (1.0-4.8) k/uL Monocytes # (0-1.0) k/uL APTT 51.6 H (22.0-30.0) sec ABG pH 7.30 L (7.35-7.45) ABG pCO2 90 H* (35-45) mmHg ABG pO2 65 L (83-108) mmHg ABG HCO3 44 H* (21-25) mmol/L ABG Total CO2 47 H (19-24) mmol/L ABG O2 Saturation 92.8 L (94-97) % Sodium (137-145) mmol/L Potassium (3.5-5.1) mmol/L Carbon Dioxide (22-30) mmol/L BUN (9-20) mg/dL Creatinine (0.66-1.25) mg/dL Glucose (74-99) mg/dL POC Glucose (mg/dL) 172 H (70-110) mg/dL Urine Protein (Negative) Urine Glucose (UA) (Negative) Urine Blood (Negative) Urine RBC (0-5) /hpf Urine Bacteria (None) /hpf Urine Mucus (None) /hpf Urine Yeast (Budding) (None) /hpf 05/13/24 05/13/24 05/13/24 Range/Units 05:51 09:07 10:41 WBC (3.8-10.6) k/uL Plt Count (150-450) k/uL Neutrophils # (1.3-7.7) k/uL Lymphocytes # (1.0-4.8) k/uL Monocytes # (0-1.0) k/uL APTT (22.0-30.0) sec ABG pH (7.35-7.45) ABG pCO2 (35-45) mmHg ABG pO2 (83-108) mmHg ABG HCO3 (21-25) mmol/L ABG Total CO2 (19-24) mmol/L ABG O2 Saturation (94-97) % Sodium (137-145) mmol/L Potassium 6.2 H* (3.5-5.1) mmol/L Carbon Dioxide (22-30) mmol/L BUN (9-20) mg/dL Creatinine (0.66-1.25) mg/dL Glucose (74-99) mg/dL POC Glucose (mg/dL) 139 H 127 H (70-110) mg/dL Urine Protein (Negative) Urine Glucose (UA) (Negative) Urine Blood (Negative) Urine RBC (0-5) /hpf Urine Bacteria (None) /hpf Urine Mucus (None) /hpf Urine Yeast (Budding) (None) /hpf 05/13/24 Range/Units 12:25 WBC (3.8-10.6) k/uL Plt Count (150-450) k/uL Neutrophils # (1.3-7.7) k/uL Lymphocytes # (1.0-4.8) k/uL Monocytes # (0-1.0) k/uL APTT (22.0-30.0) sec ABG pH (7.35-7.45) ABG pCO2 (35-45) mmHg ABG pO2 (83-108) mmHg ABG HCO3 (21-25) mmol/L ABG Total CO2 (19-24) mmol/L ABG O2 Saturation (94-97) % Sodium (137-145) mmol/L Potassium (3.5-5.1) mmol/L Carbon Dioxide (22-30) mmol/L BUN (9-20) mg/dL Creatinine (0.66-1.25) mg/dL Glucose (74-99) mg/dL POC Glucose (mg/dL) 136 H (70-110) mg/dL Urine Protein (Negative) Urine Glucose (UA) (Negative) Urine Blood (Negative) Urine RBC (0-5) /hpf Urine Bacteria (None) /hpf Urine Mucus (None) /hpf Urine Yeast (Budding) (None) /hpf Microbiology - Last 24 Hours (Table) 05/13/24 05:21 Gram Stain - Preliminary Sputum 05/12/24 10:10 Urine Culture - Final Urine,Catheterized Claudia albicans
[2024-05-13 16:43] LABS: Appearance,Urine Clear (Clear); Bilirubin,Urine Negative (Negative); Blood,Urine Large (Negative); Budding Yeast,Urine Moderate /hpf; Color,Urine Yellow; Glucose,Urine (UA) Trace (Negative); Hyaline Casts,Urine 1 /lpf (0-2); Ketones,Urine Negative (Negative); Leukocyte Esterase,Urine Trace (Negative); Mucus,Urine Rare /hpf; Nitrite,Urine Negative (Negative); Protein,Urine Trace (Negative); RBC,Urine >182 /hpf (0-5); Specific Gravity,Urine 1.023 (1.001-1.035); Squamous Epithelial Cell,Urine <1 /hpf (0-4); Urobilinogen,Urine <2.0 mg/dL (<2.0); WBC,Urine 16 /hpf (0-5)
[2024-05-13 17:03] LABS: Histoplasma Abs by Mycelia, CF <1:8 (<1:8)
[2024-05-13] MEDS: ACETAMINOPHEN TAB 325 MG TAB PO PRN (17:15)
[2024-05-13] MEDS: FUROSEMIDE 10 MG/ML 4 ML VIAL IV ONE (17:17)
[2024-05-13 17:56] LABS: Glucose,Whole Blood 122 mg/dL (70-110)
[2024-05-13] MEDS ORDERED: DEXTROSE 50% SYRINGE 50 ML IVP STA (19:23)
[2024-05-13] MEDS ORDERED: INSULIN REGULAR 100 UNIT/ML VIAL (IV) IV ONE (19:24)
[2024-05-13 23:39] LABS: Glucose,Whole Blood 183 mg/dL (70-110)
[2024-05-14 00:33] LABS: African American GFR (CKD) 27 (>60 ml/min/1.73 sqM); Blood Urea Nitrogen 87 mg/dL (9-20); Calcium 8.8 mg/dL (8.4-10.2); Chloride 100 mmol/L (98-107); Glucose 188 mg/dL (74-99); Non-African American GFR(CKD) 24 (>60 ml/min/1.73 sqM); Sodium 146 mmol/L (137-145)
[2024-05-14 00:39] LABS: Anion Gap 3 mmol/L
[2024-05-14 00:53] LABS: Potassium 6.4 mmol/L (3.5-5.1)
[2024-05-14 00:54] LABS: Carbon Dioxide 43 mmol/L (22-30)
[2024-05-14] MEDS: DEXTROSE 50% SYRINGE 50 ML IVP STA ×2 (01:13→09:22)
[2024-05-14] MEDS: INSULIN REGULAR 100 UNIT/ML VIAL (IV) IV ONE ×3 (01:13→12:08)
[2024-05-14] MEDS: DILTIAZEM DRIP BOLUS FROM BAG 1 MG SOLN IV ONE (03:48)
[2024-05-14] MEDS: VASOPRESSIN 60 UNIT in SODIUM CHLORIDE 0.9% 150 ML IV SCH (03:48)
[2024-05-14] MEDS: DILTIAZEM 125 MG in SODIUM CHLORIDE 0.9% 100 ML IV SCH (03:49)
[2024-05-14 04:15] LABS: ABG Base Excess 12.2 mmol/L; ABG Oxygen Saturation 87.3 % (94-97); ABG PH 7.32 (7.35-7.45); ABG TCO2 44 mmol/L (19-24)
[2024-05-14 04:28] LABS: ABG PCO2 80 mmHg (35-45)
[2024-05-14 04:29] LABS: ABG HCO3 41 mmol/L (21-25); ABG PO2 52 mmHg (83-108); Allen Test Performed? No
[2024-05-14] MEDS: SODIUM CHLORIDE 0.9% 1,000 ML IV ONE (04:29)
--- NOTE | 2024-05-14 04:31 | XR ---
EXAM: XR Chest, 1 View CLINICAL HISTORY: ITS.REASON XR Reason: ards TECHNIQUE: Frontal view of the chest. COMPARISON: X-ray dated 06/06/2024 FINDINGS: Lungs: Stable patchy bilateral airspace disease. No consolidation. Pleural space: Small bilateral pleural effusions. No pneumothorax. Heart: Unremarkable. No cardiomegaly. Mediastinum: Unremarkable. Normal mediastinal contour. Bones/joints: Unremarkable. No acute fracture. Tubes, lines and devices: Endotracheal tube is in place with the tip terminating 6.4 cm from the deepali. Enteric tube is in place with the tip not well characterized. Stable placement of left sided central venous catheter. IMPRESSION: Mild interval retraction of the endotracheal tube, otherwise stable chest.
[2024-05-14 04:51] LABS: HGB 11.4 gm/dL (13.0-17.5); Hypochromasia Marked; MCH 31.6 pg (25.0-35.0); MCHC 31.8 g/dL (31.0-37.0); MCV 99.3 fL (80.0-100.0); Mean Platelet Volume 7.9; Platelet Count 123 k/uL (150-450); RBC 3.62 m/uL (4.30-5.90); RDW 13.4 % (11.5-15.5); WBC 29.9 k/uL (3.8-10.6)
[2024-05-14 05:35] LABS: African American GFR (CKD) 38 (>60 ml/min/1.73 sqM); Blood Urea Nitrogen 96 mg/dL (9-20); Calcium 8.2 mg/dL (8.4-10.2); Chloride 102 mmol/L (98-107); Glucose 178 mg/dL (74-99); Non-African American GFR(CKD) 33 (>60 ml/min/1.73 sqM); Sodium 144 mmol/L (137-145)
[2024-05-14 05:41] LABS: Anion Gap 4 mmol/L; Carbon Dioxide 38 mmol/L (22-30)
[2024-05-14 06:22] LABS: Potassium 6.2 mmol/L (3.5-5.1)
[2024-05-14 06:55] LABS: Glucose,Whole Blood 198 mg/dL (70-110)
[2024-05-14] MEDS: FUROSEMIDE 10 MG/ML 10 ML VIAL IV STA (07:25)
[2024-05-14] MEDS: SODIUM BICARB 8.4% 50 ML SYR (1 MEQ/ML) IV STA (07:28)
[2024-05-14] MEDS ORDERED: VANCOMYCIN IV PER PHARMACY 1 EACH MISC MISCELLANE PRN (07:30)
--- NOTE | 2024-05-14 07:32 | P.PN ---
Subjective Progress Note Date: 05/14/24 This is a 74-year-old male patient who initially presented to us with symptoms of shortness of breath along with cough and congestion that was progressively getting worse over the past few weeks. He also had some blood-tinged sputum. His initial chest x-ray showed patchy and confluent bilateral airspace disease and a CT angiogram rule out pulmonary embolism. Nevertheless, the patient had diffuse bilateral groundglass and airspace disease consistent with multifocal pneumonia. Based on all this, a workup was initiated and the patient was started on broad-spectrum antibiotics. The patient had a procalcitonin level of 0.15. He was covered with a combination of Rocephin and Zithromax. The viral screen was negative. The patient had a negative TONE and ANCA titers. Subsequently, the patient underwent a bronchioloalveolar lavage and the BAL showed 93% polynuclear cells with 6% lymphocytes and 1% monocytes. The cultures from the bronchioloalveolar lavage were essentially negative. Based on that, the patient was kept on IV Solu-Medrol and antibiotics were discontinued. Noted during the course of his illness, the patient became progressively more hypoxic, and he subsequently was intubated and placed on the mechanical ventilator on 05/10/2024 due to further episodes of desaturation while being on Airvo and BiPAP. Post intubation, he was started on sedation and paralytics with a combination of propofol and Nimbex. The patient also developed polymorphic V. tach's and pulseless VT and CPR was initiated and there was return of spontaneous circulation after 2 rounds of CPR. The patient was started on IV amiodarone. His echocardiogram done on 05/02/2024 showed a preserved LV function with an ejection fraction of 55 to 60% and moderate degree of pulmonary hypertension with dilated RV and moderate TR. The patient's proBNP level at the time of admission was not elevated. The patient had nonelevated procalcitonin levels. On today's evaluation, the patient remains intubated on mechanical ventilator. He remains on propofol running at 45 mcg/kg/min and the patient is also on Ni mbex for paralytics. He is on assist-control mode of mechanical ventilation pressure control mode with a pressure of 25 cm of water, inspiratory time of 0.8, respirate of 36, FiO2 of 80% with a PEEP of 18. The morning blood gases from today show a pH of 7.3 with a pCO2 of 90 and pO2 of 65. Chest x-ray from today is showing diffuse bilateral pulmonary infiltrates, stable and essentially unchanged. As for the labs, the patient has a white cell count of 27 with a hemoglobin of 13.9 and a platelet count of 142. 94% neutrophilia. Sodium levels at 147 with a potassium level of 6, BUN is 74 with a creatinine of 1.45 and a serum bicarb is at 42. I do not feel his current cardiac rhythm is sinus. He was having episodes of atrial fibrillation with RVR. He was given Lopressor. He is also on vital HP at rate of 27 cc an hour for enteral feeding and nutritional support. On 05/14/2024, the patient is being seen for a follow-up. Over the past few hours, condition is significantly decompensated. The patient became tachycardic, what seems to be in SVT rhythm and the heart rate is in the 140 range and the patient has become progressively more hypotensive and hemodynamically unstable. Most recent blood pressure 74/50. Based on his ongoing hypotension, overnight, the patient was brought up to a higher dose of norepinephrine which is currently running at 0.28 mcg/kg/min. Noted earlier, the patient was in atrial fibrillation and the patient was receiving amiodarone drip at 0.5 mg/min. Urine output remains adequate at 50 cc an hour. Based on that, a synchronized cardioversion was done under my supervision with the assistance of the nurse practitioner, and the patient was given 100 120 J and he successfully cardioverted and he went back into normal sinus rhythm. His current rate is 92. We are still monitoring the blood pressure. The patient remains on high dose of pressors. He patient remains on the mechanical ventilator. The patient remains on a pressure control mode of mechanical ventilation with a pressure control of 25,, rate of 36, respiratory, 0.8, FiO2 is currently at 100% with a PEEP of 18. Chest x-ray continues to show diffuse bilateral pulmonary filtrates. The patient remains sedated and the patient is currently on propofol running at 46 mcg/kg/min and the patient is also on Nimbex at 3.5 mcg/kg/min. He is adequately sedated and paralyzed at this point in time. He continues to have episodes of fever . White cell count today is a 29 with a hemoglobin of 11.4 and a platelet count of 123. The patient continues to have issues with hyperkalemia. The potassium level overnight was 6.4. The patient was given Lokelma and D50 insulin. Subsequent potassium level was at 6.2. Serum bicarb is at 38. BUN is 96 with a creatinine of 1.96.. The patient remains on IV heparin. Noted significant amount of bleeding from a triple-lumen catheter puncture site in the left IJ. Pressure is being applied. IV heparin has been discontinued and the patient will be given protamine and will check his coagulation profile. His last PTT was 100.2 and the hemoglobin has dropped down to 11.4. Objective - Vital Signs Vital signs: Vital Signs Temp 100 F H 05/14/24 00:00 Pulse 142 H 05/14/24 06:00 Resp 37 H 05/14/24 06:00 BP 81/68 05/14/24 06:00 Pulse Ox 83 L 05/14/24 06:00 FiO2 80 05/14/24 04:00 Intake & Output 05/13/24 05/14/24 05/14/24 18:59 06:59 18:59 Intake Total 952.825 2748.425 Output Total 785 945 Balance 151.584 2331.425 Weight 119.1 kg 121 kg Intake: IV 36 1036 0.9 SALINE PRESSURE BAG 36 36 Sodium Chloride 0.9% 1, 1000 000 ml @ 999 mls/hr IV . Q1H1M [facility] Rx#:[id number] Intake, IV Titration 673.686 1938.425 Amount Amiodarone 450 mg In 250 218.06 Dextrose 5% in Water 250 ml @ 0.5 MG/MIN 16.667 mls/hr IV .Q15H [facility] Rx#: [id number] Cisatracurium 200 mg In 149.341 373.700 Sodium Chloride 0.9% 180 ml @ 2 MCG/KG/MIN 13.86 mls/hr IV .[id number] [facility] Rx #:[id number] Diltiazem 125 mg In 11.5 Sodium Chloride 0.9% 100 ml @ Per Protocol IV .Q0M [facility] Rx#:[id number] Heparin Sod,Pork in 0.45% 242.5 194.5 NaCl 25,000 unit In 0.45 % NaCl 1 250ml.bag @ 8. 5034 UNITS/KG/HR 10 mls/ hr IV .Q24H [facility] Rx#: [id number] Norepinephrine 8 mg In 192.516 737.505 Sodium Chloride 0.9% 250 ml @ 0.03 MCG/KG/MIN 6. 705 mls/hr IV .Q24H [facility] Rx#:[id number] propofoL 1,000 mg In 76.923 183.16 Empty Bag 1 bag @ 15 MCG/ KG/MIN 10.395 mls/hr IV . Q9H38M [facility] Rx#:[id number] Tube Feeding 47 282 Other 0 30 Output: Urine 785 945 Other: Voiding Method Indwelling Catheter Indwelling Catheter ABP, PAP, CO, CI - Last Documented Arterial Blood Pressure 82/53 - Exam GENERAL EXAM: Intubated, sedated 74-year-old male patient, on the mechanical ventilator. HEAD: Normocephalic. EYES: Sluggish reaction of pupils, equal size. NOSE: Clear with pink turbinates. THROAT: Oral endotracheal and gastric tube secured in place. No erythema or exudates. NECK: No masses, no JVD. CHEST: No chest wall deformity. LUNGS: Equal air entry with bilateral scattered rhonchi, coarse crackles. CVS: S1 and S2 normal with an audible murmur, irregular rhythm. ABDOMEN: No hepatosplenomegaly, normal bowel sounds, no guarding or rigidity. SPINE: No scoliosis or deformity SKIN: No rashes CENTRAL NERVOUS SYSTEM: Sedated, tone is normal in all 4 extremities. EXTREMITIES: There is no peripheral edema. No clubbing, no cyanosis. Peripheral pulses are diminished bilaterally - Labs CBC & Chem 7: 05/14/24 04:38 05/14/24 04:38 Labs: Abnormal Lab Results - Last 24 Hours (Table) 05/13/24 05/13/24 05/13/24 Range/Units 09:07 10:41 12:25 WBC (3.8-10.6) k/uL RBC (4.30-5.90) m/uL Hgb (13.0-17.5) gm/dL Hct (39.0-53.0) % Plt Count (150-450) k/uL APTT (22.0-30.0) sec ABG pH (7.35-7.45) ABG pCO2 (35-45) mmHg ABG pO2 (83-108) mmHg ABG HCO3 (21-25) mmol/L ABG Total CO2 (19-24) mmol/L ABG O2 Saturation (94-97) % Hemoglobin (13.0-17.5) gm/dL Sodium (137-145) mmol/L Potassium 6.2 H* (3.5-5.1) mmol/L Carbon Dioxide (22-30) mmol/L BUN (9-20) mg/dL Creatinine (0.66-1.25) mg/dL Glucose (74-99) mg/dL POC Glucose (mg/dL) 127 H 136 H (70-110) mg/dL Calcium (8.4-10.2) mg/dL Urine Protein (Negative) Urine Glucose (UA) (Negative) Urine Blood (Negative) Ur Leukocyte Esterase (Negative) Urine RBC (0-5) /hpf Urine WBC (0-5) /hpf Urine Mucus (None) /hpf Urine Yeast (Budding) (None) /hpf 05/13/24 05/13/24 05/13/24 Range/Units 15:41 15:44 17:54 WBC (3.8-10.6) k/uL RBC (4.30-5.90) m/uL Hgb (13.0-17.5) gm/dL Hct (39.0-53.0) % Plt Count (150-450) k/uL APTT (22.0-30.0) sec ABG pH (7.35-7.45) ABG pCO2 (35-45) mmHg ABG pO2 (83-108) mmHg ABG HCO3 (21-25) mmol/L ABG Total CO2 (19-24) mmol/L ABG O2 Saturation (94-97) % Hemoglobin (13.0-17.5) gm/dL Sodium (137-145) mmol/L Potassium 6.1 H* (3.5-5.1) mmol/L Carbon Dioxide (22-30) mmol/L BUN (9-20) mg/dL Creatinine (0.66-1.25) mg/dL Glucose (74-99) mg/dL POC Glucose (mg/dL) 122 H (70-110) mg/dL Calcium (8.4-10.2) mg/dL Urine Protein Trace H (Negative) Urine Glucose (UA) Trace H (Negative) Urine Blood Large H (Negative) Ur Leukocyte Esterase Trace H (Negative) Urine RBC >182 H (0-5) /hpf Urine WBC 16 H (0-5) /hpf Urine Mucus Rare H (None) /hpf Urine Yeast (Budding) Moderate H (None) /hpf 05/13/24 05/13/24 05/14/24 Range/Units 23:37 23:50 04:20 WBC (3.8-10.6) k/uL RBC (4.30-5.90) m/uL Hgb (13.0-17.5) gm/dL Hct (39.0-53.0) % Plt Count (150-450) k/uL APTT (22.0-30.0) sec ABG pH 7.32 L (7.35-7.45) ABG pCO2 80 H* (35-45) mmHg ABG pO2 52 L* (83-108) mmHg ABG HCO3 41 H* (21-25) mmol/L ABG Total CO2 44 H (19-24) mmol/L ABG O2 Saturation 87.3 L (94-97) % Hemoglobin 12.2 L (13.0-17.5) gm/dL Sodium 146 H (137-145) mmol/L Potassium 6.4 H* (3.5-5.1) mmol/L Carbon Dioxide 43 H* (22-30) mmol/L BUN 87 H (9-20) mg/dL Creatinine 2.57 H (0.66-1.25) mg/dL Glucose 188 H (74-99) mg/dL POC Glucose (mg/dL) 183 H (70-110) mg/dL Calcium (8.4-10.2) mg/dL Urine Protein (Negative) Urine Glucose (UA) (Negative) Urine Blood (Negative) Ur Leukocyte Esterase (Negative) Urine RBC (0-5) /hpf Urine WBC (0-5) /hpf Urine Mucus (None) /hpf Urine Yeast (Budding) (None) /hpf 05/14/24 05/14/24 05/14/24 Range/Units 04:38 04:38 04:38 WBC 29.9 H (3.8-10.6) k/uL RBC 3.62 L (4.30-5.90) m/uL Hgb 11.4 L (13.0-17.5) gm/dL Hct 36.0 L (39.0-53.0) % Plt Count 123 L (150-450) k/uL APTT 100.2 H* (22.0-30.0) sec ABG pH (7.35-7.45) ABG pCO2 (35-45) mmHg ABG pO2 (83-108) mmHg ABG HCO3 (21-25) mmol/L ABG Total CO2 (19-24) mmol/L ABG O2 Saturation (94-97) % Hemoglobin (13.0-17.5) gm/dL Sodium (137-145) mmol/L Potassium 6.2 H* (3.5-5.1) mmol/L Carbon Dioxide 38 H (22-30) mmol/L BUN 96 H (9-20) mg/dL Creatinine 1.96 H (0.66-1.25) mg/dL Glucose 178 H (74-99) mg/dL POC Glucose (mg/dL) (70-110) mg/dL Calcium 8.2 L (8.4-10.2) mg/dL Urine Protein (Negative) Urine Glucose (UA) (Negative) Urine Blood (Negative) Ur Leukocyte Esterase (Negative) Urine RBC (0-5) /hpf Urine WBC (0-5) /hpf Urine Mucus (None) /hpf Urine Yeast (Budding) (None) /hpf 05/14/24 Range/Units 06:53 WBC (3.8-10.6) k/uL RBC (4.30-5.90) m/uL Hgb (13.0-17.5) gm/dL Hct (39.0-53.0) % Plt Count (150-450) k/uL APTT (22.0-30.0) sec ABG pH (7.35-7.45) ABG pCO2 (35-45) mmHg ABG pO2 (83-108) mmHg ABG HCO3 (21-25) mmol/L ABG Total CO2 (19-24) mmol/L ABG O2 Saturation (94-97) % Hemoglobin (13.0-17.5) gm/dL Sodium (137-145) mmol/L Potassium (3.5-5.1) mmol/L Carbon Dioxide (22-30) mmol/L BUN (9-20) mg/dL Creatinine (0.66-1.25) mg/dL Glucose (74-99) mg/dL POC Glucose (mg/dL) 198 H (70-110) mg/dL Calcium (8.4-10.2) mg/dL Urine Protein (Negative) Urine Glucose (UA) (Negative) Urine Blood (Negative) Ur Leukocyte Esterase (Negative) Urine RBC (0-5) /hpf Urine WBC (0-5) /hpf Urine Mucus (None) /hpf Urine Yeast (Budding) (None) /hpf Microbiology - Last 24 Hours (Table) 05/12/24 13:09 Blood Culture - Preliminary Blood 05/13/24 05:21 Gram Stain - Preliminary Sputum 05/12/24 10:10 Urine Culture - Final Urine,Catheterized Claudia albicans Assessment and Plan Plan: Acute hypoxemic respiratory failure secondary to severe ARDS., Etiology is not clear. The patient remains currently intubated on mechanical ventilator. Sedated and paralyzed. The patient remains on a pressure control mode of mechanical ventilation. Blood gas shows hypoxic and hypercapnic respiratory failure. The workup has been essentially negative for pneumonia/ARDS. The viral screen negative. Procalcitonin negative x 2. Repeat CT angiogram ruled out pulmonary embolism. There is continued diffuse groundglass opacities with air bronchograms bilaterally. Enlarged pretracheal lymph node with scattered s maller lymph nodes within the mediastinum. severe ARDS requiring intubation and mechanical ventilatory support on 05/09/2024. Status post bronchoscopy on 05/09/2024, results are essentially negative. The patient is currently on IV steroids. Blood gases were noted. Chest x-ray was noted. Cardiopulmonary arrest on 05/10/2024 requiring 2 rounds of CPR. Appeared pulseless ventricular tachycardia/torsades. Amiodarone is still running at 0.5 mg/min. Echocardiogram shows a preserved LV function with mild to moderate pulmonary hypertension. Paroxysmal atrial fibrillation SVT status post DC cardioversion with 120 J with gnosticist of normal sinus rhythm shock with severe hypotension secondary to above requiring pressor support, currently on norepinephrine running at 0.8 mcg/kg/min, the patient is also on vasopressin Leukocytosis secondary to above Febrile illness secondary to above, remains febrile Acute kidney injury secondary to above kidneys, creatinine improved compared to yesterday Severe pulmonary hypertension with dilated right ventricle. Cardiac catheterization from September 2023 revealed no evidence of obstructive coronary artery disease Troponin leak, likely type II ischemia Morbid obesity with a BMI of 48 kg/m Hyperlipidemia Hypothyroidism History of mild intermittent chronic bronchial asthma Lifelong non-smoker Suspect DIC, Plan: Keep the patient sedated with propofol and the patient is also on Nimbex for paralytics. Continue mechanical ventilation with no changes on ventilator settings. Continued on an amiodarone drip, and rebolus the patient with 150 mg of amiodarone and proceed with DC cardioversion, successful Continued on propofol for sedation Continued on Nimbex Continued on norepinephrine 0.8 mc /kg/min and vasopressin physiologic dose Continue IV Solu-Medrol 60 mg every 6 hours Continue bronchodilators and steroids Discontinued IV heparin for now. Check coagulation profile. Check DIC profile. Patient has an active bleed from a puncture site in the left IJ triple-lumen catheter insertion the patient will be given accordingly protamine by protocol. Cultures were sent yesterday. The patient continues to be febrile. Will start the patient on a combination of cefepime and vancomycin Give total doses of sodium bicarb 50 mEq each Treatment of hyperkalemia per nephrology. The patient was given Lokelma in combination with calcium gluconate and insulin D50 Will monitor the potassium level Prognosis remains very guarded Family was at the bedside. Case discussed with them at length. Carries a very poor prognosis. We will continue to follow, critical care evaluation that was done more than 30 minutes. Time with Patient: Greater than 30
[2024-05-14 07:37] LABS: ABG Base Excess 14.2 mmol/L; ABG Oxygen Saturation 84.4 % (94-97); ABG PH 7.32 (7.35-7.45); ABG TCO2 46 mmol/L (19-24)
[2024-05-14 07:41] LABS: ABG PCO2 83 mmHg (35-45)
[2024-05-14 07:42] LABS: ABG HCO3 43 mmol/L (21-25); ABG PO2 49 mmHg (83-108); Allen Test Performed? no
[2024-05-14 07:49] LABS: INR 1.3 (<1.2); Prothrombin Time 13.6 sec (10.0-12.5)
[2024-05-14] MEDS: PROTAMINE SULFATE 50 MG in SODIUM CHLORIDE 0.9% 50 ML IVPB STA (07:54)
[2024-05-14] MEDS: DEXTROSE 5% IN WATER 100 ML with AMIODARONE 150 MG IV ONE (07:54)
[2024-05-14] MEDS: VANCOMYCIN 2,000 MG in SODIUM CHLORIDE 0.9% 500 ML 500 ML IVPB SCH (08:13)
[2024-05-14] MEDS: CEFEPIME 2 GM in SODIUM CHLORIDE 0.9% 100 ML IVPB SCH (08:19)
[2024-05-14 08:57] LABS: ALT 117 U/L (4-49); AST 173 U/L (17-59); African American GFR (CKD) 28 (>60 ml/min/1.73 sqM); Alkaline Phosphatase 71 U/L (38-126); Blood Urea Nitrogen 95 mg/dL (9-20); Calcium 8.3 mg/dL (8.4-10.2); Chloride 104 mmol/L (98-107); Glucose 218 mg/dL (74-99); Non-African American GFR(CKD) 24 (>60 ml/min/1.73 sqM); Sodium 148 mmol/L (137-145); Total Bilirubin 0.8 mg/dL (0.2-1.3); Total Protein 4.1 g/dL (6.3-8.2)
[2024-05-14 09:03] LABS: Anion Gap 2 mmol/L
[2024-05-14 09:08] LABS: Potassium 6.6 mmol/L (3.5-5.1)
[2024-05-14 09:09] LABS: Carbon Dioxide 42 mmol/L (22-30)
[2024-05-14 10:03] VITALS: RESP 36
[2024-05-14 11:03] VITALS: TEMP 101.6
[2024-05-14 11:55] LABS: Glucose,Whole Blood 199 mg/dL (70-110)
--- NOTE | 2024-05-14 12:04 | CA ---
Transthoracic Echo Report Name: Mark Bob Age: 74 Gender: M : 1950 Exam Date: 05/14/2024 08:52 Exam Location: [facility] Ht (in): 69 Wt (lb): 266 Ordering Physician: Marika Deal Attending/Referring Phys: Machine Tracer Gwendolyn Schumacher RDCS Procedure CPT: Indications: LV function, Assess RV, r/o PFO bubble study Cardiac Hx: Technical Quality: Fair Contrast 1: Total Dose (mL): Contrast 2: Total Dose (mL): MEASUREMENTS (Male / Female) Normal Values 2D ECHO LV Diastolic Diameter PLAX 4.5 cm 4.2 - 5.9 / 3.9 - 5.3 cm LV Systolic Diameter PLAX 3.5 cm IVS Diastolic Thickness 1.5 cm 0.6 - 1.0 / 0.6 - 0.9 cm LVPW Diastolic Thickness 1.3 cm 0.6 - 1.0 / 0.6 - 0.9 cm LV Relative Wall Thickness 0.6 RV Internal Dim ED PLAX 2.8 cm LA Systolic Diameter LX 4.8 cm 3.0 - 4.0 / 2.7 - 3.8 cm LV Diastolic Volume MOD BP 65.4 cm??? 67 - 155 / 56 - 104 cm??? LV Systolic Volume MOD BP 37.1 cm??? 22 - 58 / 19 - 49 cm??? LV Ejection Fraction MOD BP 43.2 % >= 55 % LV Cardiac Index MOD BP 913.5 cm???/min???m??? LV Diastolic Volume MOD 4C 85.1 cm??? LV Systolic Volume MOD 4C 51.9 cm??? LV Ejection Fraction MOD 4C 39.0 % LV Cardiac Index MOD 4C 1072.5 cm???/min???m??? LV Diastolic Length 4C 7.6 cm LV Systolic Length 4C 6.6 cm LV Diastolic Volume MOD 2C 45.2 cm??? LV Systolic Volume MOD 2C 27.4 cm??? LV Ejection Fraction MOD 2C 39.3 % LV Cardiac Index MOD 2C 573.5 cm???/min???m??? LV Diastolic Length 2C 6.8 cm LV Systolic Length 2C 6.6 cm DOPPLER TR Peak Velocity 414.4 cm/s TR Peak Gradient 68.7 mmHg Right Ventricular Systolic Press 88.7 mmHg FINDINGS Left Ventricle Left ventricular ejection fraction is estimated at 50-55%. Moderately increased septal wall thickness. Tachycardic Right Ventricle Severe right ventricular dilatation. Severe pulmonary hypertension. Right Atrium Severe right atrial dilatation. Left Atrium Severe increased left atrial diameter. Mitral Valve Aortic Valve Tricuspid Valve Pulmonic Valve Pericardium No pericardial or pleural effusion. Aorta CONCLUSIONS LVEF 50 to 55% Moderate septal hypertrophy Tachycardic with irregular rhythm, makes assessment of wall motion abnormality difficult Severe RV dilatation with severe pulmonary hypertension with RVSP more than 70 mmHg Severe biatrial dilatation No pericardial effusion Previewed by: Dr Hemanth Mcmanus (Electronically Signed) Final Date: 14 May 2024 12:03
[2024-05-14 12:08] VITALS: BP 69/52; PULSE 130
--- NOTE | 2024-05-14 16:00 | P.PN ---
Subjective Progress Note Date: 05/14/24 Hospital Course: 74 years old male with past medical history of asthma, hyperlipidemia, prostate cancer status postradiation, GERD, hypothyroidism, who presented with gradually worsening shortness of breath. In the ER patient was hypoxic down to 85% on room air and was placed on 4 L nasal cannula with SpO2 improvement, his blood pressure was normotensive, heart rate elevated 90s low 100s. Lab work significant for very mild leukocytosis 11.1, normal hemoglobin and platelets. Chemistry profile showed initially elevated lactate at 2.1, normal electrolytes, normal creatinine and GFR. Troponin elevated 0.1 viral panel negative. EKG , sinus, QTc normal, RBBB pattern, no ST elevation. Of note, patient had heart cath on 10/03/2023 that showed no evidence of obstructive CAD, did show mild aor tic stenosis. Chest x-ray reviewed personally and showed bilateral patchy opacities. CTA chest showed no PE, did reveal bilateral groundglass opacities signs of pulmonary arterial hypertension, mediastinal lymphadenopathy up to 1.9, follow-up in 3 to 6 months suggested by radiology. 1.7 cm incidental gallstone. Patient admitted for acute hypoxic respiratory failure likely secondary to community-acquired pneumonia versus CHF exacerbation. On antibiotics and IV diuretics. Cardiology and pulmonology following. Echocardiogram showed LVEF 55 to 60%, concentric left ventricular hypertrophy, moderate pulmonary hypertension, moderate tricuspid regurgitation. Patient continued to worsen, started on BiPAP, currently in medical ICU. Patient intubated on 05/09. Underwent bronchoscopy which showed purulent secretions with bronchitis changes. Also in septic shock. Patient had cardiac arrest on 05/10, defibrillated ROSC achieved. Repeat echo showed EF 60%. Was on paralytics, continued ventilator support. Continued pressor support. Subjective: Patient seen and examined at bedside. Overnight patient went into A-fib RVR, unstable, cardioverted x 2. Remains on 2 pressors. Also having bleeding from right IJ. Has hyperkalemia. Pertinent positives and negatives as discussed above, a complete review of systems was performed and all other systems are negative. Vitals Signs Reviewed. General: Intubated sedated Derm: Warm, dry Head: Atraumatic, normocephalic, symmetric Eyes: EOMI, no lid lag, anicteric sclera Mouth: No lip lesion, mucus membranes moist Cardiovascular: S1S2 reg, no murmur Lungs: Bilateral rhonchi, intubated Abdominal: Soft, nontender to palpation, no guarding, no appreciable organomegaly Ext: No gross muscle atrophy, no edema, no contractures Neuro: Sedated Psych: Unable to assess Data Reviewed Today: Pertinent Labs: WBC 29.9, hemoglobin 11.4, potassium 6.2, creatinine 1.96, blood sugars range between 1 78-2 18, pH 7.32, pCO2 83, pO2 49 Imaging: Chest x-ray independently interpreted, shows bilateral interstitial opacities persistent Assessment and Plan: Patient is critically ill, needs close monitoring. Prognosis guarded. Active: Acute hypoxic respiratory failure ARDS Sepsis secondary to multifocal bilateral atypical pneumonia Cardiac arrest secondary to polymorphic VT Paroxysmal atrial fibrillation with RVR Septic shock secondary to above Hyperkalemia TILA NSTEMI, type II Suspected COPD exacerbation Acute HFpEF status post diuretics Type II NSTEMI -ICU note reviewed, continue amiodarone drip, continue vasopressors, IV Solu- Medrol 60 mg 6 hours, discontinued heparin drip, given further sodium bicarbonate, nephrology also following -Patient was made no code -Poor prognosis Chronic: Hypothyroidism Dyslipidemia History of prostate cancer s/p radiation Code status: no code Objective - Vital Signs Vital signs: Vital Signs Temp 101.6 F H 05/14/24 11:00 Pulse 130 H 05/14/24 12:00 Resp 36 H 05/14/24 12:00 BP 69/52 05/14/24 12:00 Pulse Ox 85 L 05/14/24 12:00 FiO2 100 05/14/24 12:00 Intake & Output 05/13/24 05/14/24 05/14/24 18:59 06:59 18:59 Intake Total 769.534 4632.343 2607.071 Output Total 785 945 195 Balance 596.241 7832.343 2412.071 Weight 119.1 kg 121 kg Intake: IV 36 1036 18 0.9 SALINE PRESSURE BAG 36 36 18 Sodium Chloride 0.9% 1, 1000 000 ml @ 999 mls/hr IV . Q1H1M [facility] Rx#:[id number] Intake, IV Titration 899.512 4570.343 2287.071 Amount Amiodarone 450 mg In 250 218.06 201.393 Dextrose 5% in Water 250 ml @ 0.5 MG/MIN 16.667 mls/hr IV .Q15H [facility] Rx#: [id number] Cefepime 2 gm In Sodium 100 Chloride 0.9% 100 ml @ 25 mls/hr IVPB Q12H [facility] Rx# :[id number] Cisatracurium 200 mg In 149.341 373.700 145.184 Sodium Chloride 0.9% 180 ml @ 2 MCG/KG/MIN 13.86 mls/hr IV .[id number] [facility] Rx #:[id number] Dextrose 5% in Water 100 100 ml @ 618 mls/hr IV .Q10M ONE with Amiodarone 150 mg Rx#:[id number] Diltiazem 125 mg In 11.5 Sodium Chloride 0.9% 100 ml @ Per Protocol IV .Q0M [facility] Rx#:[id number] Heparin Sod,Pork in 0.45% 242.5 194.5 NaCl 25,000 unit In 0.45 % NaCl 1 250ml.bag @ 8. 5034 UNITS/KG/HR 10 mls/ hr IV .Q24H [facility] Rx#: [id number] Norepinephrine 8 mg In 192.516 737.505 982.861 Sodium Chloride 0.9% 250 ml @ 0.03 MCG/KG/MIN 6. 705 mls/hr IV .Q24H [facility] Rx#:[id number] Protamine Sulfate 50 mg 50 In Sodium Chloride 0.9% 50 ml @ 330 mls/hr IVPB ONCE [facility] Rx#:[id number] Vancomycin 2,000 mg In 500 Sodium Chloride 0.9% 500 ml 500 ml @ 167 mls/hr IVPB Q24H [facility] Rx#: [id number] Vasopressin 60 unit In 0.918 52.02 Sodium Chloride 0.9% 150 ml @ 0.03 UNITS/MIN 4.59 mls/hr IV .Q24H [facility] Rx#: [id number] propofoL 1,000 mg In 76.923 283.16 155.613 Empty Bag 1 bag @ 15 MCG/ KG/MIN 10.395 mls/hr IV . Q9H38M [facility] Rx#:[id number] Tube Feeding 47 282 162 Other 0 30 140 Output: Urine 785 945 195 Other: Voiding Method Indwelling Catheter Indwelling Catheter Indwelling Catheter ABP, PAP, CO, CI - Last Documented Arterial Blood Pressure 55/43 - Labs CBC & Chem 7: 05/14/24 04:38 05/14/24 10:50 Labs: Abnormal Lab Results - Last 24 Hours (Table) 05/13/24 05/13/24 05/13/24 Range/Units 15:41 15:44 17:54 WBC (3.8-10.6) k/uL RBC (4.30-5.90) m/uL Hgb (13.0-17.5) gm/dL Hct (39.0-53.0) % Plt Count (150-450) k/uL PT (10.0-12.5) sec INR (<1.2) APTT (22.0-30.0) sec ABG pH (7.35-7.45) ABG pCO2 (35-45) mmHg ABG pO2 (83-108) mmHg ABG HCO3 (21-25) mmol/L ABG Total CO2 (19-24) mmol/L ABG O2 Saturation (94-97) % Hemoglobin (13.0-17.5) gm/dL Sodium (137-145) mmol/L Potassium 6.1 H* (3.5-5.1) mmol/L Carbon Dioxide (22-30) mmol/L BUN (9-20) mg/dL Creatinine (0.66-1.25) mg/dL Glucose (74-99) mg/dL POC Glucose (mg/dL) 122 H (70-110) mg/dL Calcium (8.4-10.2) mg/dL AST (17-59) U/L ALT (4-49) U/L Total Protein (6.3-8.2) g/dL Albumin (3.5-5.0) g/dL Urine Protein Trace H (Negative) Urine Glucose (UA) Trace H (Negative) Urine Blood Large H (Negative) Ur Leukocyte Esterase Trace H (Negative) Urine RBC >182 H (0-5) /hpf Urine WBC 16 H (0-5) /hpf Urine Mucus Rare H (None) /hpf Urine Yeast (Budding) Moderate H (None) /hpf 05/13/24 05/13/24 05/14/24 Range/Units 23:37 23:50 04:20 WBC (3.8-10.6) k/uL RBC (4.30-5.90) m/uL Hgb (13.0-17.5) gm/dL Hct (39.0-53.0) % Plt Count (150-450) k/uL PT (10.0-12.5) sec INR (<1.2) APTT (22.0-30.0) sec ABG pH 7.32 L (7.35-7.45) ABG pCO2 80 H* (35-45) mmHg ABG pO2 52 L* (83-108) mmHg ABG HCO3 41 H* (21-25) mmol/L ABG Total CO2 44 H (19-24) mmol/L ABG O2 Saturation 87.3 L (94-97) % Hemoglobin 12.2 L (13.0-17.5) gm/dL Sodium 146 H (137-145) mmol/L Potassium 6.4 H* (3.5-5.1) mmol/L Carbon Dioxide 43 H* (22-30) mmol/L BUN 87 H (9-20) mg/dL Creatinine 2.57 H (0.66-1.25) mg/dL Glucose 188 H (74-99) mg/dL POC Glucose (mg/dL) 183 H (70-110) mg/dL Calcium (8.4-10.2) mg/dL AST (17-59) U/L ALT (4-49) U/L Total Protein (6.3-8.2) g/dL Albumin (3.5-5.0) g/dL Urine Protein (Negative) Urine Glucose (UA) (Negative) Urine Blood (Negative) Ur Leukocyte Esterase (Negative) Urine RBC (0-5) /hpf Urine WBC (0-5) /hpf Urine Mucus (None) /hpf Urine Yeast (Budding) (None) /hpf 05/14/24 05/14/24 05/14/24 Range/Units 04:38 04:38 04:38 WBC 29.9 H (3.8-10.6) k/uL RBC 3.62 L (4.30-5.90) m/uL Hgb 11.4 L (13.0-17.5) gm/dL Hct 36.0 L (39.0-53.0) % Plt Count 123 L (150-450) k/uL PT (10.0-12.5) sec INR (<1.2) APTT 100.2 H* (22.0-30.0) sec ABG pH (7.35-7.45) ABG pCO2 (35-45) mmHg ABG pO2 (83-108) mmHg ABG HCO3 (21-25) mmol/L ABG Total CO2 (19-24) mmol/L ABG O2 Saturation (94-97) % Hemoglobin (13.0-17.5) gm/dL Sodium (137-145) mmol/L Potassium 6.2 H* (3.5-5.1) mmol/L Carbon Dioxide 38 H (22-30) mmol/L BUN 96 H (9-20) mg/dL Creatinine 1.96 H (0.66-1.25) mg/dL Glucose 178 H (74-99) mg/dL POC Glucose (mg/dL) (70-110) mg/dL Calcium 8.2 L (8.4-10.2) mg/dL AST (17-59) U/L ALT (4-49) U/L Total Protein (6.3-8.2) g/dL Albumin (3.5-5.0) g/dL Urine Protein (Negative) Urine Glucose (UA) (Negative) Urine Blood (Negative) Ur Leukocyte Esterase (Negative) Urine RBC (0-5) /hpf Urine WBC (0-5) /hpf Urine Mucus (None) /hpf Urine Yeast (Budding) (None) /hpf 05/14/24 05/14/24 05/14/24 Range/Units 06:53 07:30 07:30 WBC (3.8-10.6) k/uL RBC (4.30-5.90) m/uL Hgb (13.0-17.5) gm/dL Hct (39.0-53.0) % Plt Count (150-450) k/uL PT 13.6 H (10.0-12.5) sec INR 1.3 H (<1.2) APTT (22.0-30.0) sec ABG pH (7.35-7.45) ABG pCO2 (35-45) mmHg ABG pO2 (83-108) mmHg ABG HCO3 (21-25) mmol/L ABG Total CO2 (19-24) mmol/L ABG O2 Saturation (94-97) % Hemoglobin (13.0-17.5) gm/dL Sodium 148 H (137-145) mmol/L Potassium 6.6 H* (3.5-5.1) mmol/L Carbon Dioxide 42 H* (22-30) mmol/L BUN 95 H (9-20) mg/dL Creatinine 2.52 H (0.66-1.25) mg/dL Glucose 218 H (74-99) mg/dL POC Glucose (mg/dL) 198 H (70-110) mg/dL Calcium 8.3 L (8.4-10.2) mg/dL AST 173 H (17-59) U/L ALT 117 H (4-49) U/L Total Protein 4.1 L (6.3-8.2) g/dL Albumin 2.0 L (3.5-5.0) g/dL Urine Protein (Negative) Urine Glucose (UA) (Negative) Urine Blood (Negative) Ur Leukocyte Esterase (Negative) Urine RBC (0-5) /hpf Urine WBC (0-5) /hpf Urine Mucus (None) /hpf Urine Yeast (Budding) (None) /hpf 05/14/24 05/14/24 05/14/24 Range/Units 07:35 10:50 11:53 WBC (3.8-10.6) k/uL RBC (4.30-5.90) m/uL Hgb (13.0-17.5) gm/dL Hct (39.0-53.0) % Plt Count (150-450) k/uL PT (10.0-12.5) sec INR (<1.2) APTT (22.0-30.0) sec ABG pH 7.32 L (7.35-7.45) ABG pCO2 83 H* (35-45) mmHg ABG pO2 49 L* (83-108) mmHg ABG HCO3 43 H* (21-25) mmol/L ABG Total CO2 46 H (19-24) mmol/L ABG O2 Saturation 84.4 L (94-97) % Hemoglobin 10.5 L (13.0-17.5) gm/dL Sodium (137-145) mmol/L Potassium 6.2 H* (3.5-5.1) mmol/L Carbon Dioxide (22-30) mmol/L BUN (9-20) mg/dL Creatinine (0.66-1.25) mg/dL Glucose (74-99) mg/dL POC Glucose (mg/dL) 199 H (70-110) mg/dL Calcium (8.4-10.2) mg/dL AST (17-59) U/L ALT (4-49) U/L Total Protein (6.3-8.2) g/dL Albumin (3.5-5.0) g/dL Urine Protein (Negative) Urine Glucose (UA) (Negative) Urine Blood (Negative) Ur Leukocyte Esterase (Negative) Urine RBC (0-5) /hpf Urine WBC (0-5) /hpf Urine Mucus (None) /hpf Urine Yeast (Budding) (None) /hpf Microbiology - Last 24 Hours (Table) 05/13/24 05:21 Gram Stain - Preliminary Sputum Sputum Culture - Preliminary 05/12/24 13:09 Blood Culture - Preliminary Blood
--- NOTE | 2024-05-14 16:01 | P.DS ---
Providers Date of admission: 05/02/24 10:25 Expected date of discharge: 05/14/24 Attending physician: Fior Hernandez MD Consults: 05/02/24 10:24 Consult Physician Routine Consulting Provider: Ciara Fortune Consult Reason/Comments: hank Do you want consulting provider notified?: Already Contacted 05/02/24 10:26 Consult Physician Routine Consulting Provider: Dinesh Asher Consult Reason/Comments: bib, eval for chf Do you want consulting provider notified?: Yes 05/03/24 07:56 Consult Physician Routine Consulting Provider: Hemanth Mcmanus Consult Reason/Comments: abnormal echo Do you want consulting provider notified?: Yes 05/12/24 08:02 Consult Physician Routine Consulting Provider: Usman Sargent Consult Reason/Comments: TILA hyperK Do you want consulting provider notified?: Yes Primary care physician: Joann Llanes MD Hospital Course: Discharge Diagnosis: Acute hypoxic respiratory failure ARDS Sepsis secondary to multifocal bilateral atypical pneumonia Cardiac arrest secondary to polymorphic VT Paroxysmal atrial fibrillation with RVR Septic shock secondary to above Hyperkalemia TILA NSTEMI, type II Suspected COPD exacerbation Acute HFpEF status post diuretics Type II NSTEMI Hospital Course: 74 years old male with past medical history of asthma, hyperlipidemia, prostate cancer status postradiation, GERD, hypothyroidism, who presented with gradually worsening shortness of breath. In the ER patient was hypoxic down to 85% on room air and was placed on 4 L nasal cannula with SpO2 improvement, his blood pressure was normotensive, heart rate elevated 90s low 100s. Lab work significant for very mild leukocytosis 11.1, normal hemoglobin and platelets. Chemistry profile showed initially elevated lactate at 2.1, normal electrolytes, normal creatinine and GFR. Troponin elevated 0.1 viral panel negative. EKG , sinus, QTc normal, RBBB pattern, no ST elevation. Of note, patient had heart cath on 10/03/2023 that showed no evidence of obstructive CAD, did show mild aortic stenosis. Chest x-ray reviewed personally and showed bilateral patchy opacities. CTA chest showed no PE, did reveal bilateral groundglass opacities signs of pulmonary arterial hypertension, mediastinal lymphadenopathy up to 1.9, follow-up in 3 to 6 months suggested by radiology. 1.7 cm incidental gallstone. Patient admitted for acute hypoxic respiratory failure likely secondary to community-acquired pneumonia versus CHF exacerbation. On antibiotics and IV diuretics. Cardiology and pulmonology following. Echocardiogram showed LVEF 55 to 60%, concentric left ventricular hypertrophy, moderate pulmonary hypertension, moderate tricuspid regurgitation. Patient continued to worsen, started on BiPAP, currently in medical ICU. Patient intubated on 05/09. Un derwent bronchoscopy which showed purulent secretions with bronchitis changes. Also in septic shock. Patient had cardiac arrest on 05/10, defibrillated ROSC achieved. Repeat echo showed EF 60%. Was on paralytics, continued ventilator support. Continued pressor support. Patient eventually made no code. Patient 1233 on 05/14/2024. Plan - Discharge Summary Discharge Rx Participant: No New Discharge Prescriptions: No Action Atorvastatin Calcium 20 mg PO HS Aspirin [Adult Low Dose Aspirin EC] 81 mg PO HS Amoxic-Pot Clav 875-125Mg [Augmentin 875-125] 1 tab PO Q12HR Albuterol Inhaler [Ventolin Hfa Inhaler] 2 puff INHALATION RT-Q4H PRN PRN Reason: Shortness Of Breath Levothyroxine Sodium [Synthroid] 50 mcg PO DAILY Discharge Medication List Aspirin [Adult Low Dose Aspirin EC] 81 mg PO HS 02/25/22 [History] Atorvastatin Calcium 20 mg PO HS 02/25/22 [History] Levothyroxine Sodium [Synthroid] 50 mcg PO DAILY 02/25/22 [History] Albuterol Inhaler [Ventolin Hfa Inhaler] 2 puff INHALATION RT-Q4H PRN 05/02/24 [History] Amoxic-Pot Clav 875-125Mg [Augmentin 875-125] 1 tab PO Q12HR 05/02/24 [History] Follow up Appointment(s)/Referral(s): Wade Lundy DO [Doctor of Osteopathic Medicine] - 05/20/24 9:00 am Joann Llanes MD [Primary Care Provider] - 1-2 days
[2024-05-14] MEDS ORDERED: CEFEPIME 1 GM in SODIUM CHLORIDE 0.9% 50 ML IVPB SCH (20:00)
--- NOTE | 2024-05-14 20:53 | P.PN ---
Subjective Patient is seen for follow-up for acute kidney injury and hyperkalemia. He remains on the vent. Overall condition has deteriorated significantly since yesterday. Patient is significantly hypotensive requiring max dose of pressors and systolic blood pressures in the 50s. He has bleeding from multiple sites. Potassium remains elevated between 6.2-6.6. Urine output has dropped significantly. Family is present at bedside and I discussed with the son that patient is not a candidate for renal replacement therapy. They are considering comfort care measures if he continues to decline. Objective - Vital Signs Vital signs: Vital Signs Temp 101.6 F H 05/14/24 11:00 Pulse 130 H 05/14/24 12:00 Resp 36 H 05/14/24 12:00 BP 69/52 05/14/24 12:00 Pulse Ox 85 L 05/14/24 12:00 FiO2 100 05/14/24 12:00 Intake & Output 05/14/24 05/14/24 05/15/24 06:59 18:59 06:59 Intake Total 3167.343 2607.071 Output Total 945 195 Balance 2222.343 2412.071 Weight 121 kg Intake: IV 1036 18 0.9 SALINE PRESSURE BAG 36 18 Sodium Chloride 0.9% 1, 1000 000 ml @ 999 mls/hr IV . Q1H1M [facility] Rx#:[id number] Intake, IV Titration 8186.294 4553.071 Amount Amiodarone 450 mg In 218.06 201.393 Dextrose 5% in Water 250 ml @ 0.5 MG/MIN 16.667 mls/hr IV .Q15H [facility] Rx#: [id number] Cefepime 2 gm In Sodium 100 Chloride 0.9% 100 ml @ 25 mls/hr IVPB Q12H [facility] Rx# :[id number] Cisatracurium 200 mg In 373.700 145.184 Sodium Chloride 0.9% 180 ml @ 2 MCG/KG/MIN 13.86 mls/hr IV .[id number] [facility] Rx #:[id number] Dextrose 5% in Water 100 100 ml @ 618 mls/hr IV .Q10M [facility] with Amiodarone 150 mg Rx#:[id number] Diltiazem 125 mg In 11.5 Sodium Chloride 0.9% 100 ml @ Per Protocol IV .Q0M [facility] Rx#:[id number] Heparin Sod,Pork in 0.45% 194.5 NaCl 25,000 unit In 0.45 % NaCl 1 250ml.bag @ 8. 5034 UNITS/KG/HR 10 mls/ hr IV .Q24H [facility] Rx#: [id number] Norepinephrine 8 mg In 737.505 982.861 Sodium Chloride 0.9% 250 ml @ 0.03 MCG/KG/MIN 6. 705 mls/hr IV .Q24H [facility] Rx#:[id number] Protamine Sulfate 50 mg 50 In Sodium Chloride 0.9% 50 ml @ 330 mls/hr IVPB ONCE [facility] Rx#:[id number] Vancomycin 2,000 mg In 500 Sodium Chloride 0.9% 500 ml 500 ml @ 167 mls/hr IVPB Q24H [facility] Rx#: [id number] Vasopressin 60 unit In 0.918 52.02 Sodium Chloride 0.9% 150 ml @ 0.03 UNITS/MIN 4.59 mls/hr IV .Q24H [facility] Rx#: [id number] propofoL 1,000 mg In 283.16 155.613 Empty Bag 1 bag @ 15 MCG/ KG/MIN 10.395 mls/hr IV . Q9H38M [facility] Rx#:[id number] Tube Feeding 282 162 Other 30 140 Output: Urine 945 195 Other: Voiding Method Indwelling Catheter Indwelling Catheter ABP, PAP, CO, CI - Last Documented Arterial Blood Pressure 55/43 - Exam Patient is on the vent. Examination of the heart S1 and S2 Examination of the lungs bilateral breath sounds are heard Abdomen is soft nontender Examination of lower extremities shows 1+ edema - Labs CBC & Chem 7: 05/14/24 04:38 05/14/24 10:50 Labs: Abnormal Lab Results - Last 24 Hours (Table) 05/13/24 05/13/24 05/14/24 Range/Units 23:37 23:50 04:20 WBC (3.8-10.6) k/uL RBC (4.30-5.90) m/uL Hgb (13.0-17.5) gm/dL Hct (39.0-53.0) % Plt Count (150-450) k/uL PT (10.0-12.5) sec INR (<1.2) APTT (22.0-30.0) sec ABG pH 7.32 L (7.35-7.45) ABG pCO2 80 H* (35-45) mmHg ABG pO2 52 L* (83-108) mmHg ABG HCO3 41 H* (21-25) mmol/L ABG Total CO2 44 H (19-24) mmol/L ABG O2 Saturation 87.3 L (94-97) % Hemoglobin 12.2 L (13.0-17.5) gm/dL Sodium 146 H (137-145) mmol/L Potassium 6.4 H* (3.5-5.1) mmol/L Carbon Dioxide 43 H* (22-30) mmol/L BUN 87 H (9-20) mg/dL Creatinine 2.57 H (0.66-1.25) mg/dL Glucose 188 H (74-99) mg/dL POC Glucose (mg/dL) 183 H (70-110) mg/dL Calcium (8.4-10.2) mg/dL AST (17-59) U/L ALT (4-49) U/L Total Protein (6.3-8.2) g/dL Albumin (3.5-5.0) g/dL 05/14/24 05/14/24 05/14/24 Range/Units 04:38 04:38 04:38 WBC 29.9 H (3.8-10.6) k/uL RBC 3.62 L (4.30-5.90) m/uL Hgb 11.4 L (13.0-17.5) gm/dL Hct 36.0 L (39.0-53.0) % Plt Count 123 L (150-450) k/uL PT (10.0-12.5) sec INR (<1.2) APTT 100.2 H* (22.0-30.0) sec ABG pH (7.35-7.45) ABG pCO2 (35-45) mmHg ABG pO2 (83-108) mmHg ABG HCO3 (21-25) mmol/L ABG Total CO2 (19-24) mmol/L ABG O2 Saturation (94-97) % Hemoglobin (13.0-17.5) gm/dL Sodium (137-145) mmol/L Potassium 6.2 H* (3.5-5.1) mmol/L Carbon Dioxide 38 H (22-30) mmol/L BUN 96 H (9-20) mg/dL Creatinine 1.96 H (0.66-1.25) mg/dL Glucose 178 H (74-99) mg/dL POC Glucose (mg/dL) (70-110) mg/dL Calcium 8.2 L (8.4-10.2) mg/dL AST (17-59) U/L ALT (4-49) U/L Total Protein (6.3-8.2) g/dL Albumin (3.5-5.0) g/dL 05/14/24 05/14/24 05/14/24 Range/Units 06:53 07:30 07:30 WBC (3.8-10.6) k/uL RBC (4.30-5.90) m/uL Hgb (13.0-17.5) gm/dL Hct (39.0-53.0) % Plt Count (150-450) k/uL PT 13.6 H (10.0-12.5) sec INR 1.3 H (<1.2) APTT (22.0-30.0) sec ABG pH (7.35-7.45) ABG pCO2 (35-45) mmHg ABG pO2 (83-108) mmHg ABG HCO3 (21-25) mmol/L ABG Total CO2 (19-24) mmol/L ABG O2 Saturation (94-97) % Hemoglobin (13.0-17.5) gm/dL Sodium 148 H (137-145) mmol/L Potassium 6.6 H* (3.5-5.1) mmol/L Carbon Dioxide 42 H* (22-30) mmol/L BUN 95 H (9-20) mg/dL Creatinine 2.52 H (0.66-1.25) mg/dL Glucose 218 H (74-99) mg/dL POC Glucose (mg/dL) 198 H (70-110) mg/dL Calcium 8.3 L (8.4-10.2) mg/dL AST 173 H (17-59) U/L ALT 117 H (4-49) U/L Total Protein 4.1 L (6.3-8.2) g/dL Albumin 2.0 L (3.5-5.0) g/dL 05/14/24 05/14/24 05/14/24 Range/Units 07:35 10:50 11:53 WBC (3.8-10.6) k/uL RBC (4.30-5.90) m/uL Hgb (13.0-17.5) gm/dL Hct (39.0-53.0) % Plt Count (150-450) k/uL PT (10.0-12.5) sec INR (<1.2) APTT (22.0-30.0) sec ABG pH 7.32 L (7.35-7.45) ABG pCO2 83 H* (35-45) mmHg ABG pO2 49 L* (83-108) mmHg ABG HCO3 43 H* (21-25) mmol/L ABG Total CO2 46 H (19-24) mmol/L ABG O2 Saturation 84.4 L (94-97) % Hemoglobin 10.5 L (13.0-17.5) gm/dL Sodium (137-145) mmol/L Potassium 6.2 H* (3.5-5.1) mmol/L Carbon Dioxide (22-30) mmol/L BUN (9-20) mg/dL Creatinine (0.66-1.25) mg/dL Glucose (74-99) mg/dL POC Glucose (mg/dL) 199 H (70-110) mg/dL Calcium (8.4-10.2) mg/dL AST (17-59) U/L ALT (4-49) U/L Total Protein (6.3-8.2) g/dL Albumin (3.5-5.0) g/dL Microbiology - Last 24 Hours (Table) 05/13/24 05:21 Gram Stain - Preliminary Sputum Sputum Culture - Preliminary 05/12/24 13:09 Blood Culture - Preliminary Blood Assessment and Plan Assessment: 1. Acute kidney injury secondary to hemodynamic ATN secondary to A-fib and cardiac arrest. Received IV contrast on May 08, 2024 for a CTA. Baseline creatinine near 1 . Nonoliguric. No hydronephrosis noted on kidney ultrasound. Renal function worsened today with severe hypotension. No plans for renal replacement therapies due to significant hemodynamic instability. 2. V. tach/ arrest requiring cardioversion. 3. A-fib with RVR maintained on amiodarone drip. 4. Hyperkalemia secondary to acute kidney injury. Better with medical management. 5. Acute hypoxic respiratory failure secondary to ARDS. 6. Septic shock maintained on Levophed. 7. Moderate tricuspid regurgitation and pulmonary hypertension. Plan: No plans for renal replacement therapy. Agree with consideration for comfort care measures.
== END 2024-05-14 15:39 | disposition expired | DRG 870 ==
LOC: EC 08:09 → 4SSUR 10:25 → 3SCARD 10:43 → 2SICU 05-03 09:43
PROVIDERS: ADMIT Student in an Organized Health Care Education/Training Program; ATTEND Student in an Organized Health Care Education/Training Program
PROC: 5A09457 Assistance with Respiratory Ventilation, 24-96 Consecutive Hours, Continuous Positive Airway Pressure (ICD-10-PCS; 2024-05-02)
PROC: 03HY32Z Insertion of Monitoring Device into Upper Artery, Percutaneous Approach (ICD-10-PCS; 2024-05-09)
PROC: 02HV33Z Insertion of Infusion Device into Superior Vena Cava, Percutaneous Approach (ICD-10-PCS; 2024-05-09)
PROC: 4A133B1 Monitoring of Arterial Pressure, Peripheral, Percutaneous Approach (ICD-10-PCS; 2024-05-09)
PROC: 4A133J1 Monitoring of Arterial Pulse, Peripheral, Percutaneous Approach (ICD-10-PCS; 2024-05-09)
PROC: 5A1955Z Respiratory Ventilation, Greater than 96 Consecutive Hours (ICD-10-PCS; 2024-05-09)
PROC: 0BH17EZ Insertion of Endotracheal Airway into Trachea, Via Natural or Artificial Opening (ICD-10-PCS; 2024-05-09)
PROC: 0B9D8ZX Drainage of Right Middle Lung Lobe, Via Natural or Artificial Opening Endoscopic, Diagnostic (ICD-10-PCS; principal; 2024-05-09 07:30)
PROC: 3E033XZ Introduction of Vasopressor into Peripheral Vein, Percutaneous Approach (ICD-10-PCS; 2024-05-10)
PROC: 3E033RZ Introduction of Antiarrhythmic into Peripheral Vein, Percutaneous Approach (ICD-10-PCS; 2024-05-10)
PROC: 5A12012 Performance of Cardiac Output, Single, Manual (ICD-10-PCS; 2024-05-10)
PROC: 5A2204Z Restoration of Cardiac Rhythm, Single (ICD-10-PCS; 2024-05-14)
DX: A41.9 Sepsis, unspecified organism (principal); I21.A1 Myocardial infarction type 2; I50.33 Acute on chronic diastolic (congestive) heart failure; J12.9 Viral pneumonia, unspecified; R65.21 Severe sepsis with septic shock; J80 Acute respiratory distress syndrome; N17.0 Acute kidney failure with tubular necrosis; E87.20 Acidosis, unspecified; J44.0 Chronic obstructive pulmonary disease with (acute) lower respiratory infection; J44.1 Chronic obstructive pulmonary disease with (acute) exacerbation; Z68.42 Body mass index [BMI] 45.0-49.9, adult; I47.29 Other ventricular tachycardia; I47.21 Torsades de pointes; I47.10 Supraventricular tachycardia, unspecified; Z66 Do not resuscitate; I46.2 Cardiac arrest due to underlying cardiac condition; I49.01 Ventricular fibrillation; E03.9 Hypothyroidism, unspecified; E66.01 Morbid (severe) obesity due to excess calories; I11.0 Hypertensive heart disease with heart failure; I27.21 Secondary pulmonary arterial hypertension; E87.5 Hyperkalemia; I48.0 Paroxysmal atrial fibrillation; I08.2 Rheumatic disorders of both aortic and tricuspid valves; J45.20 Mild intermittent asthma, uncomplicated; I95.89 Other hypotension; R73.9 Hyperglycemia, unspecified; E78.5 Hyperlipidemia, unspecified; I45.10 Unspecified right bundle-branch block; T38.0X5A Adverse effect of glucocorticoids and synthetic analogues, initial encounter; Z79.82 Long term (current) use of aspirin; Z92.3 Personal history of irradiation; Z86.16 Personal history of COVID-19; Z79.890 Hormone replacement therapy; Z79.899 Other long term (current) drug therapy; Z85.46 Personal history of malignant neoplasm of prostate; Z82.49 Family history of ischemic heart disease and other diseases of the circulatory system
CPT/HCPCS: 31624; 36415; 36600; 71045; 71046; 71275; 74018; 76770; 80048; 80053; 80061; 81001; 82805; 83036; 83605; 83735; 83880; 84100; 84132; 84145; 84443; 84484; 85025; 85027; 85379; 85384; 85610; 85652; 85730; 86003; 86038; 86140; 86255; 86698; 86738; 87040; 87070; 87086; 87102; 87116; 87205; 87206; 87449; 87496; 87498; 87502; 87529; 87634; 87635; 87636; 87798; 88108; 88305; 89050; 92950; 93005; 93306; 93308; 93970; 94002; 94003; 94640; 94660; 96365; 96375; 99291